=== PATIENT | female | born 1955 | race Caucasian/White ===

== ENCOUNTER 2020-02-26 11:54 | Emergency (ER) | payer OTHER, SELFPAY ==
--- NOTE | ~2020-02-26 | CT_ITS ---
EXAMINATION: CT abdomen pelvis wo con DATE: 02/26/2020 12:24 INDICATION: Abdominal and left-sided back pain. TECHNIQUE: Computed tomography (CT) of the abdomen and pelvis was performed without intravenous contr ast. Automated exposure control and iterative reconstruction technique were employed. The dose-lengt h product was 1048.29 mGy-cm. COMPARISON: 08/06/2016 FINDINGS: Negligible atelectasis in the dependent right lower lobe. Heart size is normal. Atherosclerotic coron tanvi artery calcifications. No pericardial or pleural effusion. Chronic dehiscence of the visualized i nferior sternum with small fat-containing ventral hernia extending through the dehiscence and contigu ous upper midline abdominal wall. Liver, gallbladder, spleen, bilateral adrenal glands and bilateral kidneys are normal. The fatty atrophy at the uncinate process of the pancreas. Fusiform infrarenal ab dominal aortic aneurysm has decreased from 6.3 x 5.9 cm to currently measuring 5.4 x 4.7 cm correspon ding maximal transaxial dimensions post interval aorta endoluminal stent grafting. There are also laverne nts at the origins of the bilateral renal arteries. There is calcified atherosclerosis of the aorta a nd many of the other arteries. Normal appendix. There is mild colonic diverticulosis with a sigmoid p redominance. There is no adjacent inflammatory change to suggest diverticulitis. Small bowel is norm al. Bladder is normal. The uterus is not identified and has likely been surgically resected. Couple h eterotopic ossicles in the deep pelvis, likely sequela of fat necrosis. No free intraperitoneal gas o r fluid. No pathologically enlarged abdominal or pelvic lymphadenopathy. Moderate polyarticular osteo arthritis involving the lumbar facet, bilateral sacroiliac and bilateral hip joints. IMPRESSION: 1. No acute intra-abdominal/pelvic process. 2. Interval decrease in size of a now 5.4 x 4.7 cm infrarenal abdominal aortic aneurysm post interval aortobiiliac endoluminal stent grafting with additional stents at the origins of the bilateral renal arteries. 3. Fat-containing ventral hernia extending through an inferior sternal dehiscence and contiguous uppe r abdominal midline ventral hernia. 4. Mild diverticulosis. Reviewed, dictated and finalized at location A. IMPRESSION: 1. No acute intra-abdominal/pelvic process. 2. Interval decrease in size of a now 5.4 x 4.7 cm infrarenal abdominal aortic aneurysm post interval aortobiiliac endoluminal stent grafting with additional stents at the origins of the bilateral renal arteries. 3. Fat-containing ventral hernia extending through an inferior sternal dehiscen ce and contiguous upper abdominal midline ventral hernia. 4. Mild diverticulosis.
--- NOTE | ~2020-02-26 | XR_ITS ---
EXAMINATION: XR abdomen/kub 1V EXAM DATE: 02/26/2020 12:32 INDICATION: Abdominal pain. TECHNIQUE: Frontal projection of the upper abdomen, frontal projection lower abdomen/pelvis for inter pretation. There is no prior study for comparison. FINDINGS: There is expected amount of colonic stool and gas. No small bowel dilation, nonobstructiv e bowel gas pattern. There are no suspicious calcifications identified. There is no organomegaly suspected. There are bony degenerative changes. Abdominal aortoiliac endograft. Lung bases unremark able. IMPRESSION: Unremarkable abdomen x-ray exam. Reviewed, dictated and finalized at location A.
[2020-02-26 12:09] VITALS: BP 137/85; PULSE 89; RESP 16; TEMP 36.4; O2SAT 100
--- NOTE | 2020-02-26 12:16 | ED.ABDPAIN ---
HPI - Abdominal Pain General Chief Complaint: Abdominal Pain <Dony Saleh PA-C - Last Filed: 02/26/20 13:21> Stated Complaint: blood in urine, back pain, abd pain <Dony Saleh PA-C - Last Filed: 02/26/20 13:21> Time Seen by Provider: 02/26/20 12:01 <Dony Saleh PA-C - Last Filed: 02/26/20 13:21> Source: patient <Dony Saleh PA-C - Last Filed: 02/26/20 13:21> Mode of arrival: ambulatory <Dony Saleh PA-C - Last Filed: 02/26/20 13:21> Limitations: no limitations <Dony Saleh PA-C - Last Filed: 02/26/20 13:21> History of Present Illness HPI narrative: Patient is a 64-year-old female who presents with right-sided abdominal pain radiating into the abdomen with some associated nausea for the last day patient denies injury or trauma or similar occurrence patient has not taken anything for her symptoms and on arrival to emergency department is in the room in no distress <Dony Saleh PA-C - Last Filed: 02/26/20 13:21> Related Data Home Medications: Home Medications Medication Instructions Recorded Confirmed Htn Med 08/04/19 Unk Cholesterol 08/04/19 Unk Diabetes Injection 08/04/19 glipizide 08/04/19 carvedilol 02/26/20 clopidogrel 02/26/20 furosemide 02/26/20 losartan 02/26/20 rosuvastatin mg 02/26/20 sertraline mg 02/26/20 <Dony Saleh PA-C - Last Filed: 02/26/20 13:21> Allergies/Adverse Reactions: Allergies Allergy/AdvReac Type Severity Reaction Status Date / Time No Known Allergies Allergy Verified 02/26/20 12:12 <Dony Saleh PA-C - Last Filed: 02/26/20 13:21> Review of Systems Review of Systems: All systems reviewed & are unremarkable except as noted in HPI and below <Dony Saleh PA-C - Last Filed: 02/26/20 13:21> PMFSH Past Medical History Medical History: Medical History CAD (coronary artery disease) HLD (hyperlipidemia) HTN (hypertension) IDDM (insulin dependent diabetes mellitus) Neuropathy Osteoarthritis of right knee <Dony Saleh PA-C - Last Filed: 02/26/20 13:21> Surgical History Surgical History: Surgical History H/O bilateral cataract extraction H/O heart artery stent H/O: hysterectomy History of abdominal aortic aneurysm (AAA) repair History of cardiac catheterization History of open heart surgery Hx of CABG <Dony Saleh PA-C - Last Filed: 02/26/20 13:21> Social History Social History: Social History Smoking status: Current every day smoker Tobacco type: cigarettes Alcohol intake: never Gender identity (if verbalized by the patient): Female <Dony Saleh PA-C - Last Filed: 02/26/20 13:21> Exam Narrative: Exam Narrative: GENERAL: Well-appearing, well-nourished, and in no acute distress. HEAD: Normocephalic, atraumatic. EYES: PERRLA and EOMI. ENT: Nares clear, no rhinorrhea or epistaxis. Mucous membranes moist. Oropharynx without tonsillar hypertrophy exudate or other lesions. NECK: Supple. No adenopathy or masses. CHEST: Clear to auscultation. No respiratory distress. No wheezes rales or rhonchi HEART: Regular rate and rhythm. No murmur heard. Normal peripheral pulses. ABDOMEN: Soft, nontender, nondistended EXTREMITIES: Normal range of motion. No edema. SKIN: Warm, dry, no rash. NEURO: No focal deficits. Alert and oriented x3. PSYCH: Normal mood and affect. <Dony Saleh PA-C - Last Filed: 02/26/20 13:21> Course Course Emergency Course: Patient in the room at this time in no distress will be given fluids antacids and Tylenol and sent over for CAT scan <Dony Saleh PA-C - Last Filed: 02/26/20 13:21> Reevaluation(s) Reevaluation #1: Patient in the room aware of case findings treatment plan and diagnosis agreein
--- NOTE | 2020-02-26 12:25 | PC.NURSE ---
could not draw blood at this time, pt is in ct and xray.
[2020-02-26 12:27] LABS: Add Urine Microscopic? YES; Appearance Urine Cloudy (Clear); Bilirubin Urine Negative (Negative); Blood Urine 3+ (Negative); Color Urine Red (Yellow); Glucose Urine UA 3+ mg/dL (Negative); Ketones Urine Negative (Negative); Leukocyte Esterase Ur 3+ LEU/UL (Negative); Nitrate Urine Positive (Negative); Protein Urine 2+ mg/dL (Negative); RBC Urine >75 /hpf (0-2); Specific Grav Ur 1.022 (1.001-1.035); Squamous Epithelial Cell Urine Many /hpf (Few); Urobilinogen Urine Negative mg/dL (<2.0); WBC Urine >75 /hpf
[2020-02-26 12:45] LABS: Basophils Percent Auto 0.3 % (0.2-1.2); Eosinophils Absolute Auto 0.1 K/mm3 (0-0.3); Eosinophils Percent Auto 0.8 % (0-4.4); Hematocrit 44.7 % (37.0-47.0); Hemoglobin 14.2 g/dL (12.0-15.0); Immature Granulocyte Absolute 0.03 K/mm3 (0.00-0.031); Immature Granulocyte Percent A 0.3 % (0-0.5); Lymphocytes Absolute Auto 1.06 K/mm3 (0.9-3.2); Lymphocytes Percent Auto 11.5 % (18.3-44.2); Mean Corpuscular HGB Conc 31.8 g/dl (32-36); Mean Corpuscular Hemoglobin 29.2 pg (26-34); Mean Platelet Volume 10.2 fl (7.4-10.4); Monocytes Absolute Auto 0.4 K/mm3 (0.1-0.6); Monocytes Percent Auto 4.7 % (2.6-8.5); Neutrophils Absolute Auto 7.6 K/mm3 (1.3-6.7); Neutrophils Percent Auto 82.4 % (45.5-73.1); Platelet Count Result 166 k/mm3 (150-375); Red Blood Count 4.86 M/mm3 (4.2-5.4); Red Cell Distribution Width 13.4 % (11.5-14.5); White Blood Count 9.2 K/mm3 (4.5-10.0)
--- NOTE | 2020-02-26 12:50 | PC.NURSE ---
PT REFUSING IV ACCESS AND IV MEDS AT THIS TIME. STATES SHE DOESN'T FEEL BAD AND WONDERS IF SHE COULD GET THE MEDICATIONS BY MOUTH.
[2020-02-26 12:59] LABS: Alanine Aminotransferase 11 U/L (4-35); Albumin Level 4.4 g/dL (3.5-5.1); Alkaline Phosphatase 115 U/L (38-126); Aspartate Amino Transferase 18 U/L (14-36); Bilirubin,Total 0.6 mg/dL (0.2-1.3); Blood Urea Nitrogen 14 mg/dL (7-17); Calcium 8.7 mg/dL (8.4-10.2); Carbon Dioxide 32 mmol/L (22-30); Chloride 97 mmol/L (98-107); Estimated CRCL calculation 77 ml/min; Estimated Glomerular Filt Rate > 60; Glucose 260 mg/dL (65-105); Lipase 25 U/L (23-300); Potassium 2.7 mmol/L (3.4-5.0); Sodium 138 mmol/L (137-145)
[2020-02-26 13:50] VITALS: BP 150/83; PULSE 70; RESP 16; O2SAT 96
== END 2020-02-26 13:50 | disposition home or self-care (01) ==
PROVIDERS: Emergency Medicine Emergency Medical Services; Emergency Provider General Practice; PCP Emergency Medicine
DX: N39.0 Urinary tract infection, site not specified (principal); E87.6 Hypokalemia; I25.10 Atherosclerotic heart disease of native coronary artery without angina pectoris; E78.5 Hyperlipidemia, unspecified; I10 Essential (primary) hypertension; M17.11 Unilateral primary osteoarthritis, right knee; E11.40 Type 2 diabetes mellitus with diabetic neuropathy, unspecified; Z98.42 Cataract extraction status, left eye; Z98.41 Cataract extraction status, right eye; Z95.5 Presence of coronary angioplasty implant and graft; Z95.1 Presence of aortocoronary bypass graft; F17.210 Nicotine dependence, cigarettes, uncomplicated; K57.90 Diverticulosis of intestine, part unspecified, without perforation or abscess without bleeding; K43.9 Ventral hernia without obstruction or gangrene; I71.4 Abdominal aortic aneurysm, without rupture; Z79.84 Long term (current) use of oral hypoglycemic drugs
CPT/HCPCS: 36415; 74018; 74176; 80053; 81001; 83690; 85025; 87077; 87086; 87088; 87186; 99284

== ENCOUNTER 2020-07-11 12:11 | Outpatient (CLI) | payer OTHER, SELFPAY ==
--- NOTE | ~2020-07-11 | XR_ITS ---
EXAMINATION: XR lumbar spine 2-3V EXAM DATE: 07/11/2020 12:39 INDICATION: Low back pain,pelvic/hip pain. Fall 2 weeks ago. TECHNIQUE: Lumber spine frontal, lateral, lateral L5-S1 projections for interpretation. There is no prior study for comparison. FINDINGS: There is 3 mm anterolisthesis L4 on L5. Mild to moderate loss of the L5-S1 disc height. Th e vertebral body and disc heights are otherwise well maintained. There is moderate lower lumbar, mild upper lumbar facet arthropathy. There are no acute fractures identified. Abdominal aortic biiliac en dograft and bilateral renal arterial stents. Sacrum, sacroiliac joints, sacral arcuate lines are inta ct. IMPRESSION: 1. No acute lumbar findings. 2. Mild to moderate spondylosis. Reviewed, dictated and finalized at location A. NEL LIP WETTER
--- NOTE | ~2020-07-11 | XR_ITS ---
EXAMINATION: XR hip BI 2V w AP pelvis, XR sacrum coccyx min 2V EXAM DATE: 07/11/2020 12:39 INDICATION: Low back pain, pelvic/hip pain. History of fall 2 weeks ago. Initial encounter. TECHNIQUE: Each hip imaged independently (separate right and also left hip) crosstable lateral and ' frog-leg' and frontal projections for interpretation. Frontal projection pelvis. Frontal, pelvic in let, lateral projections of the sacrum and coccyx. FINDINGS: No radiographic evidence of hip avascular necrosis. Sacrum, sacroiliac joints, sacral arc uate lines are intact. There are no acute fractures identified. Aortoiliac endograft. There is mode rate symmetric bilateral hip primary osteoarthritis. Calcifications in the pelvis are believed to be phleboliths. IMPRESSION: 1. No acute pelvic, sacral findings. 2. Moderate hip osteoarthritis. Reviewed, dictated and finalized at location A. PLANNING TEACHER IMPRESSION: 1. No acute pelvic, sacral findings. 2. Moderate hip osteoarthritis.
== END 2020-07-11 12:12 | disposition home or self-care (01) ==
LOC: ANHIMG 12:13
PROVIDERS: PCP Emergency Medicine; Visit Provider Emergency Medicine
DX: M16.0 Bilateral primary osteoarthritis of hip (principal); M47.816 Spondylosis without myelopathy or radiculopathy, lumbar region
CPT/HCPCS: 72100; 72220; 73521

== ENCOUNTER 2020-07-13 12:44 | Emergency (ER) | payer OTHER, SELFPAY ==
--- NOTE | ~2020-07-13 | CT_ITS ---
EXAMINATION: CT abdomen pelvis w con DATE: 07/13/2020 17:21 INDICATION: Left upper quadrant abdominal pain. TECHNIQUE: Computed tomography (CT) of the abdomen and pelvis was performed with 100 mL Omnipaque-350 intravenous contrast. Automated exposure control and iterative reconstruction technique were employe d. The dose-length product was 1206.19 mGy-cm. COMPARISON: 02/26/2020 FINDINGS: Mild emphysema and unchanged mild atelectasis/scarring in the right lower lobe. Heart size is normal. Atherosclerotic coronary artery disease with change of prior median sternotomy and coronary artery b ypass grafting. No pericardial or pleural effusion. Chronic dehiscence of the inferior sternum with s mall fat-containing ventral hernia extending to the caudal margin of the inferior sternal dehiscence and midline upper abdominal wall. Liver, gallbladder, spleen and bilateral adrenal glands are normal. There is fatty atrophy of the head of the pancreas. Scattered mild cortical scarring at the kidneys most prominent at the lower pole of the left kidney. Aortobiiliac endoluminal stent spanning a fusifo rm infrarenal abdominal aortic aneurysm which measures up to 4.7 x 4.9 cm which is decreased in size since the prior study. There are associated stents at the origin of the bilateral renal arteries. The re is mild colonic diverticulosis with a sigmoid predominance. There is no adjacent inflammatory jeane nge to suggest diverticulitis. Small bowel and appendix are normal. Bladder is normal. The uterus is not identified and has likely been surgically resected. Couple chronic small heterotopic ossicles in the deep pelvis likely sequela of fat necrosis. No free intraperitoneal gas or fluid. No pathological ly enlarged abdominal or pelvic lymphadenopathy. Mild lumbar and moderate lower thoracic spondylosis. Mild to moderate polyarticular osteoarthritis involving the lumbar facet and bilateral sacroiliac an d hip joints. IMPRESSION: 1. No acute intra-abdominal/pelvic process. 2. Continued decrease in size of a now 4.9 x 4.7 cm infrarenal abdominal aortic aneurysm post aortobi iliac endoluminal stent grafting including stents at the origins of the bilateral renal arteries. 3. Fat-containing ventral hernia extending through an inferior sternal dehiscence and contiguous midl ine upper abdominal wall. 4. Mild diverticulosis. Reviewed, dictated and finalized at location H. CTOR OF REGIONAL SALES IMPRESSION: 1. No acute intra-abdominal/pelvic process. 2. Continued decrease in size of a now 4.9 x 4.7 cm infrarenal abdominal aortic aneurysm post aortobiiliac endoluminal stent grafting including stents at the origins of the bilateral renal arteries. 3. Fat-containing ventral hernia extending through an inferior sternal dehiscen ce and contiguous midline upper abdominal wall. 4. Mild diverticulosis.
--- NOTE | ~2020-07-13 | XR_ITS ---
EXAMINATION: XR shoulder RT min 2V DATE: 07/13/2020 17:26 INDICATION: Anterior right shoulder pain post fall 3 weeks prior TECHNIQUE: AP internally and externally rotated, AP oblique externally rotated and transscapular Y vi ews of the right shoulder were obtained. COMPARISON: None FINDINGS: Normal alignment. No fracture. Glenohumeral joint space is normal. Mild acromioclavicular osteoarthr itis. Mild cystic change at the greater tuberosity which can be seen with rotator cuff disease. Moder ate to severe spondylosis in the visualized mid to lower cervical spine and moderate thoracic spondyl osis. Median sternotomy wires and mediastinal surgical clips are seen, likely from prior coronary art brian bypass grafting. Visualized portions of the right lung are clear. IMPRESSION: Chronic mild degenerative changes at the right shoulder. No acute osseous abnormality. Reviewed, dictated and finalized at [facility]. ESTATE SERVICES COORDINATOR IMPRESSION: Chronic mild degenerative changes at the right shoulder. No acute osseous abnor mality.
[2020-07-13 12:55] VITALS: PULSE 69; RESP 18; TEMP 36.3; O2SAT 100
--- NOTE | 2020-07-13 15:01 | ED.ABDPAIN ---
HPI - Abdominal Pain General Chief Complaint: Abdominal Pain Stated Complaint: mass on abdomen Time Seen by Provider: 07/13/20 14:49 History of Present Illness HPI narrative: Sent here by Dr. Cabrera for an abdominal mass . She says that she has had pain in the LUQ and left lower costal margin for a few months. She saw him and clinic and he told her that she had a mass and needed to come here. Unclear why this was considered an emergency at this time. No nausea, vomiting, diarrhea, dysuria, hematuria. Additionally she had a recent fall and has pain in the right shoulder since that time. Full ROM. Related Data Home Medications Medication Instructions Recorded Confirmed glipizide 08/04/19 carvedilol 02/26/20 clopidogrel 02/26/20 furosemide 02/26/20 losartan 02/26/20 rosuvastatin mg 02/26/20 sertraline mg 02/26/20 insulin glargine [Lantus Solostar SUBCUT 07/13/20 U-100 Insulin] Allergies Allergy/AdvReac Type Severity Reaction Status Date / Time No Known Allergies Allergy Verified 07/13/20 14:46 Review of Systems Review of Systems: All systems reviewed & are unremarkable except as noted in HPI and below Constitutional: Constitutional: Denies chills and Denies fever(s) Cardiovascular: Cardiovascular: Denies chest pain Respiratory: Respiratory: Denies dyspnea Gastrointestinal: Gastrointestinal: Reports abdominal pain, Denies constipation, Denies diarrhea, Denies nausea and Denies vomiting Genitourinary: Genitourinary: Denies hematuria and Denies dysuria Musculoskeletal: Musculoskeletal: Denies back pain Neurologic: Denies dizziness [facility] Past Medical History Medical History (Updated 07/14/20 @ 00:00 by Background Daemon) CAD (coronary artery disease) HLD (hyperlipidemia) HTN (hypertension) IDDM (insulin dependent diabetes mellitus) Neuropathy Osteoarthritis of right knee Surgical History Surgical History H/O bilateral cataract extraction H/O heart artery stent H/O: hysterectomy History of abdominal aortic aneurysm (AAA) repair History of cardiac catheterization History of open heart surgery Hx of CABG Social History Social History Smoking status: Current every day smoker Tobacco type: cigarettes Alcohol intake: never Gender identity (if verbalized by the patient): Female Exam Const: General: healthy appearing, no acute distress and alert Orientation/consciousness: patient oriented x3 HENMT: Head: normal to inspection Neck: Neck: normal visual inspection and no lymphadenopathy Chest: Chest palpation & inspection: tenderness (left lower costal margin) Resp: Effort & Inspection: normal respiratory effort Auscultation: clear to auscultation bilaterally, no rales, no rhonchi and no wheezes Cardio: Jugular venous distension: no JVD Rate: regular rate Rhythm: regular rhythm Heart sounds: no murmurs GI: Inspection: non-distended GI Palp: Yes Soft to palpation and No Tenderness to palpation present (GI) Skin: General skin exam: normal color Neuro: General: patient oriented x3 and moves all extremities Speech: normal speech Extrem: General: no edema Psych: Appearance: well kempt Affect: normal affect Course Vital Signs Vital signs: Vital Signs Temperature 36.3 C L 07/13/20 12:55 Pulse Rate 69 07/13/20 12:55 Respiratory Rate 18 07/13/20 12:55 Pulse Oximetry 100 07/13/20 12:55 Temperature 36.3 C L 07/13/20 12:55 Pulse Rate 80 07/13/20 17:43 Respiratory Rate 18 07/13/20 12:55 Blood Pressure 138/94 H 07/13/20 17:43 Pulse Oximetry 94 07/13/20 17:43 MDM - Abdominal Pain MDM Narrative Medical decision making narrative: No mass or other acute abdominal finding on CT. Fat containing hernia Differential Diagnosis Differential diagnosis: Likely calculus of kidney, diverticulitis and small bowel obstruction
[2020-07-13 15:37] LABS: Basophils Percent Auto 0.4 % (0.2-1.2); Eosinophils Absolute Auto 0.1 K/mm3 (0-0.3); Eosinophils Percent Auto 1.8 % (0-4.4); Hematocrit 41.7 % (37.0-47.0); Hemoglobin 13.2 g/dL (12.0-15.0); Immature Granulocyte Absolute 0.03 K/mm3 (0.00-0.031); Immature Granulocyte Percent A 0.5 % (0-0.5); Lymphocytes Absolute Auto 1.23 K/mm3 (0.9-3.2); Lymphocytes Percent Auto 21.7 % (18.3-44.2); Mean Corpuscular HGB Conc 31.7 g/dl (32-36); Mean Corpuscular Hemoglobin 29.4 pg (26-34); Mean Corpuscular Volume 92.9 fl (80-100); Mean Platelet Volume 10.2 fl (7.4-10.4); Monocytes Absolute Auto 0.3 K/mm3 (0.1-0.6); Monocytes Percent Auto 5.5 % (2.6-8.5); Neutrophils Percent Auto 70.1 % (45.5-73.1); Platelet Count Result 166 k/mm3 (150-375); Red Blood Count 4.49 M/mm3 (4.2-5.4); Red Cell Distribution Width 13.4 % (11.5-14.5); White Blood Count 5.7 K/mm3 (4.5-10.0)
[2020-07-13 15:49] LABS: Alanine Aminotransferase 9 U/L (4-35); Albumin Level 4.2 g/dL (3.5-5.1); Alkaline Phosphatase 100 U/L (38-126); Anion Gap 6 mmol/L (8-16); Aspartate Amino Transferase 19 U/L (14-36); Bilirubin,Total 0.3 mg/dL (0.2-1.3); Blood Urea Nitrogen 15 mg/dL (7-17); Carbon Dioxide 34 mmol/L (22-30); Chloride 104 mmol/L (98-107); Estimated CRCL calculation 63 ml/min; Estimated Glomerular Filt Rate > 60; Glucose 142 mg/dL (65-105); Potassium 3.8 mmol/L (3.4-5.0); Sodium 144 mmol/L (137-145)
[2020-07-13 17:43] VITALS: BP 138/94; PULSE 80; O2SAT 94
== END 2020-07-13 18:22 | disposition home or self-care (01) ==
PROVIDERS: Emergency Provider Emergency Medicine; PCP Emergency Medicine
DX: R10.12 Left upper quadrant pain (principal); M19.011 Primary osteoarthritis, right shoulder; I25.10 Atherosclerotic heart disease of native coronary artery without angina pectoris; E78.5 Hyperlipidemia, unspecified; I10 Essential (primary) hypertension; E11.40 Type 2 diabetes mellitus with diabetic neuropathy, unspecified; Z79.4 Long term (current) use of insulin; Z98.42 Cataract extraction status, left eye; Z98.41 Cataract extraction status, right eye; Z95.5 Presence of coronary angioplasty implant and graft; Z95.1 Presence of aortocoronary bypass graft; F17.210 Nicotine dependence, cigarettes, uncomplicated; K43.9 Ventral hernia without obstruction or gangrene; K57.90 Diverticulosis of intestine, part unspecified, without perforation or abscess without bleeding
CPT/HCPCS: 36415; 73030; 74177; 80053; 85025; 99284; Q9967

== ENCOUNTER 2020-08-03 02:45 | Emergency (ER) | payer MEDICARE, MEDICAID, SELFPAY ==
--- NOTE | ~2020-08-03 | CT_ITS ---
EXAMINATION: CT cervical spine wo con DATE: 08/03/2020 03:25 INDICATION: Head injury. TECHNIQUE: Computed tomography (CT) of the cervical spine was performed without intravenous contrast. Automated exposure control and iterative reconstruction technique were employed. The dose-length pro duct was 459.57 mGy-cm. COMPARISON: None FINDINGS: There is mild emphysema. There is kyphosis of cervical spine. There is 8 degrees levocurvat ure of cervical spine. There is 2 mm anterolisthesis of C4 on C5 and C7 on T1. Vertebral body heights are normal. There is mildly decreased disc height at C4-C5, moderately decreased disc height at C5-C 6, and severely decreased disc height at C6-C7. The following disc levels are specifically discussed: C2-C3: There is no uncovertebral joint osteoarthritis. There is moderate right and severe left facet joint osteoarthritis. There is mild left neural foraminal stenosis. There is no central canal stenosi s. C3-C4: There is ankylosis of left uncovertebral joint with mild hypertrophy. There is mild right unco vertebral joint osteoarthritis. There is moderate right facet joint osteoarthritis. There is ankylosi s of left facet joint with moderate hypertrophy. There is mild left neural foraminal stenosis. There is no central canal stenosis. C4-C5: There is mild bilateral uncovertebral joint osteoarthritis. There is severe bilateral facet reyna int osteoarthritis. There is mild bilateral neural foraminal stenosis. There is mild central canal st enosis. C5-C6: There is mild right and severe left uncovertebral joint osteoarthritis. There is severe bilate ral facet joint osteoarthritis. There is mild left neural foraminal stenosis. There is mild central c anal stenosis. C6-C7: There is severe bilateral uncovertebral joint osteoarthritis. There is severe bilateral facet joint osteoarthritis. There is mild right and moderate left neural foraminal stenosis. There is mild central canal stenosis. C7-T1: There is no uncovertebral joint osteoarthritis. There is severe bilateral facet joint osteoart hritis. There is mild bilateral neural foraminal stenosis. There is no central canal stenosis. IMPRESSION: 1. No fracture. 2. Severe cervical spondylosis. Reviewed, dictated and finalized at location B. MACHINE OPERATOR
--- NOTE | ~2020-08-03 | CT_ITS ---
EXAMINATION: CT brain wo con DATE: 08/03/2020 03:25 INDICATION: Head injury. TECHNIQUE: Computed tomography (CT) of the head was performed without intravenous contrast. The mA wa s adjusted according to patient size. Iterative reconstruction technique was employed. The dose-lengt h product was 605.33 mGy-cm. COMPARISON: Head CT 09/01/2019 FINDINGS: There is no intracranial hemorrhage, acute infarction, or abnormal intracranial mass lesion . The ventricles are normal in size. There is mild mucosal thickening in the ethmoid sinuses. There a re likely changes of left ocular lens replacement surgery. The mastoid air cells are normal. IMPRESSION: 1. Normal brain. Reviewed, dictated and finalized at location B. STIC SPECIALIST IMPRESSION: 1. Normal brain.
[2020-08-03 02:47] VITALS: BP 175/76; PULSE 82; RESP 16; TEMP 36.8; O2SAT 99
--- NOTE | 2020-08-03 03:27 | ED.FALL ---
HPI - Fall General Chief Complaint: Fall Stated Complaint: fall Time Seen by Provider: 08/03/20 02:52 Source: patient Mode of arrival: ambulatory Limitations: no limitations History of Present Illness HPI Narrative: This patient is a 64 year old female who presents for evaluation of a head injury. She states an hour prior to arrival she accidentally slipped and she fell backwards. She reports she hit the back of head, and she takes plavix. She denies LOC. She reports she had nausea but that has resolved, and she is developing neck pain. She denies focal weakness, numbness or tingling. Related Data Home Medications Medication Instructions Recorded Confirmed glipizide 08/04/19 carvedilol 02/26/20 clopidogrel 02/26/20 furosemide 02/26/20 losartan 02/26/20 rosuvastatin mg 02/26/20 sertraline mg 02/26/20 insulin glargine [Lantus Solostar SUBCUT 07/13/20 U-100 Insulin] Allergies Allergy/AdvReac Type Severity Reaction Status Date / Time No Known Allergies Allergy Verified 07/13/20 14:46 Review of Systems Review of Systems: All systems reviewed & are unremarkable except as noted in HPI and below PMFSH Past Medical History Medical History (Updated 08/03/20 @ 03:55 by Mckenna Ponce MD) CAD (coronary artery disease) HLD (hyperlipidemia) HTN (hypertension) IDDM (insulin dependent diabetes mellitus) Neuropathy Osteoarthritis of right knee Surgical History Surgical History H/O bilateral cataract extraction H/O heart artery stent H/O: hysterectomy History of abdominal aortic aneurysm (AAA) repair History of cardiac catheterization History of open heart surgery Hx of CABG Social History Social History Smoking status: Current every day smoker Tobacco type: cigarettes Alcohol intake: never Gender identity (if verbalized by the patient): Female Exam Const: General: no acute distress and alert Orientation/consciousness: patient oriented x3 HENMT: Head: normocephalic and atraumatic Face and sinus: face symmetric Mouth: Yes Normal oral and palatal mucosa present, Yes lip normal, Yes oropharynx normal and Yes moist mucous membranes Throat: posterior oropharynx normal, tonsils normal and uvula midline Chest: Chest palpation & inspection: normal inspection of the chest Resp: Effort & Inspection: normal respiratory effort and no retractions Auscultation: clear to auscultation bilaterally Cardio: Rate: regular rate Rhythm: regular rhythm Heart sounds: no murmurs GI: GI Palp: Yes Soft to palpation, No Tenderness to palpation present (GI) and No Guarding due to palpation present (GI) Auscultation: normal bowel sounds Skin: General skin exam: normal color Rashes: no rashes Neuro: General: patient oriented x3 and moves all extremities Psych: Mental Status: mental status grossly normal Affect: normal affect Course Vital Signs Vital signs: Vital Signs Temperature 98.3 F 08/03/20 02:47 Pulse Rate 82 08/03/20 02:47 Respiratory Rate 16 08/03/20 02:47 Blood Pressure 175/76 H 08/03/20 02:47 Pulse Oximetry 99 08/03/20 02:47 Temperature 98.3 F 08/03/20 02:47 Pulse Rate 79 08/03/20 04:11 Respiratory Rate 20 08/03/20 04:11 Blood Pressure 169/70 H 08/03/20 04:11 Pulse Oximetry 97 08/03/20 04:11 MDM - Fall Imaging Data Radiologist's impression: CT brain Brain: No hemorrhag, hydrocephalus, mass effect or herniation. Bones: No acute calvarial fracture Ct C spine Bones: No acute fracture or subluxation Soft tissue: No prevertebral soft tissue swelling. Upper lungs: Unremarkable. Discharge Plan Discharge Clinical Impression: CHI (closed head injury), Sprain of cervical neck Patient Disposition: Home, Self-Care Condition: Stable Instructions: Antibiotic Form, Head Injury (ED) Prescriptions: No Action
[2020-08-03 04:11] VITALS: BP 169/70; PULSE 79; RESP 20; O2SAT 97
== END 2020-08-03 04:14 | disposition home or self-care (01) ==
PROVIDERS: Emergency Provider General Practice; PCP Emergency Medicine
DX: S09.90XA Unspecified injury of head, initial encounter (principal); S13.9XXA Sprain of joints and ligaments of unspecified parts of neck, initial encounter; I25.10 Atherosclerotic heart disease of native coronary artery without angina pectoris; E78.5 Hyperlipidemia, unspecified; I10 Essential (primary) hypertension; E11.40 Type 2 diabetes mellitus with diabetic neuropathy, unspecified; Z79.4 Long term (current) use of insulin; M17.11 Unilateral primary osteoarthritis, right knee; Z98.42 Cataract extraction status, left eye; Z98.41 Cataract extraction status, right eye; Z95.1 Presence of aortocoronary bypass graft; F17.210 Nicotine dependence, cigarettes, uncomplicated; Z79.02 Long term (current) use of antithrombotics/antiplatelets; W01.0XXA Fall on same level from slipping, tripping and stumbling without subsequent striking against object, initial encounter
CPT/HCPCS: 70450; 72125; 99284

== ENCOUNTER 2020-09-14 12:52 | Emergency (ER) | payer OTHER, SELFPAY ==
[2020-09-14 13:03] VITALS: BP 125/77; PULSE 78; RESP 18; TEMP 36.4; O2SAT 100
[2020-09-14 13:23] LABS: Basophils Percent Auto 0.2 % (0.2-1.2); Hematocrit 42.7 % (37.0-47.0); Hemoglobin 13.9 g/dL (12.0-15.0); Immature Granulocyte Absolute 0.03 K/mm3 (0.00-0.031); Immature Granulocyte Percent A 0.5 % (0-0.5); Lymphocytes Absolute Auto 0.96 K/mm3 (0.9-3.2); Lymphocytes Percent Auto 14.7 % (18.3-44.2); Mean Corpuscular HGB Conc 32.6 g/dl (32-36); Mean Corpuscular Hemoglobin 29.6 pg (26-34); Mean Corpuscular Volume 90.9 fl (80-100); Mean Platelet Volume 10.5 fl (7.4-10.4); Monocytes Absolute Auto 0.5 K/mm3 (0.1-0.6); Monocytes Percent Auto 7.3 % (2.6-8.5); Neutrophils Absolute Auto 5.1 K/mm3 (1.3-6.7); Neutrophils Percent Auto 77.3 % (45.5-73.1); Platelet Count Result 152 k/mm3 (150-375); White Blood Count 6.5 K/mm3 (4.5-10.0)
[2020-09-14 13:29] LABS: Add Urine Microscopic? YES; Appearance Urine Cloudy (Clear); Bacteria Urine 4+ /hpf; Bilirubin Urine Negative (Negative); Blood Urine 2+ (Negative); Color Urine Yellow (Yellow); Glucose Urine UA 3+ mg/dL (Negative); Ketones Urine Negative (Negative); Leukocyte Esterase Ur 3+ LEU/UL (Negative); Mucus Urine Few /lpf; Nitrate Urine Negative (Negative); Protein Urine 1+ mg/dL (Negative); RBC Urine 21-50 /hpf (0-2); Squamous Epithelial Cell Urine Many /hpf (Few); Urobilinogen Urine Negative mg/dL (<2.0); WBC Clumps Urine Present /HPF; WBC Urine >75 /hpf
[2020-09-14 13:50] LABS: Alanine Aminotransferase 14 U/L (4-35); Albumin Level 3.8 g/dL (3.5-5.1); Alkaline Phosphatase 96 U/L (38-126); Anion Gap 7 mmol/L (8-16); Aspartate Amino Transferase 20 U/L (14-36); Bilirubin,Total 0.8 mg/dL (0.2-1.3); Blood Urea Nitrogen 17 mg/dL (7-17); Calcium 8.2 mg/dL (8.4-10.2); Carbon Dioxide 28 mmol/L (22-30); Chloride 100 mmol/L (98-107); Estimated CRCL calculation 54 ml/min; Estimated Glomerular Filt Rate 56; Glucose 268 mg/dL (65-105); Potassium 2.7 mmol/L (3.4-5.0); Sodium 135 mmol/L (137-145)
[2020-09-14] MEDS: POTASSIUM CHLORIDE 20 MEQ TABLET 40 MEQ PO (14:38)
--- NOTE | 2020-09-14 15:19 | ED.GENADULT ---
HPI - General Adult General Chief complaint: Urogenital-Female Stated complaint: UTI sx Time Seen by Provider: 09/14/20 14:00 History of Present Illness HPI narrative: Patient is a 65-year-old female who presents ER with complains of weakness and urinary incontinence. Reports over the last couple days she has been very weak where she can get her self bed she has been incontinent on herself. She has been having subjective fevers and chills. No chest pain or chest pressure lower abdominal pain. Has had similar symptoms in the past when she has had an infection. Patient denies any vomiting or diarrhea. Denies striking her head or any loss consciousness. Related Data Home Medications Medication Instructions Recorded Confirmed insulin glargine [Lantus Solostar SUBCUT 07/13/20 09/08/20 U-100 Insulin] carvedilol 09/14/20 ezetimibe mg 09/14/20 furosemide 09/14/20 glipizide mg 09/14/20 losartan 09/14/20 omeprazole 09/14/20 potassium chloride meq PO 09/14/20 rosuvastatin mg 09/14/20 Allergies Allergy/AdvReac Type Severity Reaction Status Date / Time No Known Allergies Allergy Verified 09/14/20 14:12 Review of Systems Review of Systems: All systems reviewed & are unremarkable except as noted in HPI and below Constitutional: Constitutional: Reports chills, Reports fever(s) and Reports weakness ENT: Denies nasal congestion and Denies sore throat Cardiovascular: Cardiovascular: Denies chest pain and Denies radiating jaw, neck or arm pain Gastrointestinal: Gastrointestinal: Denies abdominal pain, Denies diarrhea, Denies nausea and Denies vomiting Genitourinary: Genitourinary: Reports nocturia, Denies dysuria and Reports urinary incontinence Musculoskeletal: Musculoskeletal: Denies back pain and Denies muscle cramps PMF Past Medical History Medical History (Updated 09/14/20 @ 15:27 by Spencer Morse MD) CAD (coronary artery disease) HLD (hyperlipidemia) HTN (hypertension) IDDM (insulin dependent diabetes mellitus) Neuropathy Osteoarthritis of right knee Surgical History Surgical History H/O bilateral cataract extraction H/O heart artery stent H/O: hysterectomy History of abdominal aortic aneurysm (AAA) repair History of cardiac catheterization History of open heart surgery Hx of CABG Social History Social History Smoking status: Current every day smoker Tobacco type: cigarettes Alcohol intake: never Gender identity (if verbalized by the patient): Female Exam Narrative: Exam Narrative: GENERAL: Well-appearing, well-nourished, and in no acute distress. HEAD: Normocephalic, atraumatic. EYES: PERRL and EOMI. CHEST: Clear to auscultation. No respiratory distress. HEART: Regular rate and rhythm. Normal peripheral pulses. ABDOMEN: Soft, nontender, nondistended. EXTREMITIES: Normal range of motion. No edema. SKIN: Warm, dry, no rash. NEURO: Alert and oriented x3. Course Course Emergency Course: Patient informed results. Received oral potassium replacement as well as IV antibiotics. Discussed that would like patient to stay in the hospital given the fact that she is feeling weak and she has hypokalemia as well as UTI. Patient verbalized understanding of this but reports that there is no chance of her stay in the hospital and that she prefers to go home. She does have someone who can stay with her and help her. Patient also reports she has been compliant with her Lasix but has not been taking her potassium supplementation. This would explain the hypokalemia. Patient will sign out AMA and reports she understands the risks. Encourage patient take the antibiotics that are prescribed and also asked her to hold her Lasix for 2 days while actually taking her potassium supplementation. Vital Signs Vital signs: Vital Signs Temperature 97.5 F L 09/14/20 13:03 Pulse Ra
[2020-09-14 15:30] VITALS: BP 111/58; PULSE 70; RESP 16; O2SAT 97
== END 2020-09-14 15:30 | disposition left against medical advice (07) ==
PROVIDERS: Emergency Medicine; Emergency Provider Emergency Medicine
DX: N39.0 Urinary tract infection, site not specified (principal); E87.6 Hypokalemia; I25.10 Atherosclerotic heart disease of native coronary artery without angina pectoris; E78.5 Hyperlipidemia, unspecified; I10 Essential (primary) hypertension; E11.40 Type 2 diabetes mellitus with diabetic neuropathy, unspecified; Z79.4 Long term (current) use of insulin; Z98.42 Cataract extraction status, left eye; Z98.41 Cataract extraction status, right eye; Z95.5 Presence of coronary angioplasty implant and graft; Z95.1 Presence of aortocoronary bypass graft; F17.210 Nicotine dependence, cigarettes, uncomplicated
CPT/HCPCS: 36415; 80053; 81001; 85025; 87077; 87086; 87088; 87186; 96365; 99284; A9270; J0696

== ENCOUNTER 2020-12-03 15:25 | Emergency (ER) | payer OTHER, MEDICAID, SELFPAY ==
--- NOTE | ~2020-12-03 | CT_ITS ---
EXAMINATION: CT abdomen pelvis w con INDICATION: Abdominal pain TECHNIQUE: Computed tomographic images of the abdomen and pelvis were obtained after the administrati on of 100 cc of Omnipaque 350 intravenous contrast. The dose-length product (DLP) was 998.44 mGy-cm. Automated exposure control and iterative reconstruction technique were employed. COMPARISON: 07/13/2020 FINDINGS: The lung bases are clear. The heart size is normal. The liver, spleen, pancreas, gallbladde r, and adrenal glands are normal. The kidneys are unremarkable. There is a 5.0 cm fusiform infrarenal abdominal aortic aneurysm status post endoluminal stent graft repair. Stents are also noted at the o rigins of the renal arteries. No pathologically enlarged abdominal or pelvic lymph nodes are identifi ed. There is no free intraperitoneal gas or evidence of bowel obstruction. The appendix is normal. A moderate amount of ingested material is present in the stomach. There is mild lumbar spondylosis. Aga in noted is a midline epigastric hernia just below the sternum. IMPRESSION: 1. No CT correlate for the patient's symptoms. Reviewed, dictated and finalized at location A.
[2020-12-03 15:56] VITALS: BP 139/69; PULSE 68; RESP 20; TEMP 36.4; O2SAT 99
[2020-12-03 16:16] LABS: Basophils Percent Auto 0.1 % (0.2-1.2); Eosinophils Absolute Auto 0.1 K/mm3 (0-0.3); Eosinophils Percent Auto 1.6 % (0-4.4); Hematocrit 46.5 % (37.0-47.0); Hemoglobin 14.5 g/dL (12.0-15.0); Immature Granulocyte Absolute 0.02 K/mm3 (0.00-0.031); Immature Granulocyte Percent A 0.3 % (0-0.5); Lymphocytes Absolute Auto 1.18 K/mm3 (0.9-3.2); Lymphocytes Percent Auto 17.3 % (18.3-44.2); Mean Corpuscular HGB Conc 31.2 g/dl (32-36); Mean Corpuscular Hemoglobin 29.2 pg (26-34); Mean Corpuscular Volume 93.8 fl (80-100); Mean Platelet Volume 9.7 fl (7.4-10.4); Monocytes Absolute Auto 0.4 K/mm3 (0.1-0.6); Monocytes Percent Auto 5.1 % (2.6-8.5); Neutrophils Absolute Auto 5.2 K/mm3 (1.3-6.7); Neutrophils Percent Auto 75.6 % (45.5-73.1); Platelet Count Result 189 k/mm3 (150-375); Red Blood Count 4.96 M/mm3 (4.2-5.4); Red Cell Distribution Width 13.6 % (11.5-14.5); White Blood Count 6.8 K/mm3 (4.5-10.0)
[2020-12-03 16:35] LABS: Alanine Aminotransferase 13 U/L (4-35); Albumin Level 4.6 g/dL (3.5-5.1); Alkaline Phosphatase 101 U/L (38-126); Anion Gap 8 mmol/L (8-16); Aspartate Amino Transferase 22 U/L (14-36); Bilirubin,Total 0.5 mg/dL (0.2-1.3); Blood Urea Nitrogen 14 mg/dL (7-17); Calcium 9.4 mg/dL (8.4-10.2); Carbon Dioxide 33 mmol/L (22-30); Chloride 102 mmol/L (98-107); Estimated CRCL calculation 61 ml/min; Estimated Glomerular Filt Rate > 60; Glucose 155 mg/dL (65-105); Lipase 36 U/L (23-300); Sodium 143 mmol/L (137-145)
[2020-12-03 16:48] LABS: Add Urine Microscopic? YES; Appearance Urine Cloudy (Clear); Bacteria Urine Trace /hpf; Bilirubin Urine Negative (Negative); Blood Urine Negative (Negative); Color Urine Yellow (Yellow); Glucose Urine UA 3+ mg/dL (Negative); Ketones Urine Negative (Negative); Leukocyte Esterase Ur Negative LEU/UL (Negative); Mucus Urine Rare /lpf; Nitrate Urine Negative (Negative); Protein Urine Negative (Negative); RBC Urine 0-2 /hpf (0-2); Specific Grav Ur 1.017 (1.001-1.035); Squamous Epithelial Cell Urine Moderate /hpf (Few); Urobilinogen Urine Negative mg/dL (<2.0); WBC Urine 0-3 /hpf
[2020-12-03 18:00] VITALS: BP 129/89; PULSE 61; RESP 18; TEMP 36.7; O2SAT 100
[2020-12-03] MEDS: PANTOPRAZOLE SODIUM IV 40 MG VIAL IV PUSH (18:22)
[2020-12-03] MEDS: SODIUM CHLORIDE 0.9% IV 500 ML 999 ML IV CONT (18:24)
[2020-12-03] MEDS: LIDOCAINE HCL 2% VISC SOLN 15 ML UDC 20 ML PO (18:27)
[2020-12-03] MEDS: MAG HYDROX/AL HYDROX/SIMETH 30 ML UDC PO (18:27)
--- NOTE | 2020-12-03 18:34 | PC.NURSE ---
Patient to CT scan at this time.
--- NOTE | 2020-12-03 19:12 | ED.ABDPAIN ---
HPI - Abdominal Pain General Chief Complaint: Abdominal Pain <JUAN Garcia Last Filed: 12/03/20 19:19> Stated Complaint: upper GI pain <JUAN Garcia Last Filed: 12/03/20 19:19> Time Seen by Provider: 12/03/20 17:34 <JUAN Garcia Last Filed: 12/03/20 19:19> Source: patient <JUAN Garcia Last Filed: 12/03/20 19:19> Mode of arrival: ambulatory <JUAN Garcia Last Filed: 12/03/20 19:19> Limitations: no limitations <JUAN Garcia Last Filed: 12/03/20 19:19> History of Present Illness HPI narrative: Patient is a 65-year-old female who presents to emergency department for evaluation of epigastric abdominal pain for the last couple of days patient is unsure as to the cause patient denies any fever chills nausea vomiting diarrhea nothing is made the pain better or worse patient on arrival in the room in no distress. Patient notes she had had a slightly similar occurrence in the past and was told she had gallbladder sludge <JUAN Garcia Last Filed: 12/03/20 19:19> Related Data Home Medications: Home Medications Medication Instructions Recorded Confirmed insulin glargine [Lantus Solostar SUBCUT 07/13/20 09/08/20 U-100 Insulin] carvedilol 09/14/20 ezetimibe mg 09/14/20 furosemide 09/14/20 glipizide mg 09/14/20 losartan 09/14/20 omeprazole 09/14/20 potassium chloride meq PO 09/14/20 rosuvastatin mg 09/14/20 clopidogrel 12/03/20 semaglutide [Ozempic] mg SUBCUT 12/03/20 sertraline mg 12/03/20 <JUAN Garcia Last Filed: 12/03/20 19:19> Allergies/Adverse Reactions: Allergies Allergy/AdvReac Type Severity Reaction Status Date / Time No Known Allergies Allergy Verified 12/03/20 18:36 <JUAN Garcia Last Filed: 12/03/20 19:19> Review of Systems Review of Systems: All systems reviewed & are unremarkable except as noted in HPI and below <Dony Saleh PA-C - Last Filed: 12/03/20 19:19> [facility] Past Medical History Medical History: Medical History (Updated 12/04/20 @ 00:00 by Jp Montgomery) CAD (coronary artery disease) HLD (hyperlipidemia) HTN (hypertension) IDDM (insulin dependent diabetes mellitus) Neuropathy Osteoarthritis of right knee <Dony Saleh PA-C - Last Filed: 12/03/20 19:19> Surgical History Surgical History: Surgical History H/O bilateral cataract extraction H/O heart artery stent H/O: hysterectomy History of abdominal aortic aneurysm (AAA) repair History of cardiac catheterization History of open heart surgery Hx of CABG <Dony Saleh PA-C - Last Filed: 12/03/20 19:19> Social History Social History: Social History Smoking status: Current every day smoker Tobacco type: cigarettes Alcohol intake: never Gender identity (if verbalized by the patient): Female <Dony Saleh PA-C - Last Filed: 12/03/20 19:19> Exam Narrative: Exam Narrative: GENERAL: Well-appearing, obese, and in no acute distress. HEAD: Normocephalic, atraumatic. EYES: PERRLA and EOMI. ENT: Nares clear, no rhinorrhea or epistaxis. Mucous membranes moist. CHEST: Clear to auscultation. No respiratory distress. No wheezes rales or rhonchi HEART: Regular rate and rhythm. No murmur heard. Normal peripheral pulses. ABDOMEN: Soft, epigastric tenderness no rebound or guarding, distended EXTREMITIES: Normal range of motion. No edema. SKIN: Warm, dry, no rash. NEURO: No focal deficits. Alert and oriented x3. Cranial nerves II through XII grossly intact PSYCH: Normal mood and affect. <Dony Saleh PA-C - Last Filed: 12/03/20 19:19> Course Course Emergency Course: Patient in the room at this time in no distress aware of case findings treatment plan and diagnosis. Patient provided with [facility]
== END 2020-12-03 19:29 | disposition home or self-care (01) ==
PROVIDERS: Emergency Medicine; Emergency Provider General Practice; PCP Emergency Medicine
DX: R10.13 Epigastric pain (principal); I25.10 Atherosclerotic heart disease of native coronary artery without angina pectoris; E78.5 Hyperlipidemia, unspecified; I10 Essential (primary) hypertension; E11.40 Type 2 diabetes mellitus with diabetic neuropathy, unspecified; M17.11 Unilateral primary osteoarthritis, right knee; Z98.42 Cataract extraction status, left eye; Z98.41 Cataract extraction status, right eye; Z95.5 Presence of coronary angioplasty implant and graft; Z95.1 Presence of aortocoronary bypass graft; F17.210 Nicotine dependence, cigarettes, uncomplicated
CPT/HCPCS: 36415; 74177; 80053; 81001; 83690; 85025; 96361; 96374; 99284; A9270; C9113; J7040; Q9967

== ENCOUNTER 2020-12-27 10:56 | Outpatient (CLI) | payer OTHER, MEDICAID, SELFPAY ==
--- NOTE | ~2020-12-27 | XR_ITS ---
EXAMINATION: XR humerus LT DATE: 12/27/2020 13:49 INDICATION: Left arm pain post fall TECHNIQUE: Internal and externally rotated views of the left humerus and lateral view of the left elb ow and mid to distal left humerus. COMPARISON: None. FINDINGS: Alignment is normal. No fracture. Mild osteoarthritis at the left acromioclavicular, glenohumeral and elbow joints. Small amount of enthesopathic ossification at the medial epicondylar origin of the com mon flexor tendon wad. Soft tissues are unremarkable. No left elbow joint effusion. Visualized portio ns of the left lung are clear. IMPRESSION: 1. No acute osseous abnormality. 2. Mild polyarticular osteoarthritis at the left elbow and shoulder. Reviewed, dictated and finalized at location A.
--- NOTE | ~2020-12-27 | NM_ITS ---
EXAMINATION: NM hepatobiliary wo pharm EXAM DATE: 12/27/2020 13:51 INDICATION: Upper abdominal pain. TECHNIQUE: 4.2 mCi Tc-99m mebrofenin (Choletec) was administered intravenously. Scintigraphic images of the abdomen were obtained for one hour. To obtained gallbladder ejection fraction, patient drank 8 ounces of Ensure and imaging of the gallbladder obtained for one hour following ingestion. Gallbl adder ejection fraction was calculated by the technologist. Correlation is made to CT abdomen . FINDINGS: There is normal clearance of radiotracer from the blood pool. There is homogeneous tracer u ptake by the liver. Activity progresses to the gallbladder and bowel. The gallbladder ejection fract ion (GBEF) is 52% (most patients with gallbladder dysfunction have GBEF < 35%, but there is slight ov erlap with the normal range of 33-90% using this protocol).] IMPRESSION: Gallbladder ejection fraction 52%, within normal range. Reviewed, dictated and finalized at location B.
[2020-12-27 14:17] LABS: Alanine Aminotransferase 10 U/L (4-35); Albumin Level 3.9 g/dL (3.5-5.1); Amylase 41 U/L (30-110); Anion Gap 4 mmol/L (8-16); Aspartate Amino Transferase 23 U/L (14-36); Bilirubin Indirect 0.4 mg/dL (0-1.1); Bilirubin,Total 0.4 mg/dL (0.2-1.3); Blood Urea Nitrogen 16 mg/dL (7-17); Calcium 8.9 mg/dL (8.4-10.2); Carbon Dioxide 35 mmol/L (22-30); Chloride 103 mmol/L (98-107); Estimated Glomerular Filt Rate > 60; Glucose 112 mg/dL (65-105); Lipase 52 U/L (23-300); Phosphorus 3.3 mg/dL (2.5-4.5); Potassium 3.6 mmol/L (3.4-5.0); Sodium 142 mmol/L (137-145)
== END 2020-12-27 10:57 | disposition home or self-care (01) ==
PROVIDERS: PCP Emergency Medicine; Visit Provider Internal Medicine Gastroenterology
DX: R10.84 Generalized abdominal pain (principal); R11.0 Nausea; K21.9 Gastro-esophageal reflux disease without esophagitis; R14.3 Flatulence; M79.602 Pain in left arm; M19.022 Primary osteoarthritis, left elbow; M19.012 Primary osteoarthritis, left shoulder
CPT/HCPCS: 36415; 73060; 78226; 80048; 82040; 82150; 82247; 82248; 83690; 84100; 84450; 84460; A9537

== ENCOUNTER 2021-01-12 10:58 | Emergency (ER) | payer OTHER, MEDICAID, SELFPAY ==
--- NOTE | ~2021-01-12 | XR_ITS ---
EXAMINATION: XR tibia fibula LT 2V DATE: 01/12/2021 11:50 INDICATION: Left lower leg injury. TECHNIQUE: 2 views of left tibia and fibula were obtained. COMPARISON: Left tibia and fibula radiographs 05/19/2018 FINDINGS: Bone alignment is normal. No fracture. There is mild knee joint osteoarthritis. There is a small knee joint effusion. There are surgical clips in the calf. IMPRESSION: 1. Mild left knee osteoarthritis. 2. Small left knee joint effusion. Reviewed, dictated and finalized at location A.
--- NOTE | ~2021-01-12 | XR_ITS ---
EXAMINATION: XR ankle LT min 3V DATE: 01/12/2021 11:49 INDICATION: Left ankle injury and swelling. TECHNIQUE: 4 views of left ankle were obtained. COMPARISON: Left tibia and fibula radiographs 05/19/2018 FINDINGS: Bone alignment is normal. No fracture. There is mild midfoot osteoarthritis. There are enth esophytes at the posterior and plantar aspects of calcaneal tuberosity. There is ankle soft tissue sw elling. IMPRESSION: 1. No fracture. Reviewed, dictated and finalized at location A. IMPRESSION: 1. No fracture.
--- NOTE | ~2021-01-12 | XR_ITS ---
EXAMINATION: XR hip LT min 3V w AP pelvis DATE: 01/12/2021 12:23 INDICATION: Left hip pain. Fall. TECHNIQUE: An anteroposterior view of the pelvis and 3 views of left hip were obtained. COMPARISON: Pelvis and hip radiographs 07/11/2020 FINDINGS: Bone alignment is normal. No fracture. There is moderate osteoarthritis of the hips. There is a stent graft in abdominal aorta and the common carotid arteries. IMPRESSION: 1. Moderate osteoarthritis of the hips. Reviewed, dictated and finalized at location A.
--- NOTE | ~2021-01-12 | XR_ITS ---
XR lumbar spine min 4V DATE: 01/12/2021 12:23 INDICATION: Fall. Back pain. TECHNIQUE: AP, lateral, coned lateral lumbosacral and bilateral oblique views COMPARISON: None FINDINGS: Bilateral renal artery stents and length the aortobiiliac endograft are noted. No fracture, bone destruction, spondylolysis. The lumbar pedicles are intact. There is degenerative s purring of the lower thoracic spine. There is mild degenerative spurring but relative preservation of lumbar disc spaces. There is degenerative change at the facet joints in the lower lumbar and lumbosa cral area with associated minimal grade 1 anterolisthesis at L4-5. The sacroiliac joints are intact. IMPRESSION: Degenerative changes; no fracture Reviewed, dictated and finalized at location B.
--- NOTE | ~2021-01-12 | XR_ITS ---
EXAMINATION: XR knee LT 3V DATE: 01/12/2021 11:50 INDICATION: Left lower limb injury. TECHNIQUE: 3 views of left knee were obtained. COMPARISON: Left tibia and fibula radiographs 05/19/2018 FINDINGS: Bone alignment is normal. No fracture. There is mild tricompartmental osteoarthritis. There is a small knee joint effusion. There are surgical clips in the calf. IMPRESSION: 1. Mild left knee osteoarthritis. 2. Small left knee joint effusion. Reviewed, dictated and finalized at location A.
[2021-01-12 11:14] VITALS: BP 139/77; PULSE 59; RESP 16; TEMP 36.1; O2SAT 99
--- NOTE | 2021-01-12 12:40 | ED.GENADULT ---
HPI - General Adult General Chief complaint: Extremity Injury, Lower Stated complaint: fell and hurt my leg last Time Seen by Provider: 01/12/21 11:29 Source: patient and RN notes reviewed Mode of arrival: ambulatory Limitations: no limitations History of Present Illness HPI narrative: Patient is a 65-year-old female who presents to emergency department for back and left leg pain that began 6 days ago patient was ambulated slipped injuring the leg and the back since had pain from the lower lumbar region down into the lower left leg patient notes main discomfort has been to the left knee where she has bruising and swelling patient has seen Dr. Quiñones in the past has been taking [id number] medication with minimal improvement patient on arrival to emergency department does not appear distressed she lives at home by herself Related Data Home Medications Medication Instructions Recorded Confirmed insulin glargine [Lantus Solostar SUBCUT 07/13/20 09/08/20 U-100 Insulin] carvedilol 09/14/20 ezetimibe mg 09/14/20 furosemide 09/14/20 glipizide mg 09/14/20 losartan 09/14/20 omeprazole 09/14/20 potassium chloride meq PO 09/14/20 rosuvastatin mg 09/14/20 clopidogrel 12/03/20 semaglutide [Ozempic] mg SUBCUT 12/03/20 sertraline mg 12/03/20 Allergies Allergy/AdvReac Type Severity Reaction Status Date / Time No Known Allergies Allergy Verified 01/12/21 11:19 Review of Systems Review of Systems: All systems reviewed & are unremarkable except as noted in HPI and below PMFSH Past Medical History Medical History (Updated 01/12/21 @ 12:44 by Dony Saleh PA-C) CAD (coronary artery disease) HLD (hyperlipidemia) HTN (hypertension) IDDM (insulin dependent diabetes mellitus) Neuropathy Osteoarthritis of right knee Surgical History Surgical History H/O bilateral cataract extraction H/O heart artery stent H/O: hysterectomy History of abdominal aortic aneurysm (AAA) repair History of cardiac catheterization History of open heart surgery Hx of CABG Social History Social History Smoking status: Current every day smoker Tobacco type: cigarettes Alcohol intake: never Gender identity (if verbalized by the patient): Female Exam Narrative: Exam Narrative: GENERAL: Well-appearing, obese, and in no acute distress. HEAD: Normocephalic, atraumatic. EYES: PERRLA and EOMI. ENT: Nares clear, no rhinorrhea or epistaxis. Mucous membranes moist. CHEST: Clear to auscultation. No respiratory distress. No wheezes rales or rhonchi HEART: Regular rate and rhythm. No murmur heard. Normal peripheral pulses. ABDOMEN: Soft, nontender, nondistended, normal active bowel sounds. EXTREMITIES: Midline lumbar and left hip tenderness tenderness of the left knee with bruising just below the left knee tenderness of the left ankle SKIN: Warm, dry, no rash. NEURO: No focal deficits. Alert and oriented x3. Neurovascularly intact PSYCH: Normal mood and affect. Course Course Emergency Course: Patient evaluated in the emergency department no high risk changes in the imaging will be referred to orthopedics and treated medically with prescribed medication given reasons to return patient agrees with this plan ABCs and vital signs intact and stable she was made aware of her x-ray findings Vital Signs Vital signs: Vital Signs Temperature 97 F L 01/12/21 11:14 Pulse Rate 59 L 01/12/21 11:14 Respiratory Rate 16 01/12/21 11:14 Blood Pressure 139/77 01/12/21 11:14 Pulse Oximetry 99 01/12/21 11:14 Temperature 97 F L 01/12/21 11:14 Pulse Rate 59 L 01/12/21 11:14 Respiratory Rate 16 01/12/21 11:14 Blood Pressure 139/77 01/12/21 11:14 Pulse Oximetry 99 01/12/21 11:14 Medical Decision Making MDM Narrative Medical decision making narrative: Patients injury or pain is con
== END 2021-01-12 12:53 | disposition home or self-care (01) ==
PROVIDERS: Emergency Provider Emergency Medicine; PCP Emergency Medicine
DX: S89.92XA Unspecified injury of left lower leg, initial encounter (principal); S99.912A Unspecified injury of left ankle, initial encounter; W19.XXXA Unspecified fall, initial encounter; M54.5 Low back pain; M25.552 Pain in left hip; I25.10 Atherosclerotic heart disease of native coronary artery without angina pectoris; E78.5 Hyperlipidemia, unspecified; I10 Essential (primary) hypertension; E11.42 Type 2 diabetes mellitus with diabetic polyneuropathy; M17.11 Unilateral primary osteoarthritis, right knee; Z98.49 Cataract extraction status, unspecified eye; Z95.5 Presence of coronary angioplasty implant and graft; F17.210 Nicotine dependence, cigarettes, uncomplicated
CPT/HCPCS: 72110; 73502; 73562; 73590; 73610; 99284

== ENCOUNTER 2021-01-18 15:49 | Outpatient (CLI) | payer OTHER, MEDICAID, SELFPAY ==
--- NOTE | ~2021-01-18 | US_ITS ---
EXAMINATION:US venous doppler LE LT INDICATION:Left lower extremity pain and swelling TECHNIQUE: Multiple grayscale, color flow and Doppler images of the left lower extremity deep venous systems were obtained and reviewed. COMPARISON:Ultrasound dated 09/01/2019 FINDINGS: The common femoral, superficial femoral and popliteal veins demonstrate normal respiratory variation, augmentation and compressibility. Color flow is also seen within the posterior tibial, pe roneal, greater saphenous and profunda veins. IMPRESSION: 1: No lower extremity deep venous thrombosis. Reviewed, dictated and finalized at location A.
== END 2021-01-18 15:50 | disposition home or self-care (01) ==
LOC: ANHIMG 15:51
PROVIDERS: PCP Emergency Medicine; Visit Provider Emergency Medicine
DX: M79.605 Pain in left leg (principal)
CPT/HCPCS: 93971

== ENCOUNTER 2021-02-23 12:39 | Emergency (ER) | payer OTHER, MEDICAID, SELFPAY ==
--- NOTE | ~2021-02-23 | XR_ITS ---
EXAMINATION: XR foot LT min 3V DATE: 02/23/2021 13:24 INDICATION: Dorsal left foot swelling post fall TECHNIQUE: Dorsoplantar, two oblique and lateral views of the left foot were obtained. COMPARISON: None. FINDINGS: Bone alignment is normal. No fracture. The head of the left second metatarsal appears widened with fl attening of the articular surface and increased subarticular sclerosis consistent with chronic osteon ecrosis (Freiberg's infraction). Polyarticular osteoarthritis, moderate severity at the second tarsal metatarsal and first metatarsophalangeal joints and mild at the calcaneocuboid and multiple tarsal m etatarsal, interphalangeal and remaining metatarsophalangeal joints. Moderate-sized Achilles and plan tar calcaneal spurs. Mild soft tissue swelling over the dorsum of the midfoot. Additional soft tissue swelling with subcutaneous edema at the visualized lower calf. IMPRESSION: 1. Soft tissue swelling dorsal to the left midfoot. No acute osseous abnormality. 2. Mild to moderate polyarticular osteoarthritis at the left foot. 3. 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 4. Moderate sized Achilles and plantar calcaneal spurs. Reviewed, dictated and finalized at location A. IMPRESSION: 1. Soft tissue swelling dorsal to the left midfoot. No acute osseous abnormalit y. 2. Mild to moderate polyarticular osteoarthritis at the left foot. 3. Chronic osteonecrosis/Freiberg's infraction at the head of the left second m etatarsal. 4. Moderate sized Achilles and plantar calcaneal spurs.
--- NOTE | ~2021-02-23 | US_ITS ---
EXAMINATION: US venous doppler [facility] DATE: 02/23/2021 13:45 INDICATION: Left lower limb swelling TECHNIQUE: Rodas scale images without and with compression and Doppler images of the left lower extrem ity veins were obtained. COMPARISON: 12/29/2020 FINDINGS: The left common femoral vein, profunda femoral vein, femoral vein, popliteal vein, peroneal trunk, posterior tibial veins, and greater saphenous vein are patent. IMPRESSION: 1. Patent left lower extremity veins. No evidence of deep venous thrombosis. Reviewed, dictated and finalized at location B.
[2021-02-23 13:09] VITALS: BP 150/81; PULSE 78; RESP 16; TEMP 37; O2SAT 94
--- NOTE | 2021-02-23 14:13 | ED.LOWEXIN ---
HPI - Extremity Injury (Lower) General Chief Complaint: Extremity Injury, Lower Stated Complaint: left leg swelling Time Seen by Provider: 02/23/21 14:13 Source: patient Mode of arrival: ambulatory Limitations: no limitations History of Present Illness HPI Narrative: Patient is a 65 year old female who presents with complaints of LLE swelling and left foot pain and swelling. Patient reports she was sent from Dr. Cabrera's office to rule out DVT. Patient is currently on anticoagulants. Patient also reports a history of CHF and take diuretics. Patient reports injuring left foot and leg approximately 3 weeks ago with fall. Patient denies other injuries. She reports swelling to foot and pain with ambulation. She denies all other complaints at this time and denies taking over the counter medications for pain relief. MD complaint: foot injury and other (Left lower extremity edema) Related Data Home Medications Medication Instructions Recorded Confirmed insulin glargine [Lantus Solostar SUBCUT 07/13/20 09/08/20 U-100 Insulin] carvedilol 09/14/20 ezetimibe mg 09/14/20 furosemide 09/14/20 glipizide mg 09/14/20 losartan 09/14/20 omeprazole 09/14/20 potassium chloride meq PO 09/14/20 rosuvastatin mg 09/14/20 clopidogrel 12/03/20 semaglutide [Ozempic] mg SUBCUT 12/03/20 sertraline mg 12/03/20 Allergies Allergy/AdvReac Type Severity Reaction Status Date / Time No Known Allergies Allergy Verified 01/12/21 11:19 Review of Systems Review of Systems: Narrative: CONSTITUTIONAL: Denies fever, chills, or sweats. EYES: Denies visual changes, redness, or discharge. ENT: Denies rhinorrhea, congestion, sore throat, or otalgia. CARDIOVASCULAR: Denies chest pain, palpitations, or edema. RESPIRATORY: Denies cough or dyspnea. GASTROINTESTINAL: Denies abdominal pain, nausea, vomiting, or diarrhea. GENITOURINARY: Denies dysuria or hematuria. SKIN: Denies rash or itching. MUSCULOSKELETAL: Left foot pain and left lower extremity swelling NEUROLOGIC: Denies headache, numbness, dizziness, or weakness. PSYCHIATRIC: Denies anxiety or depression. [facility] Past Medical History Medical History (Updated 02/23/21 @ 14:[address]) CAD (coronary artery disease) HLD (hyperlipidemia) HTN (hypertension) IDDM (insulin dependent diabetes mellitus) Neuropathy Osteoarthritis of right knee Surgical History Surgical History H/O bilateral cataract extraction H/O heart artery stent H/O: hysterectomy History of abdominal aortic aneurysm (AAA) repair History of cardiac catheterization History of open heart surgery Hx of CABG Social History Social History (Updated 02/23/21 @ 14:[address]) Smoking status: Current every day smoker Tobacco type: cigarettes Alcohol intake: never Substance use: never Gender identity (if verbalized by the patient): Female Comments At the time of signature, I have reviewed and agree with nursing past medical, surgical, social, and family history unless otherwise noted. Please see nursing chart for further information. There is no relevant family history pertinent to the presenting complaint. Exam Narrative: Exam Narrative: GENERAL: Well-appearing, well-nourished, and in no acute distress. HEAD: Normocephalic, atraumatic. EYES: EOMI. No redness or drainage. Conjunctiva are normal. ENT: Mucous membranes pink and moist. CHEST: No respiratory distress. Clear to auscultation. HEART: Regular rate and rhythm. EXTREMITIES: Normal range of motion. No edema. SKIN: Nonpitting generalized edema in the left lower extremity, edema left foot out erythema or warmth, tenderness with palpation of left anterior foot. NEURO: No focal deficits. Alert and oriented x3. Gait steady. PSYCH: Normal affect. No signs of depression or anxiety. Course Vital Signs Vital signs: Vital Signs Temperature 37.0 C 02/23/21 13:09 P
[2021-02-23 14:35] VITALS: BP 153/83; PULSE 76; RESP 12; O2SAT 100
== END 2021-02-23 15:04 | disposition home or self-care (01) ==
LOC: ANHED 14:57
PROVIDERS: Emergency Provider Nurse Practitioner; PCP Emergency Medicine
DX: M79.672 Pain in left foot (principal); I11.0 Hypertensive heart disease with heart failure; I50.9 Heart failure, unspecified; E11.9 Type 2 diabetes mellitus without complications; E78.5 Hyperlipidemia, unspecified; I25.10 Atherosclerotic heart disease of native coronary artery without angina pectoris; F17.210 Nicotine dependence, cigarettes, uncomplicated; Z79.4 Long term (current) use of insulin
CPT/HCPCS: 73630; 93971; 99283

== ENCOUNTER 2021-08-28 11:27 | Observation (INO) | payer OTHER, MEDICAID, SELFPAY ==
[2021-08-28] VITALS (7 sets, daily range): BP systolic 112–142; BP diastolic 54–85; PULSE 75–95; RESP 16–24; TEMP 36.3–37.2; O2SAT 93–96
--- NOTE | ~2021-08-28 | XR_ITS ---
EXAMINATION: XR pelvis 1-2V, XR sacrum coccyx 1V EXAM DATE: 08/28/2021 13:26 INDICATION: Fall. Pelvic, sacral pain TECHNIQUE: Pelvis frontal projection(s) obtained and reviewed. Frontal, inlet, lateral projections of the sacrum and coccyx. Comparison is made to prior examination from 01/12/2021. FINDINGS: There are no acute pelvic or sacral fractures or dislocations identified. There is no subc utaneous gas. Calcifications in the pelvis are believed to be phleboliths. There is moderate symmetr ic bilateral hip primary osteoarthritis. There is aortoiliac endograft. Lower lumbar facet arthropat hy. IMPRESSION: Pelvic and sacral x-rays without acute osseous findings. Reviewed, dictated and finalized at location A. ESTATE UNDERWRITER IMPRESSION: Pelvic and sacral x-rays without acute osseous findings.
--- NOTE | ~2021-08-28 | XR_ITS ---
EXAMINATION: XR chest 2V EXAM DATE: 08/28/2021 13:26 INDICATION: Cough. Fall. TECHNIQUE: Frontal and lateral projections of the chest obtained and reviewed. Comparison is made to prior examination from 09/01/2019. FINDINGS: Linear left basilar opacity consistent with atelectasis. Sternotomy wires are present witho ut findings to suggest sternal dehiscence. The lungs are otherwise clear. There are no pleural effu sions. The cardiomediastinal silhouette is within normal limits. There is no pneumothorax suspected . The bones and soft tissues are unremarkable. IMPRESSION: Linear left basilar atelectasis. Reviewed, dictated and finalized at location A. ER SUPERIOR
--- NOTE | 2021-08-28 11:49 | ECG_ITS ---
Measurements Intervals [place] Rate: 86 P: 121 MT: 148 QRS: -21 QRSD: 90 T: 143 QT: 375 QTc: 450 Interpretive Statements SINUS RHYTHM POSSIBLE LEFT ATRIAL ENLARGEMENT LEFT VENTRICULAR HYPERTROPHY AND ST-T CHANGE CANNOT RULE OUT SEPTAL INFARCT, AGE INDETERMINATE ST-T WAVE ABNORMALITY IN HIGH LATERAL LEADS- CONSIDER ISCHEMIA BASELINE ARTIFACT- II, III, AVL, AVF, V1-V2, V4 ABNORMAL ECG Electronically Signed On 08-28-2021 20:15:01 APPEALS REFEREE by Kamron Santamaria D.O.
--- NOTE | 2021-08-28 11:49 | ED.GENADULT ---
HPI - General Adult General Chief complaint: Weakness <JUAN Pandya Last Filed: 08/28/21 19:53> Stated complaint: URI <JUAN Pandya Last Filed: 08/28/21 19:53> Time Seen by Provider: 08/28/21 11:45 <JUAN Pandya Last Filed: 08/28/21 19:53> History of Present Illness HPI narrative: Patient is a 66-year-old female who comes emergency room today complaining of generalized weakness. Patient reports she has been having a cough, some sinus congestion, some lightheadedness with exertion. This has been present for about 2 weeks and has been worsening. She has done 2 COVID-19 tests at work, both of which were negative. Last night she fell because she was feeling weak. Landed on her buttocks. Was unable to get up off the floor. Had to call her daughter to come help pick her up and get her back into the bed. This morning her sister helped her get out of bed and brought her to the emergency department. The patient lives by herself. Having some pain in her tailbone from the fall. No other injuries. No pain otherwise. <JUAN Pandya Last Filed: 08/28/21 19:53> Related Data Home medications: Home Medications Medication Instructions Recorded Confirmed insulin glargine [Lantus Solostar SUBCUT 07/13/20 09/08/20 U-100 Insulin] carvedilol 09/14/20 ezetimibe mg 09/14/20 furosemide 09/14/20 glipizide mg 09/14/20 losartan 09/14/20 omeprazole 09/14/20 potassium chloride meq PO 09/14/20 rosuvastatin mg 09/14/20 clopidogrel 12/03/20 semaglutide [Ozempic] mg SUBCUT 12/03/20 sertraline mg 12/03/20 <JUAN Pandya Last Filed: 08/28/21 19:53> Allergies/adverse reactions: Allergies Allergy/AdvReac Type Severity Reaction Status Date / Time No Known Allergies Allergy Verified 01/12/21 11:19 <JUAN Pandya Last Filed: 08/28/21 19:53> Review of Systems Constitutional: Constitutional: Reports as per HPI, Denies fever(s), Denies night sweats and Reports weakness <Trip Jalloh PA-C - Last Filed: 08/28/21 19:53> Comments: See HPI <Trip Jalloh PA-C - Last Filed: 08/28/21 19:53> Cardiovascular: Cardiovascular: Denies chest pain, Denies edema, Denies leg edema, Denies dyspnea and Denies orthopnea <Trip Jalloh PA-C - Last Filed: 08/28/21 19:53> Respiratory: Respiratory: Denies cough and Denies dyspnea <JUAN Pandya Last Filed: 08/28/21 19:53> Gastrointestinal: Gastrointestinal: Denies abdominal pain, Denies constipation, Denies diarrhea, Denies nausea and Denies vomiting <Trip Jalloh PA-C - Last Filed: 08/28/21 19:53> Musculoskeletal: Musculoskeletal: Denies abnormal gait, Denies back pain, Denies numbness and Denies tingling <Trip Jalloh PA-C - Last Filed: 08/28/21 19:53> Comments: See HPI. <Trip Jalloh PA-C - Last Filed: 08/28/21 19:53> Neurologic: Denies Abnormal speech present, Denies abnormal gait, Denies numbness, Denies tingling and Denies weakness <Trip Jalloh PA-C - Last Filed: 08/28/21 19:53> Psychiatric: Psychiatric: Denies homicidal ideation and Denies suicidal ideation <Trip Jalloh PA-C - Last Filed: 08/28/21 19:53> PMFSH Past Medical History Medical History: Medical History (Updated 08/28/21 @ 19:49 by Trip Jalloh PA-C) CAD (coronary artery disease) HLD (hyperlipidemia) HTN (hypertension) IDDM (insulin dependent diabetes mellitus) Neuropathy Osteoarthritis of right knee <JUAN Pandya Last Filed: 08/28/21 19:53> Surgical History Surgical History: Surgical History H/O bilateral cataract extraction H/O heart artery stent H/O: hysterectomy History of abdominal aortic aneurysm (AAA) repair History of cardiac catheterization History of open heart surgery Hx of CABG <JUAN Pandya La
[2021-08-28 14:31] LABS: Basophils Percent Auto 0.2 % (0.2-1.2); Hematocrit 43.7 % (37.0-47.0); Immature Granulocyte Absolute 0.01 K/mm3 (0.00-0.031); Immature Granulocyte Percent A 0.2 % (0-0.5); Immature Platelet Fraction Pct 5.1 % (0.9-11.2); Lymphocytes Absolute Auto 0.55 K/mm3 (0.9-3.2); Lymphocytes Percent Auto 13.4 % (18.3-44.2); Mean Corpuscular Hemoglobin 29.2 pg (26-34); Mean Platelet Volume 10.5 fl (7.4-10.4); Monocytes Absolute Auto 0.4 K/mm3 (0.1-0.6); Neutrophils Absolute Auto 3.2 K/mm3 (1.3-6.7); Neutrophils Percent Auto 77.2 % (45.5-73.1); Platelet Count Result 99 k/mm3 (150-375); Red Cell Distribution Width 13.3 % (11.5-14.5); White Blood Count 4.1 K/mm3 (4.5-10.0)
[2021-08-28 14:40] LABS: Add Urine Microscopic? YES; Appearance Urine Cloudy (Clear); Bacteria Urine Trace /hpf; Bilirubin Urine Negative (Negative); Blood Urine 1+ (Negative); Color Urine Yellow (Yellow); Glucose Urine UA 3+ mg/dL (Negative); Ketones Urine Negative (Negative); Leukocyte Esterase Ur 3+ LEU/UL (Negative); Mucus Urine Rare /lpf; Nitrate Urine Negative (Negative); Protein Urine Negative (Negative); RBC Urine 21-50 /hpf (0-2); Specific Grav Ur 1.024 (1.001-1.035); Squamous Epithelial Cell Urine Many /hpf (Few); WBC Urine 21-30 /hpf
[2021-08-28 14:42] LABS: Alanine Aminotransferase 17 U/L (4-35); Albumin Level 4.1 g/dL (3.5-5.1); Alkaline Phosphatase 85 U/L (38-126); Anion Gap 12 mmol/L (8-16); Aspartate Amino Transferase 33 U/L (14-36); Bilirubin,Total 0.5 mg/dL (0.2-1.3); Blood Urea Nitrogen 16 mg/dL (7-17); Calcium 8.3 mg/dL (8.4-10.2); Carbon Dioxide 28 mmol/L (22-30); Chloride 94 mmol/L (98-107); Estimated CRCL calculation 62 ml/min; Estimated Glomerular Filt Rate > 60; Glucose 292 mg/dL (65-110); Potassium 2.8 mmol/L (3.4-5.0); Sodium 134 mmol/L (137-145)
[2021-08-28 14:48] LABS: Troponin I 0.021 ng/mL (0.000-0.034)
[2021-08-28 18:00] LABS: Magnesium 2.2 mg/dL (1.6-2.3)
[2021-08-28 18:57] LABS: Lactic Acid Reflex 1.3 mmol/L (0.7-2.1)
[2021-08-28] MEDS: cefTRIAXone 2 GM in SODIUM CHLORIDE 0.9% IV 100 ML 200 ML IVPB (19:13)
[2021-08-28] MEDS: SODIUM CHLORIDE 0.9% IV 1,000 ML 999 ML IV CONT (19:14)
[2021-08-28] MEDS: KETOROLAC 15 MG/ML VIAL (*BKC) IV PUSH (19:20)
[2021-08-28] MEDS: POTASSIUM CHLORIDE INJ 40 MEQ in SODIUM CHLORIDE 0.9% IV 500 ML 130 MEQ IVPB (20:12)
[2021-08-28] MEDS: LACTATED RINGERS 1,000 ML 100 ML IV CONT (20:18)
[2021-08-28] MEDS: POTASSIUM CHLORIDE 20 MEQ PACKET (FOR LIQUID) 40 MEQ PO (20:37)
[2021-08-28 20:42] LABS: EDCOVIDSCREEN Positive (Negative)
[2021-08-29] VITALS (7 sets, daily range): BP systolic 116–168; BP diastolic 61–100; PULSE 72–93; RESP 16–20; TEMP 36.7–37.1; O2SAT 94–98; BMI 34.3
--- NOTE | 2021-08-29 03:10 | PC.NURSE ---
Pt refusing Tylenol for pain states That doesn't help me .
--- NOTE | 2021-08-29 05:20 | ADMGEN ---
This patient, Pham Rubio, was admitted to 3 Med Surg Room 313-01. Patient oriented to hospital policies and general routines including ID bracelet, bed and alarms, visiting hours, pain management, procedures, bathroom and other care routines, personal items, smoking policy, room service/diet, and visiting hours. Information on how to activate the Rapid Response Team has been discussed. Patient/Family are encouraged to report perceived risks to care and to ask questions if they do not understand what they are told or what they should do.
[2021-08-29 07:58] LABS: Glucose Point of Care 146 mg/dl (65-105)
--- NOTE | 2021-08-29 09:02 | PC.NURSE ---
Pt home pharmacy call to clarify home medications.
--- NOTE | 2021-08-29 09:09 | PC.NURSE ---
Both pharmacist listed on file unable to clarify medication, called PCP office for current medication list.
--- NOTE | 2021-08-29 09:11 | PC.NURSE ---
MD Tye Prater office called, unable to clarify medication, PCP office stated pt is not currently seen at this office r/t pt being non-complainant with tx.
--- NOTE | 2021-08-29 09:13 | PC.NURSE ---
LISETTE Montgomery stated all medication on hold, only able to clarify losartan 100 mg po daily and potassium Chloride 20 meq po daily.
--- NOTE | 2021-08-29 09:16 | PC.NURSE ---
MD Rocha informed for difficulty with clarifying pt medication this morning, informed 20 KCl meq Po daily and losartan 100 mg po daily only medication able to clarify via [facility].
[2021-08-29 10:15] LABS: Anion Gap 5 mmol/L (8-16); Blood Urea Nitrogen 12 mg/dL (7-17); Calcium 7.7 mg/dL (8.4-10.2); Carbon Dioxide 30 mmol/L (22-30); Chloride 98 mmol/L (98-107); Estimated CRCL calculation 68 ml/min; Estimated Glomerular Filt Rate > 60; Glucose 134 mg/dL (65-110); Potassium 3.2 mmol/L (3.4-5.0); Sodium 133 mmol/L (137-145)
[2021-08-29] MEDS: POTASSIUM CHLORIDE 20 MEQ TABLET 40 MEQ PO (11:19)
[2021-08-29 11:53] LABS: Glucose Point of Care 134 mg/dl (65-105)
--- NOTE | 2021-08-29 13:29 | PM.SD2 ---
Same Day Admit/Disch: HPI History of Present Illness Chief complaint: Hypokalemia, UTI, weakness Narrative: Pham Rubio is a 66 year old female who comes emergency room today complaining of generalized weakness. Patient reports she has been having a cough, some sinus congestion, some lightheadedness with exertion. This has been present for about 2 weeks and has been worsening. She has done 2 COVID-19 tests at work, both of which were negative. Last night she fell because she was feeling weak. Landed on her buttocks. She was unable to get up off the floor. Had to call her daughter to come help pick her up and get her back into the bed. This morning her sister helped her get out of bed and brought her to the emergency department. The patient lives by herself. The patient was seen and examined at the bedside. She is feeling a lot better. She is feeling stronger. Appetite remains poor. Her potassium is improving 3.2 today. Patient was supplemented with potassium. Repeat potassium was 3.7. She was discharged home with instruction to eat potassium rich food and with a 5-day course of p.o. antibiotics cefdinir. [facility] Past Medical History Medical History CAD (coronary artery disease) HLD (hyperlipidemia) HTN (hypertension) IDDM (insulin dependent diabetes mellitus) Neuropathy Osteoarthritis of right knee Surgical History Surgical History H/O bilateral cataract extraction H/O heart artery stent H/O: hysterectomy History of abdominal aortic aneurysm (AAA) repair History of cardiac catheterization History of open heart surgery Hx of CABG Social History Social History Smoking status: Current every day smoker Tobacco type: e-cigarettes/vaping Second hand tobacco smoke exposure: Yes Alcohol intake: unknown Substance use: never Substance use type: does not use Gender identity (if verbalized by the patient): Female Spiritual care concerns: No Same Day Admit/Disch: Med Pre-admit Medications Home Medications Medication Instructions Recorded Confirmed Type Lantus Solostar U-100 Insulin SUBCUT 07/13/20 09/08/20 History ezetimibe mg 09/14/20 History furosemide 09/14/20 History glipizide mg 09/14/20 History omeprazole 09/14/20 History potassium chloride [Klor-Con M20] 20 meq PO DAILY 09/14/20 08/29/21 History rosuvastatin mg 09/14/20 History Ozempic mg SUBCUT 12/03/20 History clopidogrel 12/03/20 History famotidine [Pepcid] 20 mg PO BID #14 tablet 12/03/20 Rx sertraline mg 12/03/20 History acetaminophen [Tylenol Arthritis 650 mg PO Q12H PRN #10 tablet 01/12/21 Rx Pain] lidocaine 1 patch TOPICAL DAILY #1 ea 01/12/21 Rx metaxalone [Skelaxin] 800 mg PO TID PRN #7 tablet 01/12/21 Rx carvedilol 08/29/21 History cefdinir 300 mg PO Q12H #10 cap 08/29/21 Rx losartan [Cozaar] 100 mg PO DAILY 08/29/21 08/29/21 History Exam Const: General: comfortable and no acute distress HENMT: Mouth: Yes moist mucous membranes Eyes: General: appearance normal, both eyes and all related structures Sclera: sclerae normal Pupils: Equal, round and reactive pupils present EOM: EOMs intact bilaterally Neck: Neck: no JVD Carotids: no bruits Lymphatic: lymphadenopathy not noted Resp: Effort & Inspection: normal respiratory effort Auscultation: clear to auscultation bilaterally, no crackles, no rales and no rhonchi Cardio: Rate: regular rate Rhythm: regular rhythm Heart sounds: no gallops, no murmurs and no rubs GI: Inspection: non-distended GI Palp: Yes Soft to palpation and No Tenderness to palpation present (GI) Auscultation: normal bowel sounds Skin: General skin exam: normal color and no rashes or lesions noted DS: Data Data Completed and Pending Labs on day of discharge: Labs from last 24 hours 08/29/21 08/29/21 08/29/21 11:4
[2021-08-29 15:19] LABS: Potassium 3.7 mmol/L (3.4-5.0)
[2021-08-29 15:27] LABS: Glucose Point of Care 121 mg/dl (65-105)
== END 2021-08-29 17:50 | disposition home or self-care (01) ==
LOC: ANHED 08-29 01:42 → ANH3MEDSUR 08-29 11:48
PROVIDERS: Internal Medicine; Physician Assistant Medical; Admitting Provider Internal Medicine; Emergency Provider Emergency Medicine; PCP Emergency Medicine; Visit Provider Internal Medicine
DX: U07.1 COVID-19 (principal); N39.0 Urinary tract infection, site not specified; E87.6 Hypokalemia; M53.3 Sacrococcygeal disorders, not elsewhere classified; M62.81 Muscle weakness (generalized); D69.6 Thrombocytopenia, unspecified; E11.42 Type 2 diabetes mellitus with diabetic polyneuropathy; E78.5 Hyperlipidemia, unspecified; F17.210 Nicotine dependence, cigarettes, uncomplicated; I25.10 Atherosclerotic heart disease of native coronary artery without angina pectoris; I10 Essential (primary) hypertension; M17.11 Unilateral primary osteoarthritis, right knee; Z95.5 Presence of coronary angioplasty implant and graft; Z90.710 Acquired absence of both cervix and uterus; Z95.1 Presence of aortocoronary bypass graft; Z79.4 Long term (current) use of insulin; W19.XXXA Unspecified fall, initial encounter
CPT/HCPCS: 36415; 71046; 72170; 72220; 80048; 80053; 81001; 82948; 83605; 83735; 84132; 84484; 85025; 85055; 87040; 87086; 87147; 87181; 87186; 87426; 93005; 96365; 96366; 96367; 96375; 96376; 99285; A9270; C9803; G0378; J0696; J1885; J3480; J7030; J7040; J7120

== ENCOUNTER 2022-02-17 17:18 | Emergency (ER) | payer OTHER, MEDICAID, SELFPAY ==
--- NOTE | ~2022-02-17 | XR_ITS ---
EXAMINATION: XR tibia fibula RT 2V INDICATION: Wound of the anteromedial leg TECHNIQUE: Two views of the right tibia and fibula are obtained. COMPARISON: None available FINDINGS: There is no fracture. There is mild osteoarthritis of the knee. Bone alignment is normal. T here is questionable soft tissue swelling in the medial aspect of the left lower limb. IMPRESSION: 1. No acute osseous abnormality. Reviewed, dictated and finalized at location F.
[2022-02-17 17:20] VITALS: BP 149/83; PULSE 90; RESP 16; TEMP 36.2; O2SAT 100
[2022-02-17 18:44] LABS: Basophils Percent Auto 0.3 % (0.2-1.2); Eosinophils Absolute Auto 0.1 K/mm3 (0-0.3); Eosinophils Percent Auto 0.9 % (0-4.4); Hematocrit 39.7 % (37.0-47.0); Hemoglobin 12.4 g/dL (12.0-15.0); Immature Granulocyte Absolute 0.02 K/mm3 (0.00-0.031); Immature Granulocyte Percent A 0.3 % (0-0.5); Lymphocytes Absolute Auto 1.57 K/mm3 (0.9-3.2); Lymphocytes Percent Auto 20.6 % (18.3-44.2); Mean Corpuscular HGB Conc 31.2 g/dl (32-36); Mean Platelet Volume 9.8 fl (7.4-10.4); Monocytes Absolute Auto 0.4 K/mm3 (0.1-0.6); Monocytes Percent Auto 5.6 % (2.6-8.5); Neutrophils Absolute Auto 5.5 K/mm3 (1.3-6.7); Neutrophils Percent Auto 72.3 % (45.5-73.1); Platelet Count Result 150 k/mm3 (150-375); Red Blood Count 4.27 M/mm3 (4.2-5.4); Red Cell Distribution Width 13.2 % (11.5-14.5); White Blood Count 7.6 K/mm3 (4.5-10.0)
[2022-02-17 18:55] LABS: Alanine Aminotransferase 12 U/L (6-35); Alkaline Phosphatase 93 U/L (38-126); Anion Gap 8 mmol/L (8-16); Aspartate Amino Transferase 20 U/L (14-36); Bilirubin,Total 0.5 mg/dL (0.2-1.3); Blood Urea Nitrogen 14 mg/dL (7-17); Calcium 8.3 mg/dL (8.4-10.2); Carbon Dioxide 29 mmol/L (22-30); Chloride 103 mmol/L (98-107); Estimated CRCL calculation 65 ml/min; Estimated Glomerular Filt Rate > 60; Glucose 163 mg/dL (65-110); Potassium 3.1 mmol/L (3.4-5.0); Sodium 140 mmol/L (137-145)
[2022-02-17 18:56] LABS: Lactic Acid Reflex 1.1 mmol/L (0.7-2.0)
[2022-02-17 19:25] LABS: INR 1.1
[2022-02-17 19:26] LABS: Partial Thromboplastin Time 31.5 SECONDS (22.3-36.8)
--- NOTE | 2022-02-17 19:27 | PC.NURSE ---
Report received from JONE Mitchell.This nurse assumed care of patient at this time.
--- NOTE | 2022-02-17 19:37 | ED.WOUNDLAC ---
HPI - Wound/Laceration General Chief Complaint: Wound/Laceration Stated Complaint: right leg injury - on antibiotics without improve Time Seen by Provider: 02/17/22 17:56 Source: RN notes reviewed History of Present Illness HPI narrative: Patient presents emergency department from home for right leg wound. Patient states 3 weeks ago she was scratched by dog in her right leg she states it created a deep wound in the right leg she states that she tried to care for the wound at home but the wound became more painful and a week ago she gone to the emergency department [place] and was started on amoxicillin which she has been take states the wound continues to have tenderness and some clear drainage states it is tender around the area of the wound she denies any fevers or chills numbness or tingling in the extremities or any other symptoms states she has been taking antibiotics as prescribed but has not seen her EP or anyone else for the ER about her wound patient states she is post to be on water pills and potassium but has not been taking them Related Data Home Medications Medication Instructions Recorded Confirmed losartan 100 mg tablet (Cozaar) 100 mg PO DAILY 08/29/21 12/21/21 carvedilol 6.25 mg tablet 6.25 mg PO BID 09/12/21 12/21/21 omeprazole 40 mg capsule,delayed 40 mg PO DAILY 09/12/21 12/21/21 release phentermine 37.5 mg capsule 37.5 mg PO DAILY 09/12/21 12/21/21 clopidogrel 75 mg tablet 75 mg PO DAILY 09/21/21 12/21/21 ezetimibe 10 mg tablet 10 mg PO DAILY 09/21/21 12/21/21 furosemide 40 mg tablet 40 mg PO DAILY PRN 09/21/21 12/21/21 insulin glargine 100 unit/mL (3 25 unit subcut DAILY 12/21/21 12/21/21 mL) subcutaneous pen (Lantus Solostar U-100 Insulin) Allergies Allergy/AdvReac Type Severity Reaction Status Date / Time bacitracin Allergy Redness of Verified 02/17/22 18:03 Skin Review of Systems Review of Systems: Gen.: Denies fevers or chills ENT: Denies congestion Respiratory: Denies shortness of breath or cough CV: Denies chest pain or palpitations GI: Denies abdominal pain nausea, emesis Musculoskeletal: Denies back pain or muscle pain Neuro: Denies numbness, tingling, weakness or focal weakness Skin: See HPI Except as documented, all other systems reviewed and negative [facility] Past Medical History Medical History CAD (coronary artery disease) HLD (hyperlipidemia) HTN (hypertension) IDDM (insulin dependent diabetes mellitus) Incisional hernia Neuropathy Osteoarthritis of right knee Plantar wart, left foot Surgical History Surgical History H/O bilateral cataract extraction (~2014) H/O heart artery stent (~2014) H/O: hysterectomy (~2014) History of abdominal aortic aneurysm (AAA) repair (~2014) History of cardiac catheterization (~2010) Hx of CABG (~2010) Family History Family History Other Anxiety Cancer Depression Diabetes mellitus Heart disease Hypertension Social History Social History Tobacco type: e-cigarettes/vaping Second hand tobacco smoke exposure: Yes Alcohol intake: unknown Substance use: never Substance use type: does not use Gender identity (if verbalized by the patient): Female Spiritual care concerns: No Exam Narrative: APPEARANCE: No acute distress, nontoxic, resting in bed Eyes: EOMI HEENT: Normocephalic, atraumatic, RESPIRATORY: No respiratory distress MUSCULOSKELETAl: No tenderness palpation of the right ankle or knee with full range of motion of both 2+ edema the right lower extremity dorsalis pedis pulse 2+ neurovascular intact right calf is nontender to palpation NEURO: Awake and alert. Following commands, speech normal, no focal deficits SKIN:: Warm, dry. Normal Color 3.5 cm vertical wound over the right lower me
[2022-02-17] MEDS: CLINDAMYCIN HCL 150 MG CAP 300 MG PO (19:41)
== END 2022-02-17 19:56 | disposition home or self-care (01) ==
PROVIDERS: Emergency Provider Emergency Medicine; PCP Family Medicine
DX: L03.115 Cellulitis of right lower limb (principal); I25.10 Atherosclerotic heart disease of native coronary artery without angina pectoris; E78.5 Hyperlipidemia, unspecified; I10 Essential (primary) hypertension; E11.40 Type 2 diabetes mellitus with diabetic neuropathy, unspecified; M17.11 Unilateral primary osteoarthritis, right knee; Z79.4 Long term (current) use of insulin; Z98.42 Cataract extraction status, left eye; Z98.41 Cataract extraction status, right eye; Z95.5 Presence of coronary angioplasty implant and graft; Z95.1 Presence of aortocoronary bypass graft; F17.290 Nicotine dependence, other tobacco product, uncomplicated
CPT/HCPCS: 36415; 73590; 80053; 83605; 85025; 85610; 85730; 87040; 87070; 87075; 87077; 87147; 87181; 87186; 87205; 99284; A9270

== ENCOUNTER 2022-02-23 21:43 | Inpatient (IN) | payer OTHER, MEDICAID, SELFPAY ==
--- NOTE | ~2022-02-23 | US_ITS ---
US arterial ankle brachial ind INDICATION: Right leg wound TECHNIQUE: Segmental pressures and plethysmographic and Doppler waveforms of the brachial and lower e xtremity arteries were obtained. COMPARISON: None. FINDINGS: Right and left brachial artery pressures of 122 mm Hg and 127 mm Hg, respectively, are concordant (no rmal difference <= 30 mmHg). The right ankle-brachial index (HARESH) is 1.06 (normal >= 0.9-1.0). The right great toe-brachial index (TBI) is 0.83 (normal >= 0.60). The left HARESH is 1.06. The left TBI is 0.61. IMPRESSION: 1. Normal bilateral ankle-brachial indices. Reviewed, dictated and finalized at location A.
--- NOTE | ~2022-02-23 | XR_ITS ---
XR abdomen/kub 1V 02/24/2022 09:23 Indication: Abdomen pain Procedure: KUB Comparison: 02/26/2020 Findings: Bowel pattern is nonobstructive. Moderate colonic fecal loading. Stable appearance to endov ascular stent involving the aorta and iliac arteries. There is a left renal artery stent. No abnormal calcifications. Moderate colonic fecal loading. No acute osseous abnormality. Impression: 1: Nonobstructive bowel gas pattern. Reviewed, dictated and finalized at location A. Impression: 1: Nonobstructive bowel gas pattern.
[2022-02-23 21:53] VITALS: BP 153/77; PULSE 81; RESP 18; TEMP 36.8; O2SAT 99
[2022-02-23 22:23] LABS: Basophils Percent Auto 0.2 % (0.2-1.2); Eosinophils Absolute Auto 0.1 K/mm3 (0-0.3); Eosinophils Percent Auto 0.3 % (0-4.4); Hematocrit 39.5 % (37.0-47.0); Hemoglobin 12.5 g/dL (12.0-15.0); Immature Granulocyte Absolute 0.06 K/mm3 (0.00-0.031); Immature Granulocyte Percent A 0.4 % (0-0.5); Lymphocytes Absolute Auto 0.83 K/mm3 (0.9-3.2); Lymphocytes Percent Auto 5.8 % (18.3-44.2); Mean Corpuscular HGB Conc 31.6 g/dl (32-36); Mean Corpuscular Hemoglobin 29.2 pg (26-34); Mean Corpuscular Volume 92.3 fl (80-100); Mean Platelet Volume 9.7 fl (7.4-10.4); Monocytes Absolute Auto 0.6 K/mm3 (0.1-0.6); Monocytes Percent Auto 3.9 % (2.6-8.5); Neutrophils Absolute Auto 12.8 K/mm3 (1.3-6.7); Neutrophils Percent Auto 89.4 % (45.5-73.1); Platelet Count Result 147 k/mm3 (150-375); Red Blood Count 4.28 M/mm3 (4.2-5.4); Red Cell Distribution Width 13.4 % (11.5-14.5); White Blood Count 14.3 K/mm3 (4.5-10.0)
--- NOTE | 2022-02-23 22:32 | ED.WEAKNESS ---
HPI - Weakness General Chief complaint: Weakness <Farideh Hancock PA-C - Last Filed: 02/24/22 01:09> Stated complaint: recent skin infection, chills today <JUAN Barksdale Last Filed: 02/24/22 01:09> Time Seen by Provider: 02/23/22 22:08 <JUAN Barksdale Last Filed: 02/24/22 01:09> Source: patient <JUAN Barksdale Last Filed: 02/24/22 01:09> Mode of arrival: ambulatory <JUAN Barksdale Last Filed: 02/24/22 01:09> Limitations: no limitations <JUAN Barksdale Last Filed: 02/24/22 01:09> History of Present Illness HPI Narrative: This is a 66-year-old female that presents to the emergency department for wound to the right lower extremity. Present over the last month. Reports she was initially scratched by a dog. She has had a worsening ulceration to the right lower leg since. She was on amoxicillin with little relief. She has been taking clindamycin with some improvement in her symptoms. Today she started to have chills and generalized weakness which prompted her to be seen. Denies fever, sore throat, cough, abdominal pain, vomiting, or dysuria. <JUAN Barksdale Last Filed: 02/24/22 01:09> Related Data Home medications: Home Medications Medication Instructions Recorded Confirmed losartan 100 mg tablet (Cozaar) 100 mg PO DAILY 08/29/21 02/21/22 carvedilol 6.25 mg tablet 6.25 mg PO BID 09/12/21 02/21/22 omeprazole 40 mg capsule,delayed 40 mg PO DAILY 09/12/21 02/21/22 release phentermine 37.5 mg capsule 37.5 mg PO DAILY 09/12/21 02/21/22 clopidogrel 75 mg tablet 75 mg PO DAILY 09/21/21 02/21/22 ezetimibe 10 mg tablet 10 mg PO DAILY 09/21/21 02/21/22 furosemide 40 mg tablet 40 mg PO DAILY PRN 09/21/21 02/21/22 insulin glargine 100 unit/mL (3 26 unit subcut DAILY 02/21/22 02/21/22 mL) subcutaneous pen (Lantus Solostar U-100 Insulin) <JUAN Barksdale Last Filed: 02/24/22 01:09> Allergies/Adverse reactions: Allergies Allergy/AdvReac Type Severity Reaction Status Date / Time bacitracin Allergy Redness of Verified 02/21/22 08:05 Skin <JUAN Barksdale Last Filed: 02/24/22 01:09> Review of Systems Review of Systems: CONSTITUTIONAL: Reports chills. Denies fever ENT: Denies sore throat RESPIRATORY: Denies cough GASTROINTESTINAL: Denies abdominal pain, nausea, vomiting GENITOURINARY: Denies dysuria <JUAN Barksdale Last Filed: 02/24/22 01:09> All systems reviewed & are unremarkable except as noted in HPI and below <JUAN Barksdale Last Filed: 02/24/22 01:09> [facility] Past Medical History Medical History: Medical History CAD (coronary artery disease) HLD (hyperlipidemia) HTN (hypertension) IDDM (insulin dependent diabetes mellitus) Incisional hernia Neuropathy Osteoarthritis of right knee Plantar wart, left foot <JUAN Barksdale Last Filed: 02/24/22 01:09> Surgical History Surgical History: Surgical History H/O bilateral cataract extraction (~2014) H/O heart artery stent (~2014) H/O: hysterectomy (~2014) History of abdominal aortic aneurysm (AAA) repair (~2014) History of cardiac catheterization (~2010) Hx of CABG (~2010) <JUAN Barksdale Last Filed: 02/24/22 01:09> Family History Family History: Family History Other Anxiety Cancer Depression Diabetes mellitus Heart disease Hypertension <JUAN Barksdale Last Filed: 02/24/22 01:09> Social History Social History: Social History Smoking status: Current every day smoker Tobacco type: e-cigarettes/vaping Second hand tobacco smoke exposure: Yes Alcohol intake: unknown Substance use: never Substance use type: does not use Gender identity (if ve
[2022-02-23 22:34] LABS: INR 1.1; Lactic Acid Reflex 1.1 mmol/L (0.7-2.0); Prothrombin Time 13.9 Seconds (11.1-14.7)
[2022-02-23 22:35] LABS: Partial Thromboplastin Time 29.7 SECONDS (22.3-36.8)
[2022-02-23 22:37] LABS: Alanine Aminotransferase 13 U/L (6-35); Alkaline Phosphatase 91 U/L (38-126); Anion Gap 7 mmol/L (8-16); Aspartate Amino Transferase 25 U/L (14-36); Bilirubin,Total 0.5 mg/dL (0.2-1.3); Blood Urea Nitrogen 14 mg/dL (7-17); Calcium 8.4 mg/dL (8.4-10.2); Carbon Dioxide 29 mmol/L (22-30); Chloride 103 mmol/L (98-107); Estimated Glomerular Filt Rate > 60; Glucose 145 mg/dL (65-110); Potassium 3.5 mmol/L (3.4-5.0); Sodium 139 mmol/L (137-145)
[2022-02-23 22:39] LABS: CRP 1.7 mg/dL (<1.0)
[2022-02-23 22:44] LABS: Hemoglobin A1C 7.7 % (<5.7)
[2022-02-23 22:55] VITALS: BP 151/71; PULSE 96; RESP 16; O2SAT 100
[2022-02-23 23:50] LABS: Appearance Urine Clear (Clear); Bilirubin Urine Negative (Negative); Blood Urine Negative (Negative); Color Urine Yellow (Yellow); Glucose Urine UA 3+ mg/dL (Negative); Ketones Urine Negative (Negative); Leukocyte Esterase Ur Negative LEU/UL (Negative); Nitrate Urine Negative (Negative); Protein Urine Negative (Negative); Specific Grav Ur 1.015 (1.001-1.035)
[2022-02-23 23:58] LABS: Bacteria Urine Trace /hpf; Mucus Urine Rare /lpf; RBC Urine 0-2 /hpf (0-2); Squamous Epithelial Cell Urine Moderate /hpf (Few); WBC Urine 0-3 /hpf
[2022-02-24] VITALS (8 sets, daily range): BP systolic 116–135; BP diastolic 46–62; PULSE 50–99; RESP 16–24; TEMP 36.2–37.4; O2SAT 94–98
[2022-02-24 00:08] LABS: Add Urine Microscopic? YES
[2022-02-24 00:23] LABS: Influenza A QL RT-PCR Negative (Negative); Influenza B QL RT-PCR Negative (Negative); SARS-CoV-2 RNA PCR Negative
--- NOTE | 2022-02-24 00:23 | PC.NURSE ---
Pt and family asking for warm blankets. RN informed pt and visitor that due to her temperature of 99.4 and infection it is important to not raise temperature to much which would happen with warm blankets. Family verbalized understanding.
--- NOTE | 2022-02-24 00:37 | PM.IMHP ---
H&P: HPI History of Present Illness Date/Time: 02/24/22 00:37 Chief Complaint: dog bite Narrative: this is a 66-year-old female with past medical history significant for type 2 diabetes mellitus, dyslipidemia, GERD, coronary artery disease, hypertension, degenerative joint disease. Patient comes to the emergency room due to right lower extremity dog bite that has progressively gotten worse patient also having chills, fevers, poor appetite, feeling unwell. Patient had been seen earlier in the emergency room and sent home on oral antibiotics clindamycin. Preliminary workup was significant for WBC [id number]. patient is been admitted for further evaluation, management and treatment. Review of Systems Review of Systems: Worsening leg wound dog bite site, chills, poor appetite. Constitutional: Constitutional: Reports chills, Reports malaise and Reports poor appetite Eyes: Eyes: Denies change in vision ENT: Denies dysphagia, Denies vertigo and Denies dizziness Cardiovascular: Cardiovascular: Denies chest pain, Denies syncope, Denies lightheadedness, Denies palpitations, Denies dyspnea on exertion and Denies paroxysmal nocturnal dyspnea Respiratory: Respiratory: Denies chest congestion and Denies cough Gastrointestinal: Gastrointestinal: Denies dyspepsia, Denies heartburn, Reports diarrhea and Reports nausea Genitourinary: Genitourinary: Denies dysuria Musculoskeletal: Musculoskeletal: Reports other ( right lower extremity worsening duct by) Integumentary/Breasts: Skin/Breast: Reports wounds Neurologic: Denies focal weakness and Denies Sensory deficit (Neuro) Psychiatric: Psychiatric: Reports no additional psychiatric complaints and Reports as per HPI Endocrine: Endocrine: Denies cold intolerance, Denies fatigue, Denies flushing, Denies heat intolerance, Denies polyphagia, Denies polydipsia and Denies palpitations Hematologic/Lymphatic: Hematologic/Lymphatic: Reports no additional hematologic/lymphatic complaints and Reports as per HPI Allergic/Immunologic: Allergic/Immunologic: Reports no additional allergic/immunologic complaints and Reports as per HPI PMFSH Past Medical History Medical History CAD (coronary artery disease) HLD (hyperlipidemia) HTN (hypertension) IDDM (insulin dependent diabetes mellitus) Incisional hernia Neuropathy Osteoarthritis of right knee Plantar wart, left foot Surgical History Surgical History H/O bilateral cataract extraction (~2014) H/O heart artery stent (~2014) H/O: hysterectomy (~2014) History of abdominal aortic aneurysm (AAA) repair (~2014) History of cardiac catheterization (~2010) Hx of CABG (~2010) Family History Family History Other Anxiety Cancer Depression Diabetes mellitus Heart disease Hypertension Social History Social History Smoking status: Current every day smoker Tobacco type: e-cigarettes/vaping Second hand tobacco smoke exposure: Yes Alcohol intake: unknown Substance use: never Substance use type: does not use Gender identity (if verbalized by the patient): Female Spiritual care concerns: No Meds Home Medications and Allergies Home Medications Medication Instructions Recorded Confirmed Type losartan 100 mg tablet (Cozaar) 100 mg PO DAILY 08/29/21 02/21/22 History carvedilol 6.25 mg tablet 6.25 mg PO BID 09/12/21 02/21/22 History omeprazole 40 mg capsule,delayed 40 mg PO DAILY 09/12/21 02/21/22 History release pen needle, diabetic 33 gauge x #100 ea 09/12/21 02/21/22 Rx 11/09 (Comfort EZ Pen [place]) phentermine 37.5 mg capsule 37.5 mg PO DAILY 09/12/21 02/21/22 History sertraline 50 mg tablet 50 mg PO DAILY #90 tabs 09/12/21 02/21/22 Rx atorvastatin 10 mg tablet 10 mg PO QHS #90 tabs 09/21/21 02/21/22 Rx clop
[2022-02-24] MEDS: IBUPROFEN 600 MG TABLET PO (01:11)
[2022-02-24] MEDS: HYDROcodone/acetaminophen (*CRX) 5-325 MG TABLET 1 TAB PO (02:02)
--- NOTE | 2022-02-24 02:43 | ADMGEN ---
This patient, Pham Rubio, was admitted to 2 Medical Room 256-01. Patient/family oriented to hospital policies and general routines including ID bracelet, bed and alarms, visiting hours, pain management, procedures, bathroom and other care routines, personal items, smoking policy, room service/diet, and visiting hours. Information on how to activate the Rapid Response Team has been discussed. Patient/Family are encouraged to report perceived risks to care and to ask questions if they do not understand what they are told or what they should do.
[2022-02-24 07:36] LABS: Glucose Point of Care 105 mg/dl (65-105)
[2022-02-24 08:40] LABS: Basophils Percent Auto 0.3 % (0.2-1.2); Eosinophils Percent Auto 0.3 % (0-4.4); Hematocrit 36.7 % (37.0-47.0); Hemoglobin 11.5 g/dL (12.0-15.0); Immature Granulocyte Absolute 0.03 K/mm3 (0.00-0.031); Immature Granulocyte Percent A 0.3 % (0-0.5); Lymphocytes Absolute Auto 0.99 K/mm3 (0.9-3.2); Lymphocytes Percent Auto 9.5 % (18.3-44.2); Mean Corpuscular HGB Conc 31.3 g/dl (32-36); Mean Corpuscular Hemoglobin 29.1 pg (26-34); Mean Corpuscular Volume 92.9 fl (80-100); Mean Platelet Volume 10.3 fl (7.4-10.4); Monocytes Absolute Auto 0.5 K/mm3 (0.1-0.6); Monocytes Percent Auto 4.4 % (2.6-8.5); Neutrophils Absolute Auto 8.9 K/mm3 (1.3-6.7); Neutrophils Percent Auto 85.2 % (45.5-73.1); Platelet Count Result 132 k/mm3 (150-375); Red Blood Count 3.95 M/mm3 (4.2-5.4); Red Cell Distribution Width 13.4 % (11.5-14.5); White Blood Count 10.4 K/mm3 (4.5-10.0)
--- NOTE | 2022-02-24 08:45 | PM.IMPN ---
Progress Note: A&P Assessment and Plan (1) Peripheral arterial disease: Code(s): I73.9 - Peripheral vascular disease, unspecified Status: Acute Assessment and Plan: reports a wound on the outer lateral murphy edges well approximated and circular appears stable at this time arterial Doppler ordered (2) Cellulitis of lower extremity: Code(s): L03.119 - Cellulitis of unspecified part of limb Status: Acute Assessment and Plan: secondary to dog bite Nafcillin and imipenem continued wound culture grew MSSA and Pseudomonas on 02/17/22 blood cultures in progress continue to monitor wound care consult, looks to be progressive by a arterial insufficiency Silver gel with covering Mick hose white blood cell count 14.3 upon admission currently 10.4 (3) Diabetes mellitus: Qualifiers: Diabetes mellitus complication detail: with other skin ulcer Diabetes mellitus complication status: with skin complications Diabetes mellitus long distance billing operator insulin use: with long distance billing operator use Diabetes mellitus type: type 2 Qualified Code(s): E11.622 - Type 2 diabetes mellitus with other skin ulcer; Z79.4 - shelter (current) use of insulin Code(s): E11.9 - Type 2 diabetes mellitus without complications Status: Acute Assessment and Plan: Current glucose is 99 carb consistent diet continue Lantus 26 units daily hypoglycemia protocol insulin sliding scale Accu-Cheks AC and HS continue to trend glucose adjust therapy as indicated (4) HTN (hypertension): Qualifiers: Hypertension type: primary hypertension Qualified Code(s): I10 - Essential (primary) hypertension Code(s): I10 - Essential (primary) hypertension Status: Acute Assessment and Plan: current blood pressure 132/50 continue home meds carvedilol 6.25 mg p.o. b.i.d., losartan 100 mg p.o. daily continue to trend blood pressure adjust therapy as indicated (5) CAD (coronary artery disease): Qualifiers: Associated angina: unspecified whether angina present Coronary Disease-Associated Artery/Lesion type: unspecified vessel or lesion type [place] vs. transplanted heart: [place] heart Qualified Code(s): I25.10 - Atherosclerotic heart disease of [place] coronary artery without angina pectoris Code(s): I25.10 - Atherosclerotic heart disease of [place] coronary artery without angina pectoris Status: Acute Assessment and Plan: chest pain-free continue to monitor continue home med (6) GERD (gastroesophageal reflux disease): Qualifiers: Esophagitis presence: esophagitis presence not specified Qualified Code(s): K21.9 - Gastro-esophageal reflux disease without esophagitis Code(s): K21.9 - Gastro-esophageal reflux disease without esophagitis Status: Acute Assessment and Plan: PPI as needed Time Spent With Patient Time with patient: Greater than 35 minutes Subjective Date/time seen: 02/24/22 08:45 Interval history: 02/24/2245 patient stated that she does not feel great today. She stated that she her stomach hurts and she is nauseous and has been nauseous for couple hours. She states that she has abdominal pain a 7/10. She is also complaining of chills and sweats. She denies any chest pain, shortness of breath, diarrhea, constipation, weakness or fatigue. I did talk to the patient about smoking cessation due to the fact that the wound that she has had almost a month from a toenail seems to be from a vascular flow issue. Wound nurse was in the room and we evaluated the wound together in a was noted with perfectly approximated edges. Arterial Doppler has been ordered. Patient was also complaining of a callus on her left big toe. Patient's white count is down and she seems to be doing a little better. Will stop IV antibiotics and start her on or
--- NOTE | 2022-02-24 08:45 | P.PNIM_ITS ---
Progress Note: A&P Assessment and Plan (1) Peripheral arterial disease: Code(s): I73.9 - Peripheral vascular disease, unspecified Status: Acute Assessment and Plan: * reports a wound on the outer lateral murphy * edges well approximated and circular * appears stable at this time * arterial Doppler ordered (2) Cellulitis of lower extremity: Code(s): L03.119 - Cellulitis of unspecified part of limb Status: Acute Assessment and Plan: * secondary to dog bite * Nafcillin and imipenem continued * wound culture grew MSSA and Pseudomonas on 02/17/22 * blood cultures in progress * continue to monitor * wound care consult, looks to be progressive by a arterial insufficiency * Silver gel with covering * Mick hose * white blood cell count 14.3 upon admission currently 10.4 (3) Diabetes mellitus: Qualifiers: Diabetes mellitus complication detail: with other skin ulcer Diabetes mellitus complication status: with skin complications Diabetes mellitus custodial insulin use: with termite control servicer use Diabetes mellitus type: type 2 Qualified Code(s): E11.622 - Type 2 diabetes mellitus with other skin ulcer; Z79.4 - senior care (current) use of insulin Code(s): E11.9 - Type 2 diabetes mellitus without complications Status: Acute Assessment and Plan: * Current glucose is 99 * carb consistent diet * continue Lantus 26 units daily * hypoglycemia protocol * insulin sliding scale * Accu-Cheks AC and HS * continue to trend glucose * adjust therapy as indicated (4) HTN (hypertension): Qualifiers: Hypertension type: primary hypertension Qualified Code(s): I10 - Essential (primary) hypertension Code(s): I10 - Essential (primary) hypertension Status: Acute Assessment and Plan: * current blood pressure 132/50 * continue home meds carvedilol 6.25 mg p.o. b.i.d., losartan 100 mg p.o. daily * continue to trend blood pressure * adjust therapy as indicated (5) CAD (coronary artery disease): Qualifiers: Associated angina: unspecified whether angina present Coronary Disease- Associated Artery/Lesion type: unspecified vessel or lesion type [place] vs. transplanted heart: [place] heart Qualified Code(s): I25.10 - Atherosclerotic heart disease of [place] coronary artery without angina pectoris Code(s): I25.10 - Atherosclerotic heart disease of [place] coronary artery without angina pectoris Status: Acute Assessment and Plan: * chest pain-free * continue to monitor * continue home med (6) GERD (gastroesophageal reflux disease): Qualifiers: Esophagitis presence: esophagitis presence not specified Qualified Code(s): K21.9 - Gastro-esophageal reflux disease without esophagitis Code(s): K21.9 - Gastro-esophageal reflux disease without esophagitis Status: Acute Assessment and Plan: * PPI as needed Time Spent With Patient Time with patient: Greater than 35 minutes Subjective Date/time seen: 02/24/22 08:45 Interval history: 02/24/22 0845 patient stated that she does not feel great today. She stated that she her stomach hurts and she is nauseous and has been nauseous for couple hours. She states that she has abdominal pain a 7/10. She is also complaining of chills and sweats. She denies any chest pain, shortness of breath, diarrhea, constipation, weakness or fatigue. I did
[2022-02-24 08:54] LABS: Alanine Aminotransferase 11 U/L (6-35); Albumin Level 3.4 g/dL (3.5-5.1); Alkaline Phosphatase 79 U/L (38-126); Anion Gap 5 mmol/L (8-16); Aspartate Amino Transferase 18 U/L (14-36); Bilirubin,Total 1.1 mg/dL (0.2-1.3); Blood Urea Nitrogen 14 mg/dL (7-17); Carbon Dioxide 26 mmol/L (22-30); Chloride 106 mmol/L (98-107); Estimated CRCL calculation 65 ml/min; Estimated Glomerular Filt Rate > 60; Glucose 99 mg/dL (65-110); Potassium 3.2 mmol/L (3.4-5.0); Sodium 137 mmol/L (137-145)
[2022-02-24] MEDS: carvediloL 6.25 MG TABLET PO ×2 (10:36→20:47)
[2022-02-24] MEDS: LOSARTAN POTASSIUM 100 MG TABLET PO (10:36)
[2022-02-24] MEDS: EZETIMIBE 10 MG TABLET PO (10:36)
[2022-02-24] MEDS: SERTRALINE HCL 50 MG TABLET PO (10:36)
[2022-02-24] MEDS: CLOPIDOGREL BISULFATE 75 MG TABLET PO (10:36)
[2022-02-24] MEDS: INSULIN GLARGINE (*BKC) 100 UNITS/ML 26 UNITS SUB-Q (10:38)
[2022-02-24] MEDS: SILVERGEL (ELTA) 45 ML 1 APPLIC TOPICAL (10:38)
[2022-02-24] MEDS: POTASSIUM CHLORIDE 20 MEQ TABLET 40 MEQ PO (10:58)
[2022-02-24 11:52] LABS: Glucose Point of Care 116 mg/dl (65-105)
[2022-02-24 16:27] LABS: Glucose Point of Care 100 mg/dl (65-105)
[2022-02-24] MEDS: SENNA/DOCUSATE SODIUM TABLET 1 TAB PO (16:42)
[2022-02-24] MEDS: NICOTINE (*PBKC) 21 MG PATCH 1 PATCH TRANSDERM (16:42)
[2022-02-24] MEDS: ATORVASTATIN 10 MG TABLET PO (20:47)
[2022-02-24 21:09] LABS: Glucose Point of Care 92 mg/dl (65-105)
[2022-02-25 00:33] LABS: Glucose Point of Care 132 mg/dl (65-105)
[2022-02-25] MEDS: HYDROcodone/acetaminophen (*CRX) 5-325 MG TABLET 1 TAB PO ×3 (00:45→22:10)
[2022-02-25 04:04] VITALS: BP 138/59; PULSE 54; RESP 18; TEMP 36.6; O2SAT 97
[2022-02-25 05:57] LABS: Basophils Percent Auto 0.2 % (0.2-1.2); Eosinophils Percent Auto 0.5 % (0-4.4); Hematocrit 35.9 % (37.0-47.0); Hemoglobin 11.6 g/dL (12.0-15.0); Immature Granulocyte Absolute 0.02 K/mm3 (0.00-0.031); Immature Granulocyte Percent A 0.3 % (0-0.5); Lymphocytes Absolute Auto 1.02 K/mm3 (0.9-3.2); Lymphocytes Percent Auto 16.8 % (18.3-44.2); Mean Corpuscular HGB Conc 32.3 g/dl (32-36); Mean Corpuscular Hemoglobin 29.4 pg (26-34); Mean Corpuscular Volume 91.1 fl (80-100); Mean Platelet Volume 10.2 fl (7.4-10.4); Monocytes Absolute Auto 0.4 K/mm3 (0.1-0.6); Monocytes Percent Auto 6.9 % (2.6-8.5); Neutrophils Absolute Auto 4.6 K/mm3 (1.3-6.7); Neutrophils Percent Auto 75.3 % (45.5-73.1); Platelet Count Result 146 k/mm3 (150-375); Red Blood Count 3.94 M/mm3 (4.2-5.4); Red Cell Distribution Width 13.4 % (11.5-14.5); White Blood Count 6.1 K/mm3 (4.5-10.0)
[2022-02-25 06:00] LABS: Alanine Aminotransferase 11 U/L (6-35); Albumin Level 3.2 g/dL (3.5-5.1); Alkaline Phosphatase 77 U/L (38-126); Anion Gap 6 mmol/L (8-16); Aspartate Amino Transferase 21 U/L (14-36); Bilirubin,Total 0.8 mg/dL (0.2-1.3); Blood Urea Nitrogen 17 mg/dL (7-17); Calcium 7.8 mg/dL (8.4-10.2); Carbon Dioxide 25 mmol/L (22-30); Chloride 108 mmol/L (98-107); Estimated CRCL calculation 65 ml/min; Estimated Glomerular Filt Rate > 60; Glucose 111 mg/dL (65-110); Magnesium 2.3 mg/dL (1.6-2.3); Potassium 3.6 mmol/L (3.4-5.0); Sodium 139 mmol/L (137-145)
[2022-02-25 07:45] LABS: Glucose Point of Care 97 mg/dl (65-105)
[2022-02-25] MEDS: INSULIN GLARGINE (*BKC) 100 UNITS/ML 26 UNITS SUB-Q (08:56)
[2022-02-25] MEDS: LOSARTAN POTASSIUM 100 MG TABLET PO (09:02)
[2022-02-25] MEDS: CLOPIDOGREL BISULFATE 75 MG TABLET PO (09:02)
[2022-02-25] MEDS: SERTRALINE HCL 50 MG TABLET PO (09:02)
[2022-02-25 09:03] VITALS: PULSE 54
[2022-02-25] MEDS: EZETIMIBE 10 MG TABLET PO (09:03)
[2022-02-25] MEDS: carvediloL 6.25 MG TABLET PO ×2 (09:03→20:03)
[2022-02-25] MEDS: TRIAMCINOLONE ACET 0.5% CREAM 15 GM TUBE 1 APPLIC TOPICAL (09:06)
--- NOTE | 2022-02-25 11:45 | PM.IMPN ---
Progress Note: A&P Assessment and Plan (1) Peripheral arterial disease: Code(s): I73.9 - Peripheral vascular disease, unspecified Status: Acute Assessment and Plan: reports a wound on the outer lateral murphy edges well approximated and circular appears stable at this time arterial Doppler normal bilateral ankle brachial indices (2) Cellulitis of lower extremity: Code(s): L03.119 - Cellulitis of unspecified part of limb Status: Acute Assessment and Plan: secondary to dog bite Nafcillin and imipenem continued day 2 wound culture grew MSSA and Pseudomonas on 02/17/22 Unable to transition to PO medications due to Hx of AAA, fluoroquinolones contraindicated blood cultures NGTD continue to monitor wound care consult, looks to be progressive by a arterial insufficiency Silver gel with covering Mick hose white blood cell count 14.3 upon admission currently 6.1 (3) Diabetes mellitus: Qualifiers: Diabetes mellitus complication detail: with other skin ulcer Diabetes mellitus complication status: with skin complications Diabetes mellitus intermodal truck driver insulin use: with longterm use Diabetes mellitus type: type 2 Qualified Code(s): E11.622 - Type 2 diabetes mellitus with other skin ulcer; Z79.4 - termination clerk (current) use of insulin Code(s): E11.9 - Type 2 diabetes mellitus without complications Status: Acute Assessment and Plan: Current glucose is 111 carb consistent diet continue Lantus 26 units daily hypoglycemia protocol insulin sliding scale Accu-Cheks AC and HS continue to trend glucose adjust therapy as indicated (4) HTN (hypertension): Qualifiers: Hypertension type: primary hypertension Qualified Code(s): I10 - Essential (primary) hypertension Code(s): I10 - Essential (primary) hypertension Status: Acute Assessment and Plan: current blood pressure 138/59 continue home meds carvedilol 6.25 mg p.o. b.i.d., losartan 100 mg p.o. daily continue to trend blood pressure adjust therapy as indicated (5) CAD (coronary artery disease): Qualifiers: Associated angina: unspecified whether angina present Coronary Disease-Associated Artery/Lesion type: unspecified vessel or lesion type [place] vs. transplanted heart: [place] heart Qualified Code(s): I25.10 - Atherosclerotic heart disease of [place] coronary artery without angina pectoris Code(s): I25.10 - Atherosclerotic heart disease of [place] coronary artery without angina pectoris Status: Acute Assessment and Plan: chest pain-free continue to monitor continue home med (6) GERD (gastroesophageal reflux disease): Qualifiers: Esophagitis presence: esophagitis presence not specified Qualified Code(s): K21.9 - Gastro-esophageal reflux disease without esophagitis Code(s): K21.9 - Gastro-esophageal reflux disease without esophagitis Status: Acute Assessment and Plan: PPI as needed (7) HLD (hyperlipidemia): Qualifiers: Hyperlipidemia type: unspecified Qualified Code(s): E78.5 - Hyperlipidemia, unspecified Code(s): E78.5 - Hyperlipidemia, unspecified Status: Acute Assessment and Plan: LFTs are ok Continue home atorvastatin Check a lipid panel in the am Time Spent With Patient Time with patient: Greater than 35 minutes Subjective Date/time seen: 02/25/22 1145 Interval history: 02/25/22 1145 Patient is doing okay today she is lying in bed. She is kind of upset that she has stay but however explained to her that she has Pseudomonas in her leg and that she needs and IV antibiotics due to her AAA repair. She is eating and she feels okay. She did state that her stomach intermittently has pain. She denies any chest pain, shortness of breath, nausea, vomiting, diarrh
--- NOTE | 2022-02-25 11:45 | P.PNIM_ITS ---
Progress Note: A&P Assessment and Plan (1) Peripheral arterial disease: Code(s): I73.9 - Peripheral vascular disease, unspecified Status: Acute Assessment and Plan: * reports a wound on the outer lateral murphy * edges well approximated and circular * appears stable at this time * arterial Doppler normal bilateral ankle brachial indices (2) Cellulitis of lower extremity: Code(s): L03.119 - Cellulitis of unspecified part of limb Status: Acute Assessment and Plan: * secondary to dog bite * Nafcillin and imipenem continued day 2 * wound culture grew MSSA and Pseudomonas on 02/17/22 * Unable to transition to PO medications due to Hx of AAA, fluoroquinolones contraindicated * blood cultures NGTD * continue to monitor * wound care consult, looks to be progressive by a arterial insufficiency * Silver gel with covering * Mick hose * white blood cell count 14.3 upon admission currently 6.1 (3) Diabetes mellitus: Qualifiers: Diabetes mellitus complication detail: with other skin ulcer Diabetes mellitus complication status: with skin complications Diabetes mellitus fpc insulin use: with supervisor intermediates use Diabetes mellitus type: type 2 Qualified Code(s): E11.622 - Type 2 diabetes mellitus with other skin ulcer; Z79.4 - half-way (current) use of insulin Code(s): E11.9 - Type 2 diabetes mellitus without complications Status: Acute Assessment and Plan: * Current glucose is 111 * carb consistent diet * continue Lantus 26 units daily * hypoglycemia protocol * insulin sliding scale * Accu-Cheks AC and HS * continue to trend glucose * adjust therapy as indicated (4) HTN (hypertension): Qualifiers: Hypertension type: primary hypertension Qualified Code(s): I10 - Essential (primary) hypertension Code(s): I10 - Essential (primary) hypertension Status: Acute Assessment and Plan: * current blood pressure 138/59 * continue home meds carvedilol 6.25 mg p.o. b.i.d., losartan 100 mg p.o. daily * continue to trend blood pressure * adjust therapy as indicated (5) CAD (coronary artery disease): Qualifiers: Associated angina: unspecified whether angina present Coronary Disease- Associated Artery/Lesion type: unspecified vessel or lesion type [place] vs. transplanted heart: [place] heart Qualified Code(s): I25.10 - Atherosclerotic heart disease of [place] coronary artery without angina pectoris Code(s): I25.10 - Atherosclerotic heart disease of [place] coronary artery without angina pectoris Status: Acute Assessment and Plan: * chest pain-free * continue to monitor * continue home med (6) GERD (gastroesophageal reflux disease): Qualifiers: Esophagitis presence: esophagitis presence not specified Qualified Code(s): K21.9 - Gastro-esophageal reflux disease without esophagitis Code(s): K21.9 - Gastro-esophageal reflux disease without esophagitis Status: Acute Assessment and Plan: * PPI as needed (7) HLD (hyperlipidemia): Qualifiers: Hyperlipidemia type: unspecified Qualified Code(s): E78.5 - Hyperli pidemia, unspecified Code(s): E78.5 - Hyperlipidemia, unspecified Status: Acute Assessment and Plan: * LFTs are ok * Continue home atorvastatin * Check a lipid panel in the am
[2022-02-25 11:52] LABS: Glucose Point of Care 101 mg/dl (65-105)
[2022-02-25] MEDS: SILVERGEL (ELTA) 45 ML 1 APPLIC TOPICAL (13:32)
[2022-02-25 14:00] VITALS: BP 137/61; PULSE 61; RESP 16; TEMP 36; O2SAT 97
[2022-02-25 16:23] LABS: Glucose Point of Care 110 mg/dl (65-105)
[2022-02-25 19:48] VITALS: BP 131/55; PULSE 64; RESP 12; TEMP 36.4; O2SAT 98
[2022-02-25 20:03] VITALS: PULSE 64
[2022-02-25] MEDS: ATORVASTATIN 10 MG TABLET PO (20:03)
[2022-02-25 20:24] LABS: Glucose Point of Care 129 mg/dl (65-105)
[2022-02-26 04:57] VITALS: BP 129/61; PULSE 45; RESP 12; TEMP 36.4; O2SAT 98
[2022-02-26 05:51] LABS: Basophils Percent Auto 0.3 % (0.2-1.2); Eosinophils Absolute Auto 0.1 K/mm3 (0-0.3); Eosinophils Percent Auto 2.2 % (0-4.4); Hematocrit 37.6 % (37.0-47.0); Hemoglobin 11.6 g/dL (12.0-15.0); Immature Granulocyte Absolute 0.02 K/mm3 (0.00-0.031); Immature Granulocyte Percent A 0.3 % (0-0.5); Lymphocytes Percent Auto 27.3 % (18.3-44.2); Mean Corpuscular HGB Conc 30.9 g/dl (32-36); Mean Corpuscular Hemoglobin 29.1 pg (26-34); Mean Corpuscular Volume 94.5 fl (80-100); Mean Platelet Volume 9.6 fl (7.4-10.4); Monocytes Absolute Auto 0.6 K/mm3 (0.1-0.6); Monocytes Percent Auto 9.3 % (2.6-8.5); Neutrophils Absolute Auto 3.8 K/mm3 (1.3-6.7); Neutrophils Percent Auto 60.6 % (45.5-73.1); Platelet Count Result 141 k/mm3 (150-375); Red Blood Count 3.98 M/mm3 (4.2-5.4); Red Cell Distribution Width 13.8 % (11.5-14.5); White Blood Count 6.2 K/mm3 (4.5-10.0)
[2022-02-26 05:56] LABS: Alanine Aminotransferase 12 U/L (6-35); Albumin Level 3.4 g/dL (3.5-5.1); Alkaline Phosphatase 80 U/L (38-126); Anion Gap 3 mmol/L (8-16); Aspartate Amino Transferase 19 U/L (14-36); Bilirubin,Total 0.3 mg/dL (0.2-1.3); Blood Urea Nitrogen 16 mg/dL (7-17); Carbon Dioxide 30 mmol/L (22-30); Chloride 108 mmol/L (98-107); Cholesterol 142 mg/dL (0-200); Estimated CRCL calculation 65 ml/min; Estimated Glomerular Filt Rate > 60; Glucose 115 mg/dL (65-110); HDL Direct 40 mg/dL; Magnesium 2.1 mg/dL (1.6-2.3); Potassium 3.4 mmol/L (3.4-5.0); Sodium 141 mmol/L (137-145); Triglycerides 107 mg/dL (<150)
[2022-02-26 06:07] LABS: LDL Cholesterol Direct 64 mg/dL
--- NOTE | 2022-02-26 07:15 | P.PNIM_ITS ---
Progress Note: A&P Assessment and Plan (1) Peripheral arterial disease: Code(s): I73.9 - Peripheral vascular disease, unspecified Status: Acute Assessment and Plan: * reports a wound on the outer lateral murphy * edges well approximated and circular * appears stable at this time * arterial Doppler normal bilateral ankle brachial indices (2) Cellulitis of lower extremity: Code(s): L03.119 - Cellulitis of unspecified part of limb Status: Acute Assessment and Plan: * secondary to dog bite * Nafcillin and imipenem continued day 3 will need a total of 5 days * wound culture grew MSSA and Pseudomonas on 02/17/22 * Unable to transition to PO medications due to Hx of AAA, fluoroquinolones contraindicated * blood cultures NGTD * continue to monitor * wound care consult, looks to be progressive by a arterial insufficiency * Silver gel with covering * Mick hose * white blood cell count 14.3 upon admission currently 6.2 (3) Diabetes mellitus: Qualifiers: Diabetes mellitus complication detail: with other skin ulcer Diabetes mellitus complication status: with skin complications Diabetes mellitus exterminator insulin use: with exterminator use Diabetes mellitus type: type 2 Qualified Code(s): E11.622 - Type 2 diabetes mellitus with other skin ulcer; Z79.4 - intermediate frame tender (current) use of insulin Code(s): E11.9 - Type 2 diabetes mellitus without complications Status: Acute Assessment and Plan: * Current glucose is 115 * carb consistent diet * continue Lantus 26 units daily * hypoglycemia protocol * insulin sliding scale * Accu-Cheks AC and HS * continue to trend glucose * adjust therapy as indicated (4) HTN (hypertension): Qualifiers: Hypertension type: primary hypertension Qualified Code(s): I10 - Essential (primary) hypertension Code(s): I10 - Essential (primary) hypertension Status: Acute Assessment and Plan: * current blood pressure 129/61 * continue home meds carvedilol 6.25 mg p.o. b.i.d., losartan 100 mg p.o. daily * continue to trend blood pressure * adjust therapy as indicated (5) CAD (coronary artery disease): Qualifiers: Coronary Disease-Associated Artery/Lesion type: unspecified vessel or lesion type [place] vs. transplanted heart: [place] heart Associated angina: unspecified whether angina present Qualified Code(s): I25.10 - Atherosclerotic heart disease of [place] coronary artery without angina pectoris Code(s): I25.10 - Atherosclerotic heart disease of [place] coronary artery without angina pectoris Status: Acute Assessment and Plan: * chest pain-free * continue to monitor * continue home med (6) GERD (gastroesophageal reflux disease): Qualifiers: Esophagitis presence: esophagitis presence not specified Qualified Code(s): K21.9 - Gastro-esophageal reflux disease without esophagitis Code(s): K21.9 - Gastro-esophageal reflux disease without esophagitis Status: Acute Assessment and Plan: * PPI as needed (7) HLD (hyperlipidemia): Qualifiers: Hyperlipidemia type: unspecified Qualified Code(s): E78.5 - Hyperlipidemia, unspecified Code(s): E78.5 - Hyperlipidemia, unspecified Status: Acute Assessment and Plan: * LFTs are ok * Continue home atorvastatin * Lipid panel cholesterol 42, trig
--- NOTE | 2022-02-26 07:15 | PM.IMPN ---
Progress Note: A&P Assessment and Plan (1) Peripheral arterial disease: Code(s): I73.9 - Peripheral vascular disease, unspecified Status: Acute Assessment and Plan: reports a wound on the outer lateral murphy edges well approximated and circular appears stable at this time arterial Doppler normal bilateral ankle brachial indices (2) Cellulitis of lower extremity: Code(s): L03.119 - Cellulitis of unspecified part of limb Status: Acute Assessment and Plan: secondary to dog bite Nafcillin and imipenem continued day 3 will need a total of 5 days wound culture grew MSSA and Pseudomonas on 02/17/22 Unable to transition to PO medications due to Hx of AAA, fluoroquinolones contraindicated blood cultures NGTD continue to monitor wound care consult, looks to be progressive by a arterial insufficiency Silver gel with covering Mick hose white blood cell count 14.3 upon admission currently 6.2 (3) Diabetes mellitus: Qualifiers: Diabetes mellitus complication detail: with other skin ulcer Diabetes mellitus complication status: with skin complications Diabetes mellitus mcfp insulin use: with automatic coil machine operator use Diabetes mellitus type: type 2 Qualified Code(s): E11.622 - Type 2 diabetes mellitus with other skin ulcer; Z79.4 - [facility] (current) use of insulin Code(s): E11.9 - Type 2 diabetes mellitus without complications Status: Acute Assessment and Plan: Current glucose is 115 carb consistent diet continue Lantus 26 units daily hypoglycemia protocol insulin sliding scale Accu-Cheks AC and HS continue to trend glucose adjust therapy as indicated (4) HTN (hypertension): Qualifiers: Hypertension type: primary hypertension Qualified Code(s): I10 - Essential (primary) hypertension Code(s): I10 - Essential (primary) hypertension Status: Acute Assessment and Plan: current blood pressure 129/61 continue home meds carvedilol 6.25 mg p.o. b.i.d., losartan 100 mg p.o. daily continue to trend blood pressure adjust therapy as indicated (5) CAD (coronary artery disease): Qualifiers: Coronary Disease-Associated Artery/Lesion type: unspecified vessel or lesion type [place] vs. transplanted heart: [place] heart Associated angina: unspecified whether angina present Qualified Code(s): I25.10 - Atherosclerotic heart disease of [place] coronary artery without angina pectoris Code(s): I25.10 - Atherosclerotic heart disease of [place] coronary artery without angina pectoris Status: Acute Assessment and Plan: chest pain-free continue to monitor continue home med (6) GERD (gastroesophageal reflux disease): Qualifiers: Esophagitis presence: esophagitis presence not specified Qualified Code(s): K21.9 - Gastro-esophageal reflux disease without esophagitis Code(s): K21.9 - Gastro-esophageal reflux disease without esophagitis Status: Acute Assessment and Plan: PPI as needed (7) HLD (hyperlipidemia): Qualifiers: Hyperlipidemia type: unspecified Qualified Code(s): E78.5 - Hyperlipidemia, unspecified Code(s): E78.5 - Hyperlipidemia, unspecified Status: Acute Assessment and Plan: LFTs are ok Continue home atorvastatin Lipid panel cholesterol 42, triglycerides 107, LDL 64, HDL 40 Time Spent With Patient Time with patient: Greater than 35 minutes Subjective Date/time seen: 02/26/22 07:30 Interval history: 02/26/22729 Patient is doing well today. She did state that she was having back pain however she has not really been getting out of bed much. She stated that she would like to get up and walk around more today. She denies any chest pain, shortness of breath, nausea, vomiting, diarrhea, constipation, weakness or fatigue today i
[2022-02-26 07:48] LABS: Glucose Point of Care 79 mg/dl (65-105)
[2022-02-26] MEDS: INSULIN GLARGINE (*BKC) 100 UNITS/ML 26 UNITS SUB-Q (08:17)
[2022-02-26 08:24] VITALS: PULSE 57
[2022-02-26] MEDS: CLOPIDOGREL BISULFATE 75 MG TABLET PO (08:24)
[2022-02-26] MEDS: LOSARTAN POTASSIUM 100 MG TABLET PO (08:24)
[2022-02-26] MEDS: EZETIMIBE 10 MG TABLET PO (08:24)
[2022-02-26] MEDS: ENOXAPARIN 40 MG/0.4 ML SYRINGE SUB-Q (08:24)
[2022-02-26] MEDS: carvediloL 6.25 MG TABLET PO ×2 (08:24→20:59)
[2022-02-26] MEDS: SERTRALINE HCL 50 MG TABLET PO (08:24)
[2022-02-26] MEDS: TRIAMCINOLONE ACET 0.5% CREAM 15 GM TUBE 1 APPLIC TOPICAL (08:25)
[2022-02-26] MEDS: SILVERGEL (ELTA) 45 ML 1 APPLIC TOPICAL (08:25)
[2022-02-26 11:38] LABS: Glucose Point of Care 128 mg/dl (65-105)
[2022-02-26 14:00] VITALS: BP 141/61; PULSE 58; RESP 14; TEMP 36.4; O2SAT 100
[2022-02-26 16:47] LABS: Glucose Point of Care 135 mg/dl (65-105)
[2022-02-26 19:20] VITALS: BP 118/41; PULSE 55; RESP 17; TEMP 36.7; O2SAT 99
[2022-02-26 20:59] VITALS: PULSE 64
[2022-02-26] MEDS: ATORVASTATIN 10 MG TABLET PO (20:59)
[2022-02-26 21:48] LABS: Glucose Point of Care 105 mg/dl (65-105)
[2022-02-27 03:31] VITALS: BP 148/56; PULSE 55; RESP 17; TEMP 36; O2SAT 98
--- NOTE | 2022-02-27 07:15 | PM.DS ---
DS: Admitting Diagnosis Discharge Date 02/28/22 0715 Admitting Diagnosis Cellulitis of the lower extremity, PAD DS: Summary Hospital Course Hospital Course: Patient is a 66-year-old female with a past medical history of diabetes, hyperlipidemia, CAD presented to the ED due to right lower extremity wound. Patient had cultures done on 02/17/2022 which did show Pseudomonas and Staphylococcus MSSA. Patient has been initiated on IV antibiotics. Unfortunately patient had a AAA repair in her past and was able to take Levaquin or ciprofloxacin and had to be treated with Primaxin and nafcillin. WBCs has been trending downward and is 5 currently today. Patient did have an elevated WBC of 14 upon arrival. Wound consult was placed and wound orders and consisted of sever jaw with covering. Patient is a diabetic however her diabetes has been controlled on her current regimen. Blood pressures been stable and patient has had no complaints including chest pain, shortness of breath, nausea, vomiting, diarrhea, constipation, weakness or fatigue it was noted in the beginning that the patient was having some abdominal pain KUB was performed and did show that patient had some impaction however she was able to have a big bowel movement. Patient is stable per labs and vital signs to be discharged. Wound care orders have been given and patient is understanding of the plan of care at this time. Time spent discussing smoking cessation with patient: more than 10 minutes Status at Discharge Functional status at discharge: independent ambulation Overall status at discharge: patient is progressing back to baseline Time Spent with Patient Time attestation: Total time spent providing and/or coordinating discharge services: 37 minutes Time spent: Greater than 30 minutes Specific discharge activities: Diagnostic testing, chart review, developing a treatment plan, education, care coordination documentation, physical exam, result review Exam Const: General: cooperative, comfortable, no acute distress, well developed, alert and awake Nutritional Appearance: average body habitus and overweight Orientation/consciousness: oriented to person, oriented to place, oriented to time and patient oriented x3 HENMT: Head: normal to inspection, normocephalic and atraumatic Ears: hearing grossly normal bilaterally Face and sinus: normal facial exam Eyes: General: appearance normal, both eyes and all related structures Pupils: Equal, round and reactive pupils present EOM: EOMs intact bilaterally Neck: Neck: full ROM, no lymphadenopathy and no JVD Thyroid: thyroid normal Lymphatic: no lymphadenopathy noted Resp: Effort & Inspection: normal respiratory effort and able to speak in complete sentences Auscultation: clear to auscultation bilaterally Cardio: Jugular venous distension: no JVD Rate: regular rate Rhythm: regular rhythm Heart sounds: S1 normal heart sound present and S2 normal heart sound present GI: Inspection: normal to inspection and [place] present Auscultation: Hypoactive bowel sounds present : General: Yes deferred Skin: General skin exam: normal color Lesions: no lesions Rashes: no rashes Trauma: no lacerations or abrasions Wounds: no wounds and wounds noted (outer lateral murphy well approximated edges and black calous on left big toe) Hair: normal Nails: other (FUngus under all toenails ) Neuro: General: oriented to person, oriented to place, oriented to time, patient oriented x3, CN's II-XI intact bilaterally and Unable to assess gait Cranial nerves: Yes CN's II-XII intact bilaterally and Yes Equal, round and reactive pupils present Cognition (Neuro): normal cognition Speech: normal speech Gait exam (Neuro): Unable to assess gait Motor exam (neuro): 5/5 motor strength present throughout Sensory Exam: No Sensory deficit (Neuro) Extrem: General: other ( right lower extremity wound dressing in place) DS: Data Data Completed and Pending Labs on day of disc
[2022-02-27 07:27] LABS: Basophils Percent Auto 0.4 % (0.2-1.2); Eosinophils Absolute Auto 0.1 K/mm3 (0-0.3); Eosinophils Percent Auto 2.2 % (0-4.4); Hematocrit 36.3 % (37.0-47.0); Hemoglobin 11.5 g/dL (12.0-15.0); Immature Granulocyte Absolute 0.02 K/mm3 (0.00-0.031); Immature Granulocyte Percent A 0.4 % (0-0.5); Lymphocytes Absolute Auto 1.72 K/mm3 (0.9-3.2); Lymphocytes Percent Auto 34.3 % (18.3-44.2); Mean Corpuscular HGB Conc 31.7 g/dl (32-36); Mean Corpuscular Hemoglobin 29.3 pg (26-34); Mean Corpuscular Volume 92.6 fl (80-100); Mean Platelet Volume 9.6 fl (7.4-10.4); Monocytes Absolute Auto 0.4 K/mm3 (0.1-0.6); Monocytes Percent Auto 7.4 % (2.6-8.5); Neutrophils Absolute Auto 2.8 K/mm3 (1.3-6.7); Neutrophils Percent Auto 55.3 % (45.5-73.1); Platelet Count Result 138 k/mm3 (150-375); Red Blood Count 3.92 M/mm3 (4.2-5.4); Red Cell Distribution Width 13.8 % (11.5-14.5)
[2022-02-27 07:40] LABS: Alanine Aminotransferase 11 U/L (6-35); Albumin Level 3.3 g/dL (3.5-5.1); Alkaline Phosphatase 71 U/L (38-126); Anion Gap 4 mmol/L (8-16); Aspartate Amino Transferase 26 U/L (14-36); Bilirubin,Total 0.3 mg/dL (0.2-1.3); Blood Urea Nitrogen 13 mg/dL (7-17); Calcium 8.1 mg/dL (8.4-10.2); Carbon Dioxide 30 mmol/L (22-30); Chloride 105 mmol/L (98-107); Estimated CRCL calculation 74 ml/min; Estimated Glomerular Filt Rate > 60; Glucose 107 mg/dL (65-110); Potassium 3.3 mmol/L (3.4-5.0); Sodium 139 mmol/L (137-145)
--- NOTE | 2022-02-27 08:00 | P.PNIM_ITS ---
Progress Note: A&P Assessment and Plan (1) Peripheral arterial disease: Code(s): I73.9 - Peripheral vascular disease, unspecified Status: Acute Assessment and Plan: * reports a wound on the outer lateral murphy * Seems to be getting better and is smaller in size * edges well approximated and circular * appears stable at this time * arterial Doppler normal bilateral ankle brachial indices (2) Cellulitis of lower extremity: Code(s): L03.119 - Cellulitis of unspecified part of limb Status: Acute Assessment and Plan: * secondary to dog bite * Nafcillin and imipenem continued day 4 will need a total of 5 days * wound culture grew MSSA and Pseudomonas on 02/17/22 * Unable to transition to PO medications due to Hx of AAA, fluoroquinolones contraindicated * blood cultures NGTD * continue to monitor * wound care consult, looks to be progressive by a arterial insufficiency * Silver gel with covering * Mick hose * white blood cell count 14.3 upon admission currently 5.0 (3) Diabetes mellitus: Qualifiers: Diabetes mellitus complication detail: with other skin ulcer Diabetes mellitus complication status: with skin complications Diabetes mellitus filler leaf cutter long insulin use: with half-way use Diabetes mellitus type: type 2 Qualified Code(s): E11.622 - Type 2 diabetes mellitus with other skin ulcer; Z79.4 - buttermaker continuous churn (current) use of insulin Code(s): E11.9 - Type 2 diabetes mellitus without complications Status: Acute Assessment and Plan: * Current glucose is 107 * carb consistent diet * continue Lantus 26 units daily * hypoglycemia protocol * insulin sliding scale * Accu-Cheks AC and HS * continue to trend glucose * adjust therapy as indicated (4) HTN (hypertension): Qualifiers: Hypertension type: primary hypertension Qualified Code(s): I10 - Essential (primary) hypertension Code(s): I10 - Essential (primary) hypertension Status: Acute Assessment and Plan: * current blood pressure 148/56 * continue home meds carvedilol 6.25 mg p.o. b.i.d., losartan 100 mg p.o. daily * continue to trend blood pressure * adjust therapy as indicated (5) CAD (coronary artery disease): Qualifiers: Associated angina: unspecified whether angina present Coronary Disease- Associated Artery/Lesion type: unspecified vessel or lesion type [place] vs. transplanted heart: [place] heart Qualified Code(s): I25.10 - Atherosclerotic heart disease of [place] coronary artery without angina pectoris Code(s): I25.10 - Atherosclerotic heart disease of [place] coronary artery without angina pectoris Status: Acute Assessment and Plan: * chest pain-free * continue to monitor * continue home med (6) GERD (gastroesophageal reflux disease): Qualifiers: Esophagitis presence: esophagitis presence not specified Qualified Code(s): K21.9 - Gastro-esophageal reflux disease without esophagitis Code(s): K21.9 - Gastro-esophageal reflux disease without esophagitis Status: Acute Assessment and Plan: * PPI as needed (7) HLD (hyperlipidemia): Qualifiers: Hyperlipidemia type: unspecified Qualified Code(s): E78.5 - Hyperlipidemia, unspecified Code(s): E78.5 - Hyperlipidemia, unspecified Status: Acute Assessment and Plan: * LFTs are ok * Continue
--- NOTE | 2022-02-27 08:00 | PM.IMPN ---
Progress Note: A&P Assessment and Plan (1) Peripheral arterial disease: Code(s): I73.9 - Peripheral vascular disease, unspecified Status: Acute Assessment and Plan: reports a wound on the outer lateral murphy Seems to be getting better and is smaller in size edges well approximated and circular appears stable at this time arterial Doppler normal bilateral ankle brachial indices (2) Cellulitis of lower extremity: Code(s): L03.119 - Cellulitis of unspecified part of limb Status: Acute Assessment and Plan: secondary to dog bite Nafcillin and imipenem continued day 4 will need a total of 5 days wound culture grew MSSA and Pseudomonas on 02/17/22 Unable to transition to PO medications due to Hx of AAA, fluoroquinolones contraindicated blood cultures NGTD continue to monitor wound care consult, looks to be progressive by a arterial insufficiency Silver gel with covering Mick hose white blood cell count 14.3 upon admission currently 5.0 (3) Diabetes mellitus: Qualifiers: Diabetes mellitus complication detail: with other skin ulcer Diabetes mellitus complication status: with skin complications Diabetes mellitus assisted insulin use: with assisted use Diabetes mellitus type: type 2 Qualified Code(s): E11.622 - Type 2 diabetes mellitus with other skin ulcer; Z79.4 - residential (current) use of insulin Code(s): E11.9 - Type 2 diabetes mellitus without complications Status: Acute Assessment and Plan: Current glucose is 107 carb consistent diet continue Lantus 26 units daily hypoglycemia protocol insulin sliding scale Accu-Cheks AC and HS continue to trend glucose adjust therapy as indicated (4) HTN (hypertension): Qualifiers: Hypertension type: primary hypertension Qualified Code(s): I10 - Essential (primary) hypertension Code(s): I10 - Essential (primary) hypertension Status: Acute Assessment and Plan: current blood pressure 148/56 continue home meds carvedilol 6.25 mg p.o. b.i.d., losartan 100 mg p.o. daily continue to trend blood pressure adjust therapy as indicated (5) CAD (coronary artery disease): Qualifiers: Associated angina: unspecified whether angina present Coronary Disease-Associated Artery/Lesion type: unspecified vessel or lesion type [place] vs. transplanted heart: [place] heart Qualified Code(s): I25.10 - Atherosclerotic heart disease of [place] coronary artery without angina pectoris Code(s): I25.10 - Atherosclerotic heart disease of [place] coronary artery without angina pectoris Status: Acute Assessment and Plan: chest pain-free continue to monitor continue home med (6) GERD (gastroesophageal reflux disease): Qualifiers: Esophagitis presence: esophagitis presence not specified Qualified Code(s): K21.9 - Gastro-esophageal reflux disease without esophagitis Code(s): K21.9 - Gastro-esophageal reflux disease without esophagitis Status: Acute Assessment and Plan: PPI as needed (7) HLD (hyperlipidemia): Qualifiers: Hyperlipidemia type: unspecified Qualified Code(s): E78.5 - Hyperlipidemia, unspecified Code(s): E78.5 - Hyperlipidemia, unspecified Status: Acute Assessment and Plan: LFTs are ok Continue home atorvastatin Lipid panel cholesterol 42, triglycerides 107, LDL 64, HDL 40 Time Spent With Patient Time with patient: Greater than 35 minutes Subjective Date/time seen: 02/27/22 08:00 Interval history: 02/27/22 0815 Patient is doing okay today. She is ready to go however she has 1 more day of antibiotics. She denies any chest pain, nausea, vomiting, diarrhea, constipation, weakness or fatigue. Patient did state that she was very hungry today and that she ordered a 2nd tray.
[2022-02-27 08:33] LABS: Glucose Point of Care 97 mg/dl (65-105)
[2022-02-27 08:49] VITALS: PULSE 55
[2022-02-27] MEDS: EZETIMIBE 10 MG TABLET PO (08:49)
[2022-02-27] MEDS: SERTRALINE HCL 50 MG TABLET PO (08:49)
[2022-02-27] MEDS: CLOPIDOGREL BISULFATE 75 MG TABLET PO (08:49)
[2022-02-27] MEDS: TRIAMCINOLONE ACET 0.5% CREAM 15 GM TUBE 1 APPLIC TOPICAL (08:49)
[2022-02-27] MEDS: LOSARTAN POTASSIUM 100 MG TABLET PO (08:49)
[2022-02-27] MEDS: SILVERGEL (ELTA) 45 ML 1 APPLIC TOPICAL (08:49)
[2022-02-27] MEDS: carvediloL 6.25 MG TABLET PO (08:49)
[2022-02-27] MEDS: ENOXAPARIN 40 MG/0.4 ML SYRINGE SUB-Q (08:50)
[2022-02-27] MEDS: INSULIN GLARGINE (*BKC) 100 UNITS/ML 26 UNITS SUB-Q (08:52)
[2022-02-27 11:55] LABS: Glucose Point of Care 157 mg/dl (65-105)
[2022-02-27 14:00] VITALS: BP 137/45; PULSE 65; RESP 16; TEMP 36.6; O2SAT 100
[2022-02-27 16:34] LABS: Glucose Point of Care 142 mg/dl (65-105)
[2022-02-27 20:00] VITALS: PULSE 56; RESP 20; O2SAT 99
[2022-02-27 20:31] VITALS: BP 149/64; PULSE 56; RESP 20; TEMP 36.4; O2SAT 99
[2022-02-27 20:45] VITALS: PULSE 56
[2022-02-27] MEDS: ATORVASTATIN 10 MG TABLET PO (20:50)
[2022-02-27 21:01] LABS: Glucose Point of Care 113 mg/dl (65-105)
[2022-02-28 04:22] VITALS: BP 141/59; PULSE 54; RESP 20; TEMP 36.2; O2SAT 97
[2022-02-28 06:23] LABS: Basophils Percent Auto 0.6 % (0.2-1.2); Eosinophils Absolute Auto 0.1 K/mm3 (0-0.3); Hematocrit 38.3 % (37.0-47.0); Hemoglobin 12.3 g/dL (12.0-15.0); Immature Granulocyte Absolute 0.02 K/mm3 (0.00-0.031); Immature Granulocyte Percent A 0.4 % (0-0.5); Lymphocytes Absolute Auto 1.42 K/mm3 (0.9-3.2); Lymphocytes Percent Auto 28.1 % (18.3-44.2); Mean Corpuscular HGB Conc 32.1 g/dl (32-36); Mean Corpuscular Hemoglobin 29.4 pg (26-34); Mean Corpuscular Volume 91.6 fl (80-100); Mean Platelet Volume 9.6 fl (7.4-10.4); Monocytes Absolute Auto 0.3 K/mm3 (0.1-0.6); Monocytes Percent Auto 6.5 % (2.6-8.5); Neutrophils Absolute Auto 3.2 K/mm3 (1.3-6.7); Neutrophils Percent Auto 62.4 % (45.5-73.1); Platelet Count Result 151 k/mm3 (150-375); Red Blood Count 4.18 M/mm3 (4.2-5.4); Red Cell Distribution Width 13.9 % (11.5-14.5); White Blood Count 5.1 K/mm3 (4.5-10.0)
[2022-02-28 06:40] LABS: Alanine Aminotransferase 11 U/L (6-35); Albumin Level 3.5 g/dL (3.5-5.1); Alkaline Phosphatase 73 U/L (38-126); Anion Gap 4 mmol/L (8-16); Aspartate Amino Transferase 24 U/L (14-36); Bilirubin,Total 0.5 mg/dL (0.2-1.3); Blood Urea Nitrogen 14 mg/dL (7-17); Calcium 8.3 mg/dL (8.4-10.2); Carbon Dioxide 30 mmol/L (22-30); Chloride 105 mmol/L (98-107); Estimated CRCL calculation 74 ml/min; Estimated Glomerular Filt Rate > 60; Glucose 99 mg/dL (65-110); Potassium 3.6 mmol/L (3.4-5.0); Sodium 139 mmol/L (137-145)
[2022-02-28 08:00] LABS: Glucose Point of Care 93 mg/dl (65-105)
[2022-02-28] MEDS: CLOPIDOGREL BISULFATE 75 MG TABLET PO (09:03)
[2022-02-28] MEDS: EZETIMIBE 10 MG TABLET PO (09:03)
[2022-02-28] MEDS: SERTRALINE HCL 50 MG TABLET PO (09:04)
[2022-02-28] MEDS: LOSARTAN POTASSIUM 100 MG TABLET PO (09:04)
[2022-02-28 09:07] VITALS: PULSE 70
[2022-02-28] MEDS: carvediloL 6.25 MG TABLET PO (09:07)
[2022-02-28] MEDS: INSULIN GLARGINE (*BKC) 100 UNITS/ML 26 UNITS SUB-Q (09:11)
== END 2022-02-28 10:09 | disposition home or self-care (01) | DRG 603 ==
LOC: ANHED 22:17 → ANH2MED 02-24 00:53
PROVIDERS: Physician Assistant; Admitting Provider Internal Medicine; Emergency Provider Family Medicine; PCP Family Medicine; Visit Provider Nurse Practitioner
DX: L03.115 Cellulitis of right lower limb (principal); L97.819 Non-pressure chronic ulcer of other part of right lower leg with unspecified severity; E11.622 Type 2 diabetes mellitus with other skin ulcer; S81.851A Open bite, right lower leg, initial encounter; L84 Corns and callosities; I73.9 Peripheral vascular disease, unspecified; Z20.822 Contact with and (suspected) exposure to COVID-19; I10 Essential (primary) hypertension; I25.10 Atherosclerotic heart disease of native coronary artery without angina pectoris; K21.9 Gastro-esophageal reflux disease without esophagitis; E78.5 Hyperlipidemia, unspecified; E11.42 Type 2 diabetes mellitus with diabetic polyneuropathy; M17.11 Unilateral primary osteoarthritis, right knee; F17.290 Nicotine dependence, other tobacco product, uncomplicated; Z79.4 Long term (current) use of insulin; Z98.42 Cataract extraction status, left eye; Z98.41 Cataract extraction status, right eye; Z95.5 Presence of coronary angioplasty implant and graft; Z90.710 Acquired absence of both cervix and uterus; Z95.1 Presence of aortocoronary bypass graft
CPT/HCPCS: 36415; 74018; 80053; 80061; 81001; 82948; 83036; 83605; 83735; 85025; 85610; 85730; 86140; 87040; 87502; 93922; 96365; 96367; 99285; A9270; C9803; G0378; J0743; J1650; J1815; U0003; U0005

== ENCOUNTER 2022-03-24 19:27 | Emergency (ER) | payer OTHER, MEDICAID, SELFPAY ==
[2022-03-24 19:37] VITALS: BP 172/80; PULSE 85; RESP 24; TEMP 36.8; O2SAT 100
--- NOTE | 2022-03-24 19:46 | ED.URI ---
HPI - URI/Sore Throat General Chief Complaint: Upper Respiratory Infection Stated Complaint: Covid Positive Wants prescription Time Seen by Provider: 03/24/22 19:46 Source: patient Mode of arrival: ambulatory Limitations: no limitations History of Present Illness HPI Narrative: 66 yo F presents with c/o fatigue, headache, sick to stomach starting today. Her friend tested positive for covid. Pt works at long term. Went into her place of employment [employer] and tested herserlf for covid, which was positive. She now wants paxlovid. Had one covid vaccine apr 2021. States didn't want anythign to do with second vaccine . Had covid in August that made me very sick and was in hospital . Arjun denies CP and SOB. All systems reviewed and negative except as noted above. Related Data Home Medications Medication Instructions Recorded Confirmed losartan 100 mg tablet (Cozaar) 100 mg PO DAILY 08/29/21 03/24/22 carvedilol 6.25 mg tablet 6.25 mg PO BID 09/12/21 03/24/22 omeprazole 40 mg capsule,delayed 40 mg PO DAILY PRN Acid Reflux 09/12/21 03/24/22 release phentermine 37.5 mg capsule 37.5 mg PO DAILY 09/12/21 03/24/22 clopidogrel 75 mg tablet 75 mg PO DAILY 09/21/21 03/24/22 ezetimibe 10 mg tablet 10 mg PO DAILY 09/21/21 03/24/22 furosemide 40 mg tablet 40 mg PO DAILY PRN Edema 09/21/21 03/24/22 insulin glargine 100 unit/mL (3 26 unit subcut DAILY 02/21/22 03/24/22 mL) subcutaneous pen (Lantus Solostar U-100 Insulin) glipizide 2.5 mg tablet, extended 2.5 mg PO DAILY 02/24/22 03/24/22 release 24 hr Allergies Allergy/AdvReac Type Severity Reaction Status Date / Time No Known Allergies Allergy Verified 03/24/22 19:41 Review of Systems Review of Systems: CONSTITUTIONAL: Denies fever, chills, or sweats. Reports fatigue. EYES: Denies visual changes, redness, or discharge. ENT: Denies rhinorrhea, congestion, sore throat, or otalgia. CARDIOVASCULAR: Denies chest pain, palpitations, or edema. RESPIRATORY: Denies cough or dyspnea. GASTROINTESTINAL: Denies abdominal pain, vomiting, or diarrhea. Reports nausea. GENITOURINARY: Denies dysuria or hematuria. SKIN: Denies rash or itching. MUSCULOSKELETAL: Denies back pain, joint pain, or myalgia. NEUROLOGIC: Reports headache. Denies numbness, or weakness. PSYCHIATRIC: Denies anxiety or depression. All other systems reviewed are negative, except as documented in HPI. [facility] Past Medical History Medical History CAD (coronary artery disease) HLD (hyperlipidemia) HTN (hypertension) IDDM (insulin dependent diabetes mellitus) Incisional hernia Neuropathy Osteoarthritis of right knee Plantar wart, left foot Surgical History Surgical History H/O bilateral cataract extraction (~2014) H/O heart artery stent (~2014) H/O: hysterectomy (~2014) History of abdominal aortic aneurysm (AAA) repair (~2014) History of cardiac catheterization (~2010) Hx of CABG (~2010) Family History Family History (Updated 03/08/22 @ 15:02 by Alissa Ortega MA) Father Heart disease Mother Diabetes mellitus Heart disease Depression Other Anxiety Cancer Hypertension Social History Social History Smoking status: Current every day smoker Tobacco type: e-cigarettes/vaping Second hand tobacco smoke exposure: Yes Alcohol intake: never Substance use: never Substance use type: does not use Gender identity (if verbalized by the patient): Female Spiritual care concerns: No Comments At time of signature, agree with nursing past medical, surgical, social and family history. There is no relevant family history pertinent to the presenting complaint. Exam Narrative: GENERAL: This is a well-nourished, well-developed patient, in no apparent distress. HEAD: normocephalic, atraumatic. EYES: PERRL. Sclera clear/white. V
== END 2022-03-24 20:00 | disposition home or self-care (01) ==
PROVIDERS: Emergency Provider Nurse Practitioner Family; PCP Family Medicine
DX: U07.1 COVID-19 (principal); F17.290 Nicotine dependence, other tobacco product, uncomplicated; I25.10 Atherosclerotic heart disease of native coronary artery without angina pectoris; E78.5 Hyperlipidemia, unspecified; I10 Essential (primary) hypertension; Z79.4 Long term (current) use of insulin; E11.40 Type 2 diabetes mellitus with diabetic neuropathy, unspecified; M17.11 Unilateral primary osteoarthritis, right knee; Z98.42 Cataract extraction status, left eye; Z98.41 Cataract extraction status, right eye; Z95.5 Presence of coronary angioplasty implant and graft
CPT/HCPCS: 99213; G0463

== ENCOUNTER 2022-05-22 07:24 | Outpatient (RCR) | payer OTHER, MEDICAID, SELFPAY ==
[2022-03-17 09:15] VITALS: BMI 31.6
== END 2022-06-15 23:59 | disposition home or self-care (01) ==
LOC: ANHWOC 07:24
PROVIDERS: PCP Family Medicine; Visit Provider Family Medicine
DX: S81.801D Unspecified open wound, right lower leg, subsequent encounter (principal); I73.9 Peripheral vascular disease, unspecified
CPT/HCPCS: 99212; 99213; G0463

== ENCOUNTER 2022-05-22 08:34 | Outpatient (CLI) | payer OTHER, MEDICAID, SELFPAY ==
[2022-05-22 19:01] LABS: Appearance Urine Clear (Clear); Bilirubin Urine Negative (Negative); Blood Urine Negative (Negative); Color Urine Yellow (Yellow); Glucose Urine UA Negative (Negative); Ketones Urine Negative (Negative); Leukocyte Esterase Ur Negative LEU/UL (NEGATIVE); Nitrate Urine Negative (Negative); Protein Urine Negative (Negative); pH Urine 6.5 (5.0-9.0)
[2022-05-22 19:03] LABS: Add Urine Microscopic? NO
== END 2022-05-22 08:35 | disposition home or self-care (01) ==
LOC: ANHBWCLAB 08:35
PROVIDERS: PCP Family Medicine; Visit Provider Family Medicine
DX: M54.9 Dorsalgia, unspecified (principal)
CPT/HCPCS: 81003; 99212; G0463

== ENCOUNTER 2022-06-08 11:37 | Emergency (ER) | payer OTHER, MEDICAID, SELFPAY ==
[2022-06-08] VITALS (13 sets, daily range): BP systolic 98–171; BP diastolic 43–89; PULSE 62–84; RESP 15–26; TEMP 36.6; O2SAT 94–100
--- NOTE | ~2022-06-08 | CT_ITS ---
EXAMINATION: CT abdomen pelvis w con DATE: 06/08/2022 12:38 INDICATION: Low abdominal pain. Diarrhea. TECHNIQUE: Computed tomography (CT) of the abdomen and pelvis was performed with 100 mL Omnipaque 350 intravenous contrast. Automated exposure control and iterative reconstruction technique were employe d. The dose-length product was 1036.76 mGy-cm. COMPARISON: CT abdomen and pelvis 12/03/2020 FINDINGS: The visualized portions of the lung bases demonstrate mild atelectasis. There is mild emphy sema. No pleural effusion. The heart size is normal. There are coronary artery calcifications. No per icardial effusion. Median sternotomy wires are noted. There is an infrasternal ventral hernia contain ing fat. The liver, gallbladder, spleen, pancreas, adrenal glands are normal. There is cortical thinn ing of the kidneys. There is a 5.1 cm fusiform aneurysm of infrarenal aorta. There is a stent graft i n abdominal aorta and common iliac arteries. There are stents in the renal arteries. There are scatte red diverticula in the colon. There is fat stranding around a sigmoid diverticulum, consistent with d iverticulitis. There are no dilated loops of bowel. The appendix is normal. There are no pathological ly enlarged lymph nodes. There is no free intraperitoneal fluid. There is mild thoracolumbar spondylo sis. IMPRESSION: 1. Acute sigmoid diverticulitis. No perforation or abscess. 2. Stable 5.1 cm fusiform aneurysm of infrarenal aorta with stent graft in expected position. No endo leak. Reviewed, dictated and finalized at location A. IMPRESSION: 1. Acute sigmoid diverticulitis. No perforation or abscess. 2. Stable 5.1 cm fusiform aneurysm of infrarenal aorta with stent graft in expe cted position. No endoleak.
[2022-06-08 12:05] LABS: Basophils Percent Auto 0.3 % (0.2-1.2); Eosinophils Absolute Auto 0.1 K/mm3 (0-0.3); Eosinophils Percent Auto 0.6 % (0-4.4); Hematocrit 40.8 % (37.0-47.0); Hemoglobin 12.9 g/dL (12.0-15.0); Immature Granulocyte Absolute 0.04 K/mm3 (0.00-0.031); Immature Granulocyte Percent A 0.4 % (0-0.5); Lymphocytes Absolute Auto 0.99 K/mm3 (0.9-3.2); Mean Corpuscular HGB Conc 31.6 g/dl (32-36); Mean Corpuscular Hemoglobin 29.5 pg (26-34); Mean Corpuscular Volume 93.2 fl (80-100); Mean Platelet Volume 10.1 fl (7.4-10.4); Monocytes Absolute Auto 0.5 K/mm3 (0.1-0.6); Monocytes Percent Auto 4.8 % (2.6-8.5); Neutrophils Absolute Auto 8.3 K/mm3 (1.3-6.7); Neutrophils Percent Auto 83.9 % (45.5-73.1); Platelet Count Result 162 k/mm3 (150-375); Red Blood Count 4.38 M/mm3 (4.2-5.4); Red Cell Distribution Width 12.6 % (11.5-14.5); White Blood Count 9.9 K/mm3 (4.5-10.0)
[2022-06-08 12:17] LABS: Alanine Aminotransferase 12 U/L (6-35); Albumin Level 4.1 g/dL (3.5-5.1); Alkaline Phosphatase 90 U/L (38-126); Anion Gap 10 mmol/L (8-16); Aspartate Amino Transferase 19 U/L (14-36); Bilirubin,Total 0.8 mg/dL (0.2-1.3); Blood Urea Nitrogen 11 mg/dL (7-17); Calcium 8.6 mg/dL (8.4-10.2); Carbon Dioxide 34 mmol/L (22-30); Chloride 98 mmol/L (98-107); Estimated CRCL calculation 66 ml/min; Estimated Glomerular Filt Rate > 60; Glucose 121 mg/dL (65-110); Lipase 28 U/L (23-300); Potassium 2.7 mmol/L (3.4-5.0); Sodium 142 mmol/L (137-145)
[2022-06-08 12:24] LABS: Add Urine Microscopic? YES; Appearance Urine Cloudy (Clear); Bacteria Urine Trace /hpf; Bilirubin Urine Negative (Negative); Blood Urine 1+ (Negative); Color Urine Yellow (Yellow); Glucose Urine UA 3+ mg/dL (Negative); Ketones Urine Negative (Negative); Leukocyte Esterase Ur 2+ LEU/UL (Negative); Mucus Urine Heavy /lpf; Nitrate Urine Negative (Negative); Protein Urine Negative (Negative); Specific Grav Ur 1.023 (1.001-1.035); Squamous Epithelial Cell Urine Many /hpf (Few); WBC Urine 21-30 /hpf
--- NOTE | 2022-06-08 12:30 | PC.NURSE ---
pt to ct at this time. pt wants to wait until she returns to get her meds.
[2022-06-08 12:42] LABS: Lactic Acid Reflex 0.6 mmol/L (0.7-2.0)
--- NOTE | 2022-06-08 12:51 | ED.ABDPAIN ---
HPI - Abdominal Pain General Chief Complaint: Abdominal Pain Stated Complaint: diarrhea since Sunday, sent by PCP Time Seen by Provider: 06/08/22 12:01 Source: patient, RN notes reviewed and old records reviewed Mode of arrival: ambulatory Limitations: no limitations History of Present Illness HPI narrative: This is a 66 year old female who presents for evaluation of left side abdominal pain. She developed loose stool on Sunday and she has been having multiple bowel movements daily. She has not had a bowel movement today. She was told to come to ER because she has been having constant left lower abdominal pain for 2 days. She has associated nausea but denies fever, chill, or vomiting. Her stool is nonbloody. She took ibuprofen for her pain yesterday, and she rates her pain 8/10. She denies any urinary symptoms. Related Data Home Medications Medication Instructions Recorded Confirmed losartan 100 mg tablet (Cozaar) 100 mg PO DAILY 08/29/21 03/24/22 carvedilol 6.25 mg tablet 6.25 mg PO BID 09/12/21 03/24/22 omeprazole 40 mg capsule,delayed 40 mg PO DAILY PRN Acid Reflux 09/12/21 03/24/22 release phentermine 37.5 mg capsule 37.5 mg PO DAILY 09/12/21 03/24/22 clopidogrel 75 mg tablet 75 mg PO DAILY 09/21/21 03/24/22 ezetimibe 10 mg tablet 10 mg PO DAILY 09/21/21 03/24/22 furosemide 40 mg tablet 40 mg PO DAILY PRN Edema 09/21/21 03/24/22 Allergies Allergy/AdvReac Type Severity Reaction Status Date / Time No Known Allergies Allergy Verified 05/22/22 07:46 Review of Systems Review of Systems: All systems reviewed & are unremarkable except as noted in HPI and below Constitutional: Constitutional: Denies chills, Denies fatigue and Denies fever(s) ENT: Denies dizziness, Reports nasal congestion and Denies sore throat Cardiovascular: Cardiovascular: Denies chest pain and Denies radiating jaw, neck or arm pain Respiratory: Respiratory: Denies chest congestion, Denies cough and Denies dyspnea Gastrointestinal: Gastrointestinal: Reports abdominal pain, Reports bloating, Reports diarrhea and Reports nausea Genitourinary: Genitourinary: Denies hematuria, Denies nocturia and Denies dysuria Musculoskeletal: Musculoskeletal: Reports back pain PMFSH Past Medical History Medical History CAD (coronary artery disease) HLD (hyperlipidemia) HTN (hypertension) IDDM (insulin dependent diabetes mellitus) Incisional hernia Neuropathy Osteoarthritis of right knee Plantar wart, left foot Surgical History Surgical History H/O bilateral cataract extraction (~2014) H/O heart artery stent (~2014) H/O: hysterectomy (~2014) History of abdominal aortic aneurysm (AAA) repair (~2014) History of cardiac catheterization (~2010) Hx of CABG (~2010) Family History Family History (Updated 03/08/22 @ 15:02 by Alissa Ortega MA) Father Heart disease Mother Diabetes mellitus Heart disease Depression Other Anxiety Cancer Hypertension Social History Social History Smoking status: Current every day smoker Tobacco type: e-cigarettes/vaping Second hand tobacco smoke exposure: Yes Alcohol intake: never Substance use: never Substance use type: does not use Gender identity (if verbalized by the patient): Female Spiritual care concerns: No Exam Const: General: no acute distress and alert Nutritional Appearance: well nourished Orientation/consciousness: patient oriented x3 HENMT: Head: normal to inspection Eyes: EOM: EOMs intact bilaterally Neck: Neck: normal visual inspection Chest: Chest palpation & inspection: normal inspection of the chest Resp: Effort & Inspection: normal respiratory effort Auscultation: clear to auscultation bilaterally Cardio: Rate: regular rate Rhythm: regular rhythm Heart sounds: no murmurs GI:
[2022-06-08] MEDS: ONDANSETRON INJ 4 MG/2 ML VIAL IV PUSH (13:03)
[2022-06-08] MEDS: SODIUM CHLORIDE 0.9% IV 500 ML 999 ML IV CONT (13:03)
[2022-06-08 13:09] LABS: SARS-CoV-2 RNA PCR Negative
[2022-06-08] MEDS: POTASSIUM CHLORIDE 20 MEQ TABLET 40 MEQ PO (13:20)
[2022-06-08] MEDS: metroNIDAZOLE 250 MG TABLET 500 MG PO (13:28)
== END 2022-06-08 14:57 | disposition home or self-care (01) ==
PROVIDERS: Emergency Medicine; Emergency Provider General Practice; PCP Family Medicine
DX: K57.32 Diverticulitis of large intestine without perforation or abscess without bleeding (principal); E87.6 Hypokalemia; Z20.822 Contact with and (suspected) exposure to COVID-19; I25.10 Atherosclerotic heart disease of native coronary artery without angina pectoris; E78.5 Hyperlipidemia, unspecified; I10 Essential (primary) hypertension; E11.40 Type 2 diabetes mellitus with diabetic neuropathy, unspecified; M17.11 Unilateral primary osteoarthritis, right knee; Z98.42 Cataract extraction status, left eye; Z98.41 Cataract extraction status, right eye; Z95.5 Presence of coronary angioplasty implant and graft; Z95.1 Presence of aortocoronary bypass graft; F17.290 Nicotine dependence, other tobacco product, uncomplicated; I71.9 Aortic aneurysm of unspecified site, without rupture; Z79.85 Long-term (current) use of injectable non-insulin antidiabetic drugs; Z79.84 Long term (current) use of oral hypoglycemic drugs
CPT/HCPCS: 36415; 74177; 80053; 81001; 83605; 83690; 83735; 85025; 87086; 87088; 96365; 96367; 96375; 99284; A9270; C9803; J0131; J0696; J2405; J7040; Q9967; U0003; U0005

== ENCOUNTER 2022-06-27 13:58 | Outpatient (CLI) | payer OTHER, MEDICAID, SELFPAY ==
--- NOTE | ~2022-06-27 | XR_ITS ---
EXAMINATION: XR abdomen obstructive series DATE: 06/27/2022 16:00 INDICATION: Abdominal pain. TECHNIQUE: Upright and supine views of the abdomen were obtained. COMPARISON: CT abdomen and pelvis 06/08/2022 FINDINGS: There are no dilated loops of bowel. There is a stent graft in abdominal aorta. There are s tents in the renal arteries. The diaphragm is not included on the upright view. Calcifications in the pelvis are likely phleboliths. IMPRESSION: 1. Nonobstructive bowel gas pattern. Reviewed, dictated and finalized at location A.
[2022-06-27 19:40] LABS: Hemoglobin A1C 6.8 % (<5.7)
[2022-06-27 19:52] LABS: Anion Gap 10 mmol/L (8-16); Blood Urea Nitrogen 16 mg/dL (7-17); Calcium 8.3 mg/dL (8.4-10.2); Carbon Dioxide 31 mmol/L (22-30); Chloride 98 mmol/L (98-107); Estimated Glomerular Filt Rate > 60; Glucose 115 mg/dL (65-110); Sodium 139 mmol/L (137-145)
== END 2022-06-27 13:59 | disposition home or self-care (01) ==
PROVIDERS: PCP Family Medicine; Visit Provider Family Medicine
DX: E11.9 Type 2 diabetes mellitus without complications (principal); R10.9 Unspecified abdominal pain; E87.6 Hypokalemia; Z79.4 Long term (current) use of insulin
CPT/HCPCS: 36415; 74019; 80048; 83036

== ENCOUNTER 2022-06-30 08:13 | Outpatient (CLI) | payer OTHER, MEDICAID, SELFPAY ==
[2022-07-08 01:59] LABS: H pylori Ag Stool Not Detected (Not Detected)
== END 2022-06-30 10:41 ==
PROVIDERS: PCP Family Medicine; Visit Provider Family Medicine
DX: K21.9 Gastro-esophageal reflux disease without esophagitis (principal)
CPT/HCPCS: 87338

== ENCOUNTER 2022-09-02 12:47 | Emergency (ER) | payer OTHER, MEDICAID, SELFPAY ==
[2022-09-02] VITALS (20 sets, daily range): BP systolic 122–158; BP diastolic 54–86; PULSE 52–65; RESP 14–156; TEMP 37.1; O2SAT 97–100
--- NOTE | ~2022-09-02 | CT_ITS ---
EXAMINATION: CTA chest PE protocol DATE: 09/02/2022 15:18 INDICATION: chest pain TECHNIQUE: Computed tomography angiography (CTA) of the chest was performed with 100 mL Omnipaque-350 intravenous contrast timed to evaluate the pulmonary arteries. Coronal maximum intensity projection 3D-reconstructions were created by the technologist. The dose-length product (DLP) was 500.24 mGy-cm. Automated exposure control and iterative reconstruction technique were employed. COMPARISON: 09/01/2019. FINDINGS: Lung parenchyma and airways: Senescent changes. Pleura: Unremarkable. Thoracic inlet, axillae and chest wall: Unremarkable. Thoracic aorta: Mild thoracic aorta calcifications. Mediastinum: Normal. Heart and pericardium: Mild cardiomegaly. CABG. Coronary artery calcifications: Moderate. Upper abdomen: No significant finding. Abdominal aortic stent. Bilateral renal artery origin stents. Uncomplicated appearing fat-containing upper abdominal ventral hernia. Bones: No acute osseous finding. Pulmonary arteries: Study quality: Adequate. No pulmonary emboli detected. IMPRESSION: No CT evidence of acute pulmonary embolus. No acute thoracic process detected. Reviewed, dictated and finalized at location K. ARYNGOLOGY NURSE
--- NOTE | ~2022-09-02 | XR_ITS ---
EXAMINATION: XR chest 2V 09/02/2022 13:23 INDICATION: Cough and dizziness PROCEDURE: 2 view chest COMPARISON: 08/28/2021 FINDINGS: The lungs are clear. The cardiomediastinal silhouette is within normal limits. There are no pleural effusions. There is no pneumothorax suspected. Status post median sternotomy for CABG. T here is atherosclerosis and ectasia of the aorta. IMPRESSION: 1: NO ACUTE CARDIOPULMONARY DISEASE. Reviewed, dictated and finalized at location A. CTURAL STEEL WORKER HELPER
--- NOTE | 2022-09-02 12:52 | ECG_ITS ---
Measurements Intervals [place] Rate: 55 P: 52 OK: 168 QRS: -10 QRSD: 95 T: 135 QT: 436 QTc: 417 Interpretive Statements SINUS BRADYCARDIA DELAYED PRECORDIAL R/S TRANSITION LEFT VENTRICULAR HYPERTROPHY AND ST-T CHANGE BORDERLINE ECG COMPARED TO ECG 08/28/2021 19:32:26 SINUS BRADYCARDIA NOW PRESENT Electronically Signed On 09-02-2022 16:31:19 VALVE MECHANIC by Kamron Santamaria D.O.
[2022-09-02 13:13] LABS: Basophils Percent Auto 0.3 % (0.2-1.2); Eosinophils Absolute Auto 0.1 K/mm3 (0-0.3); Hematocrit 37.3 % (37.0-47.0); Hemoglobin 12.2 g/dL (12.0-15.0); Immature Granulocyte Absolute 0.03 K/mm3 (0.00-0.031); Immature Granulocyte Percent A 0.4 % (0-0.5); Lymphocytes Absolute Auto 0.95 K/mm3 (0.9-3.2); Lymphocytes Percent Auto 13.2 % (18.3-44.2); Mean Corpuscular HGB Conc 32.7 g/dl (32-36); Mean Corpuscular Hemoglobin 29.4 pg (26-34); Mean Corpuscular Volume 89.9 fl (80-100); Mean Platelet Volume 10.3 fl (7.4-10.4); Monocytes Absolute Auto 0.4 K/mm3 (0.1-0.6); Monocytes Percent Auto 4.8 % (2.6-8.5); Neutrophils Absolute Auto 5.8 K/mm3 (1.3-6.7); Neutrophils Percent Auto 80.3 % (45.5-73.1); Platelet Count Result 151 k/mm3 (150-375); Red Blood Count 4.15 M/mm3 (4.2-5.4); Red Cell Distribution Width 13.2 % (11.5-14.5); White Blood Count 7.2 K/mm3 (4.5-10.0)
[2022-09-02 13:24] LABS: INR 1.1; Prothrombin Time 13.4 Seconds (11.1-14.7)
[2022-09-02 13:25] LABS: Partial Thromboplastin Time 29.5 SECONDS (22.3-36.8)
[2022-09-02 13:26] LABS: Alanine Aminotransferase 13 U/L (6-35); Albumin Level 4.2 g/dL (3.5-5.1); Alkaline Phosphatase 94 U/L (38-126); Anion Gap 9 mmol/L (8-16); Aspartate Amino Transferase 20 U/L (14-36); Bilirubin,Total 0.7 mg/dL (0.2-1.3); Blood Urea Nitrogen 17 mg/dL (7-17); Calcium 8.5 mg/dL (8.4-10.2); Carbon Dioxide 32 mmol/L (22-30); Chloride 101 mmol/L (98-107); Estimated CRCL calculation 63 ml/min; Estimated Glomerular Filt Rate > 60; Glucose 120 mg/dL (65-110); Lipase 53 U/L (23-300); Potassium 2.7 mmol/L (3.4-5.0); Sodium 142 mmol/L (137-145)
[2022-09-02 13:35] LABS: Troponin I < 0.012 ng/mL (0.000-0.034)
[2022-09-02] MEDS: ASPIRIN 81 MG CHEWABLE TABLET 324 MG PO (13:43)
[2022-09-02] MEDS: POTASSIUM CHLORIDE 20 MEQ TABLET 40 MEQ PO (13:55)
[2022-09-02 14:12] LABS: D Dimer 3.44 ug/mL (<0.48)
--- NOTE | 2022-09-02 14:19 | ED.DIZZY ---
HPI - Dizziness General Chief Complaint: Dizziness Stated Complaint: dizzy, nausea Time Seen by Provider: 09/02/22 13:27 Source: patient and RN notes reviewed Mode of arrival: ambulatory Limitations: no limitations History of Present Illness HPI Narrative: This is a 67 year old female who presents for evaluation of dizziness. PAtient reports intermittent dizziness for several weeks. She reports dizziness seems worse with standing. She reports it occurs randomly. She describes her dizziness as feeling lightheaded like she is going to pass out. She denies focal weakness but report generalized weakness. She denies vomiting, diarrhea, cough. She reporting intermittent bilateral breath pain and back pain for weeks as well. She is not sure if symptoms are worse with anything. She denies fever, chills, leg swelling or calf pain. She has history of hypokalemia but she is not taking her supplements as prescribed. Related Data Home Medications Medication Instructions Recorded Confirmed losartan 100 mg tablet (Cozaar) 100 mg PO DAILY 08/29/21 03/24/22 carvedilol 6.25 mg tablet 6.25 mg PO BID 09/12/21 03/24/22 clopidogrel 75 mg tablet 75 mg PO DAILY 09/21/21 03/24/22 ezetimibe 10 mg tablet 10 mg PO DAILY 09/21/21 03/24/22 Allergies Allergy/AdvReac Type Severity Reaction Status Date / Time No Known Allergies Allergy Verified 09/02/22 12:52 Review of Systems Constitutional: Constitutional: Reports weakness Cardiovascular: Cardiovascular: Denies syncope, Denies rapid heart rate, Denies irregular heart rhythm, Denies leg edema and Denies dyspnea Respiratory: Respiratory: Denies chest congestion, Denies hemoptysis, Denies excessive phlegm production and Denies dyspnea Gastrointestinal: Gastrointestinal: Denies abdominal pain, Denies hematochezia, Denies diarrhea and Denies vomiting Genitourinary: Genitourinary: Denies hematuria and Denies dysuria Musculoskeletal: Musculoskeletal: Denies joint swelling, Denies loss of height and Denies muscle weakness Neurologic: Reports dizziness, Denies syncope, Denies focal weakness and Denies weakness PMFSH Past Medical History Medical History CAD (coronary artery disease) HLD (hyperlipidemia) HTN (hypertension) IDDM (insulin dependent diabetes mellitus) Incisional hernia Neuropathy Osteoarthritis of right knee Plantar wart, left foot Surgical History Surgical History H/O bilateral cataract extraction (~2014) H/O heart artery stent (~2014) H/O: hysterectomy (~2014) History of abdominal aortic aneurysm (AAA) repair (~2014) History of cardiac catheterization (~2010) Hx of CABG (~2010) Family History Family History (Updated 03/08/22 @ 15:02 by Alissa Ortega MA) Father Heart disease Mother Diabetes mellitus Heart disease Depression Other Anxiety Cancer Hypertension Social History Social History (Updated 08/10/22 @ 10:17 by Alissa Ortega MA) Smoking status: Current every day smoker Tobacco type: e-cigarettes/vaping Second hand tobacco smoke exposure: Yes Alcohol intake: never Substance use: never Substance use type: does not use Lack of Transportation: No Lack of Food: Never True Current Housing: I Have Housing Concerned About Future Housing: No Difficulty Paying Gas/Electric Bills: No Difficulty Paying for Meds: No Currently Unemployed: No Education: Trade/Vocational Certificate Gender identity (if verbalized by the patient): Female Spiritual care concerns: No Exam Narrative: GENERAL: Well-appearing, well-nourished, and in no acute distress. HEAD: Normocephalic, atraumatic EYES: PERRLA and EOMI, conjunctiva clear without discharge THROAT:Mucous membranes moist, Oropharynx normal without erythema, exudate, peritonsillar swelling or fluctuance NECK: Supple, without lymphadenopathy or mass RESPIRATORY:
[2022-09-02] MEDS: SODIUM CHLORIDE 0.9% IV 1,000 ML 999 ML IV CONT (14:37)
[2022-09-02 14:51] LABS: Magnesium 2.1 mg/dL (1.6-2.3)
[2022-09-02 16:49] LABS: Troponin I < 0.012 ng/mL (0.000-0.034)
== END 2022-09-02 17:49 | disposition left against medical advice (07) ==
PROVIDERS: Emergency Provider General Practice; PCP Family Medicine
DX: R42 Dizziness and giddiness (principal); R07.9 Chest pain, unspecified; E87.6 Hypokalemia; I25.10 Atherosclerotic heart disease of native coronary artery without angina pectoris; E78.5 Hyperlipidemia, unspecified; I10 Essential (primary) hypertension; E11.40 Type 2 diabetes mellitus with diabetic neuropathy, unspecified; M17.11 Unilateral primary osteoarthritis, right knee; Z98.42 Cataract extraction status, left eye; Z98.41 Cataract extraction status, right eye; Z90.710 Acquired absence of both cervix and uterus; Z95.5 Presence of coronary angioplasty implant and graft; Z95.1 Presence of aortocoronary bypass graft; F17.290 Nicotine dependence, other tobacco product, uncomplicated; Z79.85 Long-term (current) use of injectable non-insulin antidiabetic drugs; Z79.84 Long term (current) use of oral hypoglycemic drugs; R00.1 Bradycardia, unspecified; I51.7 Cardiomegaly
CPT/HCPCS: 36415; 71046; 71275; 80053; 83690; 83735; 84484; 85025; 85380; 85610; 85730; 93005; 96361; 96374; 99285; A9270; J0131; J7030; Q9967

== ENCOUNTER 2022-09-19 07:40 | Outpatient (CLI) | payer OTHER, MEDICAID, SELFPAY ==
[2022-09-19 20:03] LABS: Anion Gap 6 mmol/L (8-16); Blood Urea Nitrogen 18 mg/dL (7-17); Calcium 8.6 mg/dL (8.4-10.2); Carbon Dioxide 31 mmol/L (22-30); Chloride 104 mmol/L (98-107); Estimated Glomerular Filt Rate > 60; Glucose 137 mg/dL (65-110); Potassium 3.2 mmol/L (3.4-5.0); Potassium 3.3 mmol/L (3.4-5.0); Sodium 141 mmol/L (137-145)
== END 2022-09-19 07:41 | disposition home or self-care (01) ==
LOC: ANHBWCLAB 07:42
PROVIDERS: PCP Family Medicine; Visit Provider Family Medicine
DX: E87.6 Hypokalemia (principal)
CPT/HCPCS: 36415; 80048; 84132

== ENCOUNTER 2022-10-17 09:28 | Outpatient (CLI) | payer OTHER, MEDICAID, SELFPAY ==
[2022-10-17 10:12] LABS: Appearance Urine Clear (Clear); Bilirubin Urine Negative (Negative); Blood Urine Negative (Negative); Color Urine Yellow (Yellow); Glucose Urine UA Negative (Negative); Ketones Urine Negative (Negative); Leukocyte Esterase Ur Negative LEU/UL (Negative); Nitrate Urine Negative (Negative); Protein Urine Negative (Negative); Urobilinogen Urine 0.2 mg/dL (<2.0)
[2022-10-17 10:24] LABS: Add Urine Microscopic? NO
== END 2022-10-17 09:29 | disposition home or self-care (01) ==
LOC: ANHLAB 09:31
PROVIDERS: PCP Family Medicine; Visit Provider Nurse Practitioner
DX: R10.32 Left lower quadrant pain (principal); R10.2 Pelvic and perineal pain
CPT/HCPCS: 81003

== ENCOUNTER 2022-11-07 14:01 | Outpatient (CLI) | payer OTHER, MEDICAID, SELFPAY ==
--- NOTE | ~2022-11-07 | CT_ITS ---
EXAMINATION: CT abdomen pelvis w con DATE: 11/07/2022 14:29 INDICATION: Left lower quadrant abdominal pain. Suprapubic abdominal pain. TECHNIQUE: Computed tomography (CT) of the abdomen and pelvis was performed with 100 mL Omnipaque 350 intravenous contrast. Automated exposure control and iterative reconstruction technique were employe d. The dose-length product was 727.82 mGy-cm. COMPARISON: CT abdomen and pelvis 06/08/2022 FINDINGS: The visualized portions of the lung bases demonstrate mild atelectasis. There is mild emphy sema. No pleural effusion. The heart size is normal. No pericardial effusion. There are changes of me floyd sternotomy with chronic sternal dehiscence and broken mediastinal wires. The liver, gallbladder, spleen, pancreas, and adrenal glands are normal. There is cortical thinning of the kidneys. There is a 5.0 cm fusiform aneurysm of infrarenal aorta with stent graft in expected position, stable from . There are stents in the renal arteries. There are no pathologically enlarged lymph nodes. The re is no free intraperitoneal fluid. There is diverticulosis of the colon without evidence of diverti culitis. There are no dilated loops of bowel. The appendix is normal. There are no pathologically enl arged lymph nodes. There is no free intraperitoneal fluid. There is mild thoracolumbar spondylosis. IMPRESSION: 1. Stable 5.0 cm fusiform aneurysm of infrarenal aorta with stent graft in expected position. Reviewed, dictated and finalized at location A. IMPRESSION: 1. Stable 5.0 cm fusiform aneurysm of infrarenal aorta with stent graft in expe cted position.
[2022-11-07 14:24] LABS: Estimated Glomerular Filt Rate > 60
== END 2022-11-07 14:02 | disposition home or self-care (01) ==
PROVIDERS: PCP Family Medicine; Visit Provider Nurse Practitioner
DX: R10.2 Pelvic and perineal pain (principal); R10.32 Left lower quadrant pain; Z87.19 Personal history of other diseases of the digestive system; I71.40 Abdominal aortic aneurysm, without rupture, unspecified; Z95.1 Presence of aortocoronary bypass graft
CPT/HCPCS: 74177; Q9967

== ENCOUNTER 2022-12-05 11:41 | Outpatient (CLI) | payer OTHER, MEDICAID, SELFPAY ==
--- NOTE | ~2022-12-05 | MM_ITS ---
EXAMINATION: MM screening durga BI w bobo HISTORY: Screening mammogram TECHNIQUE: Craniocaudal and mediolateral oblique 3-D tomosynthesis images were obtained and synthetic 2-D images were generated. CAD analysis was submitted and interpreted. COMPARISON: No prior mammogram is available for comparison at this institution. BREAST PARENCHYMAL COMPOSITION: There are scattered areas of fibroglandular density. FINDINGS: There is no evidence of suspicious mass, calcification, or architectural distortion to sugg est malignancy in either breast. There has been no suspicious interval change. IMPRESSION: 1. No mammographic evidence of malignancy. 2. Recommend routine screening mammography in one year. BI-RADS Category 1: Negative Reviewed, dictated and finalized at location A.
== END 2022-12-05 11:42 | disposition home or self-care (01) ==
PROVIDERS: PCP Family Medicine; Visit Provider Family Medicine
DX: Z12.31 Encounter for screening mammogram for malignant neoplasm of breast (principal)
CPT/HCPCS: 77063; 77067

== ENCOUNTER 2022-12-12 11:27 | Outpatient (CLI) | payer OTHER, MEDICAID, SELFPAY ==
[2022-12-12 19:59] LABS: Anion Gap 3 mmol/L (8-16); Blood Urea Nitrogen 19 mg/dL (7-17); Calcium 8.8 mg/dL (8.4-10.2); Carbon Dioxide 37 mmol/L (22-30); Chloride 101 mmol/L (98-107); Estimated Glomerular Filt Rate > 60; Glucose 114 mg/dL (65-110); Potassium 2.8 mmol/L (3.4-5.0); Sodium 141 mmol/L (137-145)
[2022-12-12 20:50] LABS: Hemoglobin A1C 5.9 % (<5.7)
== END 2022-12-12 11:28 | disposition home or self-care (01) ==
PROVIDERS: PCP Family Medicine; Visit Provider Nurse Practitioner Family
DX: E87.6 Hypokalemia (principal); E11.9 Type 2 diabetes mellitus without complications; Z79.4 Long term (current) use of insulin; E87.1 Hypo-osmolality and hyponatremia
CPT/HCPCS: 36415; 80048; 83036

== ENCOUNTER 2022-12-29 08:15 | Outpatient (CLI) | payer OTHER, MEDICAID, SELFPAY ==
[2022-12-29 18:08] LABS: Anion Gap 5 mmol/L (8-16); Blood Urea Nitrogen 16 mg/dL (7-17); Calcium 8.6 mg/dL (8.4-10.2); Carbon Dioxide 33 mmol/L (22-30); Chloride 105 mmol/L (98-107); Estimated Glomerular Filt Rate > 60; Glucose 108 mg/dL (65-110); Potassium 3.3 mmol/L (3.4-5.0); Sodium 143 mmol/L (137-145)
== END 2022-12-29 08:16 | disposition home or self-care (01) ==
PROVIDERS: PCP Family Medicine; Visit Provider Family Medicine
DX: E87.6 Hypokalemia (principal)
CPT/HCPCS: 36415; 80048

== ENCOUNTER 2023-01-18 07:43 | Outpatient (CLI) | payer OTHER, MEDICAID, SELFPAY ==
--- NOTE | ~2023-01-18 | CT_ITS ---
EXAMINATION: CT abdomen pelvis w con DATE: 01/18/2023 08:08 INDICATION: Left lower quadrant pain TECHNIQUE: Computed tomography (CT) of the abdomen and pelvis was performed with 100 cc Omnipaque 350 intravenous contrast. The dose-length product was 818.74 mGy-cm. Automated exposure control and iter ative reconstruction technique were employed. COMPARISON: CT dated 11/07/2022 FINDINGS: There is mild emphysema. Heart size normal. No significant pleural or pericardial abnormali ty. There is a fusiform infrarenal abdominal aortic aneurysm measuring 4.8 cm with stent graft, stabl e. Fatty infiltration of the liver. Gallbladder is present. The spleen, pancreas, adrenal glands are unr emarkable. There are splenic arterial calcifications. No hydronephrosis. Colonic diverticulosis witho ut evidence for diverticulitis. Nonobstructive bowel pattern. No free air or free fluid. Normal appen stephie. No abnormal pelvic masses or fluid collections. Status post hysterectomy. Mild lumbar spondylosi s. There is osteoarthritis of the hips. IMPRESSION: 1. No acute abdominal abnormality. Reviewed, dictated and finalized at location D.
== END 2023-01-18 07:44 | disposition home or self-care (01) ==
LOC: ANHIMG 07:46
PROVIDERS: PCP Family Medicine; Visit Provider Nurse Practitioner
DX: R10.2 Pelvic and perineal pain (principal); R10.32 Left lower quadrant pain; Z87.19 Personal history of other diseases of the digestive system
CPT/HCPCS: 74177; Q9967

== ENCOUNTER 2023-02-17 08:54 | Outpatient (CLI) | payer OTHER, MEDICAID, SELFPAY ==
[2023-02-17 10:28] LABS: Anion Gap 2 mmol/L (8-16); Blood Urea Nitrogen 16 mg/dL (7-17); Calcium 8.5 mg/dL (8.4-10.2); Carbon Dioxide 35 mmol/L (22-30); Chloride 104 mmol/L (98-107); Estimated Glomerular Filt Rate > 60; Glucose 139 mg/dL (65-110); Potassium 3.1 mmol/L (3.4-5.0); Sodium 141 mmol/L (137-145)
== END 2023-02-17 08:55 | disposition home or self-care (01) ==
LOC: ANHLAB 08:58
PROVIDERS: PCP Family Medicine; Visit Provider Internal Medicine Cardiovascular Disease
DX: I50.32 Chronic diastolic (congestive) heart failure (principal)
CPT/HCPCS: 36415; 80048

== ENCOUNTER 2023-03-19 11:43 | Outpatient (CLI) | payer OTHER, MEDICAID, SELFPAY ==
[2023-03-19 20:53] LABS: Anion Gap 8 mmol/L (8-16); Blood Urea Nitrogen 17 mg/dL (7-17); Calcium 8.8 mg/dL (8.4-10.2); Carbon Dioxide 33 mmol/L (22-30); Chloride 102 mmol/L (98-107); Estimated Glomerular Filt Rate > 60; Glucose 113 mg/dL (65-110); Potassium 3.6 mmol/L (3.4-5.0); Sodium 143 mmol/L (137-145)
== END 2023-03-19 11:44 | disposition home or self-care (01) ==
LOC: ANHBWCLAB 11:48
PROVIDERS: PCP Family Medicine; Visit Provider Family Medicine
DX: E87.6 Hypokalemia (principal)
CPT/HCPCS: 36415; 80048

== ENCOUNTER 2023-05-30 10:26 | Emergency (ER) | payer OTHER, MEDICAID, SELFPAY ==
[2023-05-30] VITALS (22 sets, daily range): BP systolic 154–194; BP diastolic 76–109; PULSE 56–78; RESP 9–23; TEMP 36.4; O2SAT 94–100
--- NOTE | ~2023-05-30 | XR_ITS ---
Clinical Indication: Palpitations PA and lateral views of the chest: Comparison: 09/02/2022 Findings: The lungs are clear, without evidence of focal consolidation or pleural effusion. Cardiome diastinal silhouette is stable, status post median sternotomy. Bones and soft tissues are unremarkabl e. Impression: Clear lungs. Reviewed, dictated and finalized at location . Impression: Clear lungs.
--- NOTE | 2023-05-30 10:27 | ECG_ITS ---
Measurements Intervals [place] Rate: 57 P: 29 [place]: 156 QRS: -9 QRSD: 97 T: 95 QT: 391 QTc: 383 Interpretive Statements SINUS BRADYCARDIA LEFT VENTRICULAR HYPERTROPHY AND ST-T CHANGE [VOLTAGE CRITERIA PLUS ST/T ABNORMALITY] NONSPECIFIC ST CHANGES COMPARED TO ECG 09/02/2022 12:58:03 NO SIGNIFICANT CHANGES Electronically Signed On 05-30-2023 15:46:13 CDT by Jaky Mancuso M.D.
[2023-05-30 11:04] LABS: Basophils Percent Auto 0.4 % (0.2-1.2); Eosinophils Absolute Auto 0.1 K/mm3 (0-0.3); Eosinophils Percent Auto 1.7 % (0-4.4); Hematocrit 41.1 % (37.0-47.0); Hemoglobin 13.1 g/dL (12.0-15.0); Immature Granulocyte Absolute 0.01 K/mm3 (0.00-0.031); Immature Granulocyte Percent A 0.2 % (0-0.5); Lymphocytes Absolute Auto 1.29 K/mm3 (0.9-3.2); Lymphocytes Percent Auto 24.7 % (18.3-44.2); Mean Corpuscular HGB Conc 31.9 g/dl (32-36); Mean Corpuscular Hemoglobin 29.1 pg (26-34); Mean Corpuscular Volume 91.3 fl (80-100); Mean Platelet Volume 10.5 fl (7.4-10.4); Monocytes Absolute Auto 0.3 K/mm3 (0.1-0.6); Monocytes Percent Auto 6.1 % (2.6-8.5); Neutrophils Absolute Auto 3.5 K/mm3 (1.3-6.7); Neutrophils Percent Auto 66.9 % (45.5-73.1); Platelet Count Result 150 k/mm3 (150-375); Red Cell Distribution Width 12.8 % (11.5-14.5); White Blood Count 5.2 K/mm3 (4.5-10.0)
[2023-05-30 11:07] LABS: Alanine Aminotransferase 13 U/L (6-35); Albumin Level 4.2 g/dL (3.5-5.1); Alkaline Phosphatase 88 U/L (38-126); Anion Gap 8 mmol/L (8-16); Aspartate Amino Transferase 25 U/L (14-36); Bilirubin,Total 0.6 mg/dL (0.2-1.3); Blood Urea Nitrogen 16 mg/dL (7-17); Calcium 8.9 mg/dL (8.4-10.2); Carbon Dioxide 31 mmol/L (22-30); Chloride 103 mmol/L (98-107); Estimated CRCL calculation 61 ml/min; Estimated Glomerular Filt Rate > 60; Glucose 102 mg/dL (65-110); Potassium 3.1 mmol/L (3.4-5.0); Sodium 142 mmol/L (137-145)
[2023-05-30] MEDS: POTASSIUM CHLORIDE 20 MEQ ER TABLET 40 MEQ PO (11:29)
[2023-05-30] MEDS: hydrALAZINE HCL 50 MG TABLET PO (11:29)
--- NOTE | 2023-05-30 11:51 | ED.ARRPALP ---
HPI - Arrhythmia/Palpitations General Chief Complaint: Arrhythmia/Palpitations Stated Complaint: high BP, palpitations Time Seen by Provider: 05/30/23 10:45 History of Present Illness HPI narrative: This is a 67-year-old female, with history of hypertension hyperlipidemia, who presents emergency department complaining of palpitations and elevated blood pressure. The patient states overnight, she felt pounding heart rate and her systolic blood pressure was elevated to the 170s and 180s which is unusual for her. She denies any recent change in medications, known sick contacts and has had anticipated weight loss related to use of Ozempic. Related Data Home Medications Medication Instructions Recorded Confirmed losartan 100 mg tablet (Cozaar) 100 mg PO DAILY 08/29/21 12/12/22 carvedilol 6.25 mg tablet 6.25 mg PO BID 09/12/21 12/12/22 clopidogrel 75 mg tablet 75 mg PO DAILY 09/21/21 12/12/22 ezetimibe 10 mg tablet 10 mg PO DAILY 09/21/21 12/12/22 Allergies Allergy/AdvReac Type Severity Reaction Status Date / Time No Known Allergies Allergy Verified 05/30/23 10:51 Review of Systems Review of Systems: CONSTITUTIONAL: Denies fever, chills, or sweats. CARDIOVASCULAR: Palpitations denies chest pain, palpitations, or edema. RESPIRATORY: Denies cough or dyspnea. GASTROINTESTINAL: Denies abdominal pain, nausea, vomiting, or diarrhea. GENITOURINARY: Denies dysuria or hematuria. SKIN: Denies rash or itching. MUSCULOSKELETAL: Denies back pain, joint pain, or myalgia. NEUROLOGIC: Denies headache, numbness, dizziness, or weakness. PSYCHIATRIC: Denies anxiety or depression. [facility]LY [facility] Past Medical History Medical History CAD (coronary artery disease) Gas bloat syndrome GERD (gastroesophageal reflux disease) HLD (hyperlipidemia) HTN (hypertension) Hx of diverticulitis of colon Hx of pyloric stenosis IDDM (insulin dependent diabetes mellitus) Incisional hernia LLQ abdominal pain Nausea Neuropathy Osteoarthritis of right knee Plantar wart, left foot Regurgitation of food Suprapubic abdominal pain Tobacco abuse Surgical History Surgical History H/O bilateral cataract extraction (~2014) H/O heart artery stent (~2014) H/O: hysterectomy (~2014) History of abdominal aortic aneurysm (AAA) repair (~2014) History of cardiac catheterization (~2010) Hx of CABG (~2010) Family History Family History Father Heart disease Mother Diabetes mellitus Heart disease Depression Other Anxiety Cancer Hypertension Social History Social History Smoking status: Current every day smoker Tobacco type: e-cigarettes/vaping Second hand tobacco smoke exposure: Yes Alcohol intake: never Substance use: never Substance use type: does not use Lack of Transportation: No Lack of Food: Never True Current Housing: I Have Housing Concerned About Future Housing: No Difficulty Paying Gas/Electric Bills: No Difficulty Paying for Meds: No Currently Unemployed: No Education: Trade/Vocational Certificate Living arrangements: with family Gender identity (if verbalized by the patient): Female Spiritual care concerns: No Exam Narrative: GENERAL: Well-developed, well-nourished, and in no acute distress. HEAD: Normocephalic, atraumatic. EYES: PERRLA and EOMI. CHEST: Clear to auscultation. No respiratory distress. No wheezes rales or rhonchi HEART: Regular rate and rhythm. No murmur heard. Normal peripheral pulses. ABDOMEN: Soft, nontender, nondistended, normal active bowel sounds. EXTREMITIES: Normal range of motion. No edema. SKIN: Warm, dry, no rash. NEURO: Alert and oriented x3. Moving all 4 limbs purposefully. PSYCH: Normal mood and affect. Course Course Emergency Course: 12
--- NOTE | 2023-05-30 12:05 | PC.NURSE ---
pt off floor at 11:59 for xray and returned to room at 1204.
== END 2023-05-30 13:07 | disposition home or self-care (01) ==
PROVIDERS: Emergency Provider Preventive Medicine Aerospace Medicine; PCP Family Medicine
DX: R00.2 Palpitations (principal); E87.6 Hypokalemia; I10 Essential (primary) hypertension; I25.10 Atherosclerotic heart disease of native coronary artery without angina pectoris; E78.5 Hyperlipidemia, unspecified; E11.9 Type 2 diabetes mellitus without complications; K21.9 Gastro-esophageal reflux disease without esophagitis; M17.11 Unilateral primary osteoarthritis, right knee; G62.9 Polyneuropathy, unspecified; F17.290 Nicotine dependence, other tobacco product, uncomplicated; Z95.5 Presence of coronary angioplasty implant and graft; Z95.1 Presence of aortocoronary bypass graft; Z98.42 Cataract extraction status, left eye; Z98.41 Cataract extraction status, right eye; Z90.710 Acquired absence of both cervix and uterus; Z79.85 Long-term (current) use of injectable non-insulin antidiabetic drugs; Z79.84 Long term (current) use of oral hypoglycemic drugs
CPT/HCPCS: 36415; 71046; 80053; 84443; 85025; 93005; 99284; A9270

== ENCOUNTER 2023-08-24 18:18 | Emergency (ER) | payer OTHER, MEDICAID, SELFPAY ==
--- NOTE | 2023-08-24 18:24 | ED.URI ---
HPI - URI/Sore Throat General Stated Complaint: congestion/dizzy/chest tight Time Seen by Provider: 08/24/23 18:32 Source: patient and RN notes reviewed Mode of arrival: ambulatory Limitations: no limitations History of Present Illness HPI Narrative: 68-year-old female presents with concern of for dizziness, intermittent chest pain, congestion that worsened yesterday. She reports she had COVID 1 month ago and has not felt very well since then. She reports history of hypokalemia MD elicited complaint: other (Dizziness) Related Data Home Medications Medication Instructions Recorded Confirmed losartan 100 mg tablet (Cozaar) 100 mg PO DAILY 08/29/21 12/12/22 carvedilol 6.25 mg tablet 6.25 mg PO BID 09/12/21 12/12/22 clopidogrel 75 mg tablet 75 mg PO DAILY 09/21/21 12/12/22 ezetimibe 10 mg tablet 10 mg PO DAILY 09/21/21 12/12/22 Allergies Allergy/AdvReac Type Severity Reaction Status Date / Time No Known Allergies Allergy Verified 06/04/23 11:55 Review of Systems Review of Systems: CONSTITUTIONAL: Reports malaise EYES: Denies visual changes, redness, or discharge. ENT: Reports rhinorrhea, congestion. Denies sinus pain, otalgia and sore throat. CARDIOVASCULAR: Reports intermittent chest pain RESPIRATORY: Reports cough. Denies dyspnea. GASTROINTESTINAL: Denies abdominal pain, nausea, vomiting, diarrhea NEUROLOGIC: Reports dizziness All systems reviewed & are unremarkable except as noted in HPI and below PMFSH Past Medical History Medical History CAD (coronary artery disease) Gas bloat syndrome GERD (gastroesophageal reflux disease) HLD (hyperlipidemia) HTN (hypertension) Hx of diverticulitis of colon Hx of pyloric stenosis IDDM (insulin dependent diabetes mellitus) Incisional hernia LLQ abdominal pain Nausea Neuropathy Osteoarthritis of right knee Plantar wart, left foot Regurgitation of food Suprapubic abdominal pain Tobacco abuse Surgical History Surgical History H/O bilateral cataract extraction (~2014) H/O heart artery stent (~2014) H/O: hysterectomy (~2014) History of abdominal aortic aneurysm (AAA) repair (~2014) History of cardiac catheterization (~2010) Hx of CABG (~2010) Family History Family History Father Heart disease Mother Diabetes mellitus Heart disease Depression Other Anxiety Cancer Hypertension Social History Social History Smoking status: Current every day smoker Tobacco type: e-cigarettes/vaping Second hand tobacco smoke exposure: Yes Alcohol intake: never Substance use: never Substance use type: does not use Lack of Transportation: No Lack of Food: Never True Current Housing: I Have Housing Concerned About Future Housing: No Difficulty Paying Gas/Electric Bills: No Difficulty Paying for Meds: No Currently Unemployed: No Education: Trade/Vocational Certificate Living arrangements: with family Gender identity (if verbalized by the patient): Female Spiritual care concerns: No Comments At time of signature, agree with nursing past medical, surgical, social and family history. There is no relevant family history pertinent to the presenting complaint Exam Narrative: GENERAL: Nontoxic appearing and in no acute distress. HEAD: Normocephalic EYES: PERRLA, conjunctivae clear ENT: Nares clear. Mucous membranes moist. TM pearly gallo with dull light reflex bilaterally; no tragal tenderness. Oropharynx not erythematous without lesions. Tonsils not enlarged and without exudate, no drooling, no hoarseness, no trismus, uvula midline. NECK: Supple. No lymphadenopathy CHEST: Clear to auscultation, breath sounds equal. No wheezing, rhonchi, rales, or stridor. No respiratory distress, speaks in full sentences. HEART
[2023-08-24 18:25] VITALS: BP 122/65; PULSE 68; RESP 16; TEMP 36.1; O2SAT 99
== END 2023-08-24 18:47 | disposition short-term general hospital (02) ==
PROVIDERS: Emergency Provider Nurse Practitioner; PCP Family Medicine
DX: R42 Dizziness and giddiness (principal); F17.290 Nicotine dependence, other tobacco product, uncomplicated; I25.10 Atherosclerotic heart disease of native coronary artery without angina pectoris; K21.9 Gastro-esophageal reflux disease without esophagitis; E78.5 Hyperlipidemia, unspecified; I10 Essential (primary) hypertension; E11.9 Type 2 diabetes mellitus without complications; Z79.4 Long term (current) use of insulin; Z95.5 Presence of coronary angioplasty implant and graft; Z98.42 Cataract extraction status, left eye; Z98.41 Cataract extraction status, right eye; Z86.16 Personal history of COVID-19
CPT/HCPCS: 99212; G0463

== ENCOUNTER 2023-08-24 19:22 | Inpatient (IN) | payer OTHER, MEDICAID, SELFPAY ==
--- NOTE | ~2023-08-24 | CT_ITS ---
EXAMINATION: CTA chest PE protocol DATE: 08/25/2023 01:58 INDICATION: Chest pain. TECHNIQUE: Computed tomography angiography (CTA) of the chest was performed with 100 mL Omnipaque-350 intravenous contrast timed to evaluate the pulmonary arteries. Coronal maximum intensity projection 3D-reconstructions were created by the technologist. Automated exposure control and iterative reconst ruction technique were employed. The dose-length product was 516.48 mGy-cm. COMPARISON: Chest CT 09/02/2022 FINDINGS: The lungs demonstrate mild atelectasis. There is mild emphysema. No pleural effusion. Cardi omegaly is noted. There are coronary artery calcifications. No pericardial effusion. There is no pulm onary embolus. There is a stent graft in abdominal aorta. There is severe thoracic spondylosis. IMPRESSION: 1. No pulmonary embolus. 2. Mild emphysema. Reviewed, dictated and finalized at location A. E WORKER
--- NOTE | ~2023-08-24 | XR_ITS ---
EXAMINATION: XR chest 1V portable DATE: 08/24/2023 23:57 INDICATION: Cough. TECHNIQUE: A single frontal view of the chest was obtained. COMPARISON: Chest 2 views 05/30/2023 FINDINGS: There is no pneumonia, pleural effusion, or pneumothorax. The heart size is normal. Median sternotomy wires and mediastinal surgical clips are seen, likely from prior coronary artery bypass gr afting. There is a stent graft in abdominal aorta. IMPRESSION: 1. No acute cardiopulmonary disease. Reviewed, dictated and finalized at location A. IC RELATIONS SUPERVISOR
[2023-08-24 20:04] VITALS: BP 145/59; PULSE 92; RESP 20; TEMP 36.2; O2SAT 95
--- NOTE | 2023-08-24 23:38 | ED.DIZZY ---
HPI - Dizziness General Chief Complaint: Dizziness Stated Complaint: dizziness Time Seen by Provider: 08/24/23 22:41 Source: patient Mode of arrival: ambulatory Limitations: no limitations History of Present Illness HPI Narrative: This is a 60-year-old female with PMH of insulin-dependent diabetes, CAD, HTN, HLD who presents to the ED from Urgent Care referral with chief complaint of congestion and lightheadedness. Reports she had an episode of lightheadedness today. reports positive COVID in the beginning of the month and has been dealing with cough and congestion ever since. She is a smoker, has had productive cough but does not feel it is increased. Denies shortness of breath. Reports she had 2 episodes of chest pain lasting for a couple minutes earlier today but none now. Reports that the lightheadedness gets worse whenever she sits up. Reports subjective fevers and chills. also endorses frequency of urination. Denies abdominal pain, nausea, vomiting, diarrhea , flank pain, Related Data Home Medications Medication Instructions Recorded Confirmed losartan 100 mg tablet (Cozaar) 100 mg PO DAILY 08/29/21 08/25/23 carvedilol 6.25 mg tablet 6.25 mg PO BID 09/12/21 08/25/23 clopidogrel 75 mg tablet 75 mg PO DAILY 09/21/21 08/25/23 ezetimibe 10 mg tablet 10 mg PO DAILY 09/21/21 08/25/23 Allergies Allergy/AdvReac Type Severity Reaction Status Date / Time No Known Allergies Allergy Verified 08/24/23 19:23 Review of Systems Review of Systems: All systems as dictated in HPI [facility] Past Medical History Medical History CAD (coronary artery disease) Gas bloat syndrome GERD (gastroesophageal reflux disease) HLD (hyperlipidemia) HTN (hypertension) Hx of diverticulitis of colon Hx of pyloric stenosis IDDM (insulin dependent diabetes mellitus) Incisional hernia LLQ abdominal pain Nausea Neuropathy Osteoarthritis of right knee Plantar wart, left foot Regurgitation of food Suprapubic abdominal pain Tobacco abuse Surgical History Surgical History H/O bilateral cataract extraction (~2014) H/O heart artery stent (~2014) H/O: hysterectomy (~2014) History of abdominal aortic aneurysm (AAA) repair (~2014) History of cardiac catheterization (~2010) Hx of CABG (~2010) Family History Family History Father Heart disease Mother Diabetes mellitus Heart disease Depression Other Anxiety Cancer Hypertension Social History Social History Smoking status: Current every day smoker Tobacco type: e-cigarettes/vaping Second hand tobacco smoke exposure: Yes Alcohol intake: never Substance use: never Substance use type: does not use Do You Feel Safe in your Home?: Yes Lack of Transportation: No Lack of Food: Never True Current Housing: I Have Housing Concerned About Future Housing: No Difficulty Paying Gas/Electric Bills: No Difficulty Paying for Meds: No Currently Unemployed: No Education: Trade/Vocational Certificate Difficulty w/ Childcare or Family Care: No Living arrangements: with family Gender identity (if verbalized by the patient): Female Spiritual care concerns: No Exam Narrative: GENERAL: Well-appearing, well-nourished, and in no acute distress. HEAD: Normocephalic, atraumatic. EYES: PERRLA and EOMI. ENT: Nares clear, no rhinorrhea or epistaxis. Mucous membranes moist. Oropharynx without tonsillar hypertrophy exudate or other lesions. NECK: Supple. No adenopathy or masses. CHEST: No respiratory distress. Clear to auscultation. No wheezes rales or rhonchi HEART: Regular rate and rhythm. No murmur heard. Normal peripheral pulses. ABDOMEN: Soft, nontender, nondistended, normal active bowel sounds. MSK: Normal range of motion.
[2023-08-25] VITALS (24 sets, daily range): BP systolic 112–188; BP diastolic 60–95; PULSE 51–80; RESP 10–22; TEMP 35.7–36.6; O2SAT 95–100; BMI 28.4
[2023-08-25 00:12] LABS: Basophils Percent Auto 0.6 % (0.2-1.2); Eosinophils Percent Auto 1.7 % (0-4.4); Hematocrit 37.9 % (37.0-47.0); Hemoglobin 12.1 g/dL (12.0-15.0); Immature Granulocyte Absolute 0.01 K/mm3 (0.00-0.031); Immature Granulocyte Percent A 0.6 % (0-0.5); Immature Platelet Fraction Pct 6.5 % (0.9-11.2); Lymphocytes Absolute Auto 1.01 K/mm3 (0.9-3.2); Lymphocytes Percent Auto 58.4 % (18.3-44.2); Mean Corpuscular HGB Conc 31.9 g/dl (32-36); Mean Corpuscular Hemoglobin 28.8 pg (26-34); Mean Corpuscular Volume 90.2 fl (80-100); Mean Platelet Volume 10.7 fl (7.4-10.4); Monocytes Absolute Auto 0.2 K/mm3 (0.1-0.6); Monocytes Percent Auto 13.3 % (2.6-8.5); Neutrophils Absolute Auto 0.4 K/mm3 (1.3-6.7); Neutrophils Percent Auto 25.4 % (45.5-73.1); Platelet Count Result 100 k/mm3 (150-375); Red Cell Distribution Width 13.2 % (11.5-14.5)
--- NOTE | 2023-08-25 00:16 | ECG_ITS ---
Measurements Intervals [place] Rate: 56 P: 54 [place]: 171 QRS: -12 QRSD: 91 T: 130 QT: 439 QTc: 425 Interpretive Statements SINUS BRADYCARDIA WITH OCCASIONAL SUPRAVENTRICULAR PREMATURE COMPLEXES LEFT VENTRICULAR HYPERTROPHY AND ST-T CHANGE [VOLTAGE CRITERIA PLUS ST/T ABNORMALITY] COMPARED TO ECG 05/30/2023 10:30:31 NO SIGNIFICANT CHANGES Electronically Signed On 08-26-2023 14:24:20 COMMUNICATIONS TECHNICIAN by Sahil Hernandez M.D.
[2023-08-25 00:30] LABS: Alanine Aminotransferase 11 U/L (6-35); Albumin Level 3.7 g/dL (3.5-5.1); Alkaline Phosphatase 73 U/L (38-126); Anion Gap 6 mmol/L (8-16); Aspartate Amino Transferase 23 U/L (14-36); Bilirubin,Total 0.4 mg/dL (0.2-1.3); Blood Urea Nitrogen 15 mg/dL (7-17); Calcium 8.4 mg/dL (8.4-10.2); Carbon Dioxide 36 mmol/L (22-30); Chloride 98 mmol/L (98-107); Estimated CRCL calculation 60 ml/min; Estimated Glomerular Filt Rate > 60; Glucose 106 mg/dL (65-110); Potassium 2.1 mmol/L (3.4-5.0); Sodium 140 mmol/L (137-145)
[2023-08-25 00:34] LABS: Troponin I 0.014 ng/mL (0.000-0.034)
[2023-08-25 00:48] LABS: Phosphorus 3.1 mg/dL (2.5-4.5)
[2023-08-25] MEDS: MAGNESIUM SULF 1 GM/D5W 100 ML 1 GM/100 ML BAG IVPB (00:56)
[2023-08-25] MEDS: POTASSIUM CHLORIDE 20 MEQ ER TABLET 40 MEQ PO (00:56)
[2023-08-25] MEDS: SODIUM CHLORIDE 0.9% IV 1,000 ML 500 ML IV CONT (00:56)
[2023-08-25] MEDS: POTASSIUM CHLORIDE INJ 40 MEQ in SODIUM CHLORIDE 0.9% IV 500 ML 130 MEQ IVPB (00:56)
[2023-08-25 01:05] LABS: D Dimer 6.19 ug/mL (<0.48)
[2023-08-25 01:23] LABS: White Blood Count 1.7 K/mm3 (4.5-10.0)
[2023-08-25 03:22] LABS: Appearance Urine Clear (Clear); Bilirubin Urine Negative (Negative); Blood Urine Negative (Negative); Color Urine Yellow (Yellow); Glucose Urine UA Negative (Negative); Ketones Urine Negative (Negative); Leukocyte Esterase Ur Negative LEU/UL (Negative); Nitrate Urine Negative (Negative); Protein Urine Negative (Negative); Specific Grav Ur 1.014 (1.001-1.035)
[2023-08-25 03:35] LABS: Add Urine Microscopic? NO
[2023-08-25 03:46] LABS: Influenza A QL RT-PCR Positive (Negative); Influenza B QL RT-PCR Negative (Negative); RSV RNA, RT-PCR Negative (Negative); SARS-CoV-2 RNA PCR Negative (Negative)
[2023-08-25 03:57] LABS: Troponin I 0.013 ng/mL (0.000-0.034)
[2023-08-25] MEDS: KCL 20 MEQ/SW 100 ML 100 ML 50 MEQ IVPB (05:37)
[2023-08-25] MEDS: POTASSIUM CHLORIDE 20 MEQ ER TABLET PO ×2 (05:38→11:46)
[2023-08-25] MEDS: OSELTAMIVIR PHOSPHATE 75 MG CAPSULE PO ×2 (05:38→21:26)
[2023-08-25] MEDS: SODIUM CHLORIDE 0.9% IV 1,000 ML 83 ML IV CONT (05:50)
--- NOTE | 2023-08-25 06:16 | PM.IMHP ---
H&P: HPI History of Present Illness Date/Time: 08/25/23 06:16 Chief Complaint: dizziness Narrative: 68F w/ PMH IDDM, Covid 08/18, AAA with endograft, HTN, CAD s/p CABG 2009 s/p PCI, HLD, GERD presents with 1 day of dizziness. In the ER she was was found to have flu A positive, hypokalemia, and neutropenia. Review of Systems Review of Systems: All systems reviewed & are unremarkable except as noted in HPI and below (HPI) [facility] Past Medical History Medical History CAD (coronary artery disease) Gas bloat syndrome GERD (gastroesophageal reflux disease) HLD (hyperlipidemia) HTN (hypertension) Hx of diverticulitis of colon Hx of pyloric stenosis IDDM (insulin dependent diabetes mellitus) Incisional hernia LLQ abdominal pain Nausea Neuropathy Osteoarthritis of right knee Plantar wart, left foot Regurgitation of food Suprapubic abdominal pain Tobacco abuse Surgical History Surgical History H/O bilateral cataract extraction (~2014) H/O heart artery stent (~2014) H/O: hysterectomy (~2014) History of abdominal aortic aneurysm (AAA) repair (~2014) History of cardiac catheterization (~2010) Hx of CABG (~2010) Family History Family History Father Heart disease Mother Diabetes mellitus Heart disease Depression Other Anxiety Cancer Hypertension Social History Social History Smoking status: Current every day smoker Tobacco type: e-cigarettes/vaping Second hand tobacco smoke exposure: Yes Alcohol intake: never Substance use: never Substance use type: does not use Lack of Transportation: No Lack of Food: Never True Current Housing: I Have Housing Concerned About Future Housing: No Difficulty Paying Gas/Electric Bills: No Difficulty Paying for Meds: No Currently Unemployed: No Education: Trade/Vocational Certificate Living arrangements: with family Gender identity (if verbalized by the patient): Female Spiritual care concerns: No Meds Home Medications and Allergies Home Medications Medication Instructions Recorded Confirmed Type losartan 100 mg tablet (Cozaar) 100 mg PO DAILY 08/29/21 12/12/22 History carvedilol 6.25 mg tablet 6.25 mg PO BID 09/12/21 12/12/22 History pen needle, diabetic 33 gauge x #100 ea 09/12/21 12/12/22 Rx 11/09 (Comfort EZ Pen Sims) clopidogrel 75 mg tablet 75 mg PO DAILY 09/21/21 12/12/22 History dapagliflozin propanediol 10 mg 10 mg PO QAM #90 tabs 09/21/21 12/12/22 Rx tablet (Farxiga) ezetimibe 10 mg tablet 10 mg PO DAILY 09/21/21 12/12/22 History blood sugar diagnostic (Blood #100 ea 09/26/21 12/12/22 Rx Glucose Test strips) blood-glucose meter (Blood Glucose #1 ea 09/26/21 12/12/22 Rx Monitoring kit) silver 200 mcg/gram topical gel 1 applic topical DAILY #45 grams 02/27/22 12/12/22 Rx (Silver-Sept) atorvastatin 10 mg tablet 10 mg PO QHS #90 tabs 05/19/22 12/12/22 Rx sertraline 50 mg tablet 50 mg PO DAILY #90 tabs 05/22/22 12/12/22 Rx omeprazole 40 mg capsule,delayed 40 mg PO DAILY PRN Acid Reflux #90 06/27/22 12/12/22 Rx release caps semaglutide 1 mg/dose (4 mg/3 mL) 1 mg (0.75 mL) subcut WEEKLY 3 07/03/22 12/12/22 Rx subcutaneous pen injector (Ozempic) months #9.75 mL potassium chloride 20 mEq oral 40 meq PO DAILY #100 ea 06/04/23 Rx packet semaglutide 2 mg/dose (8 mg/3 mL) 2 mg (0.75 mL) subcut WEEKLY #3 mL 07/31/23 Rx subcutaneous pen injector (Ozempic) Allergies Allergy/AdvReac Type Severity Reaction Status Date / Time No Known Allergies Allergy Verified 08/24/23 19:23 Vital Signs Vital Signs - 24 hr 08/24/23 20:04 08/25/23 01:03 08/25/23 02:31 Temperature 97.1 F L Pulse Rate 92 60 66 Respiratory Rate 20 19 21 H Blood Pressure 145/59 H 168/74 H 162/76 H Pul
[2023-08-25 06:48] LABS: Basophils Percent Auto 0.5 % (0.2-1.2); Hemoglobin 11.9 g/dL (12.0-15.0); Immature Granulocyte Absolute 0.01 K/mm3 (0.00-0.031); Immature Granulocyte Percent A 0.5 % (0-0.5); Immature Platelet Fraction Pct 5.7 % (0.9-11.2); Lymphocytes Absolute Auto 1.13 K/mm3 (0.9-3.2); Lymphocytes Percent Auto 55.9 % (18.3-44.2); Mean Corpuscular HGB Conc 31.3 g/dl (32-36); Mean Corpuscular Hemoglobin 28.5 pg (26-34); Mean Corpuscular Volume 91.1 fl (80-100); Mean Platelet Volume 10.9 fl (7.4-10.4); Monocytes Absolute Auto 0.2 K/mm3 (0.1-0.6); Monocytes Percent Auto 10.9 % (2.6-8.5); Neutrophils Absolute Auto 0.6 K/mm3 (1.3-6.7); Neutrophils Percent Auto 30.2 % (45.5-73.1); Platelet Count Result 96 k/mm3 (150-375); Red Blood Count 4.17 M/mm3 (4.2-5.4); Red Cell Distribution Width 13.3 % (11.5-14.5)
[2023-08-25 06:55] LABS: Anion Gap 5 mmol/L (8-16); Blood Urea Nitrogen 11 mg/dL (7-17); Calcium 7.8 mg/dL (8.4-10.2); Carbon Dioxide 31 mmol/L (22-30); Chloride 105 mmol/L (98-107); Estimated CRCL calculation 68 ml/min; Estimated Glomerular Filt Rate > 60; Glucose 101 mg/dL (65-110); Sodium 141 mmol/L (137-145)
--- NOTE | 2023-08-25 07:20 | PC.NURSE ---
Report given to JONE Ceballos at this time.
--- NOTE | 2023-08-25 08:32 | ECG_ITS ---
Measurements Intervals [place] Rate: 54 P: 52 GA: 162 QRS: -9 QRSD: 92 T: 71 QT: 441 QTc: 420 Interpretive Statements SINUS BRADYCARDIA WITH SINUS ARRHYTHMIA LEFT VENTRICULAR HYPERTROPHY AND ST-T CHANGE [VOLTAGE CRITERIA PLUS ST/T ABNORMALITY] COMPARED TO ECG 08/25/2023 00:16:37 SINUS ARRHYTHMIA NOW PRESENT Electronically Signed On 08-26-2023 14:26:53 GROCERY CHECKER by Sahil Hernandez M.D.
--- NOTE | 2023-08-25 09:10 | ADMGEN ---
This patient, Adonis Rubio, was admitted to 3 Med Surg Room 311-01 @ 0910. Patient/family oriented to hospital policies and general routines including ID bracelet, bed and alarms, visiting hours, pain management, procedures, bathroom and other care routines, personal items, smoking policy, room service/diet, and visiting hours. Information on how to activate the Rapid Response Team has been discussed. Patient/Family are encouraged to report perceived risks to care and to ask questions if they do not understand what they are told or what they should do.
[2023-08-25 09:36] LABS: Glucose Point of Care 98 mg/dl (65-105)
[2023-08-25 11:38] LABS: Glucose Point of Care 137 mg/dl (65-105)
[2023-08-25] MEDS: PANTOPRAZOLE 40 MG TABLET PO (11:46)
[2023-08-25 13:39] LABS: Erythrocyte Sedimentation Rate 23 mm/hr (0-20)
[2023-08-25 16:37] LABS: Glucose Point of Care 129 mg/dl (65-105)
[2023-08-25 21:13] LABS: Glucose Point of Care 106 mg/dl (65-105)
[2023-08-26 04:00] VITALS: PULSE 52
[2023-08-26 06:00] VITALS: BP 160/72; PULSE 56; RESP 16; TEMP 36.3; O2SAT 100
[2023-08-26 06:25] LABS: Basophils Percent Auto 0.5 % (0.2-1.2); Eosinophils Absolute Auto 0.1 K/mm3 (0-0.3); Eosinophils Percent Auto 4.3 % (0-4.4); Hematocrit 37.1 % (37.0-47.0); Hemoglobin 12.1 g/dL (12.0-15.0); Lymphocytes Absolute Auto 1.02 K/mm3 (0.9-3.2); Lymphocytes Percent Auto 54.3 % (18.3-44.2); Mean Corpuscular HGB Conc 32.6 g/dl (32-36); Mean Corpuscular Hemoglobin 29.1 pg (26-34); Mean Corpuscular Volume 89.2 fl (80-100); Mean Platelet Volume 10.5 fl (7.4-10.4); Monocytes Absolute Auto 0.2 K/mm3 (0.1-0.6); Monocytes Percent Auto 10.6 % (2.6-8.5); Neutrophils Absolute Auto 0.6 K/mm3 (1.3-6.7); Neutrophils Percent Auto 30.3 % (45.5-73.1); Platelet Count Result 97 k/mm3 (150-375); Red Blood Count 4.16 M/mm3 (4.2-5.4)
[2023-08-26 06:40] LABS: Alanine Aminotransferase 9 U/L (6-35); Albumin Level 3.3 g/dL (3.5-5.1); Alkaline Phosphatase 75 U/L (38-126); Anion Gap 6 mmol/L (8-16); Aspartate Amino Transferase 23 U/L (14-36); Bilirubin,Total 0.4 mg/dL (0.2-1.3); Blood Urea Nitrogen 9 mg/dL (7-17); Calcium 8.1 mg/dL (8.4-10.2); Carbon Dioxide 29 mmol/L (22-30); Chloride 104 mmol/L (98-107); Estimated CRCL calculation 79 ml/min; Estimated Glomerular Filt Rate > 60; Glucose 96 mg/dL (65-110); Potassium 2.6 mmol/L (3.4-5.0); Sodium 139 mmol/L (137-145)
--- NOTE | 2023-08-26 06:46 | PC.NURSE ---
Reported critical potassium of 2.[address] De Leon at 0642. New orders received for potassium chloride 40 meq PO once and potassium chloride 40 meq IVP once.
[2023-08-26 06:56] LABS: Magnesium 1.8 mg/dL (1.6-2.3)
[2023-08-26 07:14] LABS: White Blood Count 1.9 K/mm3 (4.5-10.0)
[2023-08-26 08:02] LABS: Glucose Point of Care 142 mg/dl (65-105)
[2023-08-26] MEDS: POTASSIUM CHLORIDE 20 MEQ ER TABLET PO (08:24)
[2023-08-26] MEDS: PANTOPRAZOLE 40 MG TABLET PO (08:24)
[2023-08-26] MEDS: POTASSIUM CHLORIDE INJ 40 MEQ in SODIUM CHLORIDE 0.9% IV 500 ML 130 MEQ IVPB (08:24)
[2023-08-26] MEDS: POTASSIUM CHLORIDE 20 MEQ ER TABLET 40 MEQ PO (08:24)
[2023-08-26] MEDS: OSELTAMIVIR PHOSPHATE 75 MG CAPSULE PO (08:25)
--- NOTE | 2023-08-26 08:30 | PM.IMPN ---
Progress Note: A&P Assessment and Plan (1) Influenza A: Code(s): J10.1 - Influenza due to other identified influenza virus with other respiratory manifestations Status: Acute Assessment and Plan: 08/25/23: (2) Pancytopenia: Code(s): D61.818 - Other pancytopenia Status: Acute (3) Leukopenia: Code(s): D72.819 - Decreased white blood cell count, unspecified Status: Acute Assessment and Plan: 08/25/23: (4) History of COVID-19: Code(s): Z86.16 - Personal history of COVID-19 Status: Acute (5) Hypokalemia: Code(s): E87.6 - Hypokalemia Status: Acute Assessment and Plan: 08/25/23: (6) GERD (gastroesophageal reflux disease): Qualifiers: Esophagitis presence: esophagitis presence not specified Qualified Code(s): K21.9 - Gastro-esophageal reflux disease without esophagitis Code(s): K21.9 - Gastro-esophageal reflux disease without esophagitis Status: Acute Assessment and Plan: 08/25/23: (7) IDDM (insulin dependent diabetes mellitus): Code(s): E11.9 - Type 2 diabetes mellitus without complications; Z79.4 - emt intermediate (current) use of insulin Status: Acute Assessment and Plan: 08/25/23: (8) HTN (hypertension): Qualifiers: Hypertension type: primary hypertension Qualified Code(s): I10 - Essential (primary) hypertension Code(s): I10 - Essential (primary) hypertension Status: Acute Assessment and Plan: 08/25/23: Time Spent With Patient Time with patient: Greater than 35 minutes Subjective Date/time seen: 08/26/23 08:30 Interval history: Interval history: This is a 68 year old female who presented to the hospital on 08/24/23 with complaints of congestion and lightheadedness. She had COVID earlier in the month and has been dealing with cough and congestion ever since. Respiratory swab positive for Influenza A. She is also neutropenic and pancytopenic on CBC. 08/24/23: ?I talked with her about her neutropenia and viral load. She was wanting to go home today however we will need to watch her labs at least 1 more day before discussing discharge. Patient is agreeable to this. Her VSS, she is on room air, currently afebrile. She denies any fever, chills, nausea, vomiting, diarrhea, abdominal pain, shortness of breath or chest pain. She denies any pain or discomfort at this time. CBC showing neutropenia, pancytopenia. We will repeat labs in the morning. Patient currently on Tamiflu. 08/25/23: On examination today patient is alert and oriented x3. VSS, she is afebrile, currently on room air. Labs today reveal WBC 1.9, RBC 4.16, Plt 97, absolute neutrophils 0.6, ESR 23, Na+ 139, K+ 2.6, BG ranging 96-142. Patient was ordered 60meq KCL. Review of Systems Review of Systems: All systems reviewed & are unremarkable except as noted in HPI and below (HPI) Constitutional: Constitutional: Reports as per HPI and Reports no additional constitutional complaints Eyes: Eyes: Reports as per HPI and Reports no additional eye complaints ENT: Reports system reviewed and no additional complaints, except as documented and Reports as per HPI Cardiovascular: Cardiovascular: Reports as per HPI and Reports no additional cardiovascular complaints Respiratory: Respiratory: Reports as per HPI and Reports no additional respiratory complaints Gastrointestinal: Gastrointestinal: Reports as per HPI and Reports no additional gastrointestinal complaints Genitourinary: Genitourinary: Reports no additional female genitourinary complaints and Reports as per HPI Musculoskeletal: Musculoskeletal: Reports no additional musculoskeletal complaints and Reports as per HPI Integumentary/Breasts: Skin/Breast: Reports system reviewed and no additional complaints, except as docu and Reports as per HPI Neurologic: Reports system reviewed and no additional complaints, except as documented and Rep
[2023-08-26 09:23] LABS: CRP 0.9 mg/dL (<1.0)
--- NOTE | 2023-08-26 10:10 | PDONCCN ---
HPI - Date of Consult Date/Time: 08/26/23 10:10 08.26.2023 Requesting Physician: Jen De Leon MD Primary Care Provider: Jeffery Hein MD - Consult Narrative Narrative: Adonis Rubio is a 68 year old female This is a 68 year old female who presented to the hospital on 08/24/23 with complaints of congestion and lightheadedness. She had COVID earlier in the month and has been dealing with cough and congestion ever since. Respiratory swab positive for Influenza A. She is also neutropenic and pancytopenic on CBC. Review of Systems - Neurologic Reports system reviewed and no additional complaints, except as documented PMFSH Medical History: Medical History (Last Reviewed 05/30/23 @ 11:53 by Unruly Doe MD) CAD (coronary artery disease) Gas bloat syndrome GERD (gastroesophageal reflux disease) HLD (hyperlipidemia) HTN (hypertension) Hx of diverticulitis of colon Hx of pyloric stenosis IDDM (insulin dependent diabetes mellitus) Incisional hernia LLQ abdominal pain Nausea Neuropathy Osteoarthritis of right knee Plantar wart, left foot Regurgitation of food Suprapubic abdominal pain Tobacco abuse Surgical History: Surgical History (Last Reviewed 05/30/23 @ 11:53 by Unruly Doe MD) H/O bilateral cataract extraction Onset Date: ~2014 H/O heart artery stent Onset Date: ~2014 H/O: hysterectomy Onset Date: ~2014 History of abdominal aortic aneurysm (AAA) repair Onset Date: ~2014 History of cardiac catheterization Onset Date: ~2010 Hx of CABG Onset Date: ~2010 Family History: Family History (Last Reviewed 05/30/23 @ 11:53 by Unruly Doe MD) Father Heart disease Mother Diabetes mellitus Heart disease Depression Other Anxiety Cancer Hypertension - Social History Social History: Social History (Last Reviewed 05/30/23 @ 11:53 by Unruly Doe MD) Gender Identity: Gender identity (if verbalized by the patient): Female Alcohol Use: Alcohol intake: never Substance Use: Substance use: never Substance use type: does not use Others: Spiritual care concerns: No Living Arrangements: Living arrangements: with family Smoking Status: Smoking status: Current every day smoker Tobacco type: e-cigarettes/vaping Second hand tobacco smoke exposure: Yes Social Determinants of Health: Do You Feel Safe in your Home?: Yes Has the Lack of Transportation Kept You From Medical Appointments or From Getting Medications?: No Within the Past 12 Months, Were You Worried Whether Your Food Would Run Out Before You Got Money to Buy More?: Never True What is Your Housing Situation Today?: I Have Housing Are You Worried That in the Next 2 Months, You May Not Have Your Own Housing to Live In?: No Do You Have Trouble Paying Your Heating Or Electricity Bill?: No Do You Have Trouble Paying For Medicines?: No Are You Currently Unemployed and Looking for Work?: No Highest Level of Education Completed: Trade/Vocational Certific Do You Have Trouble With Childcare or the Care of a Family Member?: No Exam - Vital Signs Vital Signs - 24 hr 08/25/23 14:00 08/25/23 22:00 08/25/23 20:00 Temperature 36.6 C 35.7 C L Pulse Rate 55 L 57 L Respiratory Rate 12 16 Blood Pressure 152/60 H 166/70 H Pulse Oximetry 99 100 100 Oxygen Delivery Room Air 08/26/23 04:00 08/26/23 06:00 Temperature 36.3 C L Pulse Rate 52 L 56 L Respiratory Rate 16 Blood Pressure 160/72 H Pulse Oximetry 100 Oxygen Delivery - Exam HEENT: EOMI, PERRLA, mucous membranes moist and pink Neck: supple Lungs: clear to auscultation, rales Heart: no murmurs, gallops, or rubs Abdomen: abdomen soft, non-distended, normal bowel sounds Integumentary: no abnormalities Neurological: normal gait, normal speech, strength at 5/5 X4 Psychological: mental status NL - Lab Results Laboratory Last V
[2023-08-26 11:43] LABS: Glucose Point of Care 106 mg/dl (65-105)
[2023-08-26 12:30] LABS: Immature Reticulocyte Fraction 3.9 % (3.0-15.9); Reticulocyte Hemoglobin Conten 30.1 pg (28.2-35.7); Reticulocyte Percent 0.67 % (0.7-4.3); Reticulocytes Absolute 0.03 M/mm3 (0.02-0.1)
[2023-08-26 12:36] LABS: Iron 78 ug/dL (37-170); Lactate Dehydrogenase 211 U/L (120-246)
--- NOTE | 2023-08-26 12:42 | PM.DS ---
DS: Admitting Diagnosis Discharge Date 08/26/23 Admitting Diagnosis Influenza A Pancytopenia Luekopenia DS: Discharge Diagnosis Discharge Diagnosis (1) Influenza A: Code(s): J10.1 - Influenza due to other identified influenza virus with other respiratory manifestations Status: Acute (2) Pancytopenia: Code(s): D61.818 - Other pancytopenia Status: Acute (3) Leukopenia: Code(s): D72.819 - Decreased white blood cell count, unspecified Status: Acute (4) History of COVID-19: Code(s): Z86.16 - Personal history of COVID-19 Status: Acute (5) Hypokalemia: Code(s): E87.6 - Hypokalemia Status: Acute (6) GERD (gastroesophageal reflux disease): Qualifiers: Esophagitis presence: esophagitis presence not specified Qualified Code(s): K21.9 - Gastro-esophageal reflux disease without esophagitis Code(s): K21.9 - Gastro-esophageal reflux disease without esophagitis Status: Acute (7) IDDM (insulin dependent diabetes mellitus): Code(s): E11.9 - Type 2 diabetes mellitus without complications; Z79.4 - salvage determiner (current) use of insulin Status: Acute (8) HTN (hypertension): Qualifiers: Hypertension type: primary hypertension Qualified Code(s): I10 - Essential (primary) hypertension Code(s): I10 - Essential (primary) hypertension Status: Acute DS: Summary Hospital Course Reason for hospitalization: Influenza A Pancytopenia, Luekopenia Hospital Course: This is a 68 year old female who presented to the hospital on 08/24/23 with complaints of congestion and lightheadedness. She had COVID earlier in the month and has been dealing with cough and congestion ever since. Respiratory swab positive for Influenza A this admission. She was found to be neutropenic and pancytopenic on CBC. Hematology consulted and ordered flow cytometry, peripheral smear, hepatitis panels, B12, folate, and iron study, and HIV panel. Labs today showing WBC 1.9, RBC 4.16, platelet count 97, absolute neutrophils 0.6, sodium 139, potassium 2.6 which was replaced with 60 meq. VSS, she is afebrile, currently on room air. She wishes to be discharged today. I discussed that she will need to follow up with Hematology in 2 weeks for discussion of labs and a lung scan considering she is a smoker. Patient agreeable to this plan of care. She is stable for discharge today. Final diagnosis: Influenza A, Pancytopenia, Neutropenia. Status at Discharge Cognitive/behavioral status at discharge: Alert and oriented x3 Functional status at discharge: independent ambulation Overall status at discharge: patient is progressing back to baseline Time Spent with Patient Time attestation: Total time spent providing and/or coordinating discharge services: Time spent: Greater than 30 minutes Exam Narrative: General: In no acute distress, well nourished Head: atraumatic, no encephalopathy Eyes: EOMI, PERRLA, sclera clear ENT: moist mucous membranes, nasal passages clear Neck: supple, no JVD, no adenopathy, trachea midline Cardiac: Normal S1 and S2. No murmur, gallops or friction rubs, peripheral pulses intact. Respiratory: Lungs clear to auscultation, no adventitious lung sounds Gastrointestinal: soft, non-distended, non-tender, normoactive bowel sounds. : voiding without difficulty. Extremities: moves all extremities well, no edema, good ROM, strength 5/5 Skin: clean, dry, intact. No wounds or lesions. Neuro: Alert and oriented x4, cranial nerves intact, no neuro deficits. Psych: normal mood, normal affect, interactive DS: Data Data Completed and Pending Completed studies during hospitalization: Chest CTA Chest x-ray Pending studies at discharge: None Labs on day of discharge: Labs from last 24 hours 08/26/23 08/26/23 08/26/23 11:40 07:59 06:03 WBC 1.9 L RBC 4.16 L Hgb 12.1 Hct 37.1 MCV 89.2 MCH 29.1 MCHC 32.6 RDW 13.
[2023-08-26 12:47] LABS: Percent Iron Saturation 31 % (20-50)
[2023-08-26 13:09] LABS: Hepatitis B Surface Antigen Negative (Negative)
[2023-08-26 13:14] LABS: HAV RESULT Negative (Negative); Hepatitis B Core IgM Result Negative (Negative)
[2023-08-26 13:26] LABS: Hepatitis C Virus Antibody Negative (Negative)
[2023-08-29 20:36] LABS: Red Blood Cell Folate 473 ng/mL RBC (>280)
== END 2023-08-26 14:10 | disposition home or self-care (01) | DRG 194 ==
LOC: ANHED 08-25 05:26 → ANH3MEDSUR 08-25 07:18
PROVIDERS: Physician Assistant; Student in an Organized Health Care Education/Training Program; Admitting Provider General Practice; Emergency Provider Emergency Medicine; PCP Family Medicine; Visit Provider Nurse Practitioner Acute Care
DX: J10.1 Influenza due to other identified influenza virus with other respiratory manifestations (principal); D61.818 Other pancytopenia; E87.6 Hypokalemia; E78.5 Hyperlipidemia, unspecified; E11.9 Type 2 diabetes mellitus without complications; F17.290 Nicotine dependence, other tobacco product, uncomplicated; I10 Essential (primary) hypertension; I25.10 Atherosclerotic heart disease of native coronary artery without angina pectoris; K21.9 Gastro-esophageal reflux disease without esophagitis; Z79.4 Long term (current) use of insulin; Z79.85 Long-term (current) use of injectable non-insulin antidiabetic drugs; Z98.41 Cataract extraction status, right eye; Z98.42 Cataract extraction status, left eye; Z95.5 Presence of coronary angioplasty implant and graft; Z90.710 Acquired absence of both cervix and uterus; Z95.1 Presence of aortocoronary bypass graft; Z79.02 Long term (current) use of antithrombotics/antiplatelets; Z86.16 Personal history of COVID-19; Z20.822 Contact with and (suspected) exposure to COVID-19
CPT/HCPCS: 36415; 71045; 71275; 80048; 80053; 80074; 81003; 82607; 82728; 82747; 82948; 83540; 83550; 83605; 83615; 83735; 84100; 84484; 85025; 85046; 85055; 85380; 85652; 86140; 87637; 93005; 96365; 96366; 96368; 99285; A9270; J3475; J3480; J7030; J7040; Q9967

== ENCOUNTER 2023-09-11 11:48 | Outpatient (CLI) | payer OTHER, MEDICAID, SELFPAY ==
[2023-09-11 12:17] LABS: Basophils Percent Auto 0.3 % (0.2-1.2); Eosinophils Absolute Auto 0.1 K/mm3 (0-0.3); Eosinophils Percent Auto 1.3 % (0-4.4); Hematocrit 40.5 % (37.0-47.0); Hemoglobin 13.2 g/dL (12.0-15.0); Immature Granulocyte Absolute 0.02 K/mm3 (0.00-0.031); Immature Granulocyte Percent A 0.3 % (0-0.5); Lymphocytes Absolute Auto 1.43 K/mm3 (0.9-3.2); Lymphocytes Percent Auto 21.2 % (18.3-44.2); Mean Corpuscular HGB Conc 32.6 g/dl (32-36); Mean Corpuscular Hemoglobin 29.3 pg (26-34); Mean Corpuscular Volume 89.8 fl (80-100); Mean Platelet Volume 9.9 fl (7.4-10.4); Monocytes Absolute Auto 0.4 K/mm3 (0.1-0.6); Monocytes Percent Auto 6.2 % (2.6-8.5); Neutrophils Absolute Auto 4.8 K/mm3 (1.3-6.7); Neutrophils Percent Auto 70.7 % (45.5-73.1); Platelet Count Result 155 k/mm3 (150-375); Red Blood Count 4.51 M/mm3 (4.2-5.4); White Blood Count 6.7 K/mm3 (4.5-10.0)
[2023-09-11 13:45] LABS: Alanine Aminotransferase 9 U/L (6-35); Albumin Level 4.2 g/dL (3.5-5.1); Alkaline Phosphatase 92 U/L (38-126); Anion Gap 6 mmol/L (8-16); Aspartate Amino Transferase 17 U/L (14-36); Bilirubin,Total 0.6 mg/dL (0.2-1.3); Blood Urea Nitrogen 16 mg/dL (7-17); Calcium 9.4 mg/dL (8.4-10.2); Carbon Dioxide 34 mmol/L (22-30); Chloride 101 mmol/L (98-107); Estimated Glomerular Filt Rate > 60; Glucose 108 mg/dL (65-110); Potassium 3.8 mmol/L (3.4-5.0); Sodium 141 mmol/L (137-145)
== END 2023-09-11 11:49 | disposition home or self-care (01) ==
PROVIDERS: Nurse Practitioner Family; PCP Family Medicine; Visit Provider Internal Medicine Hematology & Oncology
DX: D61.818 Other pancytopenia (principal)
CPT/HCPCS: 36415; 80053; 85025; 86038; 88184

== ENCOUNTER 2023-09-26 09:39 | Outpatient (CLI) | payer OTHER, MEDICAID, SELFPAY ==
--- NOTE | ~2023-09-26 | CT_ITS ---
CT Scan of the Chest without Contrast: Clinical Indication: Lung cancer screening, personal history of nicotine dependence Technique: Contiguous sections were acquired throughout the chest without intravenous contrast. Dose reduction technique was used on this scan by utilizing automated exposure control and iterative recon struction technique. The dose-length product (DLP) was 141.33 mGy-cm. COMPARISON: 08/25/2023 Findings: There is no evidence of any significant mediastinal, hilar or axillary lymphadenopathy. There are ext ensive atherosclerotic calcifications of the coronary arteries. There is no evidence of pleural or pericardial effusion. Linear areas of linear scarring at the bilateral lung bases. No distinct pulmonary nodule identified. Images through the upper abdomen reveal partially imaged abdominal aortic stent graft. Impression: Lung RADS 1: Negative. 12 month follow-up screening CT advised. Reviewed, dictated and finalized at [facility]. H MOSS OPERATOR Impression: Lung RADS 1: Negative. 12 month follow-up screening CT advised.
--- NOTE | ~2023-09-26 | US_ITS ---
Abdominal Sonogram: Real-time sonographic imaging of the abdomen was performed. Clinical History: Pancytopenia Findings: The liver appears normal with no evidence of mass lesion or bile duct dilatation. Main por ce vein demonstrates normal direction of flow. The spleen is normal in size without evidence of foca l lesion. The gallbladder is well distended, and demonstrates 2 hyperechoic areas which are not mobi le, most compatible gallbladder wall polyps. The common bile duct measures 5 mm. The visualized panc reas, aorta, and IVC are unremarkable. The right kidney measures 11.4 cm in length and the left kidn ey measures 12.4 cm. There is no hydronephrosis or renal calculus. Impression: Probable gallbladder wall polyps. Reviewed, dictated and finalized at location . ER LAP TENDER Impression: Probable gallbladder wall polyps.
== END 2023-09-26 09:40 | disposition home or self-care (01) ==
LOC: ANHIMG 09:41
PROVIDERS: PCP Family Medicine; Visit Provider Nurse Practitioner Family
DX: Z12.2 Encounter for screening for malignant neoplasm of respiratory organs (principal); D61.818 Other pancytopenia; Z87.891 Personal history of nicotine dependence
CPT/HCPCS: 71271; 76700

== ENCOUNTER 2023-10-08 13:35 | Outpatient (CLI) | payer OTHER, MEDICAID, SELFPAY ==
[2023-10-08 19:12] LABS: Hematocrit 40.3 % (37.0-47.0); Hemoglobin 12.7 g/dL (12.0-15.0); Mean Corpuscular HGB Conc 31.5 g/dl (32-36); Mean Corpuscular Hemoglobin 28.9 pg (26-34); Mean Corpuscular Volume 91.8 fl (80-100); Mean Platelet Volume 10.8 fl (7.4-10.4); Platelet Count Result 144 k/mm3 (150-375); Red Blood Count 4.39 M/mm3 (4.2-5.4); Red Cell Distribution Width 13.5 % (11.5-14.5); White Blood Count 4.6 K/mm3 (4.5-10.0)
[2023-10-08 21:18] LABS: Alanine Aminotransferase 9 U/L (6-35); Albumin Level 3.8 g/dL (3.5-5.1); Alkaline Phosphatase 90 U/L (38-126); Anion Gap 3 mmol/L (8-16); Aspartate Amino Transferase 28 U/L (14-36); Bilirubin,Total 0.6 mg/dL (0.2-1.3); Blood Urea Nitrogen 15 mg/dL (7-17); Calcium 9.1 mg/dL (8.4-10.2); Carbon Dioxide 34 mmol/L (22-30); Chloride 105 mmol/L (98-107); Estimated Glomerular Filt Rate > 60; Glucose 108 mg/dL (65-110); Potassium 3.3 mmol/L (3.4-5.0); Sodium 142 mmol/L (137-145)
[2023-10-08 21:43] LABS: Hemoglobin A1C 5.8 % (<5.7)
== END 2023-10-08 13:36 | disposition home or self-care (01) ==
LOC: ANHBWCLAB 13:37
PROVIDERS: Visit Provider Family Medicine
DX: D72.819 Decreased white blood cell count, unspecified (principal); D61.818 Other pancytopenia; E11.9 Type 2 diabetes mellitus without complications; E87.6 Hypokalemia; I10 Essential (primary) hypertension; I25.10 Atherosclerotic heart disease of native coronary artery without angina pectoris; Z79.4 Long term (current) use of insulin
CPT/HCPCS: 36415; 80053; 83036; 85027

== ENCOUNTER 2023-12-31 15:42 | Outpatient (CLI) | payer OTHER, MEDICAID, SELFPAY ==
[2023-12-31 16:00] LABS: Basophils Percent Auto 0.4 % (0.2-1.2); Eosinophils Absolute Auto 0.1 K/mm3 (0-0.3); Hematocrit 38.6 % (37.0-47.0); Hemoglobin 12.6 g/dL (12.0-15.0); Immature Granulocyte Absolute 0.01 K/mm3 (0.00-0.031); Immature Granulocyte Percent A 0.2 % (0-0.5); Immature Platelet Fraction Pct 4.3 % (0.9-11.2); Lymphocytes Absolute Auto 1.29 K/mm3 (0.9-3.2); Lymphocytes Percent Auto 24.9 % (18.3-44.2); Mean Corpuscular HGB Conc 32.6 g/dl (32-36); Mean Corpuscular Hemoglobin 29.4 pg (26-34); Mean Platelet Volume 9.7 fl (7.4-10.4); Monocytes Absolute Auto 0.4 K/mm3 (0.1-0.6); Monocytes Percent Auto 7.7 % (2.6-8.5); Neutrophils Absolute Auto 3.4 K/mm3 (1.3-6.7); Neutrophils Percent Auto 65.8 % (45.5-73.1); Platelet Count Result 143 k/mm3 (150-375); Red Blood Count 4.29 M/mm3 (4.2-5.4); Red Cell Distribution Width 13.1 % (11.5-14.5); White Blood Count 5.2 K/mm3 (4.5-10.0)
== END 2023-12-31 15:43 | disposition home or self-care (01) ==
LOC: ANHLAB 15:45
PROVIDERS: Visit Provider Internal Medicine Hematology & Oncology
DX: E53.8 Deficiency of other specified B group vitamins (principal)
CPT/HCPCS: 36415; 85025; 85055

== ENCOUNTER 2024-03-15 18:51 | Emergency (ER) | payer OTHER, MEDICAID, SELFPAY ==
--- NOTE | ~2024-03-15 | CT_ITS ---
EXAMINATION: CTA chest abdomen pelvis DATE: 03/15/2024 23:40 INDICATION: Right lower quadrant pain, right lower back pain. History of aortic aneurysm. TECHNIQUE: Computed tomography (CT) of the chest, abdomen, and pelvis was performed with 100 CC Omnip aque 350 intravenous contrast. Automated exposure control and iterative reconstruction technique were employed. Exam dose: 728.08 mGy-cm total exam DLP. COMPARISON: 09/26/2023 CT lung screening 09/26/2023 complete abdominal ultrasound examination FINDINGS: CHEST CT: The pulmonary arteries are well opacified by contrast material, without evidence of pulmonary embolis m. Heart size is normal. There are very prominent coronary artery calcifications. Status post sternotomy. Thoracic aortic calcification, without evidence of aneurysm or dissection. No hilar or mediastinal mass lesion or lymphadenopathy. No pulmonary infiltrate or consolidation or pulmonary mass lesion is noted ABDOMEN/PELVIS CT: The liver, gallbladder, bile ducts, spleen, pancreas, pancreatic duct, adrenal glands are unremarkabl e. Lower pole left renal scarring. No renal mass lesion or urinary tract calculus or hydroureteronephros is is noted. Urinary bladder is unremarkable. Status post hysterectomy. 4.5 cm fusiform infrarenal abdominal aortic aneurysm. Aortobiiliac stent graft, beginning in the supr arenal abdominal aorta, continuing into both common iliac arteries. No evidence of endoleak is eviden t. Bilateral proximal renal artery stents. No intraperitoneal or retroperitoneal or pelvic mass lesion or adenopathy or ascites. Mild colonic diverticulosis; no CT evidence of diverticulitis. Normal appendix. No bowel obstruction, pneumoperitoneum. Small fat-containing umbilical hernia. No suspicious osteolytic or osteoblastic lesions. Degenerative changes of the thoracic and lumbar spi ne. IMPRESSION: Aortobiiliac endovascular graft and bilateral renal artery stents; no endoleak is noted Reviewed, dictated and finalized at [facility]. Reviewed, dictated and finalized at [facility].
[2024-03-15 18:52] VITALS: BP 161/74; PULSE 62; RESP 15; TEMP 36.4; O2SAT 100
--- NOTE | 2024-03-15 22:17 | ECG_ITS ---
Test Date: 2024-03-15 22:26:43 Measurements Intervals [place] Rate: 66 P: 65 AK: 176 QRS: 4 QRSD: 95 T: 78 QT: 396 QTc: 417 Interpretive Statements SINUS RHYTHM WITH MARKED SINUS ARRHYTHMIA CANNOT R/O SEPTAL INFARCT, AGE INDETERMINATE BORDERLINE ST-T WAVE ABNORMALITY- DIFFUSE LEADS ABNORMAL ECG No previous ECG available for comparison Electronically Signed On 03-16-2024 07:25:38 CDT by Kamron Santamaria D.O.
[2024-03-15] MEDS: HYDROmorphone HCL INJ (*CRX) 1 MG/ML SYR 0.5 MG IV PUSH (22:46)
[2024-03-15] MEDS: ONDANSETRON INJ 4 MG/2 ML VIAL IV PUSH (22:46)
[2024-03-15 22:48] VITALS: BP 133/86; PULSE 66; RESP 20; O2SAT 99
[2024-03-15 22:48] LABS: Basophils Percent Auto 0.4 % (0.2-1.2); Eosinophils Absolute Auto 0.1 K/mm3 (0-0.3); Eosinophils Percent Auto 1.8 % (0-4.4); Hematocrit 37.5 % (37.0-47.0); Hemoglobin 12.1 g/dL (12.0-15.0); Immature Granulocyte Absolute 0.02 K/mm3 (0.00-0.031); Immature Granulocyte Percent A 0.4 % (0-0.5); Immature Platelet Fraction Pct 4.2 % (0.9-11.2); Lymphocytes Absolute Auto 1.38 K/mm3 (0.9-3.2); Mean Corpuscular HGB Conc 32.3 g/dl (32-36); Mean Corpuscular Hemoglobin 29.9 pg (26-34); Mean Corpuscular Volume 92.6 fl (80-100); Mean Platelet Volume 10.4 fl (7.4-10.4); Monocytes Absolute Auto 0.4 K/mm3 (0.1-0.6); Monocytes Percent Auto 7.1 % (2.6-8.5); Neutrophils Absolute Auto 3.1 K/mm3 (1.3-6.7); Neutrophils Percent Auto 62.3 % (45.5-73.1); Platelet Count Result 134 k/mm3 (150-375); Red Blood Count 4.05 M/mm3 (4.2-5.4); Red Cell Distribution Width 13.2 % (11.5-14.5); White Blood Count 4.9 K/mm3 (4.5-10.0)
[2024-03-15 22:55] LABS: Lactic Acid Reflex 1.4 mmol/L (0.7-2.0)
[2024-03-15 22:58] LABS: INR 1.1; Prothrombin Time 14.4 Seconds (11.1-14.7)
[2024-03-15 22:59] LABS: Partial Thromboplastin Time 29.5 Seconds (22.3-36.8)
[2024-03-15 23:12] LABS: Estimated CRCL calculation 60 ml/min; Estimated Glomerular Filt Rate > 60
[2024-03-15 23:31] LABS: Influenza A QL RT-PCR Negative (Negative); Influenza B QL RT-PCR Negative (Negative); RSV RNA, RT-PCR Negative (Negative); SARS-CoV-2 RNA PCR Negative (Negative)
[2024-03-15 23:34] VITALS: PULSE 56
[2024-03-15 23:35] VITALS: BP 177/71; PULSE 59; O2SAT 99
[2024-03-15 23:37] LABS: Alanine Aminotransferase 10 U/L (6-35); Albumin Level 3.8 g/dL (3.5-5.1); Alkaline Phosphatase 88 U/L (38-126); Anion Gap 8 mmol/L (4-12); Aspartate Amino Transferase 19 U/L (14-36); Bilirubin,Total 0.5 mg/dL (0.2-1.3); Blood Urea Nitrogen 16 mg/dL (7-17); Calcium 8.6 mg/dL (8.4-10.2); Carbon Dioxide 31 mmol/L (22-30); Chloride 100 mmol/L (98-107); Estimated CRCL calculation 60 ml/min; Estimated Glomerular Filt Rate > 60; Glucose 134 mg/dL (65-110); Magnesium 2.1 mg/dL (1.6-2.3); Potassium 3.2 mmol/L (3.4-5.0); Sodium 139 mmol/L (137-145)
[2024-03-15 23:41] LABS: Appearance Urine Clear (Clear); Bilirubin Urine Negative (Negative); Blood Urine Negative (Negative); Color Urine Yellow (Yellow); Glucose Urine UA 3+ mg/dL (Negative); Ketones Urine Negative (Negative); Leukocyte Esterase Ur Negative LEU/UL (Negative); Nitrate Urine Negative (Negative); Protein Urine Negative (Negative); Specific Grav Ur 1.021 (1.001-1.035); pH Urine 5.5 (5.0-9.0)
[2024-03-15 23:45] VITALS: PULSE 62; RESP 19
[2024-03-15 23:49] LABS: Troponin I < 0.012 ng/mL (0.000-0.034)
[2024-03-15 23:50] LABS: Add Urine Microscopic? NO
[2024-03-16] VITALS (9 sets, daily range): BP systolic 129–149; BP diastolic 65–82; PULSE 62–77; RESP 13–21; O2SAT 98
--- NOTE | 2024-03-16 01:03 | ED.GENADULT ---
HPI - General Adult General Chief complaint: Back Pain/Injury Stated complaint: back pain Time Seen by Provider: 03/15/24 21:18 History of Present Illness HPI narrative: This is a 68-year-old female presenting with lower back pain. Patient says she sat down on the toilet when she stood up she developed a sharp bandlike pain across her lower back worse on the right than the left. Does not radiate down her back. It is not associated with lower extremity weakness, urinary retention or bowel incontinence. Patient does have an aortic aneurysm of which she had an endograft for. She has stents in her iliac arteries and in her ureters. Patient is denying fevers chills chest pain difficulty breathing nausea vomiting diarrhea or abdominal pain. She does not have dysuria but has had some urgency and frequency. Related Data Home Medications Medication Instructions Recorded Confirmed losartan 100 mg tablet (Cozaar) 100 mg PO DAILY 08/29/21 08/25/23 carvedilol 6.25 mg tablet 6.25 mg PO BID 09/12/21 08/25/23 ezetimibe 10 mg tablet 10 mg PO DAILY 09/21/21 08/25/23 semaglutide 2 mg/dose (8 mg/3 mL) mg subcut 03/06/24 subcutaneous pen injector (Ozempic) Allergies Allergy/AdvReac Type Severity Reaction Status Date / Time No Known Allergies Allergy Verified 03/15/24 18:52 [facility] Past Medical History Medical History CAD (coronary artery disease) Gas bloat syndrome GERD (gastroesophageal reflux disease) HLD (hyperlipidemia) HTN (hypertension) Hx of diverticulitis of colon Hx of pyloric stenosis IDDM (insulin dependent diabetes mellitus) Incisional hernia LLQ abdominal pain Nausea Neuropathy Osteoarthritis of right knee Plantar wart, left foot Regurgitation of food Suprapubic abdominal pain Tobacco abuse Surgical History Surgical History H/O bilateral cataract extraction (~2014) H/O heart artery stent (~2014) H/O: hysterectomy (~2014) History of abdominal aortic aneurysm (AAA) repair (~2014) History of cardiac catheterization (~2010) Hx of CABG (~2010) Family History Family History Father Heart disease Mother Diabetes mellitus Heart disease Depression Other Anxiety Cancer Hypertension Social History Social History Smoking status: Current every day smoker Tobacco type: e-cigarettes/vaping Second hand tobacco smoke exposure: Yes Alcohol intake: never Substance use: never Substance use type: does not use Do You Feel Safe in your Home?: Yes Lack of Transportation: No Lack of Food: Never True Current Housing: I Have Housing Concerned About Future Housing: No Difficulty Paying Gas/Electric Bills: No Difficulty Paying for Meds: No Currently Unemployed: No Education: Trade/Vocational Certificate Difficulty w/ Childcare or Family Care: No Living arrangements: with family Gender identity (if verbalized by the patient): Female Spiritual care concerns: No Exam Narrative: APPEARANCE: No apparent distress. Well-appearing Head: atraumatic. EYES: EOMI, NOSE: Atraumatic NECK/BACK: No midline lumbar tenderness, no tenderness in the paralumbar muscles RESPIRATORY: No increased rate of breathing clear to auscultation CARDIOVASCULAR: RRR, no peripheral edema, pulses in all 4 extremities ABDOMINAL: Non-distended is soft nontender no guarding or rebound MUSCULOSKELETAl: No obvious deformities NEURO: Alert. Moving 4/4 extremities SKIN:: Warm, dry. Normal color PSYCHIATRIC: Normal affect Course Vital Signs Vital signs: Vital Signs Temperature 97.6 F 03/15/24 18:52 Pulse Rate 62 03/15/24 18:52 Respiratory Rate 15 03/15/24 18:52 Blood Pressure 161/74 H 03/15/24 18:52 Pulse Oximetry 100 03/15/24 18:52 Oxygen Delivery Room Air 03/15/24 1
== END 2024-03-16 01:24 | disposition home or self-care (01) ==
PROVIDERS: Emergency Provider Emergency Medicine; PCP Family Medicine
DX: M54.50 Low back pain, unspecified (principal); Z11.52 Encounter for screening for COVID-19; I25.10 Atherosclerotic heart disease of native coronary artery without angina pectoris; I10 Essential (primary) hypertension; I71.43 Infrarenal abdominal aortic aneurysm, without rupture; E78.5 Hyperlipidemia, unspecified; E11.40 Type 2 diabetes mellitus with diabetic neuropathy, unspecified; K21.9 Gastro-esophageal reflux disease without esophagitis; F17.290 Nicotine dependence, other tobacco product, uncomplicated; Z95.5 Presence of coronary angioplasty implant and graft; Z95.1 Presence of aortocoronary bypass graft; Z96.0 Presence of urogenital implants; Z98.42 Cataract extraction status, left eye; Z98.41 Cataract extraction status, right eye; Z90.710 Acquired absence of both cervix and uterus; Z79.85 Long-term (current) use of injectable non-insulin antidiabetic drugs; Z79.899 Other long term (current) drug therapy; R94.31 Abnormal electrocardiogram [ECG] [EKG]
CPT/HCPCS: 36415; 71275; 74174; 80053; 81003; 83605; 83735; 84484; 85025; 85055; 85610; 85730; 86850; 86900; 86901; 87637; 93005; 96374; 96375; 99284; J1170; J2405; Q9967

== ENCOUNTER 2024-04-07 11:03 | Outpatient (CLI) | payer OTHER, MEDICAID, SELFPAY ==
[2024-04-07 11:29] LABS: Basophils Percent Auto 0.2 % (0.2-1.2); Eosinophils Absolute Auto 0.1 K/mm3 (0-0.3); Eosinophils Percent Auto 2.4 % (0-4.4); Hematocrit 39.2 % (37.0-47.0); Hemoglobin 12.5 g/dL (12.0-15.0); Immature Granulocyte Absolute 0.02 K/mm3 (0.00-0.031); Immature Granulocyte Percent A 0.4 % (0-0.5); Lymphocytes Absolute Auto 1.12 K/mm3 (0.9-3.2); Lymphocytes Percent Auto 24.7 % (18.3-44.2); Mean Corpuscular HGB Conc 31.9 g/dl (32-36); Mean Corpuscular Hemoglobin 29.1 pg (26-34); Mean Corpuscular Volume 91.2 fl (80-100); Mean Platelet Volume 10.1 fl (7.4-10.4); Monocytes Absolute Auto 0.4 K/mm3 (0.1-0.6); Monocytes Percent Auto 8.1 % (2.6-8.5); Neutrophils Absolute Auto 2.9 K/mm3 (1.3-6.7); Neutrophils Percent Auto 64.2 % (45.5-73.1); Platelet Count Result 134 k/mm3 (150-375); White Blood Count 4.5 K/mm3 (4.5-10.0)
[2024-04-07 12:43] LABS: Anion Gap 8 mmol/L (4-12); Blood Urea Nitrogen 18 mg/dL (7-17); Calcium 8.8 mg/dL (8.4-10.2); Carbon Dioxide 32 mmol/L (22-30); Chloride 100 mmol/L (98-107); Estimated Glomerular Filt Rate > 60; Glucose 88 mg/dL (65-110); Sodium 140 mmol/L (137-145)
[2024-04-07 13:50] LABS: Folic Acid 8.9 ng/mL (2.76->20)
== END 2024-04-07 11:04 | disposition home or self-care (01) ==
LOC: ANHLAB 11:06
PROVIDERS: PCP Family Medicine; Visit Provider Internal Medicine Hematology & Oncology
DX: D61.818 Other pancytopenia (principal)
CPT/HCPCS: 36415; 80048; 82607; 82746; 85025; 85055

== ENCOUNTER 2024-06-24 00:23 | Day surgery (SDC) | payer OTHER, SELFPAY ==
[2024-06-16 15:02] VITALS: BMI 28.6
[2024-06-24 08:45] VITALS: BP 152/80; PULSE 59; RESP 18; TEMP 37.1; O2SAT 100; BMI 28.5
[2024-06-24] MEDS: LACTATED RINGERS 1,000 ML 150 ML IV CONT (09:07)
[2024-06-24 09:10] LABS: Glucose Point of Care 81 mg/dl (65-105)
--- NOTE | 2024-06-24 09:27 | WPDANESEPPF ---
Anes - Initial Pre Proc Eval Procedure: Operation Date: 06/24/24 10:00 Proposed Procedures p Esophagogastroduodenoscopy & Colonoscopy - Johnny Glez MD Date/Time: 06/24/24 09:27 Surgeon: Johnny Glez MD Pre Op Diagnosis: family hist of cancer, GERD, nausea, lower qd pain Patient Data Age: 68 Gender: F Height: 1.65 m Weight: 77.9 kg Last Vital Signs Temp 37.1 C 06/24/24 08:45 Pulse 59 L 06/24/24 08:45 Resp 18 06/24/24 08:45 BP 152/80 H 06/24/24 08:45 Pulse Ox 100 06/24/24 08:45 O2 Del Method Room Air 06/24/24 08:45 Allergies Allergy/AdvReac Type Severity Reaction Status Date / Time latex AdvReac Redness of Verified 06/16/24 15:41 Skin Home Medications Medication Instructions Recorded Confirmed Type losartan 100 mg tablet (Cozaar) 100 mg PO DAILY 08/29/21 06/24/24 History carvedilol 6.25 mg tablet 6.25 mg PO BID 09/12/21 06/24/24 History dapagliflozin propanediol 10 mg 10 mg PO QAM #90 tabs 09/21/21 06/24/24 Rx tablet (Farxiga) ezetimibe 10 mg tablet 10 mg PO DAILY 09/21/21 06/24/24 History blood sugar diagnostic (Blood #100 ea 09/26/21 06/16/24 Rx Glucose Test strips) blood-glucose meter (Blood Glucose #1 ea 09/26/21 06/16/24 Rx Monitoring kit) potassium chloride 20 mEq oral 40 meq PO DAILY #100 ea 06/04/23 06/24/24 Rx packet semaglutide 2 mg/dose (8 mg/3 mL) 2 mg subcut WEEKLY 03/06/24 06/24/24 History subcutaneous pen injector (Ozempic) sertraline 100 mg tablet 100 mg PO DAILY #90 tabs 03/20/24 06/16/24 Rx omeprazole 40 mg capsule,delayed 40 mg PO DAILY Acid Reflux #90 caps 04/15/24 06/24/24 Rx release aspirin 81 mg tablet,delayed 81 mg PO DAILY 06/16/24 06/24/24 History release Laboratory Tests 06/24/24 09:01 POC Capillary Glucose 81 mg/dl (65-105) Patient hx anesthesia problems: none Family hx anesthesia problems: none Results Review: All pre-operative results and documents have been reviewed as part of the pre-operative evaluation. [facility] Past Medical History Medical History CAD (coronary artery disease) Family hx of colon cancer Gas bloat syndrome GERD (gastroesophageal reflux disease) HLD (hyperlipidemia) HTN (hypertension) Hx of diverticulitis of colon Hx of pyloric stenosis IDDM (insulin dependent diabetes mellitus) Incisional hernia LLQ abdominal pain Nausea Neuropathy Osteoarthritis of right knee Plantar wart, left foot Regurgitation of food Suprapubic abdominal pain Tobacco abuse Surgical History Surgical History H/O bilateral cataract extraction (~2014) H/O heart artery stent (~2014) H/O: hysterectomy (~2014) History of abdominal aortic aneurysm (AAA) repair (~2014) History of cardiac catheterization (~2010) Hx of CABG (~2010) Family History Family History Father Heart disease Mother Diabetes mellitus Heart disease Depression Other Anxiety Cancer Hypertension Social History Social History Smoking status: Current every day smoker Tobacco type: e-cigarettes/vaping Second hand tobacco smoke exposure: Yes Additional smoking assessment comments: 1 pod/cartridge per week Alcohol intake: never Substance use: never Substance use type: does not use Do You Feel Safe in your Home?: Yes Lack of Transportation: No Lack of Food: Never True Current Housing: I Have Housing Concerned About Future Housing: No Difficulty Paying Gas/Electric Bills: No Difficulty Paying for Meds: No Currently Unemployed: No Education: Trade/Vocational Certificate Difficulty w/ Childcare or Family Care: No Living arrangements: with friend(s) Gender identity (if verbalized by the patient): Female Spiritual care concerns: No Anes - Eval Final PreProcedure Day of Procedure 06/24/24 09:27 Patient weight: overweight Heart: regular rate and rhythm Lungs: clear to auscultation Airway: Mallampati scale class II Neurological: alert and oriented Last oral intake: >/= 8 hours ASA classification: IV Emergent: no Anesthetic plan: proceed Results Review: All pre-operative results and documents have been reviewed as part of the pre-operative evaluation. Informed Consent: The patient's anesthetic plan and its attendant risks and benefits were discussed with the patient/family/POA. Questions were solicited and answers provided to the satisfaction of the patient/family/POA.
--- NOTE | 2024-06-24 09:27 | PM.HPGS ---
History of Present Illness History of Present Illness Consent: Risks, benefits, and alternatives have been discussed and questions answered. Patient agrees to proceed with procedure. Chief complaint: family hist of cancer, GERD, nausea, lower qd pain Narrative: Adonis Rubio is a 68 year old female with h/o DM on ozempic, since with GI issues including abdominal bloating, loose stools and nausea, last colonoscopy 4 years ago. Review of Systems Review of Systems: All systems reviewed & are unremarkable except as noted in HPI and below PMFSH Past Medical History Medical History CAD (coronary artery disease) Family hx of colon cancer Gas bloat syndrome GERD (gastroesophageal reflux disease) HLD (hyperlipidemia) HTN (hypertension) Hx of diverticulitis of colon Hx of pyloric stenosis IDDM (insulin dependent diabetes mellitus) Incisional hernia LLQ abdominal pain Nausea Neuropathy Osteoarthritis of right knee Plantar wart, left foot Regurgitation of food Suprapubic abdominal pain Tobacco abuse Surgical History Surgical History H/O bilateral cataract extraction (~2014) H/O heart artery stent (~2014) H/O: hysterectomy (~2014) History of abdominal aortic aneurysm (AAA) repair (~2014) History of cardiac catheterization (~2010) Hx of CABG (~2010) Family History Family History Father Heart disease Mother Diabetes mellitus Heart disease Depression Other Anxiety Cancer Hypertension Social History Social History Smoking status: Current every day smoker Tobacco type: e-cigarettes/vaping Second hand tobacco smoke exposure: Yes Additional smoking assessment comments: 1 pod/cartridge per week Alcohol intake: never Substance use: never Substance use type: does not use Do You Feel Safe in your Home?: Yes Lack of Transportation: No Lack of Food: Never True Current Housing: I Have Housing Concerned About Future Housing: No Difficulty Paying Gas/Electric Bills: No Difficulty Paying for Meds: No Currently Unemployed: No Education: Trade/Vocational Certificate Difficulty w/ Childcare or Family Care: No Living arrangements: with friend(s) Gender identity (if verbalized by the patient): Female Spiritual care concerns: No Meds Home Medications and Allergies Home Medications Medication Instructions Recorded Confirmed Type losartan 100 mg tablet (Cozaar) 100 mg PO DAILY 08/29/21 06/24/24 History carvedilol 6.25 mg tablet 6.25 mg PO BID 09/12/21 06/24/24 History dapagliflozin propanediol 10 mg 10 mg PO QAM #90 tabs 09/21/21 06/24/24 Rx tablet (Farxiga) ezetimibe 10 mg tablet 10 mg PO DAILY 09/21/21 06/24/24 History blood sugar diagnostic (Blood #100 ea 09/26/21 06/16/24 Rx Glucose Test strips) blood-glucose meter (Blood Glucose #1 ea 09/26/21 06/16/24 Rx Monitoring kit) potassium chloride 20 mEq oral 40 meq PO DAILY #100 ea 06/04/23 06/24/24 Rx packet semaglutide 2 mg/dose (8 mg/3 mL) 2 mg subcut WEEKLY 03/06/24 06/24/24 History subcutaneous pen injector (Ozempic) sertraline 100 mg tablet 100 mg PO DAILY #90 tabs 03/20/24 06/16/24 Rx omeprazole 40 mg capsule,delayed 40 mg PO DAILY Acid Reflux #90 caps 04/15/24 06/24/24 Rx release aspirin 81 mg tablet,delayed 81 mg PO DAILY 06/16/24 06/24/24 History release Allergies Allergy/AdvReac Type Severity Reaction Status Date / Time latex AdvReac Redness of Verified 06/16/24 15:41 Skin Vital Signs Vital Signs - 24 hr 06/24/24 08:45 Temperature 98.8 F Pulse Rate 59 L Respiratory Rate 18 Blood Pressure 152/80 H Pulse Oximetry 100 Oxygen Delivery Room Air Exam Const: General: comfortable and no acute distress HENMT: Face/Nose/Sinus: Normal nares present Eyes: General: appearance normal, both eyes and all related structures Neck: Neck: no JVD Resp: Auscultation: clear to auscultation bilaterally Cardio: Rate: regular rate Rhythm: regular rhythm GI: Inspection: non-distended GI Palp: Yes Soft to palpation Skin: General skin exam: normal color Neuro: General: gait normal Speech: normal speech Extrem: General: normal to inspection Psych: Mental Status: mental status grossly normal Assessment and Plan Assessment and plan (1) Gas bloat syndrome: Code(s): K92.89 - Other specified diseases of the digestive system Status: Acute Assessment and Plan: egd and colonoscopy (2) Nausea: Code(s): R11.0 - Nausea Status: Acute
--- NOTE | 2024-06-24 09:48 | SUR.OPER ---
EGD: end 941, colon: start 944
[2024-06-24 09:56] VITALS: BP 131/71; PULSE 64; RESP 20; O2SAT 100
[2024-06-24 10:06] VITALS: BP 118/71; PULSE 62; RESP 21; O2SAT 100
[2024-06-24 10:16] VITALS: BP 131/71; PULSE 64; RESP 21; O2SAT 100
== END 2024-06-24 10:35 | disposition home or self-care (01) ==
PROVIDERS: PCP Family Medicine; Referring Provider Nurse Practitioner Family; Visit Provider Internal Medicine Gastroenterology
PROC: 0DJ08ZZ Inspection of Upper Intestinal Tract, Via Natural or Artificial Opening Endoscopic (ICD-10-PCS; CPT 43235; principal; 2024-06-24 10:00)
DX: K29.50 Unspecified chronic gastritis without bleeding (principal); K20.90 Esophagitis, unspecified without bleeding; K57.30 Diverticulosis of large intestine without perforation or abscess without bleeding; K92.89 Other specified diseases of the digestive system; E78.5 Hyperlipidemia, unspecified; I10 Essential (primary) hypertension; I25.10 Atherosclerotic heart disease of native coronary artery without angina pectoris; M17.11 Unilateral primary osteoarthritis, right knee; F17.290 Nicotine dependence, other tobacco product, uncomplicated; Z79.84 Long term (current) use of oral hypoglycemic drugs; Z79.85 Long-term (current) use of injectable non-insulin antidiabetic drugs; Z79.82 Long term (current) use of aspirin; Z98.890 Other specified postprocedural states; Z95.5 Presence of coronary angioplasty implant and graft; Z95.1 Presence of aortocoronary bypass graft; Z87.19 Personal history of other diseases of the digestive system; Z86.79 Personal history of other diseases of the circulatory system; Z80.0 Family history of malignant neoplasm of digestive organs; Z80.9 Family history of malignant neoplasm, unspecified; Z82.49 Family history of ischemic heart disease and other diseases of the circulatory system
CPT/HCPCS: 43239; 45378; 82948; 88305; J2704; J7120

== ENCOUNTER 2024-10-29 09:56 | Outpatient (CLI) | payer OTHER, MEDICAID, SELFPAY ==
--- NOTE | ~2024-10-29 | CT_ITS ---
EXAMINATION:CT lung screening DATE: 10/29/2024 10:23 INDICATION: Personal history of nicotine dependence. Smoker who quit 14 years ago with 30 pack year h istory. TECHNIQUE: Computed tomography (CT) of the chest was performed without intravenous contrast. Automate d exposure control and iterative reconstruction technique were employed. The dose-length product (DLP ) was 98.50 mGy-cm. COMPARISON: Chest CT 03/15/2024 FINDINGS: There is mild emphysema. There is mild atelectasis bilaterally. No pleural effusion. The he art size is normal. There are coronary artery calcifications. There are changes of coronary artery by pass grafting. No pericardial effusion. There are gallstones in the gallbladder, which is normal in s ize. There is a stent graft in abdominal aorta. There is moderate thoracic spondylosis. There is mild chronic anterior wedging of multiple vertebral bodies. IMPRESSION: 1. Lung-RADS category 1: Negative. Continue annual screening with noncontrast low-dose chest CT in 12 months. Reviewed, dictated and finalized at location A. BUSTER IMPRESSION: 1. Lung-RADS category 1: Negative. Continue annual screening with noncontrast l ow-dose chest CT in 12 months.
--- OUTSIDE RECORDS SUMMARY | 2024-10-29 10:59 | XMS_ITS | Referral Summary ---
Author Organization [facility] [address] [facility] [address] Address [address] [place] [address] Care Team Providers Care Realty Loan Specialist Name Role Phone No, Physician Primary Care Provider Encounters Date Type Department Care Team Description 09/24/2024 8:56 AM SENIOR CLINICAL SAS PROGRAMMER - 09/24/2024 11:59 PM SENIOR CLINICAL SAS PROGRAMMER [place] [address] Discharge Disposition: Discharge to home or self care from Last 3 Months Allergies Active Allergy Reactions Criticality Noted Date Comments Codeine Other (See comments) Low Reaction: SLEEPY, Medications esomeprazole DR (NexIUM) 40 mg capsule take 1 capsule (40MG) by oral route every day 0 3 Active Additional Information Patient not taking.Reported on 09/25/2017 nitroglycerin (NITROSTAT) 0.[address] 1 tablet (0.4MG) by sublingual route at the 1st sign of attack; may repeat every 5 min until relief; if pain persists after 3 tablets in 15 min, prompt medical attention is recommended 25 3 Active glipiZIDE (GLUCOTROL) 5 mg tablet take 1/2 Tablet (2.5MG) by oral route every day before meals 0 3 Active Additional Information Patient taking differently: 10 mg oral, Reported on 09/25/2017 acetaminophen (TYLENOL) 325 mg tablet take 1 tablet (325MG) by oral route every 4 hours as needed 0 3 Active aspirin (ASPIRIN LOW DOSE) 81 mg tablet take 1 Tablet (81MG) by oral route every day 0 3 Active metoprolol XL (TOPROL XL) 50 mg 24 hr tablet take 1 tablet (50MG) by oral route every day 30 1 3 Active Additional Information Patient not taking.Reported on 09/25/2017 isosorbide mononitrate ER (IMDUR) 60 mg 24 hr tablet take 1 tablet by oral route every day in the morning 30 5 4 Active Additional Information Patient not taking.Reported on 09/25/2017 clopidogrel (PLAVIX) 75 mg tablet take 1 by Oral route every day 30 1 3 Active sertraline (ZOLOFT) 100 mg tablet Take 100 mg by mouth daily. Active losartan (COZAAR) 100 mg tablet Take 100 mg by mouth daily. Active raNITIdine (ZANTAC) 300 mg tablet Take 300 mg by mouth nightly. Active atorvastatin (LIPITOR) 40 mg tablet Take 1 tablet (40 mg total) by mouth daily. 30 tablet 11 8 Active Active Problems Problem Noted Date Diagnosed Date History of endovascular sten t graft for abdominal aortic aneurysm (AAA) 09/25/2017 Coronary artery disease invo lving [place] coronary artery of [place] heart without angina pectoris 09/25/2017 Essential hypertension 09/25/2017 Dyslipidemia associated with type 2 diabetes brijesh litus 09/25/2017 Hx of CABG 09/25/2017 S/P coronary artery stent placement 09/25/2017 ELISABETH (obstructive sleep apnea) 09/25/2017 Palpitations 09/25/2017 Tobacco abuse, in remission 09/25/2017 Immunizations Immunization Administration Dates Next Due Tdap 02/11/2022 Social History Tobacco Use Types Packs/Day Years Used Date Smoking Tobacco: Former Smokeless Tobacco: Former Quit: 2010 Alcohol Use Standard Drinks/Week Comments No 0 (1 standard drink = 0.6 oz pur e alcohol) Comments No Sex and Gender Information Value Date Recorded Sex Assigned at Not on file Legal Sex Female 8:01 PM SENIOR CLINICAL SAS PROGRAMMER Gender Identity Not on file Sexual Orientation Not on file Last Filed Vital Signs Vital Sign Reading Time Taken Comments Blood Pressure 151/76 02/11/2022 11:15 AM CDT Pulse 80 02/11/2022 10:39 AM CDT Temperature 36.1 C (97 F) 02/11/2022 10:39 AM CDT Respiratory Rate 18 02/11/2022 10:39 AM CDT Oxygen Saturation 100% 02/11/2022 10:39 AM CDT Inhaled Oxygen Concentration - - Weight 93 kg (205 lb) 02/11/2022 10:39 AM CDT Height 165.1 cm (5' 5 ) 02/11/2022 10:39 AM CDT Body Mass Index 34.11 02/11/2022 10:39 AM CDT Plan of Treatment Not on file Procedures Procedure Name Priority Date/Time Associated Diagnosis Comments CORTISOL Routine 09/24/2024 8:56 AM SENIOR CLINICAL SAS PROGRAMMER POCT LIPID PANEL Routine 09/25/2017 3:10 PM SENIOR CLINICAL SAS PROGRAMMER Lipid screening from Last 3 Months or Most Recently Relevant to Health Maintenance Results * Cortisol (09/24/2024 8:56 AM SENIOR CLINICAL SAS PROGRAMMER) Cortisol 13.4 4.8 - 19.5 mcg/dl Comment: Interpretive Data Normal Range: 4.8 - 19.5 mcg/dL; Evening: Half of morning value. This analyte undergoes marked diurnal variation. Ranges indicated apply to morning specimens. Current interpretive data was last revised 2018. Blood 09/24/2024 8:56 AM SENIOR CLINICAL SAS PROGRAMMER 09/25/2024 8:59 AM SENIOR CLINICAL SAS PROGRAMMER Grayson Burton MD LAB BLOOD ORDERABLES Final Resu lt [facility] [id number] [place] [address] * POCT lipid panel (09/25/2017 3:10 PM SENIOR CLINICAL SAS PROGRAMMER) Cholesterol, POC 204 mg/dL HDL, POC 52 mg/dL Triglycerides, POC 214 mg/dL LDL Cholesterol POC 110 mg/dL Chol/HDL Ratio, POC 3.9 Non-HDL Cholesterol, POC 153 mg/dL Cholesterol Total, POC 204 mg/dL Blood specimen (specimen) 09/25/2017 3:10 PM SENIOR CLINICAL SAS PROGRAMMER Eliseo Morales MD POINT OF CARE TEST ORDER INDIRA Final Result from Last 3 Months or Most Recently Relevant to Health Maintenance Insurance [employer] [facility] Member Subscriber Plan / Payer (Ef fective 2020-Present) Name:Luis Rubio Relation to Subscriber:Self Name:Luis Rubio Payer ID:[id number] (NAIC) Type:MEDICARE RISK OTHER Address: [address] [place] [id number] Care Teams Realty Loan Specialist Relationship Specialty Start Date End Date No, Physician PCP - General 09/25/17
--- OUTSIDE RECORDS SUMMARY | 2024-10-29 10:59 | XMS_ITS | Clinical Summary ---
Author Organization [facility] [address] [facility] [address] [place] [address] Care Team Providers Care Crust Sorter Name Role Phone No, Physician Primary Care Provider [phone] Allergies Active Allergy Reactions Criticality Noted Date [...] (AAA) 09/25/2017 Coronary artery disease invo lving [place] coronary artery of [place] heart without angina pectoris 09/25/2017 Essential hypertension 09/25/2017 Dyslipidemia associated with type 2 diabetes brijesh litus 09/25/2017 Hx of CABG 09/25/2017 S/P coronary artery stent placement 09/25/2017 ELISABETH (obstructive sleep apnea) 09/25/2017 Palpitations 09/25/2017 Tobacco abuse, in remission 09/25/2017 Encounters Date Type Department Care Team Description 09/24/2024 8:56 AM BELT LINE FEEDER - 09/24/2024 11:59 PM BELT LINE [place]ED[place] [address] Discharge Disposition: Discharge to home or self care from Last 3 Months Immunizations Immunization Administration Dates Next Due Tdap 02/11/2022 Surgical History Surgery Date Site/Laterality Comments HYSTERECTOMY Medical History Medical History Date Comments Hypertension Hypertension Hx Other Medical Diabetes Type I I Coronary artery disease Aneurysm of aorta Family History Medical History Relation Name Comments Heart attack Father 2 Myocardial Infa rction; Relation Name Status Comments Father 1 Alive Father 2 Social History Tobacco Use Types Packs/Day Years Used Date Smoking Tobacco: Former Smokeless Tobacco: Former Quit: 2010 Alcohol Use Standard Drinks/Week Comments No 0 (1 standard drink = 0.6 oz pur e alcohol) Comments No Sex and Gender Information Value Date Recorded Sex Assigned at Not on file Legal Sex Female 8:01 PM BELT LINE FEEDER Gender Identity Not on file Sexual Orientation Not on file Obstetrics History Last Filed Vital Signs Vital Sign Reading [...] 02/11/2022 10:39 AM CDT Plan of Treatment Health Maintenance Due Date Last Done Comments Albumin Creatinine Ratio, Urine 1955 Breast Cancer Screening-Mammogram 1955 Colon Cancer Screening-Colonoscopy 1955 Depression Screening 1955 Fall Risk Assessment 1955 Hemoglobin A1C 1955 Hepatitis C Screening 1955 Osteoporosis Screening-Bone Density Scan 1955 eGFR 1955 Dilated Eye Exam 1955 Foot Exam 1955 Hepatitis B Screening 1973 Zoster Vaccine (1 of 2) 2005 Pneumococcal vaccine 65+ (2 of 2 - PCV) 10/23/2017 10/23/2016 Lipid Panel 09/25/2018 09/25/2017 Well Visit 65+ 2020 Covid-19 Vaccine (2 - 2023-2 5 season) 2024 04/05/2021 Influenza Vaccine (#1) 2024 9, 05/10/2017, 10/23/2016, Additional history exists DTaP/Tdap/Td Vaccine (2 - Td or Tdap) 02/12/2032 02/11/2022 Procedures Procedure Name Priority Date/Time Associated Diagnosis Comments CORTISOL Routine 09/24/2024 8:56 AM BELT LINE FEEDER POCT LIPID PANEL Routine 09/25/2017 3:10 PM BELT LINE FEEDER Lipid screening from Last 3 Months or Most Recently Relevant to Health Maintenance Results * Cortisol (09/24/2024 8:56 AM BELT LINE FEEDER) Cortisol 13.4 4.8 - 19.5 mcg/dl Comment: Interpretive Data Normal Range: 4.8 - 19.5 mcg/dL; Evening: Half of morning value. This analyte undergoes marked diurnal variation. Ranges indicated apply to morning specimens. Current interpretive data was last revised 2018. Blood 09/24/2024 8:56 AM BELT LINE FEEDER 09/25/2024 8:59 AM BELT LINE FEEDER Grayson Burton MD LAB BLOOD ORDERABLES Final Resu lt [facility] [id number] Department [place] [address] * POCT lipid panel (09/25/2017 3:10 PM BELT LINE FEEDER) Cholesterol, POC 204 mg/dL HDL, POC 52 mg/dL Triglycerides, POC 214 mg/dL LDL Cholesterol POC 110 mg/dL Chol/HDL Ratio, POC 3.9 Non-HDL Cholesterol, POC 153 mg/dL Cholesterol Total, POC 204 mg/dL Blood specimen (specimen) 09/25/2017 3:10 PM BELT LINE FEEDER Eliseo Morales MD POINT OF CARE TEST ORDER INDIRA Final Result from Last 3 Months or Most Recently Relevant to Health Maintenance Insurance [facility] Care Teams Crust Sorter Relationship Specialty Start Date End Date No, Physician PCP - General 09/25/17
--- OUTSIDE RECORDS SUMMARY | 2024-10-29 10:59 | XMS_ITS | Patient Health Summary ---
Author Organization [facility] [employer] Address [address] [place] [address] Care Team Providers Care Medic Technician Name Role Phone Ann Braga RN Unavailable Unavailable Jeffery Hein MD Primary Care Provider [phone] Note from [facility],non-owned Affiliates and Associated Physician Practices is amultiple site organization consisting of ambulatory clinics and hospital sitesin [place], [place], [place] and [place]. This disclosure is being madepursuant to the Care Everywhere program and may not contain all information available regarding this patient. Last updated 18.[facility] [employer] Allergies * Adhesive Sensitivity(Rash) -Medium Criticality * Codeine(Other) -Low Criticality Medications * Be aware that medications may not be up to date on this document. Alwaysverify current medications with the patient. * losartan (COZAAR) 100 MG tablet Take 1 (one) tablet by mouth * sertraline (ZOLOFT) 100 MG tablet(Started 03/29/2017) Take 1 (one) tablet by mouth once daily * glipiZIDE CR 24hr (GLUCOTROL XL) 10 MG tablet(Started 12/11/2016) Take 1 (one) tablet by mouth DAILY * clopidogrel (PLAVIX) 75 MG tablet(Started 10/06/2016) Take 1 (one) tablet by mouth DAILY 11 refills left * carvedilol (COREG) 12.5 MG tablet Take 0.5 (one-half) tablet by mouth once daily * furosemide (LASIX) 40 MG tablet Take 1 (one) tablet by mouth every 2 days * ezetimibe (ZETIA) 10 MG tablet(Started 02/10/2020) Take 1 (one) tablet by mouth once daily * omeprazole (PRILOSEC) 20 MG capsule(Started 09/01/2020) Take 1 (one) capsule by mouth once daily * UNIFINE PENTIPS 31G X 8 MM needle(Started 09/01/2020) once daily * nystatin (MYCOSTATIN) 402292 UNIT/GM powder(Started 09/16/2020) APPLY TO AFFECTED AREA TWICE A DAY * rosuvastatin (CRESTOR) 20 MG tablet(Started 09/01/2020) Take 1 (one) tablet by mouth once daily * semaglutide (OZEMPIC, 0.25 OR 0.5 MG/DOSE,) 2 MG/1.5ML pen Inject 0.25 (one-quarter) mg subcutaneously every 7 days * omeprazole (PRILOSEC) 40 MG capsule(Started 12/22/2020) TAKE 1 CAPSULE BY MOUTH EVERY DAY BEFORE A MEAL * methenamine hippurate (HIPREX) 1 GM tablet(Started 05/30/2021) Take 1 (one) tablet by mouth 2 times daily 11 refills by 05/30/2022 * ascorbic acid (VITAMIN C) 500 MG tablet(Started 05/30/2021) Take 1 (one) tablet by mouth 2 times daily 11 refills by 05/30/2022 * doxycycline hyclate (Vibramycin) 100 MG capsule Take 1 (one) capsule by mouth every 12 hours * cyanocobalamin (Vitamin B-12) injection(Started 12/31/2023) Inject 1,000 (one thousand) mcg into muscle every 14 days * Farxiga 10 MG tablet(Started 12/11/2023) Farxiga 10 mg tablet * nitroGLYCERIN (Nitrostat) 0.4 MG tablet(Started 01/23/2023) nitroglycerin 0.4 mg tablet, sublingual * potassium chloride ER (Klor-Con M) 20 MEQ tablet Take 2 (two) tablets by mouth 2 times daily * pravastatin (Pravachol) 40 MG tablet(Started 02/28/2023) pravastatin 40 mg tablet * aspirin (Aspirin) 81 MG chew tablet(Started 05/09/2024) Take 1 (one) tablet by mouth once daily * HYDROcodone-acetaminophen (Parkin) 5-325 MG tablet(Started 05/13/2024) TAKE ONE TABLET BY MOUTH EVERY 6 HOURS NEEDED FOR PAIN Active Problems Problem Noted Date Diagnosed Date Chronic GERD 05/06/2024 Venous insufficiency 04/11/2023 Stasis dermatitis of both legs 04/11/2023 Varicose veins of bilateral lower extremities wi th pain 04/11/2023 Malignant neoplasm of endometrium 10/30/2017 Diagnosis unknown 10/22/2017 Other specified postprocedural states 12/12/2016 Personal history of other di seases of the circulatory system 12/12/2016 Type 2 diabetes mellitus with other specified co mplication 10/24/2016 Obesity 10/24/2016 Atherosclerotic heart diseas e of [place] coronary artery without angina pectoris 10/24/2016 Chest pain 10/23/2016 Abdominal aortic aneurysm without rupture 2015 Diverticulitis of large inte ayad without perforation or abscess without bleeding 08/07/2016 Essential (primary) hypertension 08/07/2016 Diverticulitis of intestine without perforation or abscess without bleeding 08/06/2016 Endometrial hyperplasia, complex Immunizations * FLU VACCINE TRI IIV3 SPLIT PF IM (FLUVIRIN)(Given 10/23/2016) * PNEUMOCOCCAL PPSV23(Given 10/23/2016) Social History Tobacco Use Types Packs/Day Years Used Date Smoking Tobacco: Some Days Cigarettes 2.5 42 Started: [birth year]/27/1969; Last attempted to quit: 08/27/2011 Smokeless Tobacco: Never Tobacco Cessation:Ready to Q uit: No; Counseling Given: No Comments:currently vapes Alcohol Use Standard Drinks/Week Comments No 0 (1 standard drink = 0.6 oz pur e alcohol) AUDIT-C Answer Date Recorded Q1: How often do you have a drink containing alcohol? Never 05/13/2024 Q2: How many drinks containi ng alcohol do you have on a typical day when you are drinking? Patient does not drink Q3: How often do you have si x or more drinks on one occasion? Never 05/13/2024 Sex and Gender Information Value Date Recorded Sex Assigned at Not on file Gender Identity Not on file Sexual Orientation Not on file Last Filed Vital Signs Vital Sign Reading Time Taken Comments Blood Pressure 159/75 05/27/2024 2:06 PM CDT Pulse 63 05/27/2024 2:06 PM CDT Temperature 36.2 C (97.2 F) 05/27/2024 2:06 PM CDT Respiratory Rate 18 05/27/2024 2:06 PM CDT Oxygen Saturation 99% 05/27/2024 2:06 PM CDT Inhaled Oxygen Concentration - - Weight 79.4 kg (175 lb) 05/27/2024 2:06 PM CDT Height 165.1 cm (5' 5 ) 05/27/2024 2:06 PM CDT Body Mass Index 29.12 05/27/2024 2:06 PM CDT Procedures * GLUCOSE - POINT OF CARE(Performed 05/13/2024) * LARYNGEAL MASK AIRWAY(Performed 05/13/2024) * WI STAB PHLEBECT VV 1 EXT 10 TO 20 INCI(Performed 05/13/2024) Performed for Varicose veins with complications * POTASSIUM WHOLE BLD(Performed 05/13/2024) Performed for Preop examination * POTASSIUM WHOLE BLD(Performed 05/13/2024) Performed for Preop examination * GLUCOSE - POINT OF CARE(Performed 05/13/2024) * HEMOGLOBIN A1C(Performed 05/06/2024) Performed for Pre-op evaluation * CBC W AUTO DIFFERENTIAL(Performed 05/06/2024) Performed for Pre-op evaluation * BASIC METABOLIC PANEL (CALCIUM TOTAL)(Performed 05/06/2024) Performed for Pre-op evaluation * EKG 12-LEAD(Performed 05/06/2024) Performed for Pre-op evaluation * IR ENDOVENOUS ADHESIVE ABLATION(Performed 02/19/2024) Performed for Venous insufficiency * GLUCOSE - POINT OF CARE(Performed 02/19/2024) * VAS BILATERAL VENOUS REFLUX(Performed 05/23/2022) Performed for PAD (peripheral artery disease) ([facility]) * VAS ARTERIAL ANKLE ARM INDEX(Performed 05/23/2022) Performed for PAD (peripheral artery disease) ([facility]), History of repair of aneurysm of abdominal aorta using endovascular stent graft * CT ANGIO ABDOMEN AORTA W RUNOFF(Performed 05/23/2022) Performed for PAD (peripheral artery disease) ([facility]), History of repair of aneurysm of abdominal aorta using endovascular stent graft * CREATININE - POCT INTERFACED(Performed 05/23/2022) * URINALYSIS W/MICROSCOPIC REFLEX TO CULTURE(Performed 05/31/2021) Performed for Frequent UTI * CULTURE URINE REFLEXED III(Performed 05/31/2021) * URINALYSIS AUTO - POINT OF CARE (AMB) [facility]U(Performed 05/30/2021) Performed for Frequent UTI * URINALYSIS AUTO - POINT OF CARE (AMB) [facility](Performed 12/20/2020) Performed for Urinary tract infection without hematuria, site unspecified * CULTURE URINE(Performed 12/20/2020) * XR HAND RIGHT 3VW OR MORE(Performed 03/12/2019) Performed for Right hand pain * LAB RESULTS ORDER(Performed 02/21/2018) * CARDIAC RHYTHM STRIP ORDER(Performed 02/21/2018) * CARDIAC PROCEDURE ORDER(Performed 02/21/2018) * GLUCOSE - POINT OF CARE(Performed 02/20/2018) * GLUCOSE - POINT OF CARE(Performed 02/19/2018) * GLUCOSE - POINT OF CARE(Performed 02/19/2018) * GLUCOSE - POINT OF CARE(Performed 02/19/2018) * CARDIAC CATH(Performed 02/19/2018) * ACT - POINT OF CARE(Performed 02/19/2018) Performed for Other specified postprocedural states * CARDIAC CATH CONSULT(Performed 02/19/2018) * CARDIAC RHYTHM STRIP ORDER(Performed 10/25/2017) * APHERESIS/TRANSFUSION ORDER(Performed 10/25/2017) * GLUCOSE - POINT OF CARE(Performed 10/23/2017) * CBC W AUTO DIFFERENTIAL(Performed 10/23/2017) Performed for Diagnosis unknown * COMPREHENSIVE METABOLIC PANEL(Performed 10/23/2017) Performed for Diagnosis unknown * GLUCOSE - POINT OF CARE(Performed 10/22/2017) * GLUCOSE - POINT OF CARE(Performed 10/22/2017) * GLUCOSE - POINT OF CARE(Performed 10/22/2017) * GLUCOSE - POINT OF CARE(Performed 10/22/2017) * GLUCOSE - POINT OF CARE(Performed 10/22/2017) * PATHOLOGY TISSUE EXAM (STL)(Performed 10/22/2017) Performed for Diagnosis unknown * ENDOTRACHEAL TUBE NOTE(Performed 10/22/2017) * LAPAROSCOPIC ADHESIOLYSIS(Performed 10/22/2017) Performed for Diagnosis unknown * HYSTERECTOMY TOTAL LAPAROSCOPIC WITH SALPINGECTOMY AND/OR OOPHORECTOMY (Performed 10/22/2017) Performed for Diagnosis unknown * GLUCOSE - POINT OF CARE(Performed 10/22/2017) * XR CHEST 2VW(Performed 10/16/2017) Performed for Pre-op testing * EKG 12-LEAD(Performed 10/16/2017) Performed for Pre-op testing * TYPE + SCREEN PANEL(Performed 10/16/2017) Performed for Pre-op testing * COMPREHENSIVE METABOLIC PANEL(Performed 10/16/2017) Performed for Pre-op testing * CBC W AUTO DIFFERENTIAL(Performed 10/16/2017) Performed for Pre-op testing * BLOOD TYPE VERIFICATION(Performed 10/16/2017) * US PELVIS COMPLETE(Performed 08/08/2017) * US ABDOMEN DOPPLER ONLY LTD(Performed 08/08/2017) * US TRANSVAGINAL NON OB(Performed 08/08/2017) * US ABDOMEN LIMITED(Performed 06/18/2017) * EKG 12-LEAD(Performed 12/29/2016) * CT ANGIO ABDOMEN PELVIS(Performed 12/28/2016) * URINALYSIS W/MICROSCOPIC NO CULTURE(Performed 12/28/2016) * XR CHEST 2VW(Performed 12/28/2016) * CBC W AUTO DIFFERENTIAL(Performed 12/28/2016) * TROPONIN I(Performed 12/28/2016) * LIPASE BLOOD(Performed 12/28/2016) * COMPREHENSIVE METABOLIC PANEL(Performed 12/28/2016) * CBC W AUTO DIFFERENTIAL(Performed 12/28/2016) * HOLD SPECIMEN BLOOD BANK(Performed 12/28/2016) * RAINBOW DRAW (BEAKER)(Performed 12/28/2016) * GLUCOSE ACCUCHECK(Performed 12/12/2016) * GLUCOSE ACCUCHECK(Performed 12/12/2016) * GLUCOSE ACCUCHECK(Performed 12/12/2016) * BASIC METABOLIC PANEL (CALCIUM TOTAL)(Performed 12/11/2016) * PHOSPHORUS BLOOD(Performed 12/11/2016) * MAGNESIUM BLOOD(Performed 12/11/2016) * CBC W AUTO DIFFERENTIAL(Performed 12/11/2016) * CBC W AUTO DIFFERENTIAL(Performed 12/11/2016) * GLUCOSE ACCUCHECK(Performed 12/11/2016) * GLUCOSE ACCUCHECK(Performed 12/11/2016) * XR CHEST 1VW PORTABLE(Performed 12/11/2016) * GLUCOSE ACCUCHECK(Performed 12/11/2016) * ACT - POCT (IP) [facility](Performed 12/11/2016) * ACT - POCT (IP) [facility](Performed 12/11/2016) * ACT - POCT (IP) [facility](Performed 12/11/2016) * ACT - POCT (IP) [facility](Performed 12/11/2016) * ACT - POCT (IP) [facility](Performed 12/11/2016) * ACT - POCT (IP) [facility](Performed 12/11/2016) * ACT - POCT (IP) [facility](Performed 12/11/2016) * LACTIC ACID WHOLE BLOOD(Performed 12/11/2016) * GLUCOSE WHOLE BLOOD(Performed 12/11/2016) * POTASSIUM WHOLE BLD(Performed 12/11/2016) * CHLORIDE WHOLE BLOOD(Performed 12/11/2016) * CALCIUM IONIZED WHOLE BLOOD(Performed 12/11/2016) * BLOOD GASES ARTERIAL(Performed 12/11/2016) * ACT - POCT (IP) [facility](Performed 12/11/2016) * CROSSMATCH RBC LEUKOREDUCED(Performed 12/11/2016) * TYPE + SCREEN PANEL(Performed 12/11/2016) * CBC W AUTO DIFFERENTIAL(Performed 12/11/2016) * BASIC METABOLIC PANEL (CALCIUM TOTAL)(Performed 12/11/2016) * CBC W AUTO DIFFERENTIAL(Performed 12/11/2016) * PT-INR [facility](Performed 12/11/2016) * GLUCOSE ACCUCHECK(Performed 10/24/2016) * GLUCOSE ACCUCHECK(Performed 10/24/2016) * GLUCOSE ACCUCHECK(Performed 10/23/2016) * GLUCOSE ACCUCHECK(Performed 10/23/2016) * CCL CARDIAC CATH LEFT W GRAFT(Performed 10/23/2016) * CBC W AUTO DIFFERENTIAL(Performed 10/23/2016) * CBC W AUTO DIFFERENTIAL(Performed 10/23/2016) * BASIC METABOLIC PANEL (CALCIUM TOTAL)(Performed 10/23/2016) * PT-INR [facility](Performed 10/23/2016) * EKG 12-LEAD(Performed 10/06/2016) * CT ANGIO ABDOMEN PELVIS(Performed 10/03/2016) * CREATININE BLOOD - POCT (IP) [facility](Performed 10/03/2016) * NM MYOCARD PERF REST STRESS(Performed 08/08/2016) * GLUCOSE ACCUCHECK(Performed 08/07/2016) * GLUCOSE ACCUCHECK(Performed 08/07/2016) * GLUCOSE ACCUCHECK(Performed 08/06/2016) * COMPREHENSIVE METABOLIC PANEL(Performed 08/06/2016) * LACTIC ACID BLOOD(Performed 08/06/2016) * CBC W AUTO DIFFERENTIAL(Performed 08/06/2016) * PT-INR [facility](Performed 08/06/2016) * HEMOGLOBIN A1C(Performed 08/06/2016) * CBC W AUTO DIFFERENTIAL(Performed 08/06/2016) * GLUCOSE ACCUCHECK(Performed 08/06/2016) * EKG 12-LEAD(Performed 08/06/2016) Results * GLUCOSE - POINT OF CARE (05/13/2024 4:27 PM CDT) Only the most recent of14 resultswithin the time period is included. Glucose WB/POC 104 70 - 115 mg/dL 05/13/2024 4:32 PM CDT [facility] Specimen Type Cap Fingerstick 2023 4:32 PM CDT [facility] Blood BLOOD SPECIMEN / Unknown 05/13/2024 4:27 PM CDT 05/13/2024 4:32 PM CDT Leopoldo Tee MD LAB - POINT OF CAR E ORDERABLES [facility] [address] [address], [facility] [phone] * LARYNGEAL MASK AIRWAY (05/13/2024 1:20 PM CDT) Narrative Jr. Beny Luna Anes Asst - 05/13/2024 1:20 PM CDT Jr. Beny Luna Anes Asst 05/13/2024 1:20 PM LMA Placement Procedure/LDA Note: Patient Location: OR. LMA Insertion Date/Time: 05/13/2024 1:10 PM Procedure: LMA Pretreatment: 100% O2 Induction: standard IV Patient position: sniffing. Mask Ventilation: not attempted Type: LMA Size: 5 Number of Attempts: 1. Cuff volume (mL): 10 Placement verified by: bilateral breath sounds, chest auscultation and CO2 detector Dentition unchanged? Yes Procedure Start Time: 05/13/2024 1:10 PM. Staff Section Anesthesia Provider: Jr. Beny Luna Anes Asst, Performed the procedure Jose A Mueller MD GENERAL ANESTHES [place] ORDERABLES * (ABNORMAL) POTASSIUM WHOLE BLD (05/13/2024 12:35 PM CDT) Only the most recent of3 resultswithin the time period is included. Potassium Whole Blood 3.4(L) 3.5 - 5.5 mmol/L 05/13/2024 12:41 PM CDT [facility] Blood WHOLE BLOOD SPECIMEN / Unknown Venipuncture / Unknown 05/13/2024 12:35 PM CDT 05/13/2024 12:37 PM CDT Jose A Mueller MD LAB - CHEMISTRY ORDERABLES [facility] [address] [place] [id number], [facility] [phone] * (ABNORMAL) HEMOGLOBIN A1C [IN-HOUSE TEST] (05/06/2024 3:46 PM CDT) Only the most recent of2 resultswithin the time period is included. Hemoglobin A1c 5.8(H) <=5.6 % 05/07/2024 8:44 AM CDT [facility] Estimated Average Glucose 120 mg/dL 05/07/2024 8:44 AM T [facility] Comment: HbA1c Interpretation: Normal : < 5.7% Pre-diabetes: 5.7-6.4% Diabetes: Equal to or greater than 6.5% Test results diagnostic of diabetes should be repeated for confirmation. Treatment target values recommended by ADA and other clinical organizations should be used to evaluate metabolic control in patients. Reference: [place] Diabetes Association, Standards of Care in Diabetes -2020 In patients 70 years and older consider HbA1c target range of 7.0-7.5% (Reference: Mario Banks et al. JAMDA. 2012) The Sebia assay for the measurement of HbA1c is a National Glycohemoglobin Standardization Program (NGSP) certified method. Blood BLOOD SPECIMEN WITH EDTA / Unknown Lab Venipuncture / Unknown 05/06/2024 3:46 PM CDT 05/06/2024 4:19 PM CDT Chiara Howard APRN-INVESTMENTS MANAGER LAB - MARTHA ALICIA ORDERABLES [facility] [address] [place] [address], [facility] [phone] * (ABNORMAL) CBC W/ DIFFERENTIAL (05/06/2024 3:46 PM CDT) Only the most recent of13 resultswithin the time period is included. WBC 5.1 4.0 - 10.7 x10E9/L 05/06/2024 4:34 PM [facility] RBC Count 4.32 3.90 - 5.20 x10E12/L 05/06/2024 4:34 PM [facility] Hemoglobin 12.6 11.9 - 15.8 g/dL 05/06/2024 4:34 PM [facility] Hematocrit 37.9 34.8 - 46.1 % 05/06/2024 4:34 PM [facility] MCV 87.7 80.0 - 98.0 fL 05/06/2024 4:34 PM [facility] MCH 29.2 26.7 - 33.6 pg 05/06/2024 4:34 PM [facility] MCHC 33.2 31.7 - 36.3 g/dL 05/06/2024 4:34 PM [facility] RDW-CV 13.0 11.3 - 14.8 % 05/06/2024 4:34 PM [facility] Platelet Count 142(L) 150 - 420 x10E9/L 05/06/2024 4:34 PM [facility] MPV 10.4 7.8 - 11.4 fL 05/06/2024 4:34 PM [facility] Neutrophil % 64.7 41.0 - 74.0 % 05/06/2024 4:34 PM [facility] Lymphocyte % 26.2 17.0 - 47.0 % 05/06/2024 4:34 PM [facility] Monocyte % 7.5 3.0 - 11.0 % 05/06/2024 4:34 PM [facility] Eosinophil % 1.0 0.0 - 7.0 % 05/06/2024 4:34 PM CDT [facility] Basophil % 0.4 0.0 - 1.6 % 05/06/2024 4:34 PM [facility] Immature Granulocytes % 0.2 0.0 - 1.0 % 05/06/2024 4:34 PM [facility] Neutrophil Absolute 3.28 1.60 - 7.50 x10E9/L 05/06/2024 4:34 PM [facility] Lymphocyte Absolute 1.33 1.00 - 4.40 x10E9/L 05/06/2024 4:34 PM [facility] Monocyte Absolute 0.38 0.15 - 1.00 x10E9/L 05/06/2024 4:34 PM [facility] Eosinophil Absolute 0.05 0.00 - 0.60 x10E9/L 05/06/2024 4:34 PM [facility] Basophil Absolute 0.02 0.00 - 0.13 x10E9/L 05/06/2024 4:34 PM [facility] Blood BLOOD SPECIMEN / Unknown Lab Venipuncture / Unknown 05/06/2024 3:46 PM CDT 05/06/2024 4:19 PM CDT Chiara Howard CAMPUS RECEPTIONIST-INVESTMENTS MANAGER LAB - HEM ATOLOGY ORDERABLES [facility] [address] [place] [address], [facility] [phone] * (ABNORMAL) BASIC METABOLIC PANEL (CALCIUM TOTAL) (05/06/2024 3:46 PM CDT) Only the most recent of4 resultswithin the time period is included. BUN 14 7 - 26 mg/dL 05/06/2024 4:46 PM [facility] Creatinine 0.91 0.56 - 0.96 mg/dL 05/06/2024 4:46 PM [facility] Sodium 145 136 - 145 mmol/L 05/06/2024 4:46 PM T [facility] Potassium 2.9(L) 3.5 - 4.5 mmol/L 05/06/2024 4:46 PM [facility] Chloride 106 98 - 107 mmol/L 05/06/2024 4:46 PM [facility] CO2 33(H) 22 - 29 mmol/L 05/06/2024 4:46 PM [facility] Glucose 90 70 - 115 mg/dL 05/06/2024 4:46 PM [facility] Calcium 8.6 8.4 - 10.2 mg/dL 05/06/2024 4:46 PM [facility] Anion Gap 6 6 - 16 05/06/2024 4:46 PM [facility] BUN/Creatinine Ratio 15 7 - 23 05/06/2024 4:46 PM [facility] Osmolality Calculated 300(H) 275 - 295 mOsm/kg 05/06/2024 4:46 PM [facility] eGFR by CKD-EPI 69(L) >=90 mL/min/1.7 3 m2 05/06/2024 4:46 PM [facility] Blood BLOOD SPECIMEN / Unknown Lab Venipuncture / Unknown 05/06/2024 3:46 PM CDT 05/06/2024 4:19 PM CDT Chiara Howard APRN-INVESTMENTS MANAGER LAB - MARTHA ALICIA ORDERABLES [facility] [address] [place] [address], [facility] [phone] * EKG 12-LEAD (05/06/2024 2:52 PM CDT) Only the most recent of5 resultswithin the time period is included. Ventricular Rate 56 BPM [facility] Atrial Rate 56 BPM [facility] P-R Interval 168 ms [facility] QRS Duration ms 88 ms [facility] Q-T Interval ms 416 ms [facility] QTC Calculation (Bezet) 401 ms [facility] Calculated P Merced 45 degrees [facility] Calculated R Merced -7 degrees [facility] Calculated T Merced 127 degrees [facility] Interpretation EKG SINUS BRADYCARDIA WITH SINUS ARRHYTHMIA LEFT VENTRICULAR HYPERTROPHY WITH REPOLARIZATION ABNORMALITY ( R in aVL ) ABNORMAL ECG WHEN COMPARED WITH ECG OF 16-OCT-2017 14:25, NO SIGNIFICANT CHANGE WAS FOUND Confirmed by DREW CAR MD ([id number]) on 05/07/2024 8:38:10 AM [facility] 05/06/2024 2:52 PM CDT 05/07/2024 8:38 AM CDT Chiara Quiroztheovaldo CAMPUS RECEPTIONIST-INVESTMENTS MANAGER ECG ORDER INDIRA [facility] * IR ENDOVENOUS ADHESIVE ABLATION (02/19/2024 11:00 AM CDT) Anatomical Region Laterality Modality X-Ray Angiograph y 02/19/2024 11:2 5 AM CDT Narrative 02/20/2024 5:09 PM CDT DATE/TIME OF EXAM: 02/19/2024 11:00 AM PATIENT: Adonis Rubio Location: [facility] Date of : 1955 Date of Procedure: 02/19/2024 Diagnosis: Symptomatic bilateral lower extremity varicose veins. (I87.2: Venous insufficiency) Procedure: Right lower extremity venaseal laser vein ablation . Surgeon(s) and Role: * Leopoldo Tee MD Gas Leak Tester(s): Leopoldo Zavala MD - resident assisting Anesthesia Type: Local Lidocaine anesthetic only. History Of Present Illness: This patient is a 68 year old female who has symptomatic lower extremity varicose veins. The patient was seen initially several months ago and was placed in compression stockings for conservative management. In follow up, the patient still had persistent symptoms. She underwent a venous duplex which demonstrated reflux of the great saphenous vein, and she presents today for endovenous venaseal vein ablation. In the room on ultrasound, the great saphenous vein was visible only on the right side, and not visible on the left side, so only a right venaseal ablation was performed. After explaining the risks, benefits, and alternatives to this procedure, she understood and elected to proceed with the right side venaseal ablation procedure. Procedure: After the patient was identified, informed consent was obtained and site and side were verified, her lower extremity was prepped and draped in the usual sterile fashion. The great saphenous vein in the distal thigh was percutaneously accessed using a micropuncture needle under ultrasound guidance. The wire was advanced without difficulty, and over this a micropuncture sheath was placed. Next, a J-wire was advanced through the saphenofemoral junction under ultrasound guidance. The micropuncture sheath was exchanged for the venaseal sheath. The sheath was parked approximately 5 cm distal to the saphenofemoral junction. The venaseal catheter was back loaded into the sheath and its placement in the saphenous vein was confirmed. At this point 27cm of the saphenous vein was treated using a venaseal glue instillation in the standard technique. I placed 6 seconds worth of glue over the first 2 cm of venous length followed by a 3 minute hold. The remainder of the leg I placed 6 seconds of glue instillation for every 6 cm of vein with a 30 second pressure hold The procedure was uncomplicated without perforation, vasospasm, hemorrhage or hematoma. She tolerated this procedure without any difficulty and will undergo a venous duplex examination within one week to rule out extension of the saphenous vein thrombus into the common femoral vein. Standard discharge instructions were given, and she will return to see me in approximately four weeks. Complications: none Findings: 27cm of right great saphenous vein treated. Only local lidocaine anesthetic used. EBL: minimal blood loss Urine Output : No Harrison IV Fluid Intake: None Dr Tee was scrubbed the entire procedure. Leopoldo Zavala MD > Dictated by Leopoldo Zavala (Advertising Assistant Manager) 02/19/2024 11:25 AM ILeopoldo MD have personally reviewed and interpreted this examination/study. > Interpreting Provider: Leopoldo Tee MD on 02/20/2024 5:09 PM Procedure Note Leopoldo Tee MD - 02/20/2024 DATE/TIME OF EXAM: 02/19/2024 11:00 AM PATIENT: Adonis Rubio Location: [facility] Date of : 1955 Date of Procedure: 02/19/2024 Diagnosis: Symptomatic bilateral lower extremity varicose veins. (I87.2: Venous insufficiency) Procedure: Right lower extremity venaseal laser vein ablation . Surgeon(s) and Role: * Leopoldo Tee MD Gas Leak Tester(s): Leopoldo Zavala MD - resident assisting Anesthesia Type: Local Lidocaine anesthetic only. History Of Present Illness: This patient is a 68 year old female who has symptomatic lower extremity varicose veins. The patient was seeninitially several months ago and was placed in compression stockings forconservative management. In follow up, the patient still had persistent symptoms.She underwent a venous duplex which demonstrated reflux of the greatsaphenous vein, and she presents today for endovenous venaseal vein ablation. Inthe room on ultrasound, the great saphenous vein was visible only on theright side, and not visible on the left side, so only a right venasealablation was performed. After explaining the risks, benefits, and alternatives to this procedure, she understood and elected to proceed with the [facility] venaseal ablation procedure. Procedure: After the patient was identified, informed consent wasobtained and site and side were verified, her lower extremity was prepped anddraped in the usual sterile fashion. The great saphenous vein in the distalthigh was percutaneously accessed using a micropuncture needle underultrasound guidance. The wire was advanced without difficulty, and over this a micropuncture sheath was placed. Next, a J-wire was advanced through the saphenofemoral junction under ultrasound guidance. The micropuncture sheath was exchanged for the venaseal sheath. The sheath was parked approximately 5 cm distal to the saphenofemoral junction. The venaseal catheter was back loaded into the sheath and its placement in thesaphenous vein was confirmed. At this point 27cm of the saphenous vein was treated using a venasealglue instillation in the standard technique. I placed 6 seconds worth ofglue over the first 2 cm of venous length followed by a 3 minute hold. The remainder of the leg I placed 6 seconds of glue instillation for every 6cm of vein with a 30 second pressure hold The procedure was uncomplicated without perforation, vasospasm, hemorrhage or hematoma. She tolerated this procedure without any difficulty and will undergo a venous duplex examination within one week to rule out extension of the saphenous vein thrombus into the common femoral vein. Standarddischarge instructions were given, and she will return to see me in approximately four weeks. Complications: none Findings: 27cm of right great saphenous vein treated. Only locallidocaine anesthetic used. EBL: minimal blood loss Urine Output : No Harrison IV Fluid Intake: None Dr Tee was scrubbed the entire procedure. Leopoldo Zavala MD > Dictated by Leopoldo Zavala (Advertising Assistant Manager) 02/19/2024 11:25 AM Leopoldo Lockhart MD have personally reviewed and interpreted this examination/study. > Interpreting Provider: Leopoldo Tee MD on 02/20/2024 5:09 PM Leopoldo Tee MD IR ORDERABLES * VAS BILATERAL VENOUS REFLUX (05/23/2022 9:31 AM CDT) Anatomical Region Laterality Modality Upper Extremity, Lower Extremity Intravascular Ultrasound 05/23/2022 8:20 AM CDT Narrative Procedure Note Ozzy Platt MD - 05/23/2022 Leopoldo Tee MD VASCULAR LAB ORDER INDIRA * VAS ARTERIAL ANKLE ARM INDEX (05/23/2022 9:31 AM CDT) Anatomical Region Laterality Modality Ankle / Foot, Upper Extremity In travascular Ultrasound 05/23/2022 8:47 AM CDT Narrative Procedure Note Ozzy Platt MD - 05/23/2022 Leopoldo Tee MD VASCULAR LAB ORDER INDIRA * CT ANGIO ABDOMEN AORTA W RUNOFF (05/23/2022 8:22 AM CDT) Anatomical Region Laterality Modality Abdomen, Lower Extremity Compute d Tomography 05/23/2022 9:06 AM CDT Impressions 05/23/2022 10:53 AM CDT Impression: 1.Suprarenal to biiliac stent graft with interval decrease in size of aneurysm sac and resolution of endoleak. 2.Patent three-vessel runoff bilaterally. 3.Unchanged focal outpouching of the descending thoracic aorta. > Dictated by Justin Alvarez MD (vice president of engineering). Cameron Lockhart MD have personally reviewed and interpreted this examination/study. > Interpreting Provider: Cameron Nguyen MD on 05/23/2022 10:53 AM Narrative 05/23/2022 10:53 AM CDT PROCEDURE: CT ANGIO ABDOMEN AORTA W RUNOFF, DATE/TIME OF EXAM: 05/23/2022 8:23 AM, LOCATION [facility] INDICATION: I73.9: PAD (peripheral artery disease) Z95.828: History of repair of aneurysm of abdominal aorta using endovascular stent graft COMPARISON: CT angiogram abdomen and pelvis dated 12/28/2016 TECHNIQUE: CT angiography of the abdomen, pelvis, and lower extremities was performed following the uneventful administration of 150 mL of Isovue 370 intravenous contrast according to standard protocol. Three dimensional postprocessing was performed by the technologist and sent to the workstation for review. Findings: Thoracic aorta: The imaged portion of the ascending aorta demonstrates focal outpouching near the diaphragmatic hiatus which is wide necked and measures 1.1 cm. Abdominal aorta: A suprarenal to biiliac stent graft is present with small bilateral renal artery is orifice stents is is intact without evidence of endoleak. The aneurysm sac measures 4.6 x 4.7 cm (series 5, image 49). Celiac axis and major branches: Implanted on the stented aorta. Patent without significant focal stenosis. Superior mesenteric artery: Implanted on the stented aorta. Patent without significant focal stenosis. Inferior mesenteric artery: Likely occluded at its origin on the excluded aneurysm sac but otherwise patent Right renal artery: Patent without significant focal stenosis. Left renal artery: Patent without significant focal stenosis. Right common iliac artery: Stented without significant focal stenosis. Right internal iliac artery: Atherosclerotic but patent without significant focal stenosis. Right external iliac artery: Atherosclerotic but patent without significant focal stenosis. Right common femoral artery: Atherosclerotic but patent without significant focal stenosis. Right profunda femoris artery: Patent without significant focal stenosis. Right superficial femoral artery: Patent without significant focal stenosis. Right popliteal artery: Patent without significant focal stenosis. Right anterior tibial artery: Patent without significant focal stenosis. This vessel crosses the ankle and supplies the dorsalis pedis artery. Right tibioperoneal trunk: Patent without significant focal stenosis. Right posterior tibial artery: Patent without significant focal stenosis. This vessel crosses the ankle and supplies the plantar artery. Right peroneal artery: Patent without significant focal stenosis. Left common iliac artery: Stented without significant focal stenosis. Left internal iliac artery: Atherosclerotic but patent without significant focal stenosis. Left external iliac artery: Atherosclerotic but patent without significant focal stenosis. Left common femoral artery: Atherosclerotic but patent without significant focal stenosis. Left profunda femoris artery: Patent without significant focal stenosis. Left superficial femoral artery: Patent without significant focal stenosis. Left popliteal artery: Patent without significant focal stenosis. Left anterior tibial artery: Patent without significant focal stenosis. This vessel crosses the ankle and supplies the dorsalis pedis artery. Left tibioperoneal trunk: Patent without significant focal stenosis. Left posterior tibial artery: Patent without significant focal stenosis. This vessel crosses the ankle and supplies the plantar artery. Left peroneal artery: Patent without significant focal stenosis. Lower Chest: Mild bilateral atelectasis is noted. Liver: Normal. Gallbladder and Bile Ducts: Normal. Spleen: Normal. Pancreas: Normal. Adrenals: Normal. 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 The right kidney appears normal. Gastrointestinal: The stomach and visualized loops of large and small bowel are unremarkable. Normal appendix. Mesentery/Peritoneum/Retroperitoneum: No free intraperitoneal air. No free fluid in the abdomen or pelvis. Bladder: Normal. Reproductive Organs: The uterus is absent. Bones: Bone windows demonstrate no suspicious lytic or blastic lesions. The visible osseous structures are intact. Soft tissues: Normal. Procedure Note Cameron Nguyen MD - 05/23/2022 PROCEDURE: CT ANGIO ABDOMEN AORTA W RUNOFF, DATE/TIME OF EXAM:05/23/2022 8:23 AM, LOCATION [facility] INDICATION: I73.9: PAD (peripheral artery disease) Z95.828: History of repair of aneurysm of abdominal aorta using endovascular stent graft COMPARISON: CT angiogram abdomen and pelvis dated 12/28/2016 TECHNIQUE: CT angiography of the abdomen, pelvis, and lower extremitieswas performed following the uneventful administration of 150 mL of [id number] intravenous contrast according to standard protocol. Three dimensional postprocessing was performed by the technologist and sent to the workstation for review. Findings: Thoracic aorta: The imaged portion of the ascending aorta demonstrates focal outpouching near the diaphragmatic hiatus which is wide necked and measures 1.1 cm. Abdominal aorta: A suprarenal to biiliac stent graft is present withsmall bilateral renal artery is orifice stents is is intact without evidenceof endoleak. The aneurysm sac measures 4.6 x 4.7 cm (series 5, image 49). Celiac axis and major branches: Implanted on the stented aorta. Patent without significant focal stenosis. Superior mesenteric artery: Implanted on the stented aorta. Patentwithout significant focal stenosis. Inferior mesenteric artery: Likely occluded at its origin on theexcluded aneurysm sac but otherwise patent Right renal artery: Patent without significant focal stenosis. Left renal artery: Patent without significant focal stenosis. Right common iliac artery: Stented without significant focal stenosis. Right internal iliac artery: Atherosclerotic but patent withoutsignificant focal stenosis. Right external iliac artery: Atherosclerotic but patent withoutsignificant focal stenosis. Right common femoral artery: Atherosclerotic but patent withoutsignificant focal stenosis. Right profunda femoris artery: Patent without significant focalstenosis. Right superficial femoral artery: Patent without significant focal stenosis. Right popliteal artery: Patent without significant focal stenosis. Right anterior tibial artery: Patent without significant focal stenosis. This vessel crosses the ankle and supplies the dorsalis pedis artery. Right tibioperoneal trunk: Patent without significant focal stenosis. Right posterior tibial artery: Patent without significant focalstenosis. This vessel crosses the ankle and supplies the plantar artery. Right peroneal artery: Patent without significant focal stenosis. Left common iliac artery: Stented without significant focal stenosis. Left internal iliac artery: Atherosclerotic but patent withoutsignificant focal stenosis. Left external iliac artery: Atherosclerotic but patent withoutsignificant focal stenosis. Left common femoral artery: Atherosclerotic but patent withoutsignificant focal stenosis. Left profunda femoris artery: Patent without significant focal stenosis. Left superficial femoral artery: Patent without significant focalstenosis. Left popliteal artery: Patent without significant focal stenosis. Left anterior tibial artery: Patent without significant focal stenosis. This vessel crosses the ankle and supplies the dorsalis pedis artery. Left tibioperoneal trunk: Patent without significant focal stenosis. Left posterior tibial artery: Patent without significant focal stenosis. This vessel crosses the ankle and supplies the plantar artery. Left peroneal artery: Patent without significant focal stenosis. Lower Chest: Mild bilateral atelectasis is noted. Liver: Normal. Gallbladder and Bile Ducts: Normal. Spleen: Normal. Pancreas: Normal. Adrenals: Normal. 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 Theright kidney appears normal. Gastrointestinal: The stomach and visualized loops of large and small bowel areunremarkable. Normal appendix. Mesentery/Peritoneum/Retroperitoneum: No free intraperitoneal air. No free fluid in the abdomen or pelvis. Bladder: Normal. Reproductive Organs: The uterus is absent. Bones: Bone windows demonstrate no suspicious lytic or blastic lesions. The visible osseous structures are intact. Soft tissues: Normal. Impression: 1.Suprarenal to biiliac stent graft with interval decrease in size of aneurysm sac and resolution of endoleak. 2.Patent three-vessel runoff bilaterally. 3.Unchanged focal outpouching of the descending thoracic aorta. > Dictated by Justin Alvarez MD (vice president of engineering). I, Cameron Nguyen MD have personally reviewed and interpreted this examination/study. > Interpreting Provider: Cameron Nguyen MD on 05/23/2022 10:53 AM Leopoldo Tee MD CT ORDERABLES * (ABNORMAL) CREATININE - POCT INTERFACED (05/23/2022 7:57 AM CDT) Creatinine POCT 0.81 0.30 - 1.30 mg/dL 05/23/2022 7:59 AM CDT [facility] eGFR 80(L) >90 mL/min/1.7 3 m2 05/23/2022 7:59 AM CDT [facility] Blood BLOOD SPECIMEN / Unknown 05/23/2022 7:57 AM CDT 05/23/2022 7:59 AM CDT Leopoldo Tee MD LAB - POINT OF CAR E ORDERABLES Performing Organization Address [facility]/State/ZIP Co de Phone Number [facility] [address] [place] [phone], [facility] [phone] * CULTURE URINE REFLEXED III (05/31/2021 2:00 AM CDT) Reflexive Urine Culture See Below [facility] Comment: NO CULTURE INDICATED NO COLLECTION DATE RECEIVED. WE HAVE USED THE DATE THE SPECIMEN WAS RECEIVED BY THIS LABORATORY THE COLLECTION DATE. IF THIS IS INCORRECT, PLEASE CONTACT CLIENT SERVICES. PHONE NUMBER: [phone] Test Performed at: [facility] [address] SYEDA WILLS MD 05/31/2021 12: 19 AM CDT [facility] M Ruperto [facility] - MICROBI OLOGY ORDERABLES Performing Organization Address [facility]/ZIP Co de Phone Number [address] [address] * (ABNORMAL) URINALYSIS W/MICROSCOPIC REFLEX TO CULTURE (05/31/2021 2:00 AM CDT) Color UA YELLOW YELLOW [facility] Appearance CLEAR CLEAR [facility] Specific [place] UA 1.025 1.001 - 1.035 [facility] pH UA < OR = 5.0 5.0 - 8.0 [facility] Glucose UA 3+(A) NEGATIVE [facility] Bilirubin UA NEGATIVE NEGATIVE [facility] Ketone UA NEGATIVE NEGATIVE [facility] Blood UA NEGATIVE NEGATIVE [facility] Protein UA NEGATIVE NEGATIVE [facility] Nitrite NEGATIVE NEGATIVE [facility] Leukocyte Esterase NEGATIVE NEGATIVE [facility] WBC UA NONE SEEN < OR = 5 /HPF [facility] RBC UA NONE SEEN < OR = 2 /HPF [facility] Epithelial Cell UA 0-5 < OR = 5 /HPF [facility] Bacteria UA NONE SEEN NONE SEEN /HPF [facility] Hyaline Casts NONE SEEN NONE SEEN /LPF [facility] Comment: Test Performed at: [facility] [address] SYEDA WILLS MD Urine URINE SPECIMEN OBTAINED BY CLEAN CATCH PROCEDURE / Unknown 05/31/2021 12:19 AM CDT Zahida Cox Ruperto [facility] - URINALY SIS ORDERABLES Performing Organization Address [facility] Co de Phone Number [address] [address] * URINALYSIS AUTO - POINT OF CARE (AMB) [facility] (05/30/2021) Only the most recent of2 resultswithin the time period is included. Glucose UA 3+ Bilirubin UA POCT neg Ketones UA POCT neg Specific [place] UA 1.015 Blood Urine POCT + pH UA 5.0 Protein UA neg Urobilinogen UA neg Nitrite UA neg WBC UA neg Urine URINE / Unknown 05/30/2021 [facility] - POINT O F CARE ORDERABLES * (ABNORMAL) CULTURE URINE (12/20/2020) Culture (A) [facility] Comment: CULTURE, URINE, ROUTINE Micro Number: [id number] Test Status: Final Specimen Source: URINE Specimen Quality: Adequate Result: 50,000-100,000 CFU/mL of Coagulase negative staphylococcus, not S. saprophyticus May represent colonizers from external and internal genitalia. No further testing (including susceptibility) will be performed. COMMENT: Additional non-predominating organism(s) isolated. These organisms, commonly found on external and internal genitalia, are considered colonizers. No further testing performed. Test Performed at: [facility] [address] SYEDA WILLS MD 12/20/2020 12/21/2020 4:4 9 AM CDT [facility]ah[facility] LAB - MICROBI OLOGY ORDERABLES [address] [address] * XR HAND RIGHT 3VW OR MORE (03/12/2019 1:12 PM CDT) Anatomical Region Laterality Modality Wrist / Hand Radiographic Mell ging 03/12/2019 2:08 PM CDT Impressions 03/12/2019 2:18 PM CDT IMPRESSION: Mild to moderate osteoarthritis. Dictated by Sonja Nuñez MD (vice president of engineering). I, Dr. TRIP MORALES MD have personally reviewed and interpreted this examination/study. This report was electronically signed by TRIP MORALES MD on 03/12/2019 2:18 PM . Narrative 03/12/2019 2:18 PM CDT EXAMINATION: XR HAND RIGHT 3VW HISTORY: Pain COMPARISON: No prior study is available for comparison. FINDINGS: There is no fracture or dislocation. Mild to moderate osteoarthritis is seen including at the first carpometacarpal joint and several interphalangeal joints. There are no erosions. The soft tissues are normal. Procedure Note Trpi Morales MD - 03/12/2019 EXAMINATION: XR HAND RIGHT 3VW HISTORY: Pain COMPARISON: No prior study is available for comparison. FINDINGS: There is no fracture or dislocation. Mild to moderate osteoarthritis is seen including at the first carpometacarpal joint and several interphalangeal joints. There are no erosions. The soft tissues are normal. IMPRESSION: Mild to moderate osteoarthritis. Dictated by Sonja Nuñez MD (vice president of engineering). I, Dr. TRIP MORALES MD have personally reviewed and interpreted this examination/study. This report was electronically signed by TRIP MORALES MD on03/12/2019 2:18 PM . Debbie Stoll PA-C DIAGNOSTIC IMAG ING ORDERABLES * LAB RESULTS ORDER (02/21/2018 10:17 PM CDT) Narrative 02/21/2018 10:17 PM CDT Ordered by an unspecified provider. Scanned Document LAB - THERAPEUTIC DR SAMARIA MONITORING ORDERABLES * CARDIAC RHYTHM STRIP ORDER (02/21/2018 10:15 PM CDT) Only the most recent of2 resultswithin the time period is included. Narrative 02/21/2018 10:15 PM CDT Ordered by an unspecified provider. Scanned Document CARDIAC SERVICES ORD ERABLES * CARDIAC PROCEDURE ORDER (02/21/2018 10:15 PM CDT) Narrative 02/21/2018 10:15 PM CDT Ordered by an unspecified provider. Scanned Document CARDIAC SERVICES ORD ERABLES * CARDIAC CATH PROCEDURE (02/19/2018 12:00 PM CDT) 02/19/2018 12:0 0 PM CDT Narrative Procedure Note Jayna Dong MD - 02/20/2018 5:18 AM CDT [facility] CARDIAC PROCEDURE PATIENT: ADONIS RUBIO MR#: [id number] ADMIT DATE: 02/19/2018 CSN: [id number] PROCEDURE DATE: 02/19/2018 :1955 PHYSICIAN: Jayna Dong MD, FACC, FAJ LUIS, [facility], ROOM: DPHCC[facility] FACP REFERRING PHYSICIAN: Jyana Dong MD, FAC, FA, [facility], FACP PROCEDURE: Left radial artery access, 6-Luxembourger sheath, radial bandapplied, and left heart catheterization with graft angiography, PTCA drug-elutingstent mid LAD 80% to 0% via ROSENBERG graft, 2.5 x 15 mm Resolute Wilner drug-eluting stent, PTCA drug-eluting stent, RPL 80% to 0%, 2.5 x 18 mm Resolute Onyxdrug- eluting stent, PTCA drug-eluting stent left circumflex, OM, DEPARTMENT STORE SALESPERSON [id number]% recanalization to 0% with 2.5 x 15 mm Resolute Wilner, WRP 6-Luxembourger guidefor the ROSENBERG angiography and also for the right coronary angiography. A6-Luxembourger EBU 3.5 guide for [place] left coronary angiography. A 0.014 BMW wire, 2.0x 12 mm balloon. Heparin 7000 units and additional 3000 units,intracoronary nitroglycerin, 2.5 x 12 mm balloon, 0.014 Siderographer 50 wire. BRIEF HISTORY: The patient is a 62-year-old female with a history ofCAD, prior CABG, hypertension, diabetes mellitus, AAA status post repair [id number], who had chest pain, dyspnea on exertion. Cardiac cath high grade mLADstenosis after ROSENBERG anastomosis, occluded [place] LAD, OM occlusion and 80% RPL stenosis. Furtherevaluation with intervention was recommended. DESCRIPTION OF PROCEDURE: After informed consent, the left wrist wasprepped and draped in usual sterile fashion. Versed 2 mg IV, fentanyl 50 mcg IVwas given for sedation with continuous monitoring by trained personnel [id number] minutes. One percent lidocaine used for local anesthesia. A 6-Frenchsheath was placed in the left radial artery using standard technique. A 6-FrenchWRP guide was used for selective ROSENBERG angiography, which then allowed a 0.014BMW to be used to cross the 80% stenosis with a 6-Luxembourger GuideLiner support.A 2.0 x 12 mm balloon was used to dilate the 80% stenosis that was seenwith angiography. Following pre dilatation, a 2.5 x 15 mm Resolute Onyxdrug- eluting stent was deployed resulting in 0% residual stenosis. No evidenceof edge dissection or flow limitation. The guide was then withdrawn andadvanced into the subclavian artery and then to the right coronary artery with selective angiography of the right coronary artery revealing 80% stenosisof the distal vessel with ectasia of the proximal vessel, some mild stenosisin the midportion of the vessel. GuideLiner was used for additional support.A 0.014 BMW wire was placed distal to the 80% stenosis. Redilatation was performed and then a 2.5 x 18 mm Resolute [place] drug-eluting stent was delivered and deployed resulting in 0% residual stenosis. No evidence ofedge dissection or flow limitation. The guide was then exchanged for a6-Luxembourger EBU 3.5 guide with selective left coronary arteriography. The [place] LADhad a 100% proximal occlusion. The OM branch and circumflex artery had aCTO inside the stented segment. A 0.014 Siderographer 50 wire with a GuideLinersupport was used to enter the OM branch with a 2.0 x 12 mm balloon. The balloonwas able to cross and balloon angioplasty was performed followed by a 2.5 x 15 mmResolute Wilner that was deployed more proximal and resulting in 0% residualstenosis, and restorationism of RHIANNA-3 flow. A 6-Luxembourger pigtail catheter was used to measure pressures in the left ventricle and across the aortic valve.There was no aortic stenosis. LVEDP 15 mmHg. CONCLUSIONS: 1. [place] vessel atherosclerotic coronary artery disease with high-grademid LAD, RPL stenosis, left circumflex, OM, DEPARTMENT STORE SALESPERSON 100% occlusion. 2. LVEDP 15 mmHg. 3. Successful multivessel PCI of the LAD, RPL, and recanalization, left circ, OM, DEPARTMENT STORE SALESPERSON without complication. PLAN: 1. Bedrest 2 hours. Radial band left wrist management per protocol. 2. Baby aspirin 81 mg p.o. daily, Plavix 75 mg p.o. daily. 3. Statin. 4. Observe overnight with probable discharge in a.m. tomorrow. 5. Follow up with me in the office in 2 weeks. JAYNA DONG MD, FACC, FAJ LUIS,FSCAI, FACP GMK/MODL #: [id number] cc: Dr. Claribel Ordoñez, DO MEDICAL/SURGICAL CARDIAC CATHETERIZATION - DP Jayna Dong MD CARDIAC SERVICES OR DERABLES [facility] NATHAN * (ABNORMAL) ACT - POINT OF CARE (02/19/2018 10:28 AM CDT) ACT POCT 229(A) 125 - 187 Seconds [facility] POCT TESTING QC Verified Yes Yes DP POC T TESTING Blood BLOOD SPECIMEN / Unknown 02/19/2018 10:28 AM CDT Jayna Dong MD LAB - POINT OF CARE ORDERABLES [facility] POCT TESTING [address] [phone] * APHERESIS/TRANSFUSION ORDER (10/25/2017 12:32 AM FLOOR DIRECTOR) Narrative 10/25/2017 12:32 AM FLOOR DIRECTOR Ordered by an unspecified provider. Scanned Document NURSING - VITAL SIGN S AND ASSESSMENT * (ABNORMAL) COMPREHENSIVE METABOLIC PANEL (10/23/2017 3:41 AM FLOOR DIRECTOR) Only the most recent of4 resultswithin the time period is included. Glucose 262(H) 74 - 106 mg/dL 10/23/2017 4:09 AM [facility] Sodium 137 136 - 145 mmol/L 10/23/2017 4:09 AM [facility] Potassium 3.6 3.5 - 5.1 mmol/L 10/23/2017 4:09 AM [facility] Chloride 100 98 - 107 mmol/L 10/23/2017 4:09 AM [facility] CO2 31 22 - 31 mmol/L 10/23/2017 4:09 AM [facility] Calcium 8.4(L) 8.5 - 10.1 mg/dL 10/23/2017 4:09 AM [facility] Anion Gap 6(L) 8 - 16 mmol/L 10/23/2017 4:09 AM [facility] BUN 16 7 - 21 mg/dL 10/23/2017 4:09 AM [facility] Creatinine 0.93 0.50 - 1.30 mg/dL 10/23/2017 4:09 AM [facility] Alkaline Phosphatase 118 38 - 126 U/L 10/23/2017 4:09 AM [facility] ALT 15 13 - 61 U/L 10/23/2017 4:09 AM [facility] AST 10 5 - 40 U/L 10/23/2017 4:09 AM [facility] Protein Total 6.8 6.4 - 8.2 gm/dL 10/23/2017 4:09 AM [facility] Albumin 3.0(L) 3.4 - 5.0 gm/dL 10/23/2017 4:09 AM [facility] Bilirubin Total 0.3 0.2 - 1.0 mg/dL 10/23/2017 4:09 AM [facility] eGFR by MDRD >60 >60 mL/min/1.7 3m2 10/23/2017 4:09 AM [facility] eGFR by MDRD >60 >60 mL/min/1.7 3m2 10/23/2017 4:09 AM [facility] Blood BLOOD SPECIMEN / Unknown Lab Venipuncture / Unknown 10/23/2017 3:41 AM FLOOR DIRECTOR 10/23/2017 3:45 AM [facility] Jud Solis MD LAB - CHEMISTRY ROBERT MCKAY [facility] Organization Address City/State/[facility] Co de Phone Number [facility] [address] [place] [address] * GROSS + MICRO EXAM (STL) (10/22/2017 9:41 AM FLOOR DIRECTOR) Case Report Surgical Pathology Report Case: [id number] Authorizing Provider: Denzel Gannon MD Collected: 10/22/2017 09:41 AM Ordering Location: [facility] Received: 10/22/2017 11:20 AM Pathologist: Alfredo Marx MD Specimen: Uterus w Tube and Ovary, uterus, cervix, right ovary and fallopian tube 10/23/2017 3:53 PM FLOOR DIRECTOR [facility] Final Diagnosis 1. Uterus with cervix, right ovary and fallopian tube, total hysterectomy with salpingo-oophorectomy : -- Cervix with squamous metaplasia -- Endometrioid adenocarcinoma, well differentiated, FIGO grade 1, superficially invasive (16.7% of myometrial invasion) -- No lymph-vascular invasion identified -- Ovary and fallopian tube not involved -- Ovary with atrophic changes and multiple epithelial inclusion cysts -- Fallopian tube with unremarkable histopathology -- Please see synoptic report SD/jam 10/23/2017 3:53 PM [facility] Clinical History Endometrial hyperplasia with atypia, complex. 10/23/2017 3:53 PM [facility] Gross Description The specimen is received fixed in formalin in one container labeled with the patient's name, Adonis Rubio, and uterus, cervix, right fallopian tube and ovary, and consists of a uterine-cervical complex with attached right fallopian tube and ovary. The uterine-cervical complex weighs 95 gm and measures 9.5 cm from fundus to cervix x 5.5 cm from [id number] x 4.0 cm from [id number] . The cervix is pink-white and glistening and measures 3.2 x 3.0 cm with a central oval shaped os measuring 1.0 cm in diameter. The serosa on the anterior surface is pink-scott and smooth, while the serosa on the porterior surface is pink-scott and roughened. The fallopian tube is purple-gallo and fimbriated and measures 2.2 cm in length x 0.6 cm in diameter. The ovary is pink-scott and nodular and measures 2.5 x 1.8 x 1.0 cm and weighs 2.4 gm. Cut surface to the cervix reveals rubbery and glistening, white-scott tissue. The uterus is bisected, revealing a 3.5 x 4.5 cm triangular shaped endometrial cavity with shaggy and white-scott endometrium measuring up to 1.4 cm in thickness. The thickened endometrium comes to within 0.7 cm of the serosal surface in the anterior left aspect of the uterus. The thickened endometrium extends deeper into the left anterior aspect of the uterus than it does on the posterior half of the uterus. The remaining cut surface reveals rubbery pink-scott myometrium measuring 1.0 cm in thickness on average. The cut surface through the fallopian tube reveals an unremarkable pinpoint lumen. The cut surface through the ovary reveals mottled, scarred, scott-white ovarian tissue. Clergy Member sections are submitted as follows: A1 - 12 o'clock cervix A2 - 6 o'clock cervix A3 and A4 - Anterior endomyometrium A5 and A6 - Posterior endomyometrium A7 - Fallopian tube A8 - Ovary. MR/rtc 10/23/2017 3:53 PM [facility] Microscopic Description The H&E sections of the endometrium show back to back proliferation of atypical glands, diagnostic of endometrioid adenocarcinoma. No solid areas are seen. Squamous metaplasia is identified. The carcinoma superficially invades into the myometrium at a depth of 0.2 cm (myometrial thickness is approximately 1.2 cm, percentage of invasiveness at 16.7%). No lymph-vascular invasion identified. SD/arm 10/23/2017 3:53 PM [facility] Disclaimer All histochemical and/or immunohistochemical results are interpreted with controls that demonstrate appropriate staining reactions before reporting results. Note on use of immunocytochemistry reagents: This test was developed and its performance characteristic determined by [facility], Department of Laboratory Medicine. It has not been cleared or approved by the U.S. Food and Drug Administration (FDA). The FDA has determined that such clearance or approval is not necessary. The test is used for clinical purpose. It should not be regarded as investigational or for research. This laboratory is certified to perform high complexity testing. 10/23/2017 3:53 PM [facility] Synoptic Report ENDOMETRIUM (ENDOMETRIUM: HYSTERECTOMY - A) SPECIMEN Procedure: Radical hysterectomy Procedure: Right salpingo-oophorectomy Specimen Integrity: Intact TUMOR Tumor Site: Endometrium Histologic Type: Endometrioid carcinoma, NOS Histologic Grade: FIGO grade 1 Myometrial Invasion: Present Depth of Invasion in Millimeters (mm): 2 Millimeters (mm) Myometrial Thickness in Millimeters (mm): 12 Millimeters (mm) Percentage of Myometrial Invasion: 17 % Adenomyosis: Not identified Uterine Serosa Involvement: Not identified Lower Uterine Segment Involvement: Not identified Cervical Stromal Involvement: Not identified Other Tissue / Organ Involvement: Not identified Peritoneal Ascitic Fluid: Not submitted / unknown Lymphovascular Invasion: Not identified MARGINS LYMPH NODES Regional Lymph Nodes: No lymph nodes submitted or found PATHOLOGIC STAGE CLASSIFICATION (pTNM, AJCC 8th Edition) Primary Tumor (pT): pT1a Category (pN): pNX FIGO STAGE FIGO Stage: IA 10/23/2017 3:53 PM FLOOR DIRECTOR [facility] Embedded Images 10/23/2017 3:53 PM FLOOR DIRECTOR [facility] Pathology/Cytolo gy HYSTERECTOMY AND BILATERAL SALPINGO-OOPHORECTOM Y SPECIMEN / Unknown 10/22/2017 9:41 AM FLOOR DIRECTOR 10/22/2017 11:20 AM FLOOR DIRECTOR Denzel Gannon MD LAB - PATHOLOGY/CYT OLOGY ORDERABLES [facility] [address] [place] [address] * XR CHEST PA AND LATERAL (10/16/2017 2:52 PM FLOOR DIRECTOR) Only the most recent of2 resultswithin the time period is included. Anatomical Region Laterality Modality Chest Radiographic Mell ging 10/16/2017 2:54 PM FLOOR DIRECTOR Narrative 10/16/2017 2:55 PM FLOOR DIRECTOR Chest 2 view HISTORY: Preoperative chest x-ray for [employer] surgery The heart size is normal. Aorta is atherosclerotic. There is poststernotomy change with likely prior myocardial reperfusion surgery. The pulmonary vascularity and jay normal. The lungs are clear. DIAGNOSIS: No acute cardiopulmonary disease Procedure Note Dilip Rivera MD - 10/16/2017 Chest 2 view HISTORY: Preoperative chest x-ray for [employer] surgery The heart size is normal. Aorta is atherosclerotic. There is poststernotomy change with likely prior myocardial reperfusion surgery. The pulmonary vascularity and jay normal. The lungs are clear. DIAGNOSIS: No acute cardiopulmonary disease Denzel Gannon MD DIAGNOSTIC IMAGING ORDERABLES * TYPE + SCREEN PANEL (10/16/2017 2:13 PM FLOOR DIRECTOR) Only the most recent of2 resultswithin the time period is included. ABO O 10/16/2017 3:29 PM FLOOR DIRECTOR [facility] Rh Type Positive 10/16/2017 3:29 PM [facility] Comment:History check perfor med. No retype required. Antibody Screen Negative 10/16/2017 3:29 PM [facility] Blood Bank BLOOD SPECIMEN / Unknown Venipuncture / Unknown 10/16/2017 2:13 PM FLOOR DIRECTOR 10/16/2017 2:44 PM FLOOR DIRECTOR Denzel Gannon MD LAB - BLOOD BANK OR DERABLES Performing Organization Address City/[facility]/ZIP Co de Phone Number [facility] [address] [place] [address] * BLOOD TYPE VERIFICATION (10/16/2017 2:00 PM FLOOR DIRECTOR) ABO O 10/16/2017 3:30 PM FLOOR DIRECTOR [facility] Rh Type Positive 10/16/2017 3:30 PM FLOOR DIRECTOR [facility] Blood Bank BLOOD SPECIMEN / Unknown Lab Venipuncture / Unknown 10/16/2017 2:00 PM FLOOR DIRECTOR 10/16/2017 2:55 PM FLOOR DIRECTOR Denzel Gannon MD LAB - BLOOD BANK OR DERABLES Performing Organization Address [facility] de Phone Number [facility] [address] [place] [address] * US ABDOMEN DOPPLER ONLY LTD (08/08/2017 3:28 PM FLOOR DIRECTOR) Anatomical Region Laterality Modality Abdomen Other Impressions 08/09/2017 11:09 AM FLOOR DIRECTOR IMPRESSION: 1. Thickened uterine endometrium with small calcification, in post menopausal period. Differential consideration includes endometrial hyperplasia or endometrial carcinoma, and less likely endometrial polyp or submucosal fibroid. Recommend gynecological consultation/tissue sampling. 2. A 1.7 cm exophytic calcified lesion arising from the uterine fundus, most likely representing a fibroid 3. Nonvisualization of bilateral ovaries. Dictated by Corazon Alvarez MD (resident). This report was approved by Jose Alvarez M.D. on 08/09/2017 9:52 AM . I, Dr. AMBERLY BROWN M.D. have personally reviewed and interpreted this examination/study. This report was electronically signed by AMBERLY BROWN M.D. on 08/09/2017 11:09 AM . Narrative 08/09/2017 11:09 AM FLOOR DIRECTOR EXAMINATION: 1. Transabdominal pelvic sonogram 2. Transvaginal pelvic sonogram HISTORY: Postmenopausal bleeding COMPARISON: CT from 12/28/2016. FINDINGS: Transabdominal: An anteverted uterus is present. Bilateral ovaries cannot be identified on transabdominal scan. Transvaginal: Uterus: 8.5 x 3.9 x 4.7 cm A calcified exophytic lesion is seen arising from the uterine fundus measuring 1.7 x 0.8 x 0.9 cm, most likely representing a calcified subserosal fibroid, as seen on prior CT from 12/28/2016. The endometrial bilayer thickness measures 12 mm, which is thickened for the postmenopausal period. A 4 mm calcified focus is seen in the endometrium anteriorly. Nabothian cysts are seen in the cervix. Bilateral ovaries cannot be identified on transvaginal scan. No free fluid is present in the cul-de-sac. Procedure Note Amberly Brown MD - 11/23/2017 EXAMINATION: 1. Transabdominal pelvic sonogram 2. Transvaginal pelvic sonogram HISTORY: Postmenopausal bleeding COMPARISON: CT from 12/28/2016. FINDINGS: Transabdominal: An anteverted uterus is present. Bilateral ovaries cannot be identified ontransabdominal scan. Transvaginal: Uterus: 8.5 x 3.9 x 4.7 cm A calcified exophytic lesion is seen arising from the uterine fundusmeasuring 1.7 x 0.8 x 0.9 cm, most likely representing a calcifiedsubserosal fibroid, as seen on prior CT from 12/28/2016. The endometrialbilayer thickness measures 12 mm, which is thickened for the postmenopausal period. A 4 mm calcified focus is seen inthe endometrium anteriorly. Nabothian cysts are seen in the cervix. Bilateral ovaries cannot beidentified on transvaginal scan. No free fluid is present in [id number]. IMPRESSION IMPRESSION: 1. Thickened uterine endometrium with small calcification, in postmenopausal period. Differential consideration includes endometrialhyperplasia or endometrial carcinoma, and less likely endometrial polyp orsubmucosal fibroid. Recommend gynecological consultation/tissue sampling. 2. A 1.7 cm exophytic calcified lesion arising from the uterine fundus,most likely representing a fibroid 3. Nonvisualization of bilateral ovaries. Dictated by Corazon Alvarez MD (resident). This report was approved by Jose Alvarez M.D. on 08/09/2017 9:52AM . Dr. AMBERLY Lockhart M.D. have personally reviewed and interpreted thisexamination/study. This report was electronically signed by AMBERLY BROWN M.D. on 08/09/201711:09 AM . Historical Provider US ORDERABLES * US PELVIS COMPLETE (08/08/2017 3:28 PM FLOOR DIRECTOR) Anatomical Region Laterality Modality Pelvis Other Impressions 08/09/2017 11:09 AM FLOOR DIRECTOR IMPRESSION: 1. Thickened uterine endometrium with small calcification, in post menopausal period. Differential consideration includes endometrial hyperplasia or endometrial carcinoma, and less likely endometrial polyp or submucosal fibroid. Recommend gynecological consultation/tissue sampling. 2. A 1.7 cm exophytic calcified lesion arising from the uterine fundus, most likely representing a fibroid 3. Nonvisualization of bilateral ovaries. Dictated by Corazon Alvarez MD (resident). This report was approved by Jose Alvarez M.D. on 08/09/2017 9:[address] AMBERLY Lockhart M.D. have personally reviewed and interpreted this examination/study. This report was electronically signed by AMBERLY BROWN M.D. on 08/09/2017 11:09 AM . Narrative 08/09/2017 11:09 AM FLOOR DIRECTOR EXAMINATION: 1. Transabdominal pelvic sonogram 2. Transvaginal pelvic sonogram HISTORY: Postmenopausal bleeding COMPARISON: CT from 12/28/2016. FINDINGS: Transabdominal: An anteverted uterus is present. Bilateral ovaries cannot be identified on transabdominal scan. Transvaginal: Uterus: 8.5 x 3.9 x 4.7 cm A calcified exophytic lesion is seen arising from the uterine fundus measuring 1.7 x 0.8 x 0.9 cm, most likely representing a calcified subserosal fibroid, as seen on prior CT from 12/28/2016. The endometrial bilayer thickness measures 12 mm, which is thickened for the postmenopausal period. A 4 mm calcified focus is seen in the endometrium anteriorly. Nabothian cysts are seen in the cervix. Bilateral ovaries cannot be identified on transvaginal scan. No free fluid is present in the cul-de-sac. Procedure Note Amberly Brown MD - 11/23/2017 EXAMINATION: 1. Transabdominal pelvic sonogram 2. Transvaginal pelvic sonogram HISTORY: Postmenopausal bleeding COMPARISON: CT from 12/28/2016. FINDINGS: Transabdominal: An anteverted uterus is present. Bilateral ovaries cannot be identified ontransabdominal scan. Transvaginal: Uterus: 8.5 x 3.9 x 4.7 cm A calcified exophytic lesion is seen arising from the uterine fundusmeasuring 1.7 x 0.8 x 0.9 cm, most likely representing a calcifiedsubserosal fibroid, as seen on prior CT from 12/28/2016. The endometrialbilayer thickness measures 12 mm, which is thickened for the postmenopausal period. A 4 mm calcified focus is seen inthe endometrium anteriorly. Nabothian cysts are seen in the cervix. Bilateral ovaries cannot beidentified on transvaginal scan. No free fluid is present in [id number]. IMPRESSION IMPRESSION: 1. Thickened uterine endometrium with small calcification, in postmenopausal period. Differential consideration includes endometrialhyperplasia or endometrial carcinoma, and less likely endometrial polyp orsubmucosal fibroid. Recommend gynecological consultation/tissue sampling. 2. A 1.7 cm exophytic calcified lesion arising from the uterine fundus,most likely representing a fibroid 3. Nonvisualization of bilateral ovaries. Dictated by Corazon Alvarez MD (resident). This report was approved by Jose Alvarez M.D. on 08/09/2017 9:52AM . I, Dr. AMBERLY BROWN M.D. have personally reviewed and interpreted thisexamination/study. This report was electronically signed by AMBERLY BROWN M.D. on 08/09/201711:09 AM . Historical Provider US ORDERABLES * US TRANSVAGINAL NON OB (08/08/2017 3:28 PM FLOOR DIRECTOR) Anatomical Region Laterality Modality Abdomen Other Impressions 08/09/2017 11:09 AM FLOOR DIRECTOR IMPRESSION: 1. Thickened uterine endometrium with small calcification, in post menopausal period. Differential consideration includes endometrial hyperplasia or endometrial carcinoma, and less likely endometrial polyp or submucosal fibroid. Recommend gynecological consultation/tissue sampling. 2. A 1.7 cm exophytic calcified lesion arising from the uterine fundus, most likely representing a fibroid 3. Nonvisualization of bilateral ovaries. Dictated by Corazon Alvarez MD (resident). This report was approved by Jose Alvarez M.D. on 08/09/2017 9:52 AM . I, Dr. AMBERLY BROWN M.D. have personally reviewed and interpreted this examination/study. This report was electronically signed by AMBERLY BROWN M.D. on 08/09/2017 11:09 AM . Narrative 08/09/2017 11:09 AM FLOOR DIRECTOR EXAMINATION: 1. Transabdominal pelvic sonogram 2. Transvaginal pelvic sonogram HISTORY: Postmenopausal bleeding COMPARISON: CT from 12/28/2016. FINDINGS: Transabdominal: An anteverted uterus is present. Bilateral ovaries cannot be identified on transabdominal scan. Transvaginal: Uterus: 8.5 x 3.9 x 4.7 cm A calcified exophytic lesion is seen arising from the uterine fundus measuring 1.7 x 0.8 x 0.9 cm, most likely representing a calcified subserosal fibroid, as seen on prior CT from 12/28/2016. The endometrial bilayer thickness measures 12 mm, which is thickened for the postmenopausal period. A 4 mm calcified focus is seen in the endometrium anteriorly. Nabothian cysts are seen in the cervix. Bilateral ovaries cannot be identified on transvaginal scan. No free fluid is present in the cul-de-sac. Procedure Note Amberly Brown MD - 11/23/2017 EXAMINATION: 1. Transabdominal pelvic sonogram 2. Transvaginal pelvic sonogram HISTORY: Postmenopausal bleeding COMPARISON: CT from 12/28/2016. FINDINGS: Transabdominal: An anteverted uterus is present. Bilateral ovaries cannot be identified ontransabdominal scan. Transvaginal: Uterus: 8.5 x 3.9 x 4.7 cm A calcified exophytic lesion is seen arising from the uterine fundusmeasuring 1.7 x 0.8 x 0.9 cm, most likely representing a calcifiedsubserosal fibroid, as seen on prior CT from 12/28/2016. The endometrialbilayer thickness measures 12 mm, which is thickened for the postmenopausal period. A 4 mm calcified focus is seen inthe endometrium anteriorly. Nabothian cysts are seen in the cervix. Bilateral ovaries cannot beidentified on transvaginal scan. No free fluid is present in [id number]. IMPRESSION IMPRESSION: 1. Thickened uterine endometrium with small calcification, in postmenopausal period. Differential consideration includes endometrialhyperplasia or endometrial carcinoma, and less likely endometrial polyp orsubmucosal fibroid. Recommend gynecological consultation/tissue sampling. 2. A 1.7 cm exophytic calcified lesion arising from the uterine fundus,most likely representing a fibroid 3. Nonvisualization of bilateral ovaries. Dictated by Corazon Alvarez MD (resident). This report was approved by Jose Alvarez M.D. on 08/09/2017 9:52AM . Dr. AMBERLY Lockhart M.D. have personally reviewed and interpreted thisexamination/study. This report was electronically signed by AMBERLY BROWN M.D. on 08/09/201711:09 AM . Historical Provider US ORDERABLES * US ABDOMEN LIMITED (06/18/2017 2:49 PM CDT) Anatomical Region Laterality Modality Abdomen Other Impressions 06/18/2017 3:57 PM CDT Impression: No findings to explain right upper quadrant pain. Hepatic steatosis. Dictated by Rudy Turner (Advertising Assistant Manager) This report was approved by Rudy Turner M.D. on 06/18/2017 2:[address] MANASA Lockhart M.D. have personally reviewed and interpreted this examination/study. This report was electronically signed by MANASA GEORGE M.D. on 06/18/2017 3:57 PM . Narrative 06/18/2017 3:57 PM CDT Exam: Abdominal ultrasound limited History: Right upper quadrant pain Comparison: Comparison is made to a prior study dated December 28, 2016. Findings: The liver demonstrates coarse echotexture and is hyperechoic indicative of diffuse fatty infiltration. Hypoattenuation along the portal vein likely represents fat sparing. No discrete mass or intrahepatic biliary dilation is seen. Limited color Doppler evaluation demonstrates patency of the hepatic and portal veins. No ascites is present. No gallstones, gallbladder wall thickening, or pericholecystic fluid is seen. The gallbladder wall measures 2 mm. Sonographic Wright's sign is negative. The visualized midportion of the common bile duct is not dilated at 4 mm. The right kidney measures 11 x 4.4 x 4.2 cm. Limited views demonstrate no evidence of hydronephrosis or calculus. The visible pancreatic head and body show normal echogenicity. The spleen measures 10.8 cm in length. Procedure Note Manasa George MD - 11/23/2017 Exam: Abdominal ultrasound limited History: Right upper quadrant pain Comparison: Comparison is made to a prior study dated December 28, 2016. Findings: The liver demonstrates coarse echotexture and is hyperechoic indicative ofdiffuse fatty infiltration. Hypoattenuation along the portal vein likelyrepresents fat sparing. No discrete mass or intrahepatic biliary dilationis seen. Limited color Doppler evaluation demonstrates patency of the hepatic and portal veins. Noascites is present. No gallstones, gallbladder wall thickening, or pericholecystic fluid isseen. The gallbladder wall measures 2 mm. Sonographic Wright's sign isnegative. The visualized midportion of the common bile duct is not dilatedat 4 mm. The right kidney measures 11 x 4.4 x 4.2 cm. Limited views demonstrate noevidence of hydronephrosis or calculus. The visible pancreatic head andbody show normal echogenicity. The spleen measures 10.8 cm in length. IMPRESSION Impression: No findings to explain right upper quadrant pain. Hepatic steatosis. Dictated by Rudy Turner (Advertising Assistant Manager) This report was approved by Rudy Turner M.D. on 06/18/2017 2:59 PM. IDr. MANASA M.D. have personally reviewed and interpreted thisexamination/study. This report was electronically signed by MANASA GEORGE M.D. on06/18/2017 3:57 PM . Funmilayo Machado MD US ORDERABLES * CT ANGIO ABDOMEN PELVIS (12/28/2016 9:29 PM CDT) Only the most recent of2 resultswithin the time period is included. Anatomical Region Laterality Modality Abdomen, Pelvis Other Impressions 12/29/2016 1:33 PM CDT IMPRESSION: 1. 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 2. Unchanged left inferior pole decreased renal perfusion. Report dictated by Leopoldo Farooq M.D. (resident). I, Dr. Kenroy DESAI M.D. have personally reviewed and interpreted this examination/study. This report was electronically signed by Kenroy DESAI M.D. on 12/29/2016 1:33 PM . Narrative 12/29/2016 1:33 PM CDT EXAMINATION: CT abdomen and pelvis aortic angiogram without and with contrast. HISTORY: Abdominal pain the setting of recent endovascular abdominal aortic aneurysm repair TECHNIQUE: Computed tomography of the abdomen and pelvis was performed prior to and following the uneventful administration of 100 mL Omnipaque 350 according to standard aortic angiogram protocol. 3-D vascular reconstructions were made at an independent workstation and sent to the PACS for review. FINDINGS: Comparison is made to prior examination performed 10/03/2016. 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 There is a focus of contrast extravasation into the excluded aneurysm sac, which extends from near the origin of the inferior mesenteric artery (image 111, series 5) cranially along the graft anteriorly and to the left (image 86, series 5). This is consistent with an endoleak, most likely a type II from the inferior mesenteric artery. There is also opacification along the right posterior aspect of the proximal portion of the graft extending over a length of approximately 2 cm. This has the appearance of a type I A endoleak (image 68, series 5 and image 99, series 8) but most likely represents uncovered region of the stent. The aneurysm sac itself is stable in size when remeasured, measuring up to 6.1 x 6.2 cm in maximum axial dimension (image 102, series 5). The celiac, superior mesenteric, and stented renal arteries are patent and well opacified. The accessory right renal artery originating superiorly from the main renal artery is patent. The accessory left renal artery originating near the origin of the aneurysm sac is minimally opacified. The external and internal iliac arteries and visualized femoral arteries are mildly atherosclerotic but patent. Abdomen and pelvis: The visualized lung bases are clear. The heart size is normal without pericardial effusion. The liver enhances normally. The gallbladder is normal. No intrahepatic or extrahepatic biliary ductal dilatation is seen. The pancreas is normal. The spleen is normal. The adrenal glands are normal. Other than unchanged segmental decreased perfusion in the left inferior renal pole, the kidneys enhance symmetrically without evidence of hydronephrosis, hydroureter, or urolithiasis. The small and large bowel are normal in caliber and without evidence of obstruction. The right lower quadrant appendix is normal. No free intraperitoneal air or free fluid is identified. Subcentimeter mesenteric and retroperitoneal lymph nodes are present.. A fat-containing ventral hernia is present in the epigastric area. The urinary bladder is normal. The uterus contains a rim calcified structure along its fundus, likely a pedunculated fibroid. No free pelvic fluid is seen. Bone windows demonstrate no suspicious lytic or blastic lesions. Multilevel degenerative changes are present. Procedure Note Liz Desai MD - 11/23/2017 EXAMINATION: CT abdomen and pelvis aortic angiogram without and withcontrast. HISTORY: Abdominal pain the setting of recent endovascular abdominalaortic aneurysm repair TECHNIQUE: Computed tomography of the abdomen and pelvis was performedprior to and following the uneventful administration of 100 mL [id number] according to standard aortic angiogram protocol. 3-D vascularreconstructions were made at an independent workstation and sent to the PACS for review. FINDINGS: Comparison is made to prior examination performed 10/03/2016. Angiographic findings: Postprocedural changes of interval endovascular repair of a juxtarenalabdominal aortic aneurysm consisting of a fenestrated graft withaortobiiliac components demonstrates patency of the graft. There is afocus of contrast extravasation into the excluded aneurysm sac, which extends from near the origin of the inferiormesenteric artery (image 111, series 5) cranially along the graftanteriorly and to the left (image 86, series 5). This is consistent withan endoleak, most likely a type II from the inferior mesenteric artery. There is also opacification along theright posterior aspect of the proximal portion of the graft extending overa length of approximately 2 cm. This has the appearance of a type I Aendoleak (image 68, series 5 and image 99, series 8) but most likely represents uncovered region of the stent.The aneurysm sac itself is stable in size when remeasured, measuring up to6.1 x 6.2 cm in maximum axial dimension (image 102, series 5). The celiac, superior mesenteric, and stented renal arteries are patent andwell opacified. The accessory right renal artery originating superiorlyfrom the main renal artery is patent. The accessory left renal arteryoriginating near the origin of the aneurysm sac is minimally opacified. The external and internal iliacarteries and visualized femoral arteries are mildly atherosclerotic butpatent. Abdomen and pelvis: The visualized lung bases are clear. The heart size is normal withoutpericardial effusion. The liver enhances normally. The gallbladder is normal. No intrahepatic orextrahepatic biliary ductal dilatation is seen. The pancreas is normal.The spleen is normal. The adrenal glands are normal. Other than unchangedsegmental decreased perfusion in the left inferior renal pole, the kidneys enhance symmetrically withoutevidence of hydronephrosis, hydroureter, or urolithiasis. The small and large bowel are normal in caliber and without evidence ofobstruction. The right lower quadrant appendix is normal. No freeintraperitoneal air or free fluid is identified. Subcentimeter mesentericand retroperitoneal lymph nodes are present.. A fat-containing ventral hernia is present in the epigastricarea. The urinary bladder is normal. The uterus contains a rim calcifiedstructure along its fundus, likely a pedunculated fibroid. No free pelvicfluid is seen. Bone windows demonstrate no suspicious lytic or blastic lesions.Multilevel degenerative changes are present. IMPRESSION IMPRESSION: 1. 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 2. Unchanged left inferior pole decreased renal perfusion. Report dictated by Leopoldo Farooq M.D. (resident). I, Dr. Kenroy DESAI M.D. have personally reviewed and interpreted thisexamination/study. This report was electronically signed by Kenroy DESAI M.D. on12/29/2016 1:33 PM . Yunior Stockton MD CT ORDERABLES * (ABNORMAL) URINALYSIS W/MICROSCOPIC NO CULTURE (12/28/2016 9:02 PM CDT) Color UA Yellow Straw, Yellow, Colorless, Light Yellow [facility] Clarity UA Hazy(A) Clear [facility] Specific [place] UA 1.016 1.001 - 1.030 [facility] pH UA 5.5 5.0 - 8.0 [facility] Protein UA Trace(A) <=20 mg/dL [facility] Glucose UA Negative Negative mg/dL [facility] Ketone UA Negative Negative mg/dL [facility] Bilirubin UA Negative Negative mg/dL [facility] Blood UA Negative Negative [facility] Nitrite UA Negative Negative [facility] Leukocyte Esterase Negative Negative [facility] Urobilinogen UA <2.0 <2.0 mg/dL [facility] RBC UA 9(H) 0 - 8 /HPF [facility] WBC UA 3(H) 0 - 2 /HPF [facility] Bacteria UA Few(A) Rare, Occasional, None /HPF [facility] Squamous Epithelial Cells UA 4(H) 0 - 1 /HPF [facility] Mucus UA Many(A) None /LPF [facility] Urine specimen (specimen) 12/28/2016 9:02 PM CDT 12/28/2016 10:09 PM CDT Tomasa Borrero MD LAB - URINALYSIS ORD ERABLES [address] [phone] * TROPONIN I (12/28/2016 8:07 PM CDT) Troponin I 0.012 <0.032 ng/mL [facility] Blood specimen (specimen) BLOOD SPECIMEN / Unknown 12/28/2016 8:07 PM CDT 12/28/2016 8:12 PM CDT Tomasa Borrero MD LAB - CHEMISTRY [facility] Performing Organization Address City/[facility]/ZIP Co de Phone Number [address] [phone] * LIPASE BLOOD (12/28/2016 8:07 PM CDT) Lipase 23 8 - 78 Units/L [facility] Blood specimen (specimen) BLOOD SPECIMEN / Unknown 12/28/2016 8:07 PM CDT 12/28/2016 8:12 PM CDT Tomasa Borrero MD LAB - CHEMISTRY [facility]ERT MCK[facility] [address] [phone] * RAINBOW DRAW (BEAKER) (12/28/2016 8:00 PM CDT) Blood specimen (specimen) BLOOD SPECIMEN / Unknown 12/28/2016 8:00 PM CDT Narrative [facility] - 12/29/2016 4:15 AM CDT Light Blue Top Collected?->Yes Red Top Collected?->No Green Top(s) Collected?->No Lavender Top Collected?->No Pale Yellow Top Collected?->No Blood Bank Hold Tube Collected?->Yes The following orders were created for panel order [place] draw. Procedure Abnormality Status --------- ------ Light Blue Top[[id number]] Final result Blood Bank Hold Tube[[id number]] Final result Please view results for these tests on the individual orders. Tomasa Borrero MD LAB - CHEMISTRY [facility] M[facility] [address] [place] [address], [facility] * HOLD SPECIMEN BLOOD BANK (12/28/2016 8:00 PM CDT) Extra Tube Auto Resulted [facility] Blood specimen (specimen) BLOOD SPECIMEN / Unknown 12/28/2016 8:00 PM CDT 12/28/2016 8:13 PM CDT Tomasa Borrero MD LAB - BLOOD BANK SHEILA BRIONES [facility] [address] [phone] * GLUCOSE ACCUCHECK (12/12/2016 12:28 PM CDT) Only the most recent of14 resultswithin the time period is included. Glucose, Fingerstick 105 70-115mg/d L mg/dL [facility] ([facility]) Comment:Operators School Manager: ROSELIA MONTGOMERY 12/12/2016 12:2 8 PM CDT Jim Pro MD LAB - CHEMISTRY [facility] Performing Organization Address City/[facility]/ZIP Co de Phone Number [facility] ([facility]) * PHOSPHORUS BLOOD (12/11/2016 11:51 PM CDT) Pathologist [facility] Phosphorus 3.2 2.3 - 4.7 mg/dL [facility] Blood specimen (specimen) BLOOD SPECIMEN / Unknown 12/11/2016 11:51 PM CDT 12/11/2016 11:56 PM CDT Jim Pro MD LAB - CHEMISTRY [facility]ERT [facility] Performing Organization Address [facility] Co de Phone Number [address] [phone] * MAGNESIUM BLOOD (12/11/2016 11:51 PM CDT) [facility] Magnesium 1.9 1.6 - 2.6 mg/dL [facility] Blood specimen (specimen) BLOOD SPECIMEN / Unknown 12/11/2016 11:51 PM CDT 12/11/2016 11:56 PM CDT Jim Pro MD LAB - CHEMISTRY [facility]ERT [facility] Performing Organization Address [facility] Co de Phone Number [address] [phone] * XR CHEST 1VW PORTABLE (12/11/2016 1:44 PM CDT) Anatomical Region Laterality Modality Chest Other Impressions 12/12/2016 5:15 PM CDT Impression: Hypoinflated lungs. No focal consolidation. Report dictated by Michael Shafer M.D. (vice president of engineering). This report was approved by Michael Shafer M.D. on 12/12/2016 4:[address] AMBERLY Lockhart M.D. have personally reviewed and interpreted this examination/study. This report was electronically signed by AMBERLY BROWN M.D. on 12/12/2016 5:15 PM . Narrative 12/12/2016 5:15 PM CDT Exam: PX CHEST 1 VW Date: 12/11/2016 1:44 PM History: Status post endovascular abdominal aortic aneurysm repair. Comparison: None available. Findings: Multiple wires project over the chest. Median sternotomy wires with fracture third proximal wire and mediastinal clips are noted. The lungs are hypoinflated. No focal consolidation, pleural effusion, or pneumothorax is seen. The heart size is normal. The aorta is mildly tortuous. The visible osseous structures are intact. Procedure Note Amberly rBown MD - 11/23/2017 Exam: PX CHEST 1 VW Date: 12/11/2016 1:44 PM History: Status post endovascular abdominal aortic aneurysm repair. Comparison: None available. Findings: Multiple wires project over the chest. Median sternotomy wires withfracture third proximal wire and mediastinal clips are noted. The lungs are hypoinflated. No focal consolidation, pleural effusion, orpneumothorax is seen. The heart size is normal. The aorta is mildlytortuous. The visible osseous structures are intact. IMPRESSION Impression: Hypoinflated lungs. No focal consolidation. Report dictated by Michael Shafer M.D. (vice president of engineering). This report was approved by Michael Shafer M.D. on 12/12/2016 4:[address] AMBERLY Lockhart M.D. have personally reviewed and interpreted thisexamination/study. This report was electronically signed by AMBERLY BROWN M.D. on 12/12/20165:15 PM . Leopoldo Tee MD DIAGNOSTIC IMAGING ORDERABLES * ACT - POCT (IP) [facility] (12/11/2016 11:55 AM CDT) Only the most recent of8 resultswithin the time period is included. Activated Clotting Time 128 sec [facility] Blood specimen (specimen) 12/11/2016 11:55 AM CDT Jim Pro MD LAB - POINT OF CARE ORDERABLES Performing Organization Address City/[facility]/ZIP Co de Phone Number [facility] * LACTIC ACID WHOLE BLOOD (12/11/2016 8:29 AM CDT) Lactic Acid Whole Blood 1.7 0.5 - 3.4 mmol/L [facility] Blood specimen (specimen) BLOOD SPECIMEN / Unknown 12/11/2016 8:29 AM CDT 12/11/2016 8:33 AM CDT Moises Hernandez MD LAB - CHEMISTRY [facility] Performing Organization Address [facility] Co de Phone Number [address] [phone] * CHLORIDE WHOLE BLOOD (12/11/2016 8:29 AM CDT) Chloride Whole Blood 104 101 - 111 mmol/L [facility] Blood specimen (specimen) BLOOD SPECIMEN / Unknown 12/11/2016 8:29 AM CDT 12/11/2016 8:33 AM CDT Moises Hernandez MD LAB - CHEMISTRY [facility] Performing Organization Address [facility] Co de Phone Number [address] [phone] * (ABNORMAL) CALCIUM IONIZED WHOLE BLOOD (12/11/2016 8:29 AM CDT) Ionized Calcium Whole Blood 1.09 mmol/L [facility] Adjusted Ionized Calcium 1.14(L) 1.19 - 1.34 mmol/L [facility] pH Whole Blood 7.49(H) 7.35 - 7.45 [facility] Blood specimen (specimen) BLOOD SPECIMEN / Unknown 12/11/2016 8:29 AM CDT 12/11/2016 8:33 AM CDT Moises Hernandez MD LAB - CHEMISTRY ORDE WOODY [address] [phone] * (ABNORMAL) BLOOD GASES ART (12/11/2016 8:29 AM CDT) pH Arterial 7.49(H) 7.35 - 7.45 [facility] pCO2 Arterial 34(L) 35 - 45 mmHg [facility] pO2 Arterial 219(H) 71 - 95 mmHg [facility] HCO3 Arterial 25.1 22.0 - 26.0 mmol/L [facility] TCO2 Arterial 26.1 25.0 - 29.0 mmol/L [facility] Base Excess Arterial 2.0 -2.0 - 2.0 mmol/L [facility] Hemoglobin Arterial 10.1(L) 12.0 - 15.5 g/dL [facility] Oxyhemoglobin Arterial 97.9 95.0 - 100.0 % [facility] Carboxyhemoglobin 0.2 0.0 - 3.0 % [facility] Methemoglobin 0.2 0.0 - 2.0 % [facility] FI O2 Arterial 100.0 % [facility] Blood specimen (specimen) BLOOD SPECIMEN / Unknown 12/11/2016 8:29 AM CDT 12/11/2016 8:33 AM CDT Moises Hernandez MD LAB - BLOOD GASES OR DERABLES [address] [phone] * (ABNORMAL) GLUCOSE WHOLE BLOOD (12/11/2016 8:29 AM CDT) Glucose Whole Blood 112(H) 70 - 110 mg/dL [facility] Blood specimen (specimen) BLOOD SPECIMEN / Unknown 12/11/2016 8:29 AM CDT 12/11/2016 8:33 AM CDT Moises Hernandez MD LAB - CHEMISTRY ROBERT MCKAY [address] [phone] * CROSSMATCH RBC LEUKOREDUCED (12/11/2016 6:43 AM CDT) Unit RBC-WBCD [id number] returned [facility] BLOOD BANK PRODUCTS (BEAKER) Unit RBC-WBCD [id number] returned [facility] BLOOD BANK PRODUCTS (BEAKER) Unit RBC-WBCD [id number] returned [facility] BLOOD BANK PRODUCTS (BEAKER) Unit RBC-WBCD [id number] returned [facility] BLOOD BANK PRODUCTS (BEAKER) 12/11/2016 6:43 AM CDT 12/11/2016 6:43 AM CDT Narrative [facility] BLOOD BANK PRODUCTS (BEAKER) - 12/11/2016 6:43 AM CDT # of Units->4 Jim Pro MD LAB - BLOOD BANK ORD ANSELMO [facility] BLOOD BANK PRODUCTS (BEAKER) * PT-INR [facility] (12/11/2016 6:32 AM CDT) Only the most recent of3 resultswithin the time period is included. PT 12.9 12.1 - 14.8 Seconds [facility] INR 1.0 See Comment [facility] Comment: Suggested therapeutic range for low-intensity coumadin therapy for venous thromboembolism prophylaxis is an INR of 2.0-3.0. For high risk patients (Mitral Valve Prosthesis, Atrial Fibrillation, history of TIA/stroke), suggested prophylactic therapeutic range is an INR of 2.5-3.5. Blood specimen (specimen) BLOOD SPECIMEN / Unknown 12/11/2016 6:32 AM CDT 12/11/2016 6:40 AM CDT Narrative [facility] - 12/11/2016 7:04 AM CDT Is patient on Heparin, Argatroban or Dabigatran?->N Jim Pro MD LAB - COAGULATION OR DERABLES [facility] [address] [place] [address] * CCL CATH LEFT HEART ARTERY GRAFT (10/23/2016 11:52 AM FLOOR DIRECTOR) Anatomical Region Laterality Modality X-Ray Angiograph y Narrative 10/25/2016 3:03 PM FLOOR DIRECTOR [facility] Cardiac Catheterization Procedure Note Patient: Adonis Rubio Age: 61 y.o. Date of : 1955 Date of Admission: 10/23/16 Procedure Date: 10/23/16 FELLOW / TRANSITION NURSE: Sean Moreno ATTENDING PHYSICIAN: Ladarius Jamison PREVIOUS STRESS STUDIES WITHIN 6 MONTHS: Christine 08/2016 DIAGNOSTIC APPROPRIATENESS CRITERIA: NSTEMI HISTORY: 61 y.o. female with a PMH significant for CAD s/p CABG x3 10/07/2010 ROSENBERG-LAD, SVG-OM1, SVG-PDA then NSTEMI troponin 0.December s/p Xience 3x18mm to the proximal Cx for a 100% occlusion, then balloon angioplasty 2.5x20mm to the distal OM, infrarenal AAA (CT 08/06/17 showed a 6.4x6.2cm aneurysm with associated intramural hematoma), DM 2, HTN, dyslipidemia, GERD, Hx PUD/H.pylori, Hx diverticulitis presents for coronary angiography. She had an episode of chest pain radiating to the jaw about 5 weeks ago and found to have an NSTEMI. No further episodes of chest pain since that time. ACCESS SITE(S): Left radial artery for ROSENBERG-LAD angiography and right femoral artery for left heart catheterization, coronary angiography and SVG-PDA bypass angiography. PROCEDURAL OVERVIEW: After obtaining informed consent and positioning the patient on the catheterization table, a timeout was performed to confirm the patient s name, date of , and procedure. Sedation was initiated and the patient was prepped and draped using standard sterile technique. Lidocaine was used for local anesthesia over the access site, after which the vessel was accessed and a sheath was placed using the modified Seldinger technique. Access in the left radial artery for ROSENBERG-LAD graft angiography was uncomplicated. Access via the right femoral artery was initially obtained using a 6F 11 cm Prelude sheath then exchanged for a longer 6F 45 cm arrow sheath because of the tortuosity of the right common iliac artery. Coronary angiography was performed using 6F FL4 catheter for the left coronary system. A 6F FR4 catheter was used for the right coronary system and SVG-PDA bypass graft. The left radial artery was then accessed. Left radial artery intra-arterial verapamil and intravenous heparin were administered to minimize risk of radial artery spasm or occlusion. ROSENBERG-LAD bypass graft angiography was performed using a 6F FR4 catheter. At the conclusion of the procedure, hemostasis was achieved using manual compression and a radial compression device after removal of all catheters, wires, and sheaths. COMPLICATIONS: None HEMODYNAMIC FINDINGS: Aorta: 173/96 LV: 183/17 ANGIOGRAPHY: i. Left main: 40% lesion in the distal vessel. It bifurcates into a proximally occluded LAD and circumflex arteries. ii. LAD: Proximal chronic total occlusion. iii. LCx: There is a stent in the proximal segment into OM1 with moderate in-stent restenosis up to 40-50%. OM1 narrows down distal to the stent into a diminutive vessel. OM 2 is a small caliber vessel with mild plaque. The rest of the circumflex is a small vessel that runs through the AV groove. iv. RCA: Ectatic in the proximal segment then narrows down in the mid segment before it gives off moderate caliber RV marginal branches. v. Other angiography: ROSENBERG to LAD is patent in the proximal and mid segment. The distal segment has a 40-50% lesion just distal to the anastomosis. The graft fills a septal and diagonal branch as well as the mid to distal LAD. SVG to PDA is widely patent. SVG to OM known to be occluded. DOMINANCE: Right DIAGNOSTIC INTERPRETATIONS: 1. Proximal LAD chronic total occlusion. 2. 40-50% in-stent restenosis of the proximal OM1 stent. 3. Patent ROSENBERG-LAD graft with a 40-50% distal lesion. 4. Patent SVG-PDA graft. 5. Known SVG-OM1 occlusion. 6. Tortuous right common iliac artery. RECOMMENDATIONS AFTER DIAGNOSTIC CATHETERIZATION: Medical management of chronic CAD. Aggressive modification of atherosclerotic risk factors. Sean Craig MD 10/23/2016 Dr. Ladarius Jamison, the attending physician, was present for the entirety of the described procedure. I was present for the critical portion of the procedure, and either performed or directly supervised all critical parts of the procedure. Ladarius Jamison MD Procedure Note Ladarius Jamison MD - 02/01/2018 [facility] Cardiac Catheterization Procedure Note Patient: Adonis Rubio Age: 61 y.o. Date of : 1955 Date of Admission: 10/23/16 Procedure Date: 10/23/16 FELLOW / TRANSITION NURSE: Sean Moreno ATTENDING PHYSICIAN: Ladarius Jamison PREVIOUS STRESS STUDIES WITHIN 6 MONTHS: Christine 08/2016 DIAGNOSTIC APPROPRIATENESS CRITERIA: NSTEMI HISTORY: 61 y.o. female with a PMH significant for CAD s/p CABGx3 10/07/2010 ROSENBERG-LAD, SVG-OM1, SVG-PDA then NSTEMI troponin 0.66 December 2010s/p Xience 3x18mm to the proximal Cx for a 100% occlusion, then balloonangioplasty 2.5x20mm to the distal OM, infrarenal AAA (CT 08/06/17 showed a 6.4x6.2cm aneurysm withassociated intramural hematoma), DM 2, HTN, dyslipidemia, GERD, HxPUD/H.pylori, Hx diverticulitis presents for coronary angiography. She had an episode of chest pain radiating to the jaw about 5 weeks agoand found to have an NSTEMI. No further episodes of chest pain since thattime. ACCESS SITE(S): Left radial artery for ROSENBERG-LAD angiography and rightfemoral artery for left heart catheterization, coronary angiography andSVG-PDA bypass angiography. PROCEDURAL OVERVIEW: After obtaining informed consent and positioning the patient on thecatheterization table, a timeout was performed to confirm the patient s name, date of , and procedure. Sedation was initiated and thepatient was prepped and draped using standard sterile technique. Lidocaine was used for local anesthesia over theaccess site, after which the vessel was accessed and a sheath was placedusing the modified Seldinger technique. Access in the left radial arteryfor ROSENBERG-LAD graft angiography was uncomplicated. Access via the right femoral artery was initially obtainedusing a 6F 11 cm Prelude sheath then exchanged for a longer 6F 45 cm arrowsheath because of the tortuosity of the right common iliac artery.Coronary angiography was performed using 6F FL4 catheter for the left coronary system. A 6F FR4 catheter wasused for the right coronary system and SVG-PDA bypass graft. The leftradial artery was then accessed. Left radial artery intra-arterialverapamil and intravenous heparin were administered to minimize risk of radial artery spasm or occlusion.ROSENBERG-LAD bypass graft angiography was performed using a 6F FR4 catheter.At the conclusion of the procedure, hemostasis was achieved using manualcompression and a radial compression device after removal of all catheters, wires, and sheaths. COMPLICATIONS: None HEMODYNAMIC FINDINGS: Aorta: 173/96 LV: 183/17 ANGIOGRAPHY: i. Left main: 40% lesion in the distal vessel. It bifurcates into aproximally occluded LAD and circumflex arteries. ii. LAD: Proximal chronic total occlusion. iii. LCx: There is a stent in the proximal segment into OM1 withmoderate in- stent restenosis up to 40-50%. OM1 narrows down distal to thestent into a diminutive vessel. OM 2 is a small caliber vessel with mildplaque. The rest of the circumflex is a small vessel that runs through the AV groove. iv. RCA: Ectatic in the proximal segment then narrows down in the midsegment before it gives off moderate caliber RV marginal branches. v. Other angiography: ROSENBERG to LAD is patent in the proximal and mid segment. The distal segmenthas a 40-50% lesion just distal to the anastomosis. The graft fills aseptal and diagonal branch as well as the mid to distal LAD. SVG to PDA is widely patent. SVG to OM known to be occluded. DOMINANCE: Right DIAGNOSTIC INTERPRETATIONS: 1. Proximal LAD chronic total occlusion. 2. 40-50% in-stent restenosis of the proximal OM1 stent. 3. Patent ROSENBERG-LAD graft with a 40-50% distal lesion. 4. Patent SVG-PDA graft. 5. Known SVG-OM1 occlusion. 6. Tortuous right common iliac artery. RECOMMENDATIONS AFTER DIAGNOSTIC CATHETERIZATION: Medical management of chronic CAD. Aggressive modification of atherosclerotic risk factors. Sean Craig MD 10/23/2016 Dr. Tarek Yaquelin, the attending physician, was present for the entirety ofthe described procedure. I was present for the critical portion of the procedure, and eitherperformed or directly supervised all critical parts of the procedure. Ladarius Jamison MD Hugo Mtz MD CARDIAC PROGRAM SERVICES PLANNER RAD IANT * CREATININE BLOOD - POCT (IP) [facility] (10/03/2016) Creatinine POCT 0.98 0.3 - 1.3 mg/dL [facility] eGFR POCT 60 60 ml/min [facility] 10/03/2016 Shweta Headley CAMPUS RECEPTIONIST-INVESTMENTS MANAGER LAB - POINT OF CARE ORDERABLES [facility] * NM MYOCARD PERF REST STRESS (08/08/2016 12:12 PM FLOOR DIRECTOR) Anatomical Region Laterality Modality Chest Other Impressions 08/08/2016 2:57 PM FLOOR DIRECTOR Impression: 1. No evidence of myocardial infarction or stress-induced ischemia. 2. Mild hypokinesis of the septum and inferior wall with a calculated left ventricular ejection fraction of 54%. This report was electronically signed by SARINA DYSON D.O. on 08/08/2016 2:57 PM . Narrative 08/08/2016 2:57 PM FLOOR DIRECTOR Rest and Pharmacologic stress SPECT myocardial imaging with gating- 1 day protocol Referred by: Dr. Mascorro History: 61-year-old female presenting for preoperative evaluation. Procedure: The rest intravenous injection of 11.0 mCi of Tc-99m Myoview was administered IV in the right wrist. Preliminary rest ECG demonstrated normal sinus rhythm with nonspecific ST abnormality. Myocardial perfusion imaging was performed 30 minutes post-injection. At the conclusion of the rest imaging, pharmacologic stress testing was performed with 0.4 mg of Regadenoson administered IV in the right wrist over 10 seconds. No low-level exercise was performed in conjunction with the vasodilator infusion. The patient experienced no chest pain. Preliminary stress ECG demonstrated no evidence of ischemic changes. After approximately 10 seconds, the patient was injected with 32.8 mCi of Tc-99m Myoview IV in the right wrist. Gated SPECT myocardial perfusion imaging was performed 30 minutes post-injection. The heart rate at rest was 61 at baseline and increased to 95 beats per minute during the vasodilator infusion. The BP was 157/88 at rest and 157/88 after the stress procedure. A separate ECG report will be read by Cardiology. Findings: The image quality is technically adequate despite patient motion. In the stress and rest SPECT images, the left ventricle is normal in size. The stress SPECT images show a small area of mildly reduced uptake at the distal anterior wall. There is no significant change in the perfusion pattern at rest. Gated SPECT images show normal myocardial thickening and mild hypokinesis of the septum and inferior wall. The calculated left ventricular ejection fraction is 54%. Procedure Note Sarina Dyson, DO - 11/24/2017 Rest and Pharmacologic stress SPECT myocardial imaging with gating- 1 dayprotocol Referred by: Dr. Mascorro History: 61-year-old female presenting for preoperative evaluation. Procedure: The rest intravenous injection of 11.0 mCi of Tc-99m Myoview wasadministered IV in the right wrist. Preliminary rest ECG demonstratednormal sinus rhythm with nonspecific ST abnormality. Myocardial perfusionimaging was performed 30 minutes post-injection. At the conclusion of the rest imaging, pharmacologicstress testing was performed with 0.4 mg of Regadenoson administered IV inthe right wrist over 10 seconds. No low-level exercise was performed inconjunction with the vasodilator infusion. The patient experienced no chest pain. Preliminary stress ECGdemonstrated no evidence of ischemic changes. After approximately 10seconds, the patient was injected with 32.8 mCi of Tc-99m Myoview IV inthe right wrist. Gated SPECT myocardial perfusion imaging was performed 30 minutes post-injection. The heart rate at rest was 61 at baseline and increased to 95 beats perminute during the vasodilator infusion. The BP was 157/88 at rest [id number] after the stress procedure. A separate ECG report will be read byCardiology. Findings: The image quality is technically adequate despite patient motion. In thestress and rest SPECT images, the left ventricle is normal in size. Thestress SPECT images show a small area of mildly reduced uptake at thedistal anterior wall. There is no significant change in the perfusion pattern at rest. Gated SPECT images show normal myocardial thickening and mild hypokinesisof the septum and inferior wall. The calculated left ventricular ejectionfraction is 54%. IMPRESSION Impression: 1. No evidence of myocardial infarction or stress-induced ischemia. 2. Mild hypokinesis of the septum and inferior wall with a calculated leftventricular ejection fraction of 54%. This report was electronically signed by SARINA DYSON D.O. on08/08/2016 2:57 PM . Shaquille Mascorro MD NM ORDERABLES * LACTIC ACID BLOOD (08/06/2016 7:34 PM FLOOR DIRECTOR) Lactic Acid-Stat 0.9 0.5 - 2.2 mmol/L [facility] Blood specimen (specimen) BLOOD SPECIMEN / Unknown 08/06/2016 7:34 PM FLOOR DIRECTOR 08/06/2016 7:39 PM FLOOR DIRECTOR Shaquille Mascorro MD LAB - CHEMISTRY ORDERABLES [address] [phone] Care Teams Medic Technician Relationship Specialty Start Date End Date Jeffery Hein MD [address] [place] [address] PCP - General Family Medicine 04/10/23 Ann Braga, RN Registered Nurse 10/22/17
--- OUTSIDE RECORDS SUMMARY | 2024-10-29 10:59 | XMS_ITS | Clinical Summary ---
Author Organization [facility] Address [address] [place] [id number] Care Team Providers Care Associate Chief Nurse Name Role Phone Unavailable Primary Care Provider Unavailabl e Social History Tobacco Use Types Packs/Day Years Used Date Smoking Tobacco: Never Assessed Comments Unknown Sex and Gender Information Value Date Recorded Sex Assigned at Not on file Legal Sex Female 10:21 PM MULTIPLEX OPERATOR Gender Identity Not on file Sexual Orientation Not on file Plan of Treatment Health Maintenance Due Date Last Done Comments Colorectal Cancer Screening Colonoscopy (10 Years) 1955 Hepatitis C 1973 DTaP, Tdap and Td Vaccines ( 1 - Tdap) 1974 Mammogram Screening 1995 Zoster Vaccines (1 of 2) 2005 Dexa Scan (General) 2020 Pneumococcal Vaccine: 65+ Ye ars (1 of 1 - PCV) 2020 COVID-19 Vaccine (2023-2 5 season) 2024 Influenza Adult (#1) 2024 RSV Immunization or 60+ Years (1 - 1-dose 75+ series) 2030 Meningococcal B Vaccine Aged Out No l onger eligible based on patient's age to complete this topic Meningococcal Vaccine Aged Out No krish daphney eligible based on patient's age to complete this topic RSV Immunizations Under 20 Months Aged Out No longer eligible based on patient's age to complete this topic
--- OUTSIDE RECORDS SUMMARY | 2024-10-29 10:59 | XMS_ITS | Clinical Summary ---
Author Organization [facility] Address [address] [place] [address] Care Team Providers Care Turbine Technician Name Role Phone Jeffery Hein MD Primary Care Provider [phone] Allergies No known active allergies Medications aspirin (TONY CHEWABLE) 81 mg Tablet, Chewable Take 81 mg by mouth daily. Active carvediloL (COREG) 12.5 mg tablet Take 6.25 mg by mouth daily. Active losartan (COZAAR) 100 mg tablet Take 100 mg by mouth daily. Active semaglutide (Ozempic) 0.25 mg or 0.5 mg(2 mg/1.5 mL) Pen Injector Inject 2 mg by subcutaneous injection every 7 days. Active omeprazole (PriLOSEC) 40 mg Capsule, Delayed Release(E.C.) Take 40 mg by mouth daily. 12/23/19 21 Active potassium chloride (KLOR-CON) 20 mEq Extended Release tablet Take 40 mEq by mouth 2 times daily. Active Syringe with Needle, Disp, 1 mL 27 x 1/2 Syringe Inject 1 mL every 2 weeks for 8 weeks. 8 Each 10/22/19 25 Active cyanocobalamin (VITAMIN B-12) 1,000 mcg/mL Solution Inject 1 mL (1,000 mcg) by intramuscular injection every 2 weeks. 8 mL 10/22/19 25 Active Syringe with Needle, Disp, 1 mL 27 x 1/2 Syringe Inject 1 mL every 2 weeks for 8 weeks. 8 Each 04/16/20 24 025 Discontin ued(Reord er) cyanocobalamin (VITAMIN B-12) 1,000 mcg/mL Solution Inject 1 mL (1,000 mcg) by intramuscular injection every 2 weeks. 8 mL 04/16/20 24 025 Discontin ued(Reord er) Active Problems No known active problems Encounters Date Type Department Care Team Description 10/29/2024 External Device Data STL ABSTRACTION Provider, Abstract 10/22/2024 2:15 PM DECK ENGINEER Office Visit [facility] On[facility] and Hematology [facility] [address] [place] [address] Miky Sanchez MD Encounter for screening for lung cancer (Primary Dx); Pancytopenia (CMS/HCC) 10/17/2024 Orders Only Initial Department [address] [place]I: [place] [address] Provider, Historical 10/15/2024 External Device Data STL ABSTRACTION Provider, Abstract 09/18/2024 External Device Data STL ABSTRACTION Provider, Abstract 09/04/2024 Telephone [facility] and [facility] [address] [place] [address] Miky Sanchez MD lab work for appointment from Last 3 Months Family History Medical History Relation Name Comments Diabetes Brother 1 No Known Problems Child 1 Heart Disease Father Cancer Half-Brother Diabetes Mother No Known Problems Sister 1 Breast Cancer Sister 2 Relation Name Status Comments Brother 1 Brother 2 Child 1 Child 2 Alive Father Half-Brother Mother Sister 1 Alive Sister 2 Alive Social History Tobacco Use Types Packs/Day Years Used Date Smoking Tobacco: Former Cigarettes 2 55 0 1955 - 08/27/2010 Tobacco Cessation:Counseling Given: Not Answered Alcohol Use Standard Drinks/Week Comments Never 0 (1 standard drink = 0.6 oz pur e alcohol) Comments Unknown Sex and Gender Information Value Date Recorded Sex Assigned at Not on file Legal Sex Female 2:19 PM DECK ENGINEER Gender Identity Not on file Sexual Orientation Not on file Last Filed Vital Signs Vital Sign Reading Time Taken Comments Blood Pressure 155/91 10/22/2024 1:57 PM DECK ENGINEER Pulse 52 10/22/2024 1:55 PM DECK ENGINEER Temperature 36.4 C (97.6 F) 10/22/2024 1:55 PM DECK ENGINEER Respiratory Rate 15 10/22/2024 1:55 PM DECK ENGINEER Oxygen Saturation 91% 10/22/2024 1:55 PM DECK ENGINEER Inhaled Oxygen Concentration - - Weight 79.7 kg (175 lb 12.8 oz) 10/22/2024 1:55 PM DECK ENGINEER Height 165.1 cm (5' 5 ) 09/11/2023 10:5 0 AM DECK ENGINEER Body Mass Index 29.25 09/11/2023 10:50 AM DECK ENGINEER Plan of Treatment Upcoming Encounters Date Type Department Care Team (Late st Contact Info) Description 11/05/2024 4:30 PM CDT Telephone Check Up [facility] and Hematology [facility] [address] [place] [phone] Miky Sanchez MD [address] [place] [phone] 02/11/2025 1:15 PM CDT Office Visit [facility] On[facility] and Hematology [facility] [address] [place] [address] Miky Sanchez MD [address] [place] [phone] Health Maintenance Due Date Last Done Comments DIABETES ANNUAL FOOT EXAM 1973 DIABETES ANNUAL RETINAL EXAM 1973 DIABETES MICROALBUMIN ANNUAL SCREEN 1973 LDL CHOLESTEROL ANNUAL 1973 BREAST CANCER SCREENING 1995 COLORECTAL SCREENING 2000 Colorectal Cancer Screening 2000 FIT-DNA Q 3 years 2000 FIT/FOBT Q 1 year 2000 Flex Sig/CT Colonography Q 5 years 2000 Lung Cancer Screening 2005 ZOSTER VACCINE (1 of 2) 2005 PNEUMOCOCCAL VACCINE 50+ YEARS (2 of 2 - PCV) 10/23/19 18 10/23/2016 OSTEOPOROSIS SCREENING 2020 INFLUENZA VACCINE (#1) 2024 10/23/2016 COVID-19 Vaccine (2 - season) 04/27/202405/2021 Medicare [place]vantage ([place]) Prev entative Visit/Annual Wellness Visit 08/27/2024 DIABETES HBA1C Q 6 MONTHS 11/03/2024 05/06/2024 RSV VACCINE (60+ or ) (1 - 1-dose 75+ series) 2030 DTAP/TDAP/TD VACCINES (2 - Td or Tdap) 02/12/2032 Procedures Procedure Name Priority Date/Time Associated Diagnosis Comments BASIC METABOLIC PANEL Routine 10/17/2024 9:21 AM DECK ENGINEER VITAMIN B12 LEVEL Routine 10/17/2024 9:2 1 AM DECK ENGINEER CBC WITH DIFFERENTIAL Routine 10/17/2024 9:21 AM DECK ENGINEER from Last 3 Months Results * CBC WITH DIFFERENTIAL (10/17/2024 9:21 AM DECK ENGINEER) WBC 4.6 3.8 - 10.8 Thousand/u L [facility] RBC 4.39 3.80 - 5.10 Million/uL [facility] HEMOGLOBIN 13.0 11.7 - 15.5 g/dL [facility] HEMATOCRIT 39.8 35.0 - 45.0 % [facility] MCV 90.7 80.0 - 100.0 fL [facility] MCH 29.6 27.0 - 33.0 pg [facility] MCHC 32.7 32.0 - 36.0 g/dL [facility] Comment: For adults, a slight decrease in the calculated MCHC value (in the range of 30 to 32 g/dL) is most likely not clinically significant; however, it should be interpreted with caution in correlation with other red cell parameters and the patient's clinical condition. RDW 12.8 11.0 - 15.0 % [facility] PLATELETS 143 140 - 400 Thousand/u L [facility] MPV 11.0 7.5 - 12.5 fL [facility] NEUTROPHIL ABSOLUTE 3,114 1,500 - 7,800 cells/uL [facility] LYMPHOCYTE ABSOLUTE 1,067 850 - 3,900 cells/uL [facility] MONOCYTE ABSOLUTE 340 200 - 950 cells/uL [facility] EOSINOPHIL ABSOLUTE 60 15 - 500 cells/uL [facility] BASOPHILS ABSOLUTE 18 0 - 200 cells/uL [facility] NEUTROPHIL 67.7 % [facility] LYMPHOCYTES 23.2 % [facility] MONOCYTE 7.4 % [facility] EOSINOPHILS 1.3 % [facility] BASOPHILS 0.4 % [facility] Comment: FASTING:NO FASTING: NO Test Performed at: [facility] [address] [place] [phone] Yashira Lind MD 10/17/2024 9:21 AM DECK ENGINEER 10/17/2024 9:23 AM DECK ENGINEER Miky Sanchez MD HEMATOLOGY ORDERABLES Final Res ult [facility] [phone] [facility] [address] [address] * VITAMIN B12 LEVEL (10/17/2024 9:21 AM DECK ENGINEER) Pathologist [facility] VITAMIN B12 417 200 - 1100 pg/mL [facility] Comment: FASTING:NO FASTING: NO Test Performed at: [facility] [address] Yashira Lind MD 10/17/2024 9:21 AM DECK ENGINEER 10/17/2024 9:23 AM DECK ENGINEER us Miky Sanchez MD CHEMISTRY ORDERABLES Final Resu lt [facility] [phone] [facility] [address] [address] * (ABNORMAL) BASIC METABOLIC PANEL (10/17/2024 9:21 AM DECK ENGINEER) GLUCOSE 121 65 - 139 mg/dL [facility] Comment: Non-fasting reference interval BUN 11 7 - 25 mg/dL [facility] CREATININE 0.83 0.50 - 1.05 mg/dL [facility] GFR 76 > OR = 60 mL/min/1.7 3m2 [facility] BUN/CREAT RATIO SEE NOTE: 6 - 22 (calc) [facility] Comment: Not Reported: BUN and Creatinine are within reference range. SODIUM 144 135 - 146 mmol/L [facility] POTASSIUM 3.0(L) 3.5 - 5.3 mmol/L [facility] CHLORIDE 102 98 - 110 mmol/L [facility] CO2 32 20 - 32 mmol/L [facility] CALCIUM 9.0 8.6 - 10.4 mg/dL [facility] Comment: FASTING:NO FASTING: NO Test Performed at: [facility] [address] [place] [address] Yashira Lind MD 10/17/2024 9:21 AM DECK ENGINEER 10/17/2024 9:23 AM DECK ENGINEER Miky Sanchez MD CHEMISTRY ORDERABLES Final Resu lt [facility] [phone] [facility] [address] [place] [address] from Last [address] [place] [address] [place] [address] [place] Care Teams Turbine Technician Relationship Specialty Start Date End Date Jeffery Hein MD [address] [place] [address] PCP - General Family Practice 09/11/23
--- OUTSIDE RECORDS SUMMARY | 2024-10-29 10:59 | XMS_ITS | Referral Summary ---
Author Organization [facility] Address [address] [place] [address] Care Team Providers Care Pipelines Laborer Name Role Phone Ann Braga RN Unavailable Unavailable Jeffery Hein MD Primary Care Provider [phone] Source Comments [facility],non-owned Affiliates and Associated Physician Practices is amultiple site organization consisting of ambulatory clinics and hospital sitesin [place], [place], [place] and [place]. This disclosure is being madepursuant to the Care Everywhere program and may not contain all information available regarding this patient. Last updated 18.[facility] Allergies Active Allergy Reactions Criticality Noted Date Comments Adhesive Sensitivity Rash Medium 10/16/2017 Paper tape, transpore tape and tegaderm ok to use Codeine Other Low Reaction: SLEEPY, , Reaction: SLEEPY, , Reaction: SLEEPY, Medications * Be aware that medications may not be up to date on this document. Alwaysverify current medications with the patient. Medication Sig Dispensed Refills Start Date End Date Status losartan (COZAAR) 100 MG tablet Take 1 (one) tablet by mouth Active sertraline (ZOLOFT) 100 MG tablet Take 1 (one) tablet by mouth once daily 03/29/2017 Active glipiZIDE CR 24hr (GLUCOTROL XL) 10 MG tablet Take 1 (one) tablet by mouth DAILY 12/11/2016 Active clopidogrel (PLAVIX) 75 MG tablet Take 1 (one) tablet by mouth DAILY 30 tablet 11 10/06/2016 Active carvedilol (COREG) 12.5 MG tablet Take 0.5 (one-half) tablet by mouth once daily Active furosemide (LASIX) 40 MG tablet Take 1 (one) tablet by mouth every 2 days Active ezetimibe (ZETIA) 10 MG tablet Take 1 (one) tablet by mouth once daily 02/10/2020 Active omeprazole (PRILOSEC) 20 MG capsule Take 1 (one) capsule by mouth once daily 09/01/2020 Active UNIFINE PENTIPS 31G X 8 MM needle once daily 09/01/2020 Active nystatin (MYCOSTATIN) 007253 UNIT/GM powder APPLY TO AFFECTED AREA TWICE A DAY 09/16/2020 Active rosuvastatin (CRESTOR) 20 MG tablet Take 1 (one) tablet by mouth once daily 09/01/2020 Active semaglutide (OZEMPIC, 0.25 OR 0.5 MG/DOSE,) 2 MG/1.5ML pen Inject 0.25 (one-quarter) mg subcutaneously every 7 days Active omeprazole (PRILOSEC) 40 MG capsule TAKE 1 CAPSULE BY MOUTH EVERY DAY BEFORE A MEAL 12/22/2020 Active methenamine hippurate (HIPREX) 1 GM tablet Take 1 (one) tablet by mouth 2 times daily 60 tablet 11 05/30/2021 Active Additional Information Patient not taking.Reported on 05/27/2024 ascorbic acid (VITAMIN C) 500 MG tabletIndications :Frequent UTI Take 1 (one) tablet by mouth 2 times daily 60 tablet 11 05/30/2021 Active Additional Information Patient not taking.Reported on 05/27/2024 doxycycline hyclate (Vibramycin) 100 MG capsule Take 1 (one) capsule by mouth every 12 hours Active cyanocobalamin (Vitamin B-12) injection Inject 1,000 (one thousand) mcg into muscle every 14 days 12/31/2023 Active Farxiga 10 MG tablet Farxiga 10 mg tablet 12/11/2023 Acti ve nitroGLYCERIN (Nitrostat) 0.4 MG tablet nitroglycerin 0.4 mg tablet, sublingual 01/23/2023 Active potassium chloride ER (Klor-Con M) 20 MEQ tablet Take 2 (two) tablets by mouth 2 times daily Active pravastatin (Pravachol) 40 MG tablet pravastatin 40 mg tablet 02/28/2023 Active aspirin (Aspirin) 81 MG chew tablet Take 1 (one) tablet by mouth once daily 05/09/2024 Active HYDROcodone-aceta minophen ([place]) 5-325 MG tabletIndications :Varicose veins of bilateral lower extremities with pain TAKE ONE TABLET BY MOUTH EVERY 6 HOURS NEEDED FOR PAIN 5 tablet 05/13/2024 11/09/2024 Active Active Problems Problem Noted Date Diagnosed [...] Obesity 10/24/2016 Atherosclerotic heart diseas e of [place] coronary artery without angina pectoris 10/24/2016 Chest pain 10/23/2016 Abdominal aortic aneurysm without rupture 2015 Diverticulitis of large inte ayad without perforation or abscess without bleeding 08/07/2016 Essential (primary) hypertension 08/07/2016 Diverticulitis of intestine without perforation or abscess without bleeding 08/06/2016 Endometrial hyperplasia, complex Immunizations Name Administration Dates Next Due FLU VACCINE TRI IIV3 SPLIT PF IM (FLUVIRIN) 09/28 PNEUMOCOCCAL PPSV23 10/23/2016 Social History Tobacco Use Types Packs/Day Years [...] Mass Index 29.12 05/27/2024 2:06 PM CDT Functional Status Functional Status Response Date of Assess ment Is person deaf or have serious hearing difficult y? No 05/13/2024 Is person blind or have serious difficulty seein g? No 05/13/2024 Does person have serious dif ficulty walking/climbing stairs? No 05/13/2024 Does person have difficulty dressing/bathing? No 05/13/2024 Does person have difficulty doing errands alone? No 05/13/2024 Cognitive Status Response Date of Assessm ent Does person have difficulty concentrating/remembering/making decisions? No 05/13/2024 Plan of Treatment Not on file Procedures Procedure Name Priority Date/Time Associated Diagnosis Comments BASIC METABOLIC PANEL (CALCIUM TOTAL) Routine 05/06/2024 3:46 PM CDT Pre-op evaluation HEMOGLOBIN A1C Routine 05/06/2024 3:46 PM CDT Pre-op evaluation from Last 3 Months or Most Recently Relevant to Health Maintenance Results * (ABNORMAL) HEMOGLOBIN A1C [IN-HOUSE TEST] (05/06/2024 3:46 PM CDT) Hemoglobin A1c 5.8(H) <=5.6 % 05/07/2024 8:44 AM CDT [facility] Estimated Average Glucose 120 mg/dL 05/07/2024 8:44 AM CDT [facility] Comment: HbA1c Interpretation: Normal : < 5.7% Pre-diabetes: 5.7-6.4% Diabetes: Equal to or greater than 6.5% Test results diagnostic of diabetes should be repeated for confirmation. Treatment target values recommended by ADA and other clinical organizations should be used to evaluate metabolic control in patients. Reference: [place] Diabetes Association, Standards of Care in Diabetes -2020 In patients 70 years and older consider HbA1c target range of 7.0-7.5% (Reference: Mario Banks et al. JASBIRDA. 2012) The Sebia assay for the measurement of HbA1c is a National Glycohemoglobin Standardization Program (NGSP) certified method. Blood BLOOD SPECIMEN WITH EDTA / Unknown Lab Venipuncture / Unknown 05/06/2024 3:46 PM CDT 05/06/2024 4:19 PM CDT Chiara Howard FISH PEDDLER-COMPLETION SUPERVISOR LAB - MARTHA ALICIA ORDERABLES [facility] [address] [place] [address], [facility] [phone] * (ABNORMAL) BASIC METABOLIC PANEL (CALCIUM TOTAL) (05/06/2024 3:46 PM CDT) BUN 14 7 - 26 mg/dL 05/06/2024 4:46 PM [facility] Creatinine 0.91 0.56 - 0.96 mg/dL 05/06/2024 4:46 PM [facility] Sodium 145 136 - 145 mmol/L 05/06/2024 4:46 PM [facility] Potassium 2.9(L) 3.5 - 4.5 mmol/L 05/06/2024 4:46 PM [facility] Chloride 106 98 - 107 mmol/L 05/06/2024 4:46 PM [facility] CO2 33(H) 22 - 29 mmol/L 05/06/2024 4:46 PM [facility] Glucose 90 70 - 115 mg/dL 05/06/2024 4:46 PM [facility] Calcium 8.6 8.4 - 10.2 mg/dL 05/06/2024 4:46 PM [facility] Anion Gap 6 6 - 16 05/06/2024 4:46 PM CDT [facility] BUN/Creatinine Ratio 15 7 - 23 05/06/2024 4:46 PM CDT [facility] Osmolality Calculated 300(H) 275 - 295 mOsm/kg 05/06/2024 4:46 PM CDT [facility] eGFR by CKD-EPI 69(L) >=90 mL/min/1.7 3 m2 05/06/2024 4:46 PM CDT [facility] Blood BLOOD SPECIMEN / Unknown Lab Venipuncture / Unknown 05/06/2024 3:46 PM CDT 05/06/2024 4:19 PM CDT Chiara Howard FISH PEDDLER-COMPLETION SUPERVISOR LAB - MARTHA ALICIA ORDERABLES [facility] [address] [place] [address], [facility] [phone] from Last 3 Months or Most Recently Relevant to Health Maintenance Advance Directives Documents on File Type Date Recorded Patient Wire Dropper Expl anation Adv Directive/Living Will/POA 10/25/2017 12:34 AM Advance Directives and Livin g Will 08/06/2016 12:00 AM * Full Code (Latest Code Status on File) Date Activated Date Inactivated Comments 02/19/2018 11:41 AM 02/20/2018 12:36 PM * Full Code Date Activated Date Inactivated Comments 10/22/2017 11:49 AM 10/23/2017 11:06 AM Care Teams Pipelines Laborer Relationship Specialty Start Date End Date Jeffery Hein MD [address] [place] [id number] PCP - General Family Medicine 04/10/23 Ann Braga, RN Registered Nurse 10/22/17
--- OUTSIDE RECORDS SUMMARY | 2024-10-29 10:59 | XMS_ITS ---
Author Organization [facility] Address [address] [place] [address] Care Team Providers Care Warehouse Foreman Name Role Phone Ann Braga RN Unavailable Unavailable Jeffery Hein MD Primary Care Provider [phone] Active Problems Problem Noted Date Diagnosed Date [...] Obesity 10/24/2016 Atherosclerotic heart diseas e of [place] coronary artery without angina pectoris 10/24/2016 Chest pain 10/23/2016 Abdominal aortic aneurysm without rupture 2015 Diverticulitis of large inte ayad without perforation or abscess without bleeding 08/07/2016 Essential (primary) hypertension 08/07/2016 Diverticulitis of intestine without perforation or abscess without bleeding 08/06/2016 Endometrial hyperplasia, complex Current Oncology Plans No current plan information found. Past Plans No past plan information found. Radiation Treatments * No radiation treatments are documented for this patient in [facility]. Treatments may have been administered in another system. Lifetime Dose Tracking * Chemical Lifetime Dose Automatic Entry Manual Entr y Dose Length Product 621 mGy-cm 621 mGy-cm 0 mGy-cm
--- OUTSIDE RECORDS SUMMARY | 2024-10-29 10:59 | XMS_ITS | Clinical Summary ---
Author Organization [facility] Address [address] [facility] [place] [address] Phone Care Team Providers Care Complaint Operator Name Role Phone MontserratDon ponce DPM Unavailable [phone] Gunjan Santiago Primary Care Provider [phone] Allergies No known active allergies Medications aspirin 81 MG Chewable Tablet Take by mouth. Active clopidogrel (PLAVIX) 75 MG Tablet Take by mouth. 10/06/2016 Active glipiZIDE (GLUCOTROL XL) 10 MG TABLET SR 24 HR Take by mouth. Active raNITIdine (ZANTAC) 300 MG Tablet 03/29/2017 Active sertraline (ZOLOFT) 100 MG Tablet 03/29/2017 Active atorvastatin (LIPITOR) 20 MG Tablet 04/13/2017 Active gabapentin (NEURONTIN) 300 MG Capsule 05/10/2017 Active Active Problems Problem Noted Date Diagnosed Date Diabetic polyneuropathy asso ciated with type 2 diabetes mellitus 05/22/2017 Immunizations Immunization Administration Dates Next Due Covid-19, Mrna, Lnp-s, Pf, 30 Mcg/0.3 Ml Dose (P fizer) 04/05/2021 Social History Tobacco Use Types Packs/Day Years Used Date Smoking Tobacco: Every Day E-Vapor with Nicotine Smokeless Tobacco: Current Alcohol Use Standard Drinks/Week Comments No 0 (1 standard drink = 0.6 oz pur e alcohol) Comments Unknown Sex and Gender Information Value Date Recorded Sex Assigned at Not on file Legal Sex Female 7:21 PM CDT Gender Identity Not on file Sexual Orientation Not on file Last Filed Vital Signs Vital Sign Reading Time Taken Comments Blood Pressure 140/86 05/22/2017 1:50 PM CDT Pulse 79 05/22/2017 1:50 PM CDT Temperature 36.4 C (97.5 F) 05/22/2017 1:50 PM CDT Respiratory Rate 16 05/22/2017 1:50 PM CDT Oxygen Saturation 98% 05/22/2017 1:50 PM CDT Inhaled Oxygen Concentration - - Weight 94.8 kg (209 lb) 05/22/2017 1:50 PM CDT Height 165.1 cm (5' 5 ) 05/22/2017 1:50 PM CDT Body Mass Index 34.78 05/22/2017 1:50 PM CDT Plan of Treatment Health Maintenance Due Date Last Done Comments DEXA Bone Density 1955 Diabetes: Eye Exam 1955 Diabetes: Foot Exam 1955 Diabetes: Hemoglobin A1c 1955 Hepatitis C Virus (HCV) Screening 1955 TdaP Immunization 1955 Diabetes: Nephropathy Screening 1973 Colonoscopy 2000 Colorectal Cancer Screening 2000 Cologuard 2005 Immunochemical Fecal Occult Blood 2005 Mammogram 2005 Zoster Immunization (1 of 2) 2005 Respiratory Syncytial Virus (RSV) Immunization (Adult) (1 - Risk 60-74 years 1-dose series) 2015 Pneumococcal Immunization (5 0+ years) (2 of 2 - PCV) 10/23/2017 10/23/2016 Influenza Immunization (#1) 04/27/202408/27, 05/10/2017, 10/23/2016 SARS-COV-2 Immunization (2 - season) 2024 04/05/2021 Pneumococcal Immunization Combined Discontinued 10/23/2016 Hepatitis B Immunization Aged Out No longer eligible based on patient's age to complete this topic Meningococcal Immunization (ACWY) Aged Out No longer eligible based on patient's age to complete this topic Rotavirus Immunization Aged Out No lo nger eligible based on patient's age to complete this topic Insurance MEDICAID [employer] Care Teams Complaint Operator Relationship Specialty Start Date End Date Gunjan Santiago PA [address] [address] PCP - General Adult Medicine 05/22/17 Don Mariano DPM Consulting Physician Podiatry 05/22/17
--- OUTSIDE RECORDS SUMMARY | 2024-10-29 10:59 | XMS_ITS | Encounter Summary ---
Author Organization [facility] Address [address] [place] [address] Care Team Providers Care Assistant Business Manager Name Role Phone Jeffery Hein MD Primary Care Provider [phone] Encounter Details Date Type Department Care Team (Late Contact Info) Description 10/29/2024 External Device Data [place] ABSTRACTION Provider, Abstract NO ADDRESS ON FILE Social History Tobacco Use Types Packs/Day Years Used Date Smoking Tobacco: Former Cigarettes 2 55 0 1955 - 08/27/2010 Alcohol Use Standard Drinks/Week Comments Never 0 (1 standard drink = 0.6 oz pur e alcohol) Comments Unknown Sex and Gender Information Value Date Recorded Sex Assigned at Not on file 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 Gender Identity Not on file Sexual Orientation Not on file documented as of this encounter Plan of Treatment Upcoming Encounters Date Type Department Care Team (Late Contact Info) Description 11/05/2024 4:30 PM CDT Telephone Check Up [facility] Oncology and Hematology - [address] [place] [address] Miky Sanchez MD [facility] [employer] [address] [place] [phone] 02/11/2025 1:15 PM CDT Office Visit [facility] Oncology and Hematology - [address] [place] [address] Miky Sanchez MD [facility] [employer] [address] [place] [phone] documented as of this encounter Visit Diagnoses Not on filedocumented in this encounter Care Teams Assistant Business Manager Relationship Specialty Start Date End Date Jeffery Hein MD [address] [place] [address] PCP - General Family Practice 09/11/23 documented as of this encounter
--- OUTSIDE RECORDS SUMMARY | 2024-10-29 10:59 | XMS_ITS | Clinical Summary ---
Author Organization [facility] Address [address] [place] [address] Care Team Providers Care Polarity Tester Name Role Phone Ann Braga RN Unavailable Unavailable Jeffery Hein MD Primary Care Provider [phone] Source Comments [facility],non-owned Affiliates and Associated Physician Practices is amultiple site organization consisting of ambulatory clinics and hospital sitesin [place], [place] and [place]. This disclosure is being madepursuant to the Care Everywhere program and may not contain all information available regarding this patient. Last updated 18.[facility] Allergies Active Allergy Reactions Criticality Noted Date [...] needle once daily 09/01/2020 Active nystatin (MYCOSTATIN) 235827 UNIT/GM powder APPLY TO AFFECTED AREA TWICE [...] mouth once daily 05/09/2024 Active HYDROcodone-aceta minophen ([place]) 5-325 MG tabletIndications :Varicose veins of bilateral [...] Obesity 10/24/2016 Atherosclerotic heart diseas e of [place] coronary artery without angina pectoris 10/24/2016 Chest pain 10/23/2016 Abdominal aortic aneurysm without rupture 2015 Diverticulitis of large inte ayad without perforation or abscess without bleeding 08/07/2016 Essential (primary) hypertension 08/07/2016 Diverticulitis of intestine without perforation or abscess without bleeding 08/06/2016 Endometrial hyperplasia, complex Immunizations Name Administration Dates Next Due FLU VACCINE TRI IIV3 SPLIT PF IM (FLUVIRIN) 09/28 PNEUMOCOCCAL PPSV23 10/23/2016 Family History Medical History Relation Name Comments COPD - Chronic Obstructive P ulmonary Disease Brother 1 Cancer Brother 2 CAD (Coronary Artery Disease) Father Status: Cancer - Colon Maternal Grandmother Alzheimer's Disease Mother Diabetes Mother Status: d COPD - Chronic Obstructive P ulmonary Disease Sister 1 Cancer - Breast Sister 2 Relation Name Status Comments Brother 1 Brother 2 Father Maternal Grandmother Mother Sister 1 Sister 2 Social History Tobacco Use Types Packs/Day [...] Mass Index 29.12 05/27/2024 2:06 PM CDT Plan of Treatment Health Maintenance Due Date Last Done Comments BONE DENSITY TESTING 1955 COLOGUARD (AGES 45-75) - COLON CA SCREENING 1955 COLON MONITORING 1955 COLONOSCOPY - COLON CA SCREENING 1955 CT COLONOGRAPHY - COLON CA SCREENING 1955 Colorectal Cancer Screening 1955 FIT - COLON CA SCREENING 1955 FLEX SIG - COLON CA SCREENING 1955 MAMMOGRAM 1955 HEPATITIS C SCREENING 07/30/1973 DTAP/TDAP/TD VACCINES (1 - Tdap) 1974 ZOSTER VACCINE (1 of 2) 2005 Respiratory Syncytial Virus (RSV) Vaccine Pt: or over 60 yrs (1 - Risk 60-74 years 1-dose series) 2015 PNEUMOCOCCAL VACCINE 50+ (2 of 2 - PCV) 10/23/2017 10/23/2016 DIABETES RETINOPATHY SCREENING 03/11/2019 DIABETES-FOOT EXAM WITH MONOFILAMENT 03/11/2019 COVID-19 VACCINE (2 - season) 2024 04/05/2021 INFLUENZA VACCINE (#1) 2024 10/23/2016 DEPRESSION SCREENING 08/27/2024 DIABETES - URINE PROTEIN SCREENING 08/27/2024 MEDICARE AWV CALENDAR YEAR 2024 DIABETES-HGB A1C 11/03/2024 05/06/2024, 08/06/2016 DIABETES-SERUM CREATININE 05/06/20252023, 05/23/2022, 10/23/2017, Additional history exists HEPATITIS B VACCINE Aged Out No longe r eligible based on patient's age to complete this topic HIB VACCINE Aged Out No longer eligi ble based on patient's age to complete this topic HPV VACCINE Aged Out No longer eligi ble based on patient's age to complete this topic MENINGOCOCCAL (Group B) VACCINE Aged Out No longer eligible based on patient's age to complete this topic MENINGOCOCCAL VACCINE Aged Out No krish daphney eligible based on patient's age to complete this topic Procedures Procedure Name Priority Date/Time Associated Diagnosis Comments BASIC METABOLIC PANEL (CALCIUM TOTAL) Routine 05/06/2024 3:46 PM CDT Pre-op evaluation HEMOGLOBIN A1C Routine 05/06/2024 3:46 PM CDT Pre-op evaluation from Last 3 Months or Most Recently Relevant to Health Maintenance Results * (ABNORMAL) HEMOGLOBIN A1C [IN-HOUSE TEST] (05/06/2024 3:46 PM CDT) Hemoglobin A1c 5.8(H) <=5.6 % 05/07/2024 8:44 AM T [facility] Estimated Average Glucose 120 mg/dL 05/07/2024 8:44 AM [facility] Comment: HbA1c Interpretation: Normal : < 5.7% Pre-diabetes: 5.7-6.4% Diabetes: Equal to or greater than 6.5% Test results diagnostic of diabetes should be repeated for confirmation. Treatment target values recommended by ADA and other clinical organizations should be used to evaluate metabolic control in patients. Reference: [place] Diabetes Association, Standards of Care in Diabetes [...] CDT 05/06/2024 4:19 PM CDT Chiara Howard SOIL EXPERT-DEPARTMENT HEAD LAB - MARTHA ALICIA ORDERABLES [facility] [address] [place] [address], [facility] [phone] * (ABNORMAL) BASIC METABOLIC PANEL (CALCIUM TOTAL) (05/06/2024 3:46 PM CDT) BUN 14 7 - 26 mg/dL 05/06/2024 4:46 PM [facility] Creatinine 0.91 0.56 - 0.96 mg/dL 05/06/2024 4:46 PM [facility] Sodium 145 136 - 145 mmol/L 05/06/2024 4:46 PM [facility] Potassium 2.9(L) 3.5 - 4.5 mmol/L 05/06/2024 4:46 PM [facility] Chloride 106 98 - 107 mmol/L 05/06/2024 4:46 PM [facility] CO2 33(H) 22 - 29 mmol/L 05/06/2024 4:46 PM [facility] Glucose 90 70 - 115 mg/dL 05/06/2024 4:46 PM [facility] Calcium 8.6 8.4 - 10.2 mg/dL 05/06/2024 4:46 PM [facility] Anion Gap 6 6 - 16 05/06/2024 4:46 PM [facility] BUN/Creatinine Ratio 15 7 - 23 05/06/2024 4:46 PM [facility] Osmolality Calculated 300(H) 275 - 295 mOsm/kg 05/06/2024 4:46 PM [facility] eGFR by CKD-EPI 69(L) >=90 mL/min/1.7 3 m2 05/06/2024 4:46 PM [facility] Blood BLOOD SPECIMEN / Unknown Lab Venipuncture / Unknown 05/06/2024 3:46 PM CDT 05/06/2024 4:19 PM CDT Chiara Howard SOIL EXPERT-DEPARTMENT HEAD LAB - MARTHA ALICIA ORDERABLES [facility] [address] [place] [address], [facility] [phone] from Last 3 Months or Most Recently Relevant to Health Maintenance Advance Directives Documents on File Type Date Recorded Patient Inspector Golf Ball Expl anation Adv Directive/Living Will/POA 10/25/2017 12:34 AM Advance Directives and Livin g Will 08/06/2016 12:00 AM * Full Code (Latest Code Status on File) Date Activated Date Inactivated Comments 02/19/2018 11:41 AM 02/20/2018 12:36 PM * Full Code Date Activated Date Inactivated Comments 10/22/2017 11:49 AM 10/23/2017 11:06 AM Care Teams Polarity Tester Relationship Specialty Start Date End Date Jeffery Hein MD [address] [place] [address] PCP - General Family Medicine 04/10/23 Ann Braga, RN Registered Nurse 10/22/17
== END 2024-10-29 09:57 | disposition home or self-care (01) ==
PROVIDERS: PCP Family Medicine; Visit Provider Internal Medicine Hematology & Oncology
DX: Z12.2 Encounter for screening for malignant neoplasm of respiratory organs (principal); Z87.891 Personal history of nicotine dependence
CPT/HCPCS: 71271

== ENCOUNTER 2025-03-06 13:35 | Emergency (ER) | payer OTHER, SELFPAY ==
--- NOTE | ~2025-03-06 | XR_ITS ---
EXAM/PROCEDURE: XR chest 2V - 03/06/2025 14:28 CDT HISTORY: 69 years old Female with chest pain, DIZZY, WEAKNESS TECHNIQUE: Two view(s) of the chest. COMPARISON: None available. FINDINGS: LUNGS/ PLEURA: No focal consolidation. No appreciable pneumothorax or large pleural effusion. HEART/ MEDIASTINUM: Cardiomediastinal silhouette is unchanged. Findings of prior median sternotomy ar e noted. BONES: Degenerative changes. OTHER: Visualized upper abdomen is unremarkable. IMPRESSION: Cardiomegaly. No acute process. Reviewed, dictated and finalized at location A.
--- NOTE | 2025-03-06 13:36 | ECG_ITS ---
Test Date: 2025-03-06 13:49:57 Measurements Intervals [place] Rate: 56 P: 18 AR: 170 QRS: -5 QRSD: 82 T: 89 QT: 403 QTc: 392 Interpretive Statements SINUS BRADYCARDIA WITH OCCASIONAL SUPRAVENTRICULAR PREMATURE COMPLEXES MODERATE VOLTAGE CRITERIA FOR LVH, CONSIDER NORMAL VARIANT [MEETS CRITERIA IN ONE OF: R(aVL), S(V1), R(V5), R(V5/V6)+S(V1)] NONSPECIFIC ST & T-WAVE ABNORMALITY Electronically Signed On 03-06-2025 22:33:29 CDT by Brissa Tian M.D.
--- OUTSIDE RECORDS SUMMARY | 2025-03-06 13:38 | XMS_ITS | Clinical Summary ---
Author Organization [facility] Address [address] [place] [address] Care Team Providers Care Needle Maker Name Role Phone Ann Braga RN Unavailable Unavailable Jeffery Hein MD Primary Care Provider [phone] Source Comments [facility],non-owned Affiliates and Associated Physician Practices is amultiple site organization consisting of ambulatory clinics and hospital sitesin [place], [place], [place] and [place]. This disclosure is being madepursuant to the Care Everywhere program and may not contain all information available regarding this patient. Last updated 18.[facility] Allergies Active Allergy Reactions Criticality Noted Date Comments Adhesive Sensitivity Rash Medium 10/16/2017 Paper tape, transpore tape and tegaderm ok to use Codeine Other Low Reaction: SLEEPY, , Reaction: SLEEPY, , Reaction: SLEEPY, Medications * Be aware that medications may not be up to date on this document. Alwaysverify current medications with the patient. losartan (COZAAR) 100 MG tablet Take 1 (one) tablet by mouth Active sertraline (ZOLOFT) 100 MG tablet Take 1 (one) tablet by mouth once daily 03/29/20 17 Active glipiZIDE CR 24hr (GLUCOTROL XL) 10 MG tablet Take 1 (one) tablet by mouth DAILY 12/12/19 17 Active clopidogrel (PLAVIX) 75 MG tablet Take 1 (one) tablet by mouth DAILY 30 tablet 11 10/06/19 17 Active carvedilol (COREG) 12.5 MG tablet Take 0.5 (one-half) tablet by mouth once daily Active furosemide (LASIX) 40 MG tablet Take 1 (one) tablet by mouth every 2 days Active ezetimibe (ZETIA) 10 MG tablet Take 1 (one) tablet by mouth once daily 02/10/20 20 Active omeprazole (PRILOSEC) 20 MG capsule Take 1 (one) capsule by mouth once daily 09/01/19 21 Active UNIFINE PENTIPS 31G X 8 MM needle once daily 09/01/19 21 Active nystatin (MYCOSTATIN) 402233 UNIT/GM powder APPLY TO AFFECTED AREA TWICE A DAY 09/16/19 21 Active rosuvastatin (CRESTOR) 20 MG tablet Take 1 (one) tablet by mouth once daily 09/01/19 21 Active semaglutide (OZEMPIC, 0.25 OR 0.5 MG/DOSE,) 2 MG/1.5ML pen Inject 0.25 (one-quarter) mg subcutaneously every 7 days Active omeprazole (PRILOSEC) 40 MG capsule TAKE 1 CAPSULE BY MOUTH EVERY DAY BEFORE A MEAL 12/23/19 21 Active methenamine hippurate (HIPREX) 1 GM tablet Take 1 (one) tablet by mouth 2 times daily 60 tablet 11 05/30/20 Active Additional Information Patient not taking.Reported on 05/27/2024 ascorbic acid (VITAMIN C) 500 MG tabletIndicatio ns:Frequent UTI Take 1 (one) tablet by mouth 2 times daily 60 tablet 11 05/30/20 Active Additional Information Patient not taking.Reported on 05/27/2024 doxycycline hyclate (Vibramycin) 100 MG capsule Take 1 (one) capsule by mouth every 12 hours Active cyanocobalamin (Vitamin B-12) injection Inject 1,000 (one thousand) mcg into muscle every 14 days 12/31/19 24 Active Farxiga 10 MG tablet Farxiga 10 mg tablet 12/11/19 24 Active nitroGLYCERIN (Nitrostat) 0.4 MG tablet nitroglycerin 0.4 mg tablet, sublingual 01/24/20 23 Active potassium chloride ER (Klor-Con M) 20 MEQ tablet Take 2 (two) tablets by mouth 2 times daily Active pravastatin (Pravachol) 40 MG tablet pravastatin 40 mg tablet 02/29/20 23 Active aspirin (Aspirin) 81 MG chew tablet Take 1 (one) tablet by mouth once daily 05/09/20 24 Active HYDROcodone-yonathan taminophen (Bethany) 5-325 MG tabletIndicatio ns:Varicose veins of bilateral lower extremities with pain TAKE ONE TABLET BY MOUTH EVERY 6 HOURS NEEDED FOR PAIN 5 tablet 05/13/20 24 Active Active Problems Problem Noted Date Diagnosed [...] Obesity 10/24/2016 Atherosclerotic heart diseas e of [place] coronary artery without angina pectoris 10/24/2016 Chest pain 10/23/2016 Abdominal aortic aneurysm without rupture 2015 Diverticulitis of large inte ayad without perforation or abscess without bleeding 08/07/2016 Essential (primary) hypertension 08/07/2016 Diverticulitis of intestine without perforation or abscess without bleeding 08/06/2016 Endometrial hyperplasia, complex Immunizations Immunization Administration Dates Next Due FLU VACCINE TRI [...] more drinks on one occasion? 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 Gender Identity Not on file Sexual Orientation [...] 2:06 PM CDT Height 165.1 cm (5' 5) 05/27/2024 2:06 PM CDT Body Mass Index [...] - COLON CA SCREENING 1955 MAMMOGRAM 1955 MEDICARE AWV 12 MONTHS 1955 HEPATITIS C SCREENING 07/30/1973 DTAP/TDAP/TD VACCINES (1 - Tdap) 1974 ZOSTER VACCINE (1 of 2) 2005 Respiratory Syncytial Virus (RSV) Vaccine Pt: or over 60 yrs (1 - Risk 60-74 years 1-dose series) 2015 PNEUMOCOCCAL VACCINE 50+ (2 of 2 - PCV) 10/23/2017 10/23/2016 DIABETES RETINOPATHY SCREENING 03/11/2019 DIABETES-FOOT EXAM WITH MONOFILAMENT 03/11/2019 COVID-19 VACCINE ( season) 2024 04/05/2021 DEPRESSION SCREENING 08/27/2024 DIABETES - URINE PROTEIN SCREENING 08/27/2024 DIABETES-HGB A1C 11/03/2024 05/06/2024, 08/06/2016 INFLUENZA VACCINE (Season Ended) 2025 10/23/2016 DIABETES-SERUM CREATININE 05/06/20252023, 05/23/2022, 10/23/2017, Additional history exists HEPATITIS B VACCINE Aged Out No longe r eligible based on patient's age to complete this topic HIB VACCINE Aged Out No longer eligi ble based on patient's age to complete this topic HPV VACCINE Aged Out No longer eligi ble based on patient's age to complete this topic MENINGOCOCCAL (Group B) VACCINE SHARED DECISION-MAKING Aged Out No longer eligible based on patient's age to complete this topic MENINGOCOCCAL GROUPS A/C/Y/W VACCINE Aged Out No longer eligible based [...] 5.8(H) <=5.6 % 05/07/2024 8:44 AM CDT [facility] Estimated Average Glucose 120 mg/dL 05/07/2024 8:44 AM T [facility] Comment: HbA1c Interpretation: Normal : < 5.7% Pre-diabetes: 5.7-6.4% Diabetes: Equal to or greater than 6.5% Test results diagnostic of diabetes should be repeated for confirmation. Treatment target values recommended by ADA and other clinical organizations should be used to evaluate metabolic control in patients. Reference: [place] Diabetes Association, Standards of Care in Diabetes -2020 In patients 70 years and older consider HbA1c target range of 7.0-7.5% (Reference: Mario Banks et al. TOLU. 2012) The Sebia assay for the measurement of HbA1c is a National Glycohemoglobin Standardization Program (NGSP) certified method. Blood BLOOD SPECIMEN WITH EDTA / Unknown Lab Venipuncture / Unknown 05/06/2024 3:46 PM CDT 05/06/2024 4:19 PM CDT Chiara Howard BROWNFIELD PROGRAM COORDINATOR-[facility] - CHEMISTRY O RDERABLES Final Result [facility] [address] [place] [address], [facility] [phone] * (ABNORMAL) BASIC METABOLIC PANEL (CALCIUM TOTAL) (05/06/2024 3:46 PM CDT) BUN 14 7 - 26 mg/dL 05/06/2024 4:46 PM [facility] Creatinine 0.91 0.56 - 0.96 mg/dL 05/06/2024 4:46 PM [facility] Sodium 145 136 - 145 mmol/L 05/06/2024 4:46 PM [facility] Potassium 2.9(L) 3.5 - 4.5 mmol/L 05/06/2024 4:46 PM [facility] Chloride 106 98 - 107 mmol/L 05/06/2024 4:46 PM [facility] CO2 33(H) 22 - 29 mmol/L 05/06/2024 4:46 PM [facility] Glucose 90 70 - 115 mg/dL 05/06/2024 4:46 PM [facility] Calcium 8.6 8.4 - 10.2 mg/dL 05/06/2024 4:46 PM [facility] Anion Gap 6 6 - 16 05/06/2024 4:46 PM [facility] BUN/Creatinine Ratio 15 7 - 23 05/06/2024 4:46 PM [facility] Osmolality Calculated 300(H) 275 - 295 mOsm/kg 05/06/2024 4:46 PM [facility] eGFR by CKD-EPI 69(L) >=90 mL/min/1.7 3 m2 05/06/2024 4:46 PM CDT [facility] Blood BLOOD SPECIMEN / Unknown Lab Venipuncture / Unknown 05/06/2024 3:46 PM CDT 05/06/2024 4:19 PM CDT Chiara Howard BROWNFIELD PROGRAM COORDINATOR-[facility] - CHEMISTRY O RDERABLES Final Result Performing Organization Address City/[facility]/ZIP Co de Phone Number [facility] [address] [place] [address], [facility] [phone] from Last 3 Months or Most Recently Relevant to Health Maintenance Insurance SELF PAY NO INSURANCE Member Subscriber Plan / Payer (Ef fective for All Dates) Name:Luis Rubio Member ID:Not on file Relation to Subscriber:Self Name:LUIS RUBIO Subscriber ID:Not on file Payer ID:Not on file Group ID:Not on file Type:Self Pay Address: [place], [place] [employer] MEDICAID - OUT OF STATE [place] Advance Directives Documents on File Type Date Recorded Patient Armature Bander Expl anation Adv Directive/Living Will/POA 10/25/2017 12:34 AM Advance Directives and Livin g Will 08/06/2016 12:00 AM * Full Code (Latest Code Status on File) Date Activated Date Inactivated Comments 02/19/2018 11:41 AM 02/20/2018 12:36 PM * Full Code Date Activated Date Inactivated Comments 10/22/2017 11:49 AM 10/23/2017 11:06 AM Care Teams Needle Maker Relationship Specialty Start Date End Date Jeffery Hein MD [address] [place] [address] PCP - General Family Medicine 04/10/23 Ann Braga, RN Registered Nurse 10/22/17
--- OUTSIDE RECORDS SUMMARY | 2025-03-06 13:38 | XMS_ITS | Clinical Summary ---
Author Organization [facility] Jacquestroy shemar Phan Address [address] [place] [address] Care Team Providers Care Signal Maintainer Helper Name Role Phone Jeffery Hein MD Primary Care Provider [phone] Allergies No known active allergies Medications aspirin [...] mEq by mouth 2 times daily. Active cyanocobalamin (VITAMIN B-12) 1,000 mcg/mL Solution Inject 1 mL (1,000 mcg) by intramuscular injection every 2 weeks. 8 mL 03/04/20 25 Active Syringe with Needle, Disp, 1 mL 27 x 1/2 Syringe Inject 1 mL every 2 weeks for 8 weeks. 8 Each 03/04/20 25 Active Syringe with Needle, Disp, 1 mL 27 x 1/2 Syringe Inject 1 mL every 2 weeks for 8 weeks. 8 Each 10/22/19 25 025 Discontin ued(Reord er) cyanocobalamin (VITAMIN B-12) 1,000 mcg/mL Solution Inject 1 mL (1,000 mcg) by intramuscular injection every 2 weeks. 8 mL 10/22/19 25 025 Discontin ued(Reord er) Active Problems No known active problems Encounters Date Type Department Care Team Description 03/04/2025 Refill [facility] Oncology and Hematology [facility] [address] [place] [address] Miky Sanchez MD 02/10/2025 Telephone [facility] Oncology and Hematology - Bar [address] [place] [address] Miky Sanchez MD Lab work not done 01/15/2025 External Device Data ST[facility] ABSTRACTION Provider, Abstract 01/14/2025 External Device Data [facility] ABSTRACTION Provider, Abstract from Last 3 Months Family History Medical [...] on file Legal Sex Female 2:19 PM CELL OPERATOR Gender Identity Not on file Sexual Orientation Not on file Last Filed Vital Signs Vital Sign Reading Time Taken Comments Blood Pressure 155/91 10/22/2024 1:57 PM CELL OPERATOR Pulse 52 10/22/2024 1:55 PM CELL OPERATOR Temperature 36.4 C (97.6 F) 10/22/2024 1:55 PM CELL OPERATOR Respiratory Rate 15 10/22/2024 1:55 PM CELL OPERATOR Oxygen Saturation 91% 10/22/2024 1:55 PM CELL OPERATOR Inhaled Oxygen Concentration - - Weight 79.7 kg (175 lb 12.8 oz) 10/22/2024 1:55 PM CELL OPERATOR Height 165.1 cm (5' 5) 09/11/2023 10:5 0 AM CELL OPERATOR Body Mass Index 29.25 09/11/2023 10:50 AM CELL OPERATOR Plan of Treatment Upcoming Encounters Date Type Department Care Team (Late st Contact Info) Description 06/10/2025 2:45 PM CDT Office Visit [facility] Oncology and Hematology [facility] [address] [place] [address] Miky Sanchez MD [address] [facility] [address] [place] [address] Health Maintenance Due Date Last Done Comments [...] PCV) 10/23/19 18 10/23/2016 OSTEOPOROSIS SCREENING 2020 COVID-19 Vaccine (2 - season) 04/27/202405/2021 DIABETES HBA1C Q 6 MONTHS 11/03/2024 05/06/2024 INFLUENZA VACCINE (#1) 2025 10/23/2016 RSV VACCINE (60+ or ) (1 - 1-dose 75+ series) 2030 DTAP/TDAP/TD VACCINES (2 - Td or Tdap) 02/12/2032 Insurance [facility] MEDICAID [place] Care Teams Signal Maintainer Helper Relationship Specialty Start Date End Date Jeffery Hein MD [address] [place] [address] PCP - General Family Practice 09/11/23
--- OUTSIDE RECORDS SUMMARY | 2025-03-06 13:38 | XMS_ITS | Clinical Summary ---
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
--- OUTSIDE RECORDS SUMMARY | 2025-03-06 13:38 | XMS_ITS ---
Author Organization [facility] Address [address] [place] [address] Care Team Providers Care Machinery Engineer Name Role Phone Ann Braga RN Unavailable Unavailable Jeffery Hein MD Primary Care Provider [phone] Active Problems Problem Noted Date Diagnosed Date [...] Obesity 10/24/2016 Atherosclerotic heart diseas e of [place] coronary artery without angina pectoris 10/24/2016 Chest pain 10/23/2016 Abdominal aortic aneurysm without rupture 2015 Diverticulitis of large inte ayad without perforation or abscess without bleeding 08/07/2016 Essential (primary) hypertension 08/07/2016 Diverticulitis of intestine without perforation or abscess without bleeding 08/06/2016 Endometrial hyperplasia, complex Current Treatment and Therapy Plans No current plan information found. Past Treatment and Therapy Plans No past plan information found. Lifetime Dose Tracking * Chemical Lifetime Dose Automatic Entry Manual Entr y Dose Length Product 621 mGy-cm 621 mGy-cm 0 mGy-cm
--- OUTSIDE RECORDS SUMMARY | 2025-03-06 13:38 | XMS_ITS | Clinical Summary ---
Author Organization [facility] Address [address] [facility] [place] [address] Phone Care Team Providers Care Precision Machining Instructor Name Role Phone MontserratDon ponce DPM Unavailable [phone] Gunjan Santiago Primary Care Provider [phone] Allergies No known active allergies Medications aspirin [...] 1:50 PM CDT Height 165.1 cm (5' 5) 05/22/2017 1:50 PM CDT Body Mass Index 34.78 05/22/2017 1:50 PM CDT Plan of Treatment Health Maintenance Due Date Last Done Comments Diabetes: Eye Exam 1955 Diabetes: Foot Exam 1955 Diabetes: Hemoglobin A1c 1955 Hepatitis C Virus (HCV) Screening 1955 TdaP Immunization 1955 Diabetes: Nephropathy Screening 1973 Cologuard 2000 Colonoscopy 2000 Colorectal Cancer Screening 2000 Immunochemical Fecal Occult Blood 2000 Zoster Immunization (1 of 2) 2005 Respiratory Syncytial Virus (RSV) Immunization (Adult) (1 - Risk 60-74 years 1-dose series) 2015 Pneumococcal Immunization (5 0+ years) (2 of 2 - PCV) 10/23/2017 10/23/2016 SARS-COV-2 Immunization (2 - season) 2024 04/05/2021 Influenza Immunization (#1) 04/27/202508/27, 05/10/2017, 10/23/2016 Pneumococcal Immunization Combined Discontinued 10/23/2016 Hepatitis B Immunization Aged Out No longer eligible based on patient's age to complete this topic Human Papillomavirus (HPV) Immunization Aged Out No longer eligible based on patient's age to complete this topic Meningococcal Immunization (ACWY) Aged Out No longer eligible based on patient's age to complete this topic Rotavirus Immunization Aged Out No lo nger eligible based on patient's age to complete this topic Insurance MEDICAID [employer] Care Teams Precision Machining Instructor Relationship Specialty Start Date End Date Gunjan Santiago PA [address] [address] PCP - General Adult Medicine 05/22/17 Don Mariano DPM Consulting Physician Podiatry 05/22/17
--- OUTSIDE RECORDS SUMMARY | 2025-03-06 13:38 | XMS_ITS | Referral Summary ---
Author Organization [facility] [address] [facility] Address [address] [place] [address] Care Team Providers Care Director Of Casework Department Name Role Phone No, Physician Primary Care Provider [phone] Allergies Active Allergy Reactions Criticality Noted Date [...] (AAA) 09/25/2017 Coronary artery disease invo lving [place] coronary artery of [place] heart without angina pectoris 09/25/2017 Essential hypertension [...] on file Legal Sex Female 8:01 PM CONSULTING IT ARCHITECT Gender Identity Not on file Sexual Orientation [...] 10:39 AM CDT Height 165.1 cm (5' 5) 02/11/2022 10:39 AM CDT Body Mass Index 34.11 02/11/2022 10:39 AM CDT Plan of Treatment Not on file Procedures Procedure Name Priority Date/Time Associated Diagnosis Comments POCT LIPID PANEL Routine 09/25/2017 3:10 PM CONSULTING IT ARCHITECT Lipid screening from Last 3 Months or Most Recently Relevant to Health Maintenance Results * POCT lipid panel (09/25/2017 3:10 PM CONSULTING IT ARCHITECT) Cholesterol, POC 204 mg/dL HDL, POC 52 mg/dL Triglycerides, POC 214 mg/dL LDL Cholesterol POC 110 mg/dL Chol/HDL Ratio, POC 3.9 Non-HDL Cholesterol, POC 153 mg/dL Cholesterol Total, POC 204 mg/dL Blood specimen (specimen) 09/25/2017 3:10 PM CONSULTING IT ARCHITECT Eliseo Morales MD POINT OF CARE TEST ORDER INDIRA Final Result from Last 3 Months or Most Recently Relevant to Health Maintenance Insurance [facility] Care Teams Director Of Casework Department Relationship Specialty Start Date End Date No, Physician PCP - General 09/25/17
--- OUTSIDE RECORDS SUMMARY | 2025-03-06 13:38 | XMS_ITS | Clinical Summary ---
Author Organization [facility] [address] [facility] [address] Address [address] [place] [address] Care Team Providers Care Fire Alarm Mechanic Name Role Phone No, Physician Primary Care Provider [phone] Allergies Active Allergy Reactions Criticality Noted Date [...] (AAA) 09/25/2017 Coronary artery disease invo lving [place] coronary artery of [place] heart without angina pectoris 09/25/2017 Essential hypertension [...] on file Legal Sex Female 8:01 PM HOUSING LIAISON Gender Identity Not on file Sexual Orientation [...] 2023-2 5 season) 2024 04/05/2021 Influenza Vaccine (Season Ended) 2025 09/09/2018, 05/10/2017, 10/23/2016, Additional history exists DTaP/Tdap/Td Vaccine (2 - Td or Tdap) 02/12/2032 02/11/2022 Procedures Procedure Name Priority Date/Time Associated Diagnosis Comments POCT LIPID PANEL Routine 09/25/2017 3:10 PM HOUSING LIAISON Lipid screening from Last 3 Months or Most Recently Relevant to Health Maintenance Results * POCT lipid panel (09/25/2017 3:10 PM HOUSING LIAISON) Cholesterol, POC 204 mg/dL HDL, POC 52 mg/dL Triglycerides, POC 214 mg/dL LDL Cholesterol POC 110 mg/dL Chol/HDL Ratio, POC 3.9 Non-HDL Cholesterol, POC 153 mg/dL Cholesterol Total, POC 204 mg/dL Blood specimen (specimen) 09/25/2017 3:10 PM HOUSING LIAISON Eliseo Morales MD POINT OF CARE TEST ORDER INDIRA Final Result from Last 3 Months or Most Recently Relevant to Health Maintenance Insurance [employer] [place] [address] [place] [address] HEALTHCARE Member Subscriber Plan / Payer (Ef fective 2020-Present) Name:Luis Rubio Relation to Subscriber:Self Name:Luis Rubio Payer ID:[id number] (NAIC) Type:MEDICARE RISK OTHER Address: [place] [phone] Care Teams Fire Alarm Mechanic Relationship Specialty Start Date End Date No, Physician PCP - General 09/25/17
[2025-03-06 13:43] VITALS: BP 123/75; PULSE 55; RESP 16; TEMP 36.4; O2SAT 100
--- NOTE | 2025-03-06 13:46 | ED_ITS ---
HPI - Chest Pain General Chief Complaint: Chest Pain <Nita Mackenzie PA-C - Last Filed: 03/06/25 13:48> Stated Complaint: dizziness, chest pain, dyspnea <Nita Mackenzie PA-C - Last Filed: 03/06/25 13:48> Time Seen by Provider: 03/06/25 14:25 <Nita Mackenzie PA-C - Last Filed: 03/06/25 13:48> Focused HPI: 69-year-old female with history of hypertension, hyperlipidemia, CAD, s/p CABG 15 years ago at [facility], multiple reported cardiac stents presents to the emergency department for chest tightness for the past few days and dizziness and nausea for the past hour. Patient reports diffuse chest tightness throughout her chest that radiates to her left shoulder for the past couple of days. She cannot identify any aggravating or alleviating factors. 1 hour ago she was doing someone tear when she began to feel lightheaded like she was going to pass out, nauseous and short of breath which prompted her to come to the ER. She denies cough, congestion, lower extremity edema, abdominal pain, fever. Her global project manager is Dr. Ordoñez at [facility]. GENERAL: Well-appearing, well-nourished, and in no acute distress. HEAD: Normocephalic, atraumatic. CHEST: Clear to auscultation. ?No respiratory distress. HEART: Regular rate and rhythm.? NEURO: ?Alert and oriented x3. Patient screened in triage and initial orders placed.? ?Additional care and disposition to be based upon?diagnostic testing and treatment. <Nita Mackenzie PA-C - Last Filed: 03/06/25 13:48> History of Present Illness HPI narrative: Agree with HPI. Intermittent dizziness over last few days but worse today. Concerned may be related to her heart. Has some tightness and nausea and clamminess when she is dizzy. <Spencer Morse MD - Last Filed: 03/06/25 17:23> Related Data Home Medications: Home Medications ?Medication ?Instructions ?Recorded ?Confirmed ?Last Taken ?Type losartan 100 mg tablet (Cozaar) 100 mg PO DAILY 08/29/21 09/08/24 06/23/24 History carvedilol 6.25 mg tablet 6.25 mg PO BID 09/12/21 09/08/24 06/23/24 History ezetimibe 10 mg tablet 10 mg PO DAILY 09/21/21 09/08/24 06/23/24 History aspirin 81 mg tablet,delayed 81 mg PO DAILY 06/16/24 09/08/24 06/22/24 History release empagliflozin 10 mg tablet 10 mg PO DAILY 09/08/24 09/08/24 Unknown History (Jardiance) cyanocobalamin (vitamin B-12) 1,000 mcg IM .Q2W 11/19/24 Unknown History 1,000 mcg/mL injection solution <Nita Mackenzie PA-C - Last Filed: 03/06/25 13:48> Allergies/Adverse Reactions: Allergies Allergy/AdvReac Type Severity Reaction Status Date / Time latex AdvReac Redness of Verified 11/19/24 13:07 Skin <Nita Mackenzie PA-C - Last Filed: 03/06/25 13:48> Review of Systems 2 Review of Systems: All systems reviewed & are unremarkable except as noted in HPI and below <Spencer Morse MD - Last Filed: 03/06/25 17:23> Constitutional: Constitutional: Reports no additional constitutional complaints <Spencer Morse MD - Last Filed: 03/06/25 17:23> ENT: Reports system reviewed and no additional complaints, except as documented <Spencer Morse MD - Last Filed: 03/06/25 17:23> Cardiovascular: Cardiovascular: Reports no additional cardiovascular complaints <Spencer Morse MD - Last Filed: 03/06/25 17:23> Respiratory: Respiratory: Reports no additional respiratory complaints < Spencer Morse MD - Last Filed: 03/06/25 17:23> Integumentary/Breasts: Skin/Breast: Reports system reviewed and no additional complaints, except as docu <Spencer Morse MD - Last Filed: 03/06/25 17:23> Neurologic: Reports system reviewed and no additional complaints, except as documented <Spencer Morse MD - Last Filed: 03/06/25 17:23> [facility] Past Medical History Medical History: Medical History Family hx of colon cancer Tobacco abuse Gas bloat syndrome Regurgitation of food Hx of pyloric stenosis Hx of diverticulitis of colon Nausea GERD (gastroesophageal reflux disease) LLQ abdominal pain Suprapubic abdominal pain Incisional hernia Osteoarthritis of right knee CAD (coronary artery disease) HLD (hyperlipidemia) HTN (hypertension) Neuropathy Plantar wart, left foot IDDM (insulin dependent diabetes mellitus) <Nita Mackenzie PA-C - Last Filed: 03/06/25 13:48> Surgical History Surgical History: Surgical History History of cardiac catheterization (~2010) H/O heart artery stent (~2014) H/O bilateral cataract extraction (~2014) H/O: hysterectomy (~2014) History of abdominal aortic aneurysm (AAA) repair (~2014) Hx of CABG (~2010) <JUAN Jimenes Last Filed: 03/06/25 13:48> Family History Family History: Family History Father Heart disease Mother Diabetes mellitus Heart disease Depression Other Anxiety Cancer Hypertension <JUAN Jimenes Last Filed: 03/06/25 13:48> Social History Social History: Social History Smoking status: Current every day smoker Tobacco type: e-cigarettes/vaping Second hand tobacco smoke exposure: Yes Additional smoking assessment comments: 1 pod/cartridge per week Alcohol intake: never Substance use: never Substance use type: does not use Do You Feel Safe in your Home?: Yes Lack of Transportation: No Lack of Food: Never True Current Housing: I Have Housing Concerned About Future Housing: No Difficulty Paying Gas/Electric Bills: No Difficulty Paying for Meds: No Currently Unemployed: No Education: Trade/Vocational Certificate Difficulty w/ Childcare or Family Care: No Living arrangements: with friend(s) Gender identity (if verbalized by the patient): Female Spiritual care concerns: No <JUAN Jimenes Last Filed: 03/06/25 13:48> Exam 2 Narrative: GENERAL: Well-appearing, well-nourished, and in no acute distress. HEAD: Normocephalic, atraumatic. EYES: PERRL and EOMI. ENT: Mucous membranes moist. TMs normal bilaterally. CHEST: Clear to auscultation. No respiratory distress. HEART: Regular rate and rhythm. Normal peripheral pulses. ABDOMEN: Soft, nontender, nondistended. EXTREMITIES: Normal range of motion. No edema. SKIN: Warm, dry, no rash. NEURO: Alert and oriented x3. PSYCH: Normal mood and affect. <Spencer Morse MD - Last Filed: 03/06/25 17:23> Course Course Emergency Course: Patient resting comfortably. Informed of results. Feels markedly improved after meclizine. Troponin is negative x2. No chest pain here. Discharge. <Spencer Morse MD - Last Filed: 03/06/25 17:23> Vital Signs Vital signs: Vital Signs Temperature 97.6 F 03/06/25 13:43 Pulse Rate 55 L 03/06/25 13:43 Respiratory Rate 16 03/06/25 13:43 Blood Pressure 123/75 03/06/25 13:43 Pulse Oximetry 100 03/06/25 13:43 Oxygen Delivery Room Air 03/06/25 13:43 Temperature 97.6 F 03/06/25 13:43 Pulse Rate 55 L 03/06/25 13:43 Respiratory Rate 16 03/06/25 13:43 Blood Pressure 123/75 03/06/25 13:43 Pulse Oximetry 100 03/06/25 13:43 Oxygen Delivery Room Air 03/06/25 13:43 <Nita Mackenzie PA-C - Last Filed: 03/06/25 13:48> Vital Signs Temperature 97.6 F 03/06/25 13:43 Pulse Rate 55 L 03/06/25 13:43 Respiratory Rate 16 03/06/25 13:43 Blood Pressure 123/75 03/06/25 13:43 Pulse Oximetry 100 03/06/25 13:43 Oxygen Delivery Room Air 03/06/25 13:43 Temperature 97.6 F 03/06/25 13:43 Pulse Rate 55 L 03/06/25 13:43 Respiratory Rate 16 03/06/25 13:43 Blood Pressure 123/75 03/06/25 13:43 Pulse Oximetry 100 03/06/25 13:43 Oxygen Delivery Room Air 03/06/25 13:43 <Spencer Morse MD - Last Filed: 03/06/25 17:23> MDM - Chest Pain Lab Data Result diagrams: 03/06/25 13:42 03/06/25 13:42 <Nita Mackenzie PA-C - Last Filed: 03/06/25 13:48> Labs: Lab Results 03/06/25 03/06/25 Range/Units 13:42 16:28 WBC 6.1 (4.5-10.0) K/mm3 RBC 4.51 (4.2-5.4) M/mm3 Hgb 13.1 (12.0-15.0) g/dL Hct 41.5 (37.0-47.0) % MCV 92.0 (80-100) fl MCH 29.0 (26-34) pg MCHC 31.6 L (32-36) g/dl RDW 12.9 (11.5-14.5) % Plt Count 150 (150-375) k/mm3 MPV 10.0 (7.4-10.4) fl Immature Gran % (Auto) 0.3 (0-0.5) % Neut % (Auto) 69.4 (45.5-73.1) % Lymph % (Auto) 23.1 (18.3-44.2) % [place] % (Auto) 5.7 (2.6-8.5) % Eos % (Auto) 1.0 (0-4.4) % Baso % (Auto) 0.5 (0.2-1.2) % Lymph # (Auto) 1.42 (0.9-3.2) K/mm3 [place] # (Auto) 0.4 (0.1-0.6) K/mm3 Eos # (Auto) 0.1 (0-0.3) K/mm3 Baso # (Auto) 0.0 (0.0-0.1) K/mm3 Abs Immat Gran (auto) 0.02 (0.00-0.031) K/mm3 Absolute Neuts (auto) 4.3 (1.3-6.7) K/mm3 Absolute Nucleated RBC 0.000 (0.0-0.012) K/mm3 Nucleated RBC % 0.0 (0.0-0.2) % PT 13.4 (11.1-14.7) Seconds INR 1.0 APTT 28.4 (22.3-36.8) Seconds Sodium 140 (137-145) mmol/L Potassium 3.7 (3.4-5.0) mmol/L Chloride 104 (98-107) mmol/L Carbon Dioxide 28 (22-30) mmol/L Anion Gap 8 (4-12) mmol/L BUN 16 (7-17) mg/dL Creatinine 0.95 (0.7-1.0) mg/dL Estim Creat Clear Calc 51 ml/min Estimated GFR 58 L (59 - ) Glucose 106 (65-110) mg/dL Calcium 9.0 (8.4-10.2) mg/dL Total Bilirubin 0.6 (0.2-1.3) mg/dL AST 21 (14-36) U/L ALT 10 (6-35) U/L Alkaline Phosphatase 83 (38-126) U/L Troponin I < 0.012 < 0.012 (0.000-0.034) ng/mL NT-Pro-B Natriuret Pep 2890 H (19.9-100) pg/mL Total Protein 7.5 (6.3-8.2) g/dL Albumin 4.1 (3.5-5.1) g/dL Lipase 84 (23-300) U/L <Nita Mackenzie PA-C - Last Filed: 03/06/25 13:48> Lab Results 03/06/25 03/06/25 Range/Units 13:42 16:28 WBC 6.1 (4.5-10.0) K/mm3 RBC 4.51 (4.2-5.4) M/mm3 Hgb 13.1 (12.0-15.0) g/dL Hct 41.5 (37.0-47.0) % MCV 92.0 (80-100) fl MCH 29.0 (26-34) pg MCHC 31.6 L (32-36) g/dl RDW 12.9 (11.5-14.5) % Plt Count 150 (150-375) k/mm3 MPV 10.0 (7.4-10.4) fl Immature Gran % (Auto) 0.3 (0-0.5) % Neut % (Auto) 69.4 (45.5-73.1) % Lymph % (Auto) 23.1 (18.3-44.2) % [place] % (Auto) 5.7 (2.6-8.5) % Eos % (Auto) 1.0 (0-4.4) % Baso % (Auto) 0.5 (0.2-1.2) % Lymph # (Auto) 1.42 (0.9-3.2) K/mm3 [place] # (Auto) 0.4 (0.1-0.6) K/mm3 Eos # (Auto) 0.1 (0-0.3) K/mm3 Baso # (Auto) 0.0 (0.0-0.1) K/mm3 Abs Immat Gran (auto) 0.02 (0.00-0.031) K/mm3 Absolute Neuts (auto) 4.3 (1.3-6.7) K/mm3 Absolute Nucleated RBC 0.000 (0.0-0.012) K/mm3 Nucleated RBC % 0.0 (0.0-0.2) % PT 13.4 (11.1-14.7) Seconds INR 1.0 APTT 28.4 (22.3-36.8) Seconds Sodium 140 (137-145) mmol/L Potassium 3.7 (3.4-5.0) mmol/L Chloride 104 (98-107) mmol/L Carbon Dioxide 28 (22-30) mmol/L Anion Gap 8 (4-12) mmol/L BUN 16 (7-17) mg/dL Creatinine 0.95 (0.7-1.0) mg/dL Estim Creat Clear Calc 51 ml/min Estimated GFR 58 L (59 - ) Glucose 106 (65-110) mg/dL Calcium 9.0 (8.4-10.2) mg/dL Total Bilirubin 0.6 (0.2-1.3) mg/dL AST 21 (14-36) U/L ALT 10 (6-35) U/L Alkaline Phosphatase 83 (38-126) U/L Troponin I < 0.012 < 0.012 (0.000-0.034) ng/mL NT-Pro-B Natriuret Pep 2890 H (19.9-100) pg/mL Total Protein 7.5 (6.3-8.2) g/dL Albumin 4.1 (3.5-5.1) g/dL Lipase 84 (23-300) U/L <Spencer Morse MD - Last Filed: 03/06/25 17:23> Imaging Data Radiologist's impression: ITS Impressions Chest X-Ray 03/06/25 14:50 IMPRESSION: Cardiomegaly. No acute process. <Spencer Morse MD - Last Filed: 03/06/25 17:23> ECG Data EKG #1: ECG completion date: 03/06/25 <Spencer Morse MD - Last Filed: 03/06/25 17:23> ECG completion time: 16:24 <Spencer Morse MD - Last Filed: 03/06/25 17:23> EKG Interpretation: normal rate (61), sinus rhythm, PACs, normal QRS, normal QT and NL axis <Spencer Morse MD - Last Filed: 03/06/25 17:23> Discharge Plan Discharge Clinical Impression: Vertigo <Nita Mackenzie PA-C - Last Filed: 03/06/25 13:48> Patient Disposition: Home <Nita Mackenzie PA-C - Last Filed: 03/06/25 13:48> Condition: Stable <Nita Mackenzie PA-C - Last Filed: 03/06/25 13:48> Instructions: Vertigo (ED) <Nita Mackenzie PA-C - Last Filed: 03/06/25 13:48> Additional Instructions: Please return to the emergency department if you develop severe and persistent chest pain, difficulty breathing, dizziness, leg swelling or if you are coughing up blood as these can be signs of a medical emergency. Please call your doctor for a follow up appointment to determine the need for further testing. <Nita Mackenzie PA-C - Last Filed: 03/06/25 13:48> Patient Language: Yemeni <Nita Mackenzie PA-C - Last Filed: 03/06/25 13:48> Prescriptions: New meclizine 12.5 mg tablet 12.5 mg PO TID PRN (Reason: dizziness) Qty: 20 0RF No Action cyanocobalamin (vitamin B-12) 1,000 mcg/mL solution 1,000 mcg IM .Q2W potassium chloride [K-Tab] 20 mEq tablet extended release 20 meq PO BID Qty: 180 1RF Jardiance 10 mg tablet 10 mg PO DAILY losartan [Cozaar] 100 mg tablet 100 mg PO DAILY carvedilol 6.25 mg tablet 6.25 mg PO BID aspirin [Aspir-81] 81 mg Tablet,Delayed Release (Dr/Ec) 81 mg PO DAILY ezetimibe 10 mg tablet 10 mg PO DAILY (DME) blood-glucose meter [Blood Glucose Monitoring] Kit See Rx Instructions .Route Qty: 1 0RF Patient Comments: I check my blood sugars a couple times a week. My sugars have been running around 112 since I started taking Ozempic. I can tell when my sugars are too high or low. Rx Instructions: Use to check Blood sugars daily (DME) Blood Glucose Test Strip See Rx Instructions .Route Qty: 100 3RF Patient Comments: I check my blood sugars a couple times a week. My sugars have been running around 112 since I started taking Ozempic. I can tell when my sugars are too high or low. Rx Instructions: Use to check blood sugars daily potassium chloride 20 mEq packet 40 meq PO DAILY Qty: 100 1RF Patient Comments: I do not take that like I should. The pill is so big. I guess I'm going to have to start so I don't end up here again. sertraline 100 mg tablet 100 mg PO DAILY Qty: 90 0RF Ozempic 2 mg/dose (8 mg/3 mL) pen injector 2 mg subcut WEEKLY Qty: 3 3RF <Nita Mackenzie PA-C - Last Filed: 03/06/25 13:48> Follow-up/Referrals: Jeffery Hein MD [Primary Care Provider] - <Nita Mackenzie PA-C - Last Filed: 03/06/25 13:48>
[2025-03-06 13:48] LABS: Hematocrit 41.5 % (37.0-47.0); Hemoglobin 13.1 g/dL (12.0-15.0); Immature Granulocyte Percent A 0.3 % (0-0.5); Lymphocytes Absolute Auto 1.42 K/mm3 (0.9-3.2); Mean Corpuscular HGB Conc 31.6 g/dl (32-36); Mean Corpuscular Hemoglobin 29.0 pg (26-34); Mean Corpuscular Volume 92.0 fl (80-100); Nucleated Red Blood Cells Absolute Auto 0.000 K/mm3 (0.0-0.012); Nucleated Red Blood Cells Perc 0.0 % (0.0-0.2); Platelet Count Result 150 k/mm3 (150-375); Red Blood Count 4.51 M/mm3 (4.2-5.4); White Blood Count 6.1 K/mm3 (4.5-10.0)
[2025-03-06 14:03] LABS: Alanine Aminotransferase 10 U/L (6-35); Albumin Level 4.1 g/dL (3.5-5.1); Alkaline Phosphatase 83 U/L (38-126); Anion Gap 8 mmol/L (4-12); Aspartate Amino Transferase 21 U/L (14-36); Bilirubin,Total 0.6 mg/dL (0.2-1.3); Blood Urea Nitrogen 16 mg/dL (7-17); Calcium 9.0 mg/dL (8.4-10.2); Carbon Dioxide 28 mmol/L (22-30); Chloride 104 mmol/L (98-107); Estimated CRCL calculation 51 ml/min; Estimated Glomerular Filt Rate 58; Glucose 106 mg/dL (65-110); Lipase 84 U/L (23-300); Potassium 3.7 mmol/L (3.4-5.0); Sodium 140 mmol/L (137-145); Total Protein 7.5 g/dL (6.3-8.2)
[2025-03-06 14:14] LABS: Troponin I < 0.012 ng/mL (0.000-0.034)
[2025-03-06 14:15] LABS: INR 1.0; Prothrombin Time 13.4 Seconds (11.1-14.7)
[2025-03-06] MEDS: ASPIRIN 81 MG CHEWABLE TABLET 324 MG PO (14:15)
[2025-03-06 14:16] LABS: Partial Thromboplastin Time 28.4 Seconds (22.3-36.8)
[2025-03-06] MEDS: SODIUM CHLORIDE 0.9% IV 1,000 ML 999 ML IV CONT (14:48)
[2025-03-06] MEDS: MECLIZINE HCL 25 MG TABLET PO (14:48)
[2025-03-06 15:16] LABS: NT Pro B Type Natriuretic Pept 2890 pg/mL (19.9-100)
--- NOTE | 2025-03-06 16:19 | ECG_ITS ---
Test Date: 2025-03-06 16:24:43 Measurements Intervals Leonardo Rate: 61 P: 64 PA: 185 QRS: -8 QRSD: 91 T: 70 QT: 403 QTc: 407 Interpretive Statements SINUS RHYTHM WITH FREQUENT SUPRAVENTRICULAR PREMATURE COMPLEXES LOW QRS VOLTAGE IN PRECORDIAL LEADS SEPTAL MYOCARDIAL INFARCTION , PROBABLY OLD Electronically Signed On 03-07-2025 08:09:16 CDT by Fabio Tubbs D.O
[2025-03-06 17:13] LABS: Troponin I < 0.012 ng/mL (0.000-0.034)
== END 2025-03-06 17:39 | disposition home or self-care (01) ==
PROVIDERS: Emergency Provider Emergency Medicine; PCP Family Medicine
DX: R42 Dizziness and giddiness (principal); R06.02 Shortness of breath; I10 Essential (primary) hypertension; I25.10 Atherosclerotic heart disease of native coronary artery without angina pectoris; E11.40 Type 2 diabetes mellitus with diabetic neuropathy, unspecified; E78.5 Hyperlipidemia, unspecified; K21.9 Gastro-esophageal reflux disease without esophagitis; F17.290 Nicotine dependence, other tobacco product, uncomplicated; Z95.1 Presence of aortocoronary bypass graft; Z95.5 Presence of coronary angioplasty implant and graft; Z98.42 Cataract extraction status, left eye; Z98.41 Cataract extraction status, right eye; Z90.710 Acquired absence of both cervix and uterus; I51.7 Cardiomegaly; Z79.84 Long term (current) use of oral hypoglycemic drugs; Z79.899 Other long term (current) drug therapy; Z79.82 Long term (current) use of aspirin; Z79.85 Long-term (current) use of injectable non-insulin antidiabetic drugs; R00.1 Bradycardia, unspecified; I49.1 Atrial premature depolarization; R94.31 Abnormal electrocardiogram [ECG] [EKG]
CPT/HCPCS: 36415; 71046; 80053; 83690; 83880; 84484; 85025; 85610; 85730; 93005; 96360; 99284; A9270; J7030

== ENCOUNTER 2025-06-09 14:26 | Outpatient (CLI) | payer OTHER, SELFPAY ==
[2025-06-09 14:41] LABS: Hematocrit 42.5 % (37.0-47.0); Hemoglobin 13.4 g/dL (12.0-15.0); Immature Granulocyte Percent A 0.4 % (0-0.5); Lymphocytes Absolute Auto 1.18 K/mm3 (0.9-3.2); Mean Corpuscular HGB Conc 31.5 g/dl (32-36); Mean Corpuscular Hemoglobin 28.8 pg (26-34); Mean Corpuscular Volume 91.4 fl (80-100); Nucleated Red Blood Cells Absolute Auto 0.000 K/mm3 (0.0-0.012); Nucleated Red Blood Cells Perc 0.0 % (0.0-0.2); Platelet Count Result 142 k/mm3 (150-375); Red Blood Count 4.65 M/mm3 (4.2-5.4); White Blood Count 5.7 K/mm3 (4.5-10.0)
--- OUTSIDE RECORDS SUMMARY | 2025-06-09 16:22 | XMS_ITS ---
Author Organization [facility] Address [address] [place] [address] Care Team Providers Care Grid Inspector Name Role Phone Ann Braga RN Unavailable Unavailable Jeffery Hein MD Primary Care Provider [phone] Active Problems Problem Noted Date Diagnosed Date [...] Obesity 10/24/2016 Atherosclerotic heart diseas e of [place] coronary artery without angina pectoris 10/24/2016 Chest [...]
--- OUTSIDE RECORDS SUMMARY | 2025-06-09 16:22 | XMS_ITS | Clinical Summary ---
Author Organization [facility] [address] [facility] [address] Address [address] [place] [address] Care Team Providers Care Teacher'S Aide Name Role Phone No, Physician Primary Care Provider [phone] Allergies Active Allergy Reactions Criticality Noted Date [...] (AAA) 09/25/2017 Coronary artery disease invo lving [place] coronary artery of [place] heart without angina pectoris 09/25/2017 Essential hypertension [...] on file Legal Sex Female 8:01 PM SIZING SPRAYER Gender Identity Not on file Sexual Orientation [...] Visit 65+ 2020 Covid-19 Vaccine (2 - 2024-2 6 season) 2025 04/05/2021 Influenza Vaccine (#1) 2025 9, 05/10/2017, 10/23/2016, Additional history exists DTaP/Tdap/Td Vaccine (2 - Td or Tdap) 02/12/2032 02/11/2022 Procedures Procedure Name Priority Date/Time Associated Diagnosis Comments POCT LIPID PANEL Routine 09/25/2017 3:10 PM SIZING SPRAYER Lipid screening from Last 3 Months or Most Recently Relevant to Health Maintenance Results * POCT lipid panel (09/25/2017 3:10 PM SIZING SPRAYER) Cholesterol, POC 204 mg/dL HDL, POC 52 mg/dL Triglycerides, POC 214 mg/dL LDL Cholesterol POC 110 mg/dL Chol/HDL Ratio, POC 3.9 Non-HDL Cholesterol, POC 153 mg/dL Cholesterol Total, POC 204 mg/dL Blood specimen (specimen) 09/25/2017 3:10 PM SIZING SPRAYER Eliseo Morales MD POINT OF CARE TEST ORDER INDIRA Final Result from Last 3 Months or Most Recently Relevant to Health Maintenance Insurance IDPA [facility] Member Subscriber Plan / Payer (Ef fective 2020-Present) Name:Luis Rubio Relation to Subscriber:Self Name:Luis Rubio Payer ID:[id number] (NAIC) Type:MEDICARE RISK OTHER Address: [place] [id number] Care Teams Teacher'S Aide Relationship Specialty Start Date End Date No, Physician PCP - General 09/25/17
--- OUTSIDE RECORDS SUMMARY | 2025-06-09 16:22 | XMS_ITS | Clinical Summary ---
Author Organization [facility] [employer] Address [address] [place] [address] Care Team Providers Care Cut Order Hand Name Role Phone Ann Braga RN Unavailable Unavailable Jeffery Hein MD Primary Care Provider [phone] Source Comments [facility],non-owned Affiliates and Associated Physician Practices is amultiple site organization consisting of ambulatory clinics and hospital sitesin [place], [place], [place] and [place]. This disclosure is being madepursuant to the Care Everywhere program and may not contain all information available regarding this patient. 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 Gender Identity Not on file Sexual [...] SCREENING 03/11/2019 DIABETES-FOOT EXAM WITH MONOFILAMENT 03/11/2019 DEPRESSION SCREENING 08/27/2024 DIABETES - URINE PROTEIN SCREENING 08/27/2024 DIABETES-HGB A1C 11/03/2024 05/06/2024, 08/06/2016 COVID-19 VACCINE ( season) 2025 04/05/2021 INFLUENZA VACCINE (#1) 2025 10/23/2016 DIABETES-SERUM CREATININE 05/06/20252023, 05/23/2022, 10/23/2017, [...] 5.8(H) <=5.6 % 05/07/2024 8:44 AM CDT [facility] Estimated Average Glucose 120 mg/dL 05/07/2024 8:44 AM T [facility] Comment: HbA1c Interpretation: Normal : < 5.7% Pre-diabetes: 5.7-6.4% Diabetes: Equal to or greater than 6.5% Test results diagnostic of diabetes should be repeated for confirmation. Treatment target values recommended by ADA and other clinical organizations should be used to evaluate metabolic control in patients. Reference: [place] Diabetes Association, Standards of Care in Diabetes [...] CDT 05/06/2024 4:19 PM CDT Chiara Howard PRODUCTION ANALYST-SPOUTER LAB - CHEMISTRY O RDERABLES Final Result [facility] [address] [place] [address], [facility] [phone] * (ABNORMAL) BASIC METABOLIC PANEL (CALCIUM TOTAL) (05/06/2024 3:46 PM CDT) BUN 14 7 - 26 mg/dL 05/06/2024 4:46 PM [facility] Creatinine 0.91 0.56 - 0.96 mg/dL 05/06/2024 4:46 PM [facility] Sodium 145 136 - 145 mmol/L 05/06/2024 4:46 PM [facility] Potassium 2.9(L) 3.5 - 4.5 mmol/L 05/06/2024 4:46 PM [facility] Chloride 106 98 - 107 mmol/L 05/06/2024 4:46 PM [facility] CO2 33(H) 22 - 29 mmol/L 05/06/2024 4:46 PM [facility] Glucose 90 70 - 115 mg/dL 05/06/2024 4:46 PM [facility] Calcium 8.6 8.4 - 10.2 mg/dL 05/06/2024 4:46 PM [facility] Anion Gap 6 6 - 16 05/06/2024 4:46 PM [facility] BUN/Creatinine Ratio 15 7 - 23 05/06/2024 4:46 PM [facility] Osmolality Calculated 300(H) 275 - 295 mOsm/kg 05/06/2024 4:46 PM [facility] eGFR by CKD-EPI 69(L) >=90 mL/min/1.7 3 m2 05/06/2024 4:46 PM CDT [facility] Blood BLOOD SPECIMEN / Unknown Lab Venipuncture / Unknown 05/06/2024 3:46 PM CDT 05/06/2024 4:19 PM CDT Chiara Howard PRODUCTION ANALYST-SPOUTER LAB - CHEMISTRY O RDERABLES Final Result Performing Organization Address City/[facility]/ZIP Co de Phone Number [facility] [address] [place] [address], [facility] [phone] from Last 3 Months or Most Recently [...] Documents on File Type Date Recorded Patient Product Development Technician Expl anation Adv Directive/Living Will/POA 10/25/2017 12:34 AM Advance Directives and Livin g Will 08/06/2016 12:00 AM * Full Code (Latest Code Status on File) Date Activated Date Inactivated Comments 02/19/2018 11:41 AM 02/20/2018 12:36 PM * Full Code Date Activated Date Inactivated Comments 10/22/2017 11:49 AM 10/23/2017 11:06 AM Care Teams Cut Order Hand Relationship Specialty Start Date End Date Jeffery Hein MD [address] [place] [address] PCP - General Family Medicine 04/10/23 Ann Braga, RN Registered Nurse 10/22/17
--- OUTSIDE RECORDS SUMMARY | 2025-06-09 16:22 | XMS_ITS | Clinical Summary ---
Author Organization [facility] Address [address] [facility] [place] [address] Phone Care Team Providers Care Computing Services Director Name Role Phone MontserratDon ponce DPM Unavailable [phone] Gunjan Santiago Primary Care Provider [phone] Allergies No known active allergies Medications aspirin [...] - PCV) 10/23/2017 10/23/2016 Influenza Immunization (#1) 04/27/202508/27, 05/10/2017, 10/23/2016 SARS-COV-2 Immunization (2 - season) 2025 04/05/2021 Pneumococcal Immunization Combined Discontinued 10/23/2016 Hepatitis [...] Insurance MEDICAID [employer] Care Teams Computing Services Director Relationship Specialty Start Date End Date Gunjan Santiago PA [address] [address] PCP - General Adult Medicine 05/22/17 Don Mariano DPM Consulting Physician Podiatry 05/22/17
--- OUTSIDE RECORDS SUMMARY | 2025-06-09 16:22 | XMS_ITS | Clinical Summary ---
Author Organization [facility] Jacquesnicolaadeola Phan Address [address] [place] [address] Care Team Providers Care Accounting Supervisor Name Role Phone Jeffery Hein MD Primary Care Provider [phone] Allergies Active Allergy Reactions Criticality Noted Date Comments Adhesive Tape-Silicones Rash Medium 10/16/2017 Paper tape, transpore tape and tegaderm ok to use Atorvastatin Muscle Pain Low 03/17/2025 Rosuvastatin Muscle Pain Low 03/17/2025 Medications aspirin (TONY CHEWABLE) 81 mg Tablet, Chewable Take 81 mg by mouth daily. Active losartan (COZAAR) 100 mg tablet Take 100 mg by mouth daily. Active omeprazole (PriLOSEC) 40 mg Capsule, Delayed Release(E.C.) Take 40 mg by mouth daily. 1 Active potassium chloride (KLOR-CON) 20 mEq Extended Release tablet Take 40 mEq by mouth 2 times daily. Active cyanocobalamin (VITAMIN B-12) 1,000 mcg/mL Solution Inject 1 mL (1,000 mcg) by intramuscular injection every 2 weeks. 8 mL 5 Active Syringe with Needle, Disp, 1 mL 27 x 1/2 Syringe Inject 1 mL every 2 weeks for 8 weeks. 8 Each 5 Active Mounjaro 5 mg/0.5 mL Pen Injector Inject 5 mg by subcutaneous injection every 7 days. 5 Active sertraline (ZOLOFT) 100 mg tablet Take 100 mg by mouth daily. Active nitroglycerin (NITROSTAT) 0.4 mg Tablet, Sublingual Place 0.4 mg under tongue every 5 minutes as needed. 3 Active meclizine (ANTIVERT) 12.5 mg tablet Take 12.5 mg by mouth 3 times daily as needed for Dizziness. 5 Active carvediloL (COREG) 3.125 mg tablet Take 1 Tablet (3.125 mg) by mouth 2 times daily with meals. 180 Tablet 3 5 Active evolocumab (Repatha SureClick) 140 mg/mL Pen InjectorIndicat ions:Mixed hyperlipidemia, Coronary artery disease involving shungnak coronary artery of shungnak heart without angina pectoris,Type 2 diabetes mellitus with other circulatory complication, without long-term current use of insulin,Statin intolerance Inject 1 mL (140 mg) by subcutaneous injection every 2 weeks. 2 mL 11 5 Active Active Problems Problem Noted Date Diagnosed Date Statin intolerance 03/16/2025 Encounters Date Type Department Care Team Description 05/12/2025 External Device Data [facility]STRACTION Provider, Abstract 05/05/2025 External Device Data [facility] Provider, Abstract 04/01/2025 External Device Data [facility] Provider, Abstract 03/31/2025 External Device Data [facility] Provider, Abstract 03/19/2025 Telephone [facility] Heart [facility] Vascular - [address] [place] [address] Matthew Ordoñez DO Information (Repatha approval) 03/16/2025 10:45 AM CDT Office Visit [facility] - [address] [place] [address] Matthew Ordoñez DO Benign hypertension (Primary Dx); Mixed hyperlipidemia; Coronary artery disease involving shungnak coronary artery of shungnak heart without angina pectoris; Type 2 diabetes mellitus with other circulatory complication, without long-term current use of insulin ([facility]); Abdominal aortic aneurysm (AAA) without rupture, unspecified part; Statin intolerance 03/16/2025 Orders Only [facility] - [address] [place] [address] Matthew Ordoñez DO Mixed hyperlipidemia (Primary Dx); Coronary artery disease involving shungnak coronary artery of shungnak heart without angina pectoris; Type 2 diabetes mellitus with other circulatory complication, without long-term current use of insulin ([facility]); Statin intolerance 03/11/2025 External Device Data [facility] Provider, Abstract 03/11/2025 External Device Data [facility] Provider, Abstract 03/11/2025 External Device Data [facility] Provider, Abstract [...] on file 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 Gender Identity Not on file Sexual Orientation Not on file Last Filed Vital Signs Vital Sign Reading Time Taken Comments Blood Pressure 158/90 03/16/2025 10:41 AM CDT Pulse 52 03/16/2025 10:41 AM CDT Temperature 36.4 C (97.6 F) 10/22/2024 1:55 PM PRE BILLING SPECIALIST Respiratory Rate 16 03/16/2025 10:41 AM CDT Oxygen Saturation 91% 10/22/2024 1:55 PM PRE BILLING SPECIALIST Inhaled Oxygen Concentration - - Weight 81.2 kg (179 lb) 03/16/2025 10:41 AM CDT Height 165.1 cm (5' 5) 03/16/2025 10:41 AM CDT Body Mass Index 29.79 03/16/2025 10:41 AM CDT Plan of Treatment Upcoming Encounters Date Type Department Care Team (Late st Contact Info) Description 06/10/2025 2:45 PM CDT Office Visit [facility] Oncology and Hematology - Bar [facility] [address] [place] [phone] Miky Sanchez MD [address] [place] [address] 09/14/2025 11:00 AM PRE BILLING SPECIALIST Office Visit [facility] - [address] [place] [address] Matthew Ordoñez DO [address] [place] [address] Health Maintenance Due Date Last Done Comments [...] 2005 ZOSTER VACCINE (1 of 2) 2005 RSV VACCINE (60+ or ) (1 - Risk 60-74 years 1-dose series) 2015 PNEUMOCOCCAL VACCINE 50+ YEARS (2 of 2 - PCV) 10/23/19 18 10/23/2016 OSTEOPOROSIS SCREENING 2020 [place] Prev entative Visit/Annual Wellness Visit 08/27/2024 DIABETES HBA1C Q 6 MONTHS 11/03/2024 05/06/2024 INFLUENZA VACCINE (#1) 2025 10/23/2016 COVID-19 Vaccine (2 - 2024- season) 04/27/202505/2021 DTAP/TDAP/TD VACCINES (2 - Td or Tdap) 02/12/2032 Procedures Procedure Name Priority Date/Time Associated Diagnosis Comments MD ECG ROUTINE ECG W/LEAST 12 LDS W/I&R Routine 03/16/2025 10:45 AM CDT Benign hypertension Mixed hyperlipidemia Coronary artery disease involving shungnak coronary artery of shungnak heart without angina pectoris Type 2 diabetes mellitus with other circulatory complication, without long-term current use of insulin ([facility]) from Last 3 Months Results * MD ECG ROUTINE ECG W/LEAST 12 LDS W/I&R (03/16/2025 10:45 AM CDT) Narrative [facility] [address] - 03/16/2025 10:45 AM CDT Matthew Ordoñez DO 03/17/2025 7:04 AM EKG Date/Time: 03/16/2025 10:45 AM Performed by: Matthew Ordoñez DO Authorized by: Matthew Ordoñez DO Comments: Sinus bradycardia, borderline left ventricular hypertrophy us Matthew Ordoñez DO ECG ORDERABLES Final R esult [facility] [address] PATE# [id number] [address] [place] [phone] from Last 3 Months Insurance [facility] for [facility] Daily Deals for Moms [facility] Care Teams Accounting Supervisor Relationship Specialty Start Date End Date Jeffery Hein MD [address] [place] [id number] PCP - General Family Practice 09/11/23
[2025-06-09 16:28] LABS: Anion Gap 8 mmol/L (4-12); Blood Urea Nitrogen 11 mg/dL (7-17); Calcium 8.9 mg/dL (8.4-10.2); Carbon Dioxide 32 mmol/L (22-30); Chloride 101 mmol/L (98-107); Estimated Glomerular Filt Rate 55; Glucose 113 mg/dL (65-110); Potassium 3.6 mmol/L (3.4-5.0); Sodium 141 mmol/L (137-145)
[2025-06-09 17:41] LABS: Vitamin B12 > 1000.0 pg/mL (239-931)
== END 2025-06-09 14:27 | disposition home or self-care (01) ==
PROVIDERS: PCP Family Medicine; Visit Provider Internal Medicine Hematology & Oncology
DX: D61.818 Other pancytopenia (principal)
CPT/HCPCS: 36415; 80048; 82607; 82746; 85025

== ENCOUNTER 2025-07-08 10:47 | Emergency (ER) | payer OTHER, SELFPAY ==
--- OUTSIDE RECORDS SUMMARY | 2025-06-10 02:44 | XMS_ITS | Continuity of Care Document ---
Author Organization [facility] Address [address] [place] [id number] Phone Care Team Providers Care Seed Cleaning Machine Operator Name Role Phone Mando ALARCON, FACC, Unavailable Unavailabl e Allergies, Adverse Reactions, Alerts Substance Reaction Status Criticality No Known Allergies Active No Inform ation Medications Medication Instructions Dosage Effective Dates (start - stop) Status Comments Repatha SureClick 140 mg/mL subcutaneous pen injector - Active carvedilol 3.125 mg tablet - Active sertraline 50 mg tablet - Ac tive sertraline 100 mg tablet - Active Mounjaro 5 mg/0.5 mL subcutaneous pen injector - Active cyanocobalamin (vit B-12) 1,000 mcg/mL injection solution - Active Ozempic 2 mg/dose (8 mg/3 mL) subcutaneous pen injector - Active potassium chloride ER 20 mEq tablet,extended release TAKE 1 TABLET BY MOUTH TWICE DAILY - Active BD SafetyGlide Tuberculin Regular Bevel 1 mL 27 x 1/2 syringe USE 1 EVERY 2 WEEKS - Active amitriptyline 10 mg tablet - Active hydrocodone 5 mg-acetaminophen 325 mg tablet - Active dicyclomine 20 mg tablet - Active omeprazole 40 mg capsule,delayed release - Active Advance Directives Directive Yes / No Effective Date File Name No Information Encounters Encounter Description Practice Location Reason(s) For Visit Diagnoses Date Provider Providers Copied on Encounter [facility], [address] [place] [address], [id number] , tel: [phone] [facility] Gigi No Information . [address] [place], [place], [id number] , . tel: [phone] [facility], [address] [place] [address], [id number] , tel: [phone] [facility] Gigi No Information 5 [facility]. [address] [place], [place], [id number] , . tel: [phone] [facility], [address] [place] [address], [id number] , tel: [phone] [facility] Gigi HypokalemiaVenous insufficiency (chronic) (peripheral)Abdomina l aortic aneurysm, without rupture, unspecifiedChronic diastolic (congestive) heart failureOverweightObs tructive sleep apnea (adult) (pediatric)Family history of other congenital malformations, deformations and chromosomal abnormalitiesType 2 diabetes mellitus without complicationsAtheros clerotic heart disease of nez perce coronary artery without angina pectorisHyperlipidem ia, unspecifiedOther specified peripheral vascular diseasesEssential (primary) hypertensionCerebral infarction, unspecified 5 [facility]. [address] [place], [place], [id number] , . tel: [phone] Family History Family Member Type Diagnosis Age At Onset No Information Payers Payer name Insurance type Covered libertarian ID Authoriza tion(s) No Information Social History Type Description Quantity Date Captured Comments Sex Female Smoking Status No Information Chief Complaint And Reason For Visit No Information Reason For Referral Reason For Referral No Information Plan Of Treatment Date Type Action Status Appointment Jaden Rubio BOOK ED History Of Present Illness Encounter Date Complaint History Of Prese nt Illness No Information Functional Status Date Functional Assessmen t No Information Instructions Date Instruction Additional Infor mation No Information Assessments Type Assessment Date No Information Patient Care Teams Name Effective Dates (start - stop) Status Members No Information
--- OUTSIDE RECORDS SUMMARY | 2025-06-10 02:44 | XMS_ITS | Continuity of Care Document ---
Author Organization [facility] Address [address] [place] [phone] Phone Care Team Providers Care Emergency Dept Tech Name Role Phone Mando ALARCON, FACC, Unavailable [...] Diagnoses Date Provider Providers Copied on Encounter [facility], [address] [place] [address], [id number] , tel: [phone] [facility] Gigi No Information . [address] [place], [place], [id number] , . tel: [phone] [facility], [address] [place] [id number] , tel: [phone] [facility] Gigi No Information 5 [facility]. [address] [place], [place], [id number] , . tel: [phone] [facility], [address] [place] [address], [id number] , tel: [phone] [facility] Gigi HypokalemiaVenous insufficiency (chronic) (peripheral)Abdomina l aortic aneurysm, without rupture, unspecifiedChronic diastolic (congestive) heart failureOverweightObs tructive sleep apnea (adult) (pediatric)Family history of other congenital malformations, deformations and chromosomal abnormalitiesType 2 diabetes mellitus without complicationsAtheros clerotic heart disease of [place]qu[place] coronary artery without angina pectorisHyperlipidem ia, unspecifiedOther specified peripheral vascular diseasesEssential (primary) hypertensionCerebral infarction, unspecified 5 [facility]. [address] [place], [place], [id number] , . tel: [phone] Family History Family Member Type Diagnosis Age At Onset No Information Payers Payer name Insurance type Covered alliance party ID Authoriza tion(s) No Information Social History [...]
[2025-07-08 10:57] VITALS: BP 187/76; PULSE 66; RESP 18; TEMP 36.8; O2SAT 100
--- NOTE | 2025-07-08 11:07 | ED.GENADULT ---
HPI - General Adult General Chief complaint: Unspecified Stated complaint: Allergic Reaction Time Seen by Provider: 07/08/25 11:05 Source: patient, RN notes reviewed and old records reviewed Mode of arrival: ambulatory Limitations: no limitations History of Present Illness HPI narrative: 69 year old female accompanied by significant other presents to express care with complaints of burning and painful swallowing since taking am medications and reports that she vomited X1. Patient reports that she still has some soreness to her throat denies present difficulty swallowing or any shortness of breath or nausea. Patient reports that her GI doctor has been talking about her possibly needing esophageal dilatation. Patient has stated history of GERD and some episodes of dysphagia. Patient reports that she does work in a fpc doing hair and is concerned she may of picked up strep with her throat being so sore also. Patient has no shortness of breath no tachypnea with SAO2 100% on room air. MD complaint: burning in throat after taking medication today Onset (ago): day(s) (today this morning) Location: mouth (throat) Severity scale (1-10): 10 Quality: burning Treatments prior to arrival: other (drank water) Related Data Home Medications ?Medication ?Instructions ?Recorded ?Confirmed ?Last Taken ?Type aspirin 81 mg tablet,delayed 81 mg PO DAILY 06/16/24 03/10/25 06/22/24 History release cyanocobalamin (vitamin B-12) 1,000 mcg IM .Q2W 11/19/24 03/10/25 Unknown History 1,000 mcg/mL injection solution carvedilol 3.125 mg tablet mg PO BID 05/27/25 Unknown History Allergies Allergy/AdvReac Type Severity Reaction Status Date / Time latex AdvReac Redness of Verified 07/08/25 10:52 Skin Review of Systems Review of Systems: CONSTITUTIONAL: Denies fever, chills, or sweats. EYES: Denies visual changes, redness, or discharge. ENT: Denies rhinorrhea, congestion, + sore throat, no otalgia. CARDIOVASCULAR: Denies chest pain, palpitations, or edema. RESPIRATORY: Denies cough or dyspnea. GASTROINTESTINAL: Denies abdominal pain, nausea,one episode of vomiting, no diarrhea. GENITOURINARY: Denies dysuria or hematuria. SKIN: Denies rash or itching. MUSCULOSKELETAL: Denies back pain, joint pain, or myalgia. NEUROLOGIC: Denies headache, numbness, or weakness. PSYCHIATRIC: positive for anxiety or depression. All systems reviewed & are unremarkable except as noted in HPI and below PMFSH Past Medical History Medical History Family hx of colon cancer Tobacco abuse Gas bloat syndrome Regurgitation of food Hx of pyloric stenosis Hx of diverticulitis of colon Nausea GERD (gastroesophageal reflux disease) LLQ abdominal pain Suprapubic abdominal pain Incisional hernia Osteoarthritis of right knee CAD (coronary artery disease) HLD (hyperlipidemia) HTN (hypertension) Neuropathy Plantar wart, left foot IDDM (insulin dependent diabetes mellitus) Surgical History Surgical History History of cardiac catheterization (~2010) H/O heart artery stent (~2014) H/O bilateral cataract extraction (~2014) H/O: hysterectomy (~2014) History of abdominal aortic aneurysm (AAA) repair (~2014) Hx of CABG (~2010) Family History Family History Father Heart disease Mother Diabetes mellitus Heart disease Depression Other Anxiety Cancer Hypertension Social History Social History Smoking status: Current every day smoker Tobacco type: e-cigarettes/vaping Second hand tobacco smoke exposure: Yes Additional smoking assessment comments: 1 pod/cartridge per week Alcohol intake: never Substance use: never Substance use type: does not use Do You Feel Safe in your Home?: Yes Lack of Transportation: No Lack of Food: Never True Current Housing: I Have Housing Concerned About Future Housing: No Difficulty Paying Gas/Electric Bills: No Difficulty Paying for Meds: No Currently Unemployed: No Education: Trade/Vocational Certificate Difficulty w/ Childcare or Family Care: No Living arrangements: with friend(s) Gender identity (if verbalized by the patient): Female Spiritual care concerns: No Comments At time of signature, agree with nursing past medical, surgical, social and family history. There is no relevant family history pertinent to the presenting complaint Exam Narrative: GENERAL: Well-appearing, well-nourished, and in no acute distress. HEAD: Normocephalic, atraumatic. EYES: PERRLA and EOMI. ENT: Nares clear, no rhinorrhea or epistaxis. Mucous membranes moist. TM;s normal with good light reflex, throat minimally red with no swelling noted, NECK: Supple.no lymphadenopathy CHEST: Clear to auscultation. No respiratory distress. no cough noted SAO2 100% on room air HEART: Regular rate and rhythm. No murmur heard. Normal peripheral pulses. ABDOMEN: Soft, nontender, non epigastric tenderness voiced or on palpation,nondistended, normal active bowel sounds. EXTREMITIES: Normal range of motion. No edema. SKIN: Warm, dry, no rash. NEURO: No focal deficits. Alert and oriented x3. Course Course Emergency Course: Patient is aware of diagnosis, understands and agrees to treatment plan.? Anticipatory guidance given.? Patient agrees to follow-up as directed and is aware of reasons to seek care at the emergency department. Portions of this record may have been created with voice recognition software Level of Care: Express Care Visit Vital Signs Vital signs: Vital Signs Temperature 36.8 C 07/08/25 10:57 Pulse Rate 66 07/08/25 10:57 Respiratory Rate 18 07/08/25 10:57 Blood Pressure 187/76 H 07/08/25 10:57 Pulse Oximetry 100 07/08/25 10:57 Temperature 36.8 C 07/08/25 10:57 Pulse Rate 66 07/08/25 10:57 Respiratory Rate 18 07/08/25 10:57 Blood Pressure 187/76 H 07/08/25 10:57 Pulse Oximetry 100 07/08/25 10:57 Reviewed Medical Decision Making MDM Narrative Medical decision making narrative: Exam findings and imaging show no acute concerns or changes; patient is non-toxic appearing and is in no distress.? Patient is appropriate for outpatient treatment and follow-up Differential Diagnosis Differential Diagnosis: GERD with esophagitis, hiatal hernia, dysphagia,throat pain Medical Records Medical records reviewed: Yes I reviewed the external patient's medical records. Vital Signs Vital Signs: Vital Signs Temperature 36.8 C 07/08/25 10:57 Pulse Rate 66 07/08/25 10:57 Respiratory Rate 18 07/08/25 10:57 Blood Pressure 187/76 H 07/08/25 10:57 Pulse Oximetry 100 07/08/25 10:57 Temperature 36.8 C 07/08/25 10:57 Pulse Rate 66 07/08/25 10:57 Respiratory Rate 18 07/08/25 10:57 Blood Pressure 187/76 H 07/08/25 10:57 Pulse Oximetry 100 07/08/25 10:57 reviewed Lab Data Lab results reviewed: Yes I reviewed the patient's lab results. Lab results narrative: throat screen negative, culture sent Labs: Lab Results 07/08/25 Range/Units 11:31 POC Grp A Strep Screen Negative (Negative) reviewed Critical Care Time Critical Care Time Critical Care Time: No Discharge Plan Discharge Clinical Impression: Esophageal pain Pharyngitis Qualifiers: Pharyngitis/tonsillitis etiology: unspecified etiology Qualified Code(s): J02.9 - Acute pharyngitis, unspecified Patient Disposition: Home Condition: Stable Instructions: Antibiotic Form, GERD (Gastroesophageal Reflux Disease) (ED), Esophageal Spasm (ED) Additional Instructions: Increase fluids especially water avoid caffeine and citrus drink and soda Pepcid 20 mg daily till follow up with GI physician Avoid pepper and any spicy food Do not lay down after eating or taking medications Take medications slowing few at a time, chew all food well Salt water gargles, throat lozenges or throat sprays as desired Your strep test today was negative. A throat culture will be sent to the laboratory for further testing. IF the test is positive, you will receive a phone call within 48 hours and an appropriate antibiotic will be initiated at that time. If your symptoms persist, change or worsen significantly before you can contact your personal physician then please, without delay, go to the emergency department for further evaluation. Follow-up with PCP in 7-10 days or sooner if needed Follow up with PCP soon in regards to your blood pressure which is elevated above threshold for referral. Blood pressure above 120/80 may indicate pre-hypertension. Patient Language: Slovenian Prescriptions: New famotidine [Pepcid] 40 mg tablet 40 mg PO DAILY Qty: 30 0RF No Action cyanocobalamin (vitamin B-12) 1,000 mcg/mL solution 1,000 mcg IM .Q2W potassium chloride [K-Tab] 20 mEq tablet extended release 20 meq PO BID Qty: 180 1RF carvedilol 3.125 mg tablet PO BID ezetimibe 10 mg tablet 10 mg PO DAILY Qty: 90 1RF losartan [Cozaar] 100 mg tablet 100 mg PO DAILY Qty: 90 1RF ipratropium bromide 42 mcg (0.06 %) spray,non-aerosol 2 spray intranasal TID Qty: 15 5RF Rx Instructions: administer into each nostril aspirin [Aspir-81] 81 mg Tablet,Delayed Release (Dr/Ec) 81 mg PO DAILY (DME) blood-glucose meter [Blood Glucose Monitoring] Kit See Rx Instructions .Route Qty: 1 0RF Patient Comments: I check my blood sugars a couple times a week. My sugars have been running around 112 since I started taking Ozempic. I can tell when my sugars are too high or low. Rx Instructions: Use to check Blood sugars daily (DME) Blood Glucose Test Strip See Rx Instructions .Route Qty: 100 3RF Patient Comments: I check my blood sugars a couple times a week. My sugars have been running around 112 since I started taking Ozempic. I can tell when my sugars are too high or low. Rx Instructions: Use to check blood sugars daily sertraline 100 mg tablet 100 mg PO DAILY Qty: 90 1RF Rx Instructions: take with 50 mg to make 150mg sertraline 50 mg tablet 50 mg PO DAILY Qty: 90 1RF Rx Instructions: take with 100mg to make 150 Mounjaro 7.5 mg/0.5 mL pen injector See Rx Instructions .ROUTE .COMPLEX Qty: 2 0RF Dose Instruction: ADMINISTER 7.5 MG UNDER THE SKIN WEEKLY Rx Instructions: ADMINISTER 7.5 MG UNDER THE SKIN WEEKLY Follow-up/Referrals: Jeffery Hein MD [Primary Care Provider, [facility]] Time of Disposition: 11:38 Quality [place] Coma Scale Eyes: Open Verbal: Oriented and Alert Motor: Follows Commands Marcy Coma Total Score: 15
[2025-07-08 11:33] LABS: EDSTREPNEGPOS1 Negative (Negative)
--- OUTSIDE RECORDS SUMMARY | 2025-07-08 12:17 | XMS_ITS | Clinical Summary ---
Author Organization [facility] Address [address] [place] [address] Care Team Providers Care Senior Reactor Operator Name Role Phone Ann Braga RN Unavailable Unavailable Jeffery Hein MD Primary Care Provider [phone] Source Comments [facility],non-owned Affiliates and Associated Physician Practices is amultiple site organization consisting of ambulatory clinics and hospital sitesin [place], [place], [place] and [place]. This disclosure is being madepursuant to the Care Everywhere program and may not contain all information available regarding this patient. Last updated 18.[facility] [employer] Allergies Active Allergy Reactions Criticality Noted Date [...] once daily 09/01/19 21 Active nystatin (MYCOSTATIN) 494381 UNIT/GM powder APPLY TO AFFECTED AREA TWICE [...] once daily 05/09/20 24 Active HYDROcodone-yonathan taminophen ([place]) 5-325 MG tabletIndicatio ns:Varicose veins of bilateral [...] Obesity 10/24/2016 Atherosclerotic heart diseas e of [place] coronary artery without angina pectoris 10/24/2016 Chest [...] on file Legal Sex Female 5:15 PM SAMPLE WASHER Gender Identity Not on file Sexual Orientation [...] 5.8(H) <=5.6 % 05/07/2024 8:44 AM CDT [facility] Estimated Average Glucose 120 mg/dL 05/07/2024 8:44 AM T [facility] Comment: HbA1c Interpretation: Normal : < 5.7% Pre-diabetes: 5.7-6.4% Diabetes: Equal to or greater than 6.5% Test results diagnostic of diabetes should be repeated for confirmation. Treatment target values recommended by ADA and other clinical organizations should be used to evaluate metabolic control in patients. Reference: [place] Diabetes Association, Standards of Care in Diabetes [...] CDT 05/06/2024 4:19 PM CDT Chiara Howard COMPUTER PROGRAMMING MANAGER-GEODETIC SURVEYOR TECHNOLOGIST LAB - CHEMISTRY O RDERABLES Final Result [facility] [address] [place] [address], [facility] [phone] * (ABNORMAL) BASIC METABOLIC PANEL (CALCIUM TOTAL) (05/06/2024 3:46 PM CDT) BUN 14 7 - 26 mg/dL 05/06/2024 4:46 PM [facility] Creatinine 0.91 0.56 - 0.96 mg/dL 05/06/2024 4:46 PM [facility] Sodium 145 136 - 145 mmol/L 05/06/2024 4:46 PM [facility] Potassium 2.9(L) 3.5 - 4.5 mmol/L 05/06/2024 4:46 PM [facility] Chloride 106 98 - 107 mmol/L 05/06/2024 4:46 PM [facility] CO2 33(H) 22 - 29 mmol/L 05/06/2024 4:46 PM [facility] Glucose 90 70 - 115 mg/dL 05/06/2024 4:46 PM [facility] Calcium 8.6 8.4 - 10.2 mg/dL 05/06/2024 4:46 PM [facility] Anion Gap 6 6 - 16 05/06/2024 4:46 PM [facility] BUN/Creatinine Ratio 15 7 - 23 05/06/2024 4:46 PM [facility] Osmolality Calculated 300(H) 275 - 295 mOsm/kg 05/06/2024 4:46 PM [facility] eGFR by CKD-EPI 69(L) >=90 mL/min/1.7 3 m2 05/06/2024 4:46 PM CDT [facility] Blood BLOOD SPECIMEN / Unknown Lab Venipuncture / Unknown 05/06/2024 3:46 PM CDT 05/06/2024 4:19 PM CDT Chiara Howard COMPUTER PROGRAMMING MANAGER-GEODETIC SURVEYOR TECHNOLOGIST LAB - CHEMISTRY O RDERABLES Final Result Performing Organization Address City/[facility]/ZIP Co de Phone Number [facility] [address] [place] [address], [facility] [phone] from Last 3 Months or Most Recently [...] Documents on File Type Date Recorded Patient Hr Clerk Expl anation Adv Directive/Living Will/POA 10/25/2017 12:34 AM Advance Directives and Livin g Will 08/06/2016 12:00 AM * Full Code (Latest Code Status on File) Date Activated Date Inactivated Comments 02/19/2018 11:41 AM 02/20/2018 12:36 PM * Full Code Date Activated Date Inactivated Comments 10/22/2017 11:49 AM 10/23/2017 11:06 AM Care Teams Senior Reactor Operator Relationship Specialty Start Date End Date Jeffery Hein MD [address] [place] [address] PCP - General Family Medicine 04/10/23 Ann Braga, RN Registered Nurse 10/22/17
--- OUTSIDE RECORDS SUMMARY | 2025-07-08 12:17 | XMS_ITS | Clinical Summary ---
Author Organization [facility] [address] [facility] [address] Address [address] [place] [address] Care Team Providers Care Working Foreman Name Role Phone No, Physician Primary Care Provider [phone] Allergies Active Allergy Reactions Criticality Noted Date [...] (AAA) 09/25/2017 Coronary artery disease invo lving [place] coronary artery of [place] heart without angina pectoris 09/25/2017 Essential hypertension [...] on file Legal Sex Female 8:01 PM BIT SANDER Gender Identity Not on file Sexual Orientation [...] POCT LIPID PANEL Routine 09/25/2017 3:10 PM BIT SANDER Lipid screening from Last 3 Months or Most Recently Relevant to Health Maintenance Results * POCT lipid panel (09/25/2017 3:10 PM BIT SANDER) Cholesterol, POC 204 mg/dL HDL, POC 52 mg/dL Triglycerides, POC 214 mg/dL LDL Cholesterol POC 110 mg/dL Chol/HDL Ratio, POC 3.9 Non-HDL Cholesterol, POC 153 mg/dL Cholesterol Total, POC 204 mg/dL Blood specimen (specimen) 09/25/2017 3:10 PM BIT SANDER Eliseo Morales MD POINT OF CARE TEST ORDER INDIRA Final Result from Last 3 Months or Most Recently Relevant to Health [place] [address] [facility] Care Teams Working Foreman Relationship Specialty Start Date End Date No, Physician PCP - General 09/25/17
--- OUTSIDE RECORDS SUMMARY | 2025-07-08 12:17 | XMS_ITS ---
Author Organization [facility] Address [address] [place] [address] Care Team Providers Care Acquisition Cost Estimator Name Role Phone Ann Braga RN Unavailable Unavailable Jeffery Hein MD Primary Care Provider [phone] Active Problems Problem Noted Date Diagnosed Date [...] Obesity 10/24/2016 Atherosclerotic heart diseas e of [place] coronary artery without angina pectoris 10/24/2016 Chest [...]
== END 2025-07-08 11:44 | disposition home or self-care (01) ==
PROVIDERS: Emergency Provider Registered Nurse; PCP Family Medicine
DX: J02.9 Acute pharyngitis, unspecified (principal); E78.5 Hyperlipidemia, unspecified; I25.10 Atherosclerotic heart disease of native coronary artery without angina pectoris; I10 Essential (primary) hypertension; E11.9 Type 2 diabetes mellitus without complications; F17.290 Nicotine dependence, other tobacco product, uncomplicated
CPT/HCPCS: 87081; 87880; 99213; G0463

== ENCOUNTER 2025-07-30 12:43 | Outpatient (CLI) | payer OTHER, SELFPAY ==
[2025-07-30 13:28] LABS: Add Urine Microscopic? YES; Appearance Urine Clear (Clear); Glucose Urine UA Negative (Negative); Leukocyte Esterase Ur Trace LEU/UL (Negative); Nitrate Urine Negative (Negative); Specific Grav Ur 1.019 (1.001-1.035)
== END 2025-07-30 12:44 | disposition home or self-care (01) ==
PROVIDERS: PCP Family Medicine; Visit Provider Nurse Practitioner Family
DX: R39.9 Unspecified symptoms and signs involving the genitourinary system (principal)
CPT/HCPCS: 81001; 87086

== ENCOUNTER 2025-08-13 08:44 | Outpatient (CLI) | payer OTHER, SELFPAY ==
--- NOTE | ~2025-08-13 | CT_ITS ---
CT ABDOMEN AND PELVIS WITHOUT CONTRAST Clinical History: R10.9 - Unspecified abdominal pain Comparison: CTA 03/15/2024 Technique: Unenhanced axial images lung bases to symphysis pubis Coronal, sagittal reformats CT images acquired with automatic exposure control for dose reduction DLP: 675 mGy-cm Findings: Without intravenous contrast, sensitivity for detecting visceral parenchymal abnormalities decreased. Lung bases: Emphysema. Visualized heart and pericardium: Unremarkable. Liver: Unremarkable. Gallbladder: Unremarkable. Spleen: Unremarkable. Pancreas: Unremarkable. Adrenal glands: Unremarkable. Kidneys: Right kidney- No hydronephrosis. No renal stones. Left kidney- No hydronephrosis. No renal stones. Distal esophagus/stomach: Unremarkable. Small bowel loops: Normal caliber and wall thickness. Colon: Diverticula. Normal caliber and wall thickness. Appendix not identified. Trace, if any, stranding around proximal sigmoid colon. Nodes: No enlarged nodes. Peritoneum: No ascites. No free intraperitoneal air. Urinary bladder: Unremarkable. Uterus: Absent. Adnexa: No masses. Bones: 6 nonrib-bearing lumbar-type vertebral bodies. Calcific from the sacrum up, superior endplate compression fracture L1. Soft tissues: Unremarkable. Unopacified abdominal aorta: Bifurcating endograft. Excluded aneurysm sac unchanged in size. IMPRESSION: 1. Trace, if any, sigmoid diverticulitis not excluded. 2. Otherwise no acute abnormality. Reviewed, dictated and finalized at location R. PAINTER
--- OUTSIDE RECORDS SUMMARY | 2025-08-13 08:47 | XMS_ITS ---
Author Organization [facility] Address [address] [place] [address] Care Team Providers Care Security Representative Name Role Phone Ann Braga RN Unavailable Unavailable Jeffery Hein MD Primary Care Provider [phone] Active Problems Problem Noted Date Diagnosed Date [...] Obesity 10/24/2016 Atherosclerotic heart diseas e of [place] coronary artery without angina pectoris 10/24/2016 Chest [...]
--- OUTSIDE RECORDS SUMMARY | 2025-08-13 08:47 | XMS_ITS | Clinical Summary ---
Author Organization [facility] [address] Address [address] [place] [address] Care Team Providers Care Engineer Technician Name Role Phone Jeffery Hein MD Primary Care Provider [phone] Allergies Active Allergy Reactions Criticality Noted Date [...] (50MG) by oral route every day 30 3 Active Additional Information Patient not taking.Reported [...] mouth daily. 30 tablet 11 8 Active ibuprofen (ADVIL,MOTRIN) 600 mg tablet Take 1 tablet (600 mg total) by mouth every 6 (six) hours as needed for pain 30 tablet 5 Active cyclobenzaprine (FLEXERIL) 10 mg tablet Take 1 tablet (10 mg total) by mouth 2 (two) times a day as needed for muscle spasms 20 tablet 5 Active Active Problems Problem Noted Date Diagnosed Date History of endovascular sten t graft for abdominal aortic aneurysm (AAA) 09/25/2017 Coronary artery disease invo lving [place] coronary artery of [place] heart without angina pectoris 09/25/2017 Essential hypertension 09/25/2017 Dyslipidemia associated with type 2 diabetes brijesh litus 09/25/2017 Hx of CABG 09/25/2017 S/P coronary artery stent placement 09/25/2017 ELISABETH (obstructive sleep apnea) 09/25/2017 Palpitations 09/25/2017 Tobacco abuse, in remission 09/25/2017 Encounters Date Type Department Care Team Description 07/13/2025 9:[address] OFFICE ASSISTANT - 07/14/2025 12:22 AM [facility] Emergency [facility] Emergency Department [address] [place] [address] Fall, initial encounter (Primary Dx); Acute pain of both knees; Contusion of left upper arm, initial encounter; Acute midline low back pain, unspecified whether sciatica present Discharge Disposition: Discharge to home or self [...] drink = 0.6 oz pur e alcohol) Personal Safety Answer Date Recorded Have you ever been in or are you currently in a harmful physical or emotional relationship or is someone making you feel afraid or unsafe? Denies 07/13/2025 Comments No Sex and Gender Information Value Date Recorded Sex Assigned at Not on file Legal Sex Female 8:[address] OFFICE ASSISTANT Gender Identity Not on file Sexual Orientation Not on file Last Filed Vital Signs Vital Sign Reading Time Taken Comments Blood Pressure 153/85 07/13/2025 9:[address] OFFICE ASSISTANT Pulse 63 07/13/2025 9:[address] OFFICE ASSISTANT Temperature 36.4 C (97.5 F) 07/13/2025 9:[address] OFFICE ASSISTANT Respiratory Rate 16 07/13/2025 9:[address] OFFICE ASSISTANT Oxygen Saturation 98% 07/13/2025 9:[address] OFFICE ASSISTANT Inhaled Oxygen Concentration - - Weight 78 kg (172 lb) 07/13/2025 9:[address] OFFICE ASSISTANT Height 165.1 cm (5' 5) 07/13/2025 9:[address] OFFICE ASSISTANT Body Mass Index 28.62 07/13/2025 9:[address] OFFICE ASSISTANT Plan of Treatment Health Maintenance Due Date Last Done Comments Albumin Creatinine Ratio, Urine 1955 Breast Cancer Screening-Mammogram 1955 Colon Cancer Screening-Colonoscopy 1955 Depression Screening 1955 Fall Risk Assessment 1955 Hepatitis C Screening 1955 Osteoporosis Screening-Bone Density Scan 1955 eGFR 1955 Dilated Eye Exam 1955 Foot Exam 1955 Hepatitis B Screening 1973 Zoster Vaccine (1 of 2) 2005 Pneumococcal vaccine 65+ (2 of 2 - PCV) 10/23/2017 10/23/2016 Lipid Panel 09/25/2018 09/25/2017 Well Visit 65+ 2020 Hemoglobin A1C 11/03/2024 05/06/2024 Covid-19 Vaccine (2 - 2024-2 6 season) 2025 04/05/2021 Influenza Vaccine (#1) 2025 , 09/09/2018, 05/10/2017, Additional history exists DTaP/Tdap/Td Vaccine (2 - Td or Tdap) 02/12/2032 02/11/2022 Procedures Procedure Name Priority Date/Time Associated Diagnosis Comments CT LUMBAR SPINE WO CONTRAST ED 07/13/2025 11:[address] OFFICE ASSISTANT XR KNEE LEFT 4 OR MORE VIEWS ED 07/13/2025 10:[address] OFFICE ASSISTANT XR KNEE RIGHT 4 OR MORE VIEWS ED 07/13/2025 10:[address] OFFICE ASSISTANT XR HUMERUS LEFT 2 OR MORE VIEWS ED 07/13/2025 10:[address] OFFICE ASSISTANT POCT LIPID PANEL Routine 09/25/2017 3:[address] OFFICE ASSISTANT Lipid screening from Last 3 Months or Most Recently Relevant to Health Maintenance Results * CT Lumbar Spine WO Contrast (07/13/2025 11:[address] OFFICE ASSISTANT) Anatomical Region Laterality Modality Spine N/A Computed Tomogra phy 07/13/2025 11:[address] OFFICE ASSISTANT Impressions 07/13/2025 11:[address] OFFICE ASSISTANT No acute displaced fracture or traumatic malalignment. Multilevel degenerative changes as described above most pronounced at L5/S1. Electronically signed by: Shen Nguyen M.D. Narrative 07/13/2025 11:[address] OFFICE ASSISTANT EXAM DESCRIPTION: CT LUMBAR SPINE WO CONTRAST REASON FOR STUDY: Compression fracture, lumbar TECHNIQUE: Axial images acquired through the lumbar spine without intravenous contrast. Reconstructed coronal and sagittal MPR images reviewed. All images stored on PACS. Automated exposure control was used as a dose optimization technique for this examination. COMPARISON: None. FINDINGS: SEGMENTATION: No transitional anatomy. The lowest well-developed disc space is labeled L5-S1. HARDWARE: None. ALIGNMENT: Normal. VERTEBRAE: Diffuse bone demineralization. Vertebral body heights are grossly maintained. No acute displaced fracture. Multilevel Schmorl's nodes. DISC HEIGHT: Well-maintained. INDIVIDUAL LEVELS: T12-L1: Concentric disc bulge without significant spinal canal or neuroforaminal narrowing. L1-L2: Concentric disc bulge without significant spinal canal or neuroforaminal narrowing. L2-L3: Concentric disc bulge without significant spinal canal or neuroforaminal narrowing. L3-L4: Concentric disc bulge without significant spinal canal or neuroforaminal narrowing. L4-L5: Concentric disc bulge and facet arthropathy without significant spinal canal or neuroforaminal narrowing. L5-S1: Concentric disc bulge asymmetric to the right and facet arthrosis results in moderate to severe left and mild right neural foraminal narrowing. No significant spinal canal narrowing. OTHER: Abdominal aortic aneurysm status post endovascular stent graft repair suboptimally evaluated without intravenous contrast. Colonic diverticulosis without acute inflammation. No definite acute abnormality in the visualized abdomen or pelvis. Procedure Note Shen Nguyen MD - 07/13/2025 EXAM DESCRIPTION: CT LUMBAR SPINE WO CONTRAST REASON FOR STUDY: Compression fracture, lumbar TECHNIQUE: Axial images acquired through the lumbar spine without intravenous contrast. Reconstructed coronal and sagittal MPR images reviewed. All images stored on PACS. Automated exposure control was used as a dose optimization technique for this examination. COMPARISON: None. FINDINGS: SEGMENTATION: No transitional anatomy. The lowest well-developed disc space is labeled L5-S1. HARDWARE: None. ALIGNMENT: Normal. VERTEBRAE: Diffuse bone demineralization. Vertebral body heights are grossly maintained. No acute displaced fracture. Multilevel Schmorl's nodes. DISC HEIGHT: Well-maintained. INDIVIDUAL LEVELS: T12-L1: Concentric disc bulge without significant spinal canal or neuroforaminal narrowing. L1-L2: Concentric disc bulge without significant spinal canal or neuroforaminal narrowing. L2-L3: Concentric disc bulge without significant spinal canal or neuroforaminal narrowing. L3-L4: Concentric disc bulge without significant spinal canal or neuroforaminal narrowing. L4-L5: Concentric disc bulge and facet arthropathy without significant spinal canal or neuroforaminal narrowing. L5-S1: Concentric disc bulge asymmetric to the right and facet arthrosis results in moderate to severe left and mild right neural foraminal narrowing. No significant spinal canal narrowing. OTHER: Abdominal aortic aneurysm status post endovascular stent graft repair suboptimally evaluated without intravenous contrast. Colonic diverticulosis without acute inflammation. No definite acute abnormality in the visualized abdomen or pelvis. IMPRESSION: No acute displaced fracture or traumatic malalignment. Multilevel degenerative changes as described above most pronounced at L5/S1. Electronically signed by: Shen Nguyen M.D. [facility] CT PROCEDURES Final Result * XR Knee Right 4 or More Views (07/13/2025 10:[address] OFFICE ASSISTANT) Anatomical Region Laterality Modality Lower Extremities, Knee Right Computed Radiography 07/13/2025 11:[address] OFFICE ASSISTANT Impressions 07/13/2025 11:[address] OFFICE ASSISTANT No acute osseous abnormality of the knees. Electronically signed by: Des Langston M.D. Narrative 07/13/2025 11:[address] OFFICE ASSISTANT EXAMINATION: XR KNEE LEFT 4 OR MORE VIEWS, XR KNEE RIGHT 4 OR MORE VIEWS INDICATION: Female, 69 years old, fall TECHNIQUE: 5 views right knee, 4 views left knee COMPARISON(S): None available FINDINGS: No acute fracture, joint malalignment or evident effusion. Ndir-[id number] bilateral tricompartmental osteoarthrosis most pronounced in the medial compartments. Generalized osteopenia. Bilateral extensor mechanism enthesophytes. No appreciable soft tissue swelling. Vascular clips in the left lower leg. Procedure Note Des Langston MD - 07/13/2025 EXAMINATION: XR KNEE LEFT 4 OR MORE VIEWS, XR KNEE RIGHT 4 OR MORE VIEWS INDICATION: Female, 69 years old, fall TECHNIQUE: 5 views right knee, 4 views left knee COMPARISON(S): None available FINDINGS: No acute fracture, joint malalignment or evident effusion. Kntf-bu-xvvsepeo bilateral tricompartmental osteoarthrosis most pronounced in the medial compartments. Generalized osteopenia. Bilateral extensor mechanism enthesophytes. No appreciable soft tissue swelling. Vascular clips in the left lower leg. IMPRESSION: No acute osseous abnormality of the knees. Electronically signed by: Des Langston M.D. [facility] XR PROCEDURES Final Result * XR Knee Left 4 or More Views (07/13/2025 10:[address] OFFICE ASSISTANT) Anatomical Region Laterality Modality Lower Extremities, Knee Left Computed Radiography 07/13/2025 11:[address] OFFICE ASSISTANT Impressions 07/13/2025 11:[address] OFFICE ASSISTANT No acute osseous abnormality of the knees. Electronically signed by: Des Langston M.D. Narrative 07/13/2025 11:[address] OFFICE ASSISTANT EXAMINATION: XR KNEE LEFT 4 OR MORE VIEWS, XR KNEE RIGHT 4 OR MORE VIEWS INDICATION: Female, 69 years old, fall TECHNIQUE: 5 views right knee, 4 views left knee COMPARISON(S): None available FINDINGS: No acute fracture, joint malalignment or evident effusion. Amxz-ll-zvuavowm bilateral tricompartmental osteoarthrosis most pronounced in the medial compartments. Generalized osteopenia. Bilateral extensor mechanism enthesophytes. No appreciable soft tissue swelling. Vascular clips in the left lower leg. Procedure Note Des Langston MD - 07/13/2025 EXAMINATION: XR KNEE LEFT 4 OR MORE VIEWS, XR KNEE RIGHT 4 OR MORE VIEWS INDICATION: Female, 69 years old, fall TECHNIQUE: 5 views right knee, 4 views left knee COMPARISON(S): None available FINDINGS: No acute fracture, joint malalignment or evident effusion. Vryp-uy-yhfhokgu bilateral tricompartmental osteoarthrosis most pronounced in the medial compartments. Generalized osteopenia. Bilateral extensor mechanism enthesophytes. No appreciable soft tissue swelling. Vascular clips in the left lower leg. IMPRESSION: No acute osseous abnormality of the knees. Electronically signed by: Des Langston M.D. [facility] XR PROCEDURES Final Result * XR Humerus Left 2 or More Views (07/13/2025 10:[address] OFFICE ASSISTANT) Anatomical Region Laterality Modality Upper Extremities, Upper Arm Left Com puted Radiography 07/13/2025 11:[address] OFFICE ASSISTANT Impressions 07/13/2025 11:[address] OFFICE ASSISTANT No acute osseous abnormality. Electronically signed by: Shen Nguyen M.D. Narrative 07/13/2025 11:[address] OFFICE ASSISTANT EXAMINATION/TECHNIQUE: XR HUMERUS LEFT 2 OR MORE VIEWS 2 radiographic views of the humerus. HISTORY: trip and fall COMPARISON: None. FINDINGS: BONES/JOINTS: No acute displaced fracture or dislocation. No aggressive-appearing osseous lesion. Chronic enthesopathic change of the medial humeral epicondyle. Mild degenerative changes of the acromioclavicular and glenohumeral joints. SOFT TISSUES: Unremarkable. Procedure Note Shen Nguyen MD - 07/13/2025 EXAMINATION/TECHNIQUE: XR HUMERUS LEFT 2 OR MORE VIEWS 2 radiographic views of the humerus. HISTORY: trip and fall COMPARISON: None. FINDINGS: BONES/JOINTS: No acute displaced fracture or dislocation. No aggressive-appearing osseous lesion. Chronic enthesopathic change of the medial humeral epicondyle. Mild degenerative changes of the acromioclavicular and glenohumeral joints. SOFT TISSUES: Unremarkable. IMPRESSION: No acute osseous abnormality. Electronically signed by: Shen Nguyen M.D. [facility] XR PROCEDURES Final Result * POCT lipid panel (09/25/2017 3:[address] OFFICE ASSISTANT) Cholesterol, POC 204 mg/dL HDL, POC 52 mg/dL Triglycerides, POC 214 mg/dL LDL Cholesterol POC 110 mg/dL Chol/HDL Ratio, POC 3.9 Non-HDL Cholesterol, POC 153 mg/dL Cholesterol Total, POC 204 mg/dL Blood specimen (specimen) 09/25/2017 3:[address] OFFICE ASSISTANT Eliseo Morales MD POINT OF CARE TEST ORDER INDIRA Final Result from Last 3 Months or Most Recently Relevant to Health Maintenance Insurance IDPA [facility] Care Teams Engineer Technician Relationship Specialty Start Date End Date Jeffery Hein MD [address] [place] [address] PCP - General Family Practice 07/13/25
--- OUTSIDE RECORDS SUMMARY | 2025-08-13 08:47 | XMS_ITS | Clinical Summary ---
Author Organization [facility] [employer] Address [address] [place] [address] Care Team Providers Care Behavioral Medical Director Name Role Phone Ann Braga RN Unavailable Unavailable Jeffery Hein MD Primary Care Provider [phone] Source Comments [facility],non-owned Affiliates and Associated Physician Practices is amultiple site organization consisting of ambulatory clinics and hospital sitesin [place], [place], [place] and [place]. This disclosure is being madepursuant to the Care Everywhere program and may not contain all information available regarding this patient. 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 Gender Identity Not on file Sexual Orientation [...] 07/30/1973 DTAP/TDAP/TD VACCINES (1 - Tdap) 1974 Respiratory Syncytial Virus (RSV) Vaccine Pt: or over 60 yrs (1 - Risk 50-74 years 1-dose series) 2005 ZOSTER VACCINE (1 of 2) 2005 PNEUMOCOCCAL VACCINE 50+ (2 of 2 - [...] 5.8(H) <=5.6 % 05/07/2024 8:44 AM CDT [facility] Estimated Average Glucose 120 mg/dL 05/07/2024 8:44 AM T [facility] Comment: HbA1c Interpretation: Normal : < 5.7% Pre-diabetes: 5.7-6.4% Diabetes: Equal to or greater than 6.5% Test results diagnostic of diabetes should be repeated for confirmation. Treatment target values recommended by ADA and other clinical organizations should be used to evaluate metabolic control in patients. Reference: [place] Diabetes Association, Standards of Care in Diabetes [...] CDT 05/06/2024 4:19 PM CDT Chiara Howard RETAIL OFFICE ASSOCIATE-CONSTRUCTION QUALITY CONTROL MANAGER LAB - CHEMISTRY O RDERABLES Final Result [facility] [address] [place] [address], [facility] [phone] * (ABNORMAL) BASIC METABOLIC PANEL (CALCIUM TOTAL) [...] mL/min/1.7 3 m2 05/06/2024 4:46 PM CDT [facility] Blood BLOOD SPECIMEN / Unknown Lab Venipuncture / Unknown 05/06/2024 3:46 PM CDT 05/06/2024 4:19 PM CDT Chiara Howard RETAIL OFFICE ASSOCIATE-CONSTRUCTION QUALITY CONTROL MANAGER LAB - CHEMISTRY O RDERABLES Final Result Performing Organization Address City/[facility]/ZIP Co de Phone Number [facility] [address] [place] [address], [facility] [phone] from Last 3 Months or Most Recently [...] Documents on File Type Date Recorded Patient Steno Typist Expl anation Adv Directive/Living Will/POA 10/25/2017 12:34 AM Advance Directives and Livin g Will 08/06/2016 12:00 AM * Full Code (Latest Code Status on File) Date Activated Date Inactivated Comments 02/19/2018 11:41 AM 02/20/2018 12:36 PM * Full Code Date Activated Date Inactivated Comments 10/22/2017 11:49 AM 10/23/2017 11:06 AM Care Teams Behavioral Medical Director Relationship Specialty Start Date End Date Jeffery Hein MD [address] [place] [address] PCP - General Family Medicine 04/10/23 Ann Braga, RN Registered Nurse 10/22/17
--- NOTE | 2025-08-13 09:19 | ECG_ITS ---
Test Date: 2025-08-13 09:33:37 Measurements Intervals [place] Rate: 66 P: 44 DE: 169 QRS: -9 QRSD: 103 T: 80 QT: 420 QTc: 443 Interpretive Statements SINUS RHYTHM WITH FREQUENT SUPRAVENTRICULAR PREMATURE COMPLEXES LEFT VENTRICULAR HYPERTROPHY AND ST-T CHANGE CANNOT R/O SEPTAL INFARCT, AGE INDETERMINATE BORDERLINE ST-T WAVE ABNORMALITY- ANTERIOR LEADS ABNORMAL ECG Compared to ECG 03/06/2025 16:24:43 NO SIGNIFICANT CHANGE Electronically Signed On 08-13-2025 11:29:30 MOLECULAR GENETIC PATHOLOGIST by Kamron Santamaria D.O.
[2025-08-13 10:38] LABS: Hematocrit 39.5 % (37.0-47.0); Hemoglobin 12.7 g/dL (12.0-15.0); Immature Granulocyte Percent A 0.4 % (0-0.5); Lymphocytes Absolute Auto 1.08 K/mm3 (0.9-3.2); Mean Corpuscular HGB Conc 32.2 g/dl (32-36); Mean Corpuscular Hemoglobin 28.9 pg (26-34); Mean Corpuscular Volume 90.0 fl (80-100); Nucleated Red Blood Cells Absolute Auto 0.000 K/mm3 (0.0-0.012); Nucleated Red Blood Cells Perc 0.0 % (0.0-0.2); Platelet Count Result 166 k/mm3 (150-375); Red Blood Count 4.39 M/mm3 (4.2-5.4); White Blood Count 5.4 K/mm3 (4.5-10.0)
[2025-08-13 11:02] LABS: Lipase 48 U/L (23-300)
[2025-08-13 11:13] LABS: Troponin I 0.018 ng/mL (0.000-0.034)
[2025-08-13 11:17] LABS: Hemoglobin A1C 5.6 % (<5.7)
== END 2025-08-13 08:45 | disposition home or self-care (01) ==
PROVIDERS: PCP Family Medicine; Visit Provider Family Medicine
DX: R94.31 Abnormal electrocardiogram [ECG] [EKG] (principal); R10.9 Unspecified abdominal pain; E11.622 Type 2 diabetes mellitus with other skin ulcer; Z79.4 Long term (current) use of insulin; R07.9 Chest pain, unspecified
CPT/HCPCS: 36415; 74176; 83036; 83690; 84484; 85025; 93005